=== PATIENT | female | born 1970 | race Caucasian/White ===

== ENCOUNTER → 2018-06-15 12:51 | Outpatient (CLI) | payer MEDICAID, SELFPAY ==
--- NOTE | 2018-06-15 13:01 | RAD_ITS ---
STUDY: X-RAY - LUMBAR SPINE REASON FOR EXAM: Female, 48 years old. Low back pain TECHNIQUE: 3 view(s) of the lumbar spine were obtained. COMPARISON: None FINDINGS: Normal lumbar lordosis. There is no substantial scoliosis. There is a normal alignment of the vertebrae. Normal vertebral bodies and endplates. Normal disc space heights. The soft tissue structures are unremarkable. RAD/Lumbar Spine 2 or 3 Views IMPRESSION: Normal x-ray examination of the lumbar spine. Electronically Signed: Bolivar Garcia MD at 13:35 EDT , Service support ,
--- NOTE | 2018-06-15 13:01 | RAD_ITS ---
STUDY: X-RAY - CERVICAL SPINE REASON FOR EXAM: Female, 48 years old. Chronic pain TECHNIQUE: 3 view(s) of the cervical spine were obtained. COMPARISON: None FINDINGS: Normal anterior atlantoaxial articulation. Normal odontoid process. There is anatomic alignment of the C-spine from C1 to C4. There is 2 to 3 mm of posterior subluxation of C5 on C4. C5-T1 align anatomically. The subluxation is likely chronic as there is no soft tissue swelling or other evidence of acute injury. There is straightening of the normal cervical lordosis. Normal vertebral bodies and endplates. Mild disc space narrowing. The soft tissue structures are unremarkable. RAD/Cerv Spine 2 or 3 Views IMPRESSION: Mild degenerative changes with a likely chronic subluxation at C4-5, no demonstrated fracture or suspicious osseous lesion Electronically Signed: Bolivar Garcia MD at 13:34 EDT , Service support ,
--- NOTE | 2018-06-15 13:01 | RAD_ITS ---
STUDY: X-RAY - THORACIC SPINE REASON FOR EXAM: Female, 48 years old. Mid back pain TECHNIQUE: 2 view(s) of the thoracic spine were obtained. COMPARISON: None. FINDINGS: Normal kyphosis of the thoracic spine. There is no substantial scoliosis. Normal thoracic vertebrae and endplates. Mild disc space narrowing. The soft tissue structures are unremarkable. RAD/Thoracic Spine 2 Views IMPRESSION: Mild degenerative changes, no demonstrated fracture or suspicious osseous lesion Electronically Signed: Bolivar Garcia MD at 13:35 EDT , Service support ,
== END ==
PROVIDERS: Family Provider Internal Medicine; PCP Internal Medicine; Visit Provider Nurse Practitioner Family
DX: M50.30 Other cervical disc degeneration, unspecified cervical region (principal); M54.9 Dorsalgia, unspecified; G89.29 Other chronic pain
CPT/HCPCS: 72040; 72070; 72100

== ENCOUNTER → 2018-07-12 16:03 | Outpatient (CLI) | payer MEDICAID, SELFPAY | PROVIDERS: Family Provider Internal Medicine; PCP Internal Medicine; Visit Provider Nurse Practitioner Family | DX: M54.12 Radiculopathy, cervical region (principal); M54.2 Cervicalgia; S13.150A Subluxation of C4/C5 cervical vertebrae, initial encounter | CPT/HCPCS: 72141 ==

== ENCOUNTER → 2018-07-13 09:24 | Outpatient (CLI) | payer MEDICAID, SELFPAY ==
[2018-07-13 09:52] LABS: Absolute Lymphocyte Count 3.48 X10^3/ul (0.83-4.51); Absolute Neutrophil Count 5.9 X10^3/uL (2.0-7.7); Basophil# 0.03 X10^3/uL; Basophil% 0.3 % (0-1); Eosinophil# 0.13 X10^3/uL; Eosinophils% 1.3 % (0-5); Hematocrit 42.3 % (37-47); Hemoglobin 14.2 g/dl (12.0-15.0); Lymphocyte # 3.48 X10^3/ul (4.0); Lymphocyte % 33.9 % (19-41); Mean Corp Hgb Conc 33.6 g/gl (32-36); Mean Corpuscular Hgb 30.6 pg (27.0-32.0); Mean Corpuscular Volume 91.2 fL (81-99); Mean Platelet Vol. 9.6 fl (6.2-12.0); Monocyte# 0.73 X10^3/uL; Monocyte% 7.1 % (0-10); Neutrophil # 5.85 X10^3/uL (2.7-7.7); Platelet Count 316 K/mm3 (150-450); RBC Distribution Width CV 13.4 % (11.6-14.6); RBC Distribution Width SD 44.8 fl (35.1-43.9); Red Blood Count 4.64 M/mm3 (4.2-5.4); White Blood Count 10.3 K/mm3 (4.4-11.0)
[2018-07-13 09:54] LABS: POSITIVE COUNT NO; POSITIVE DIFFERENTIAL NO; POSITIVE MORPHOLOGY NO
[2018-07-13 10:24] LABS: AST(SGOT) 11 U/L (15-37); Alanine Aminotransfer ALT/SGPT 24 U/L (13-56); Albumin, Serum 3.7 g/dL (3.2-5.0); Alkaline Phosphatase 70 U/L (45-117); Anion Gap 5 (5-15); BUN 19 mg/dL (7-18); BUN/Creat Ratio 24.7 RATIO (10-20); Calcium,Total 8.7 mg/dL (8.5-10.1); Chloride 103 mmol/L (98-107); Cholesterol 177 mg/dL (200); Creatinine, Serum 0.77 mg/dL (0.55-1.02); EST Glomerular Filtration Rate 85 mL/min (>60); Est Glom Filt Rate - Afr Amer 103 mL/min (>60); Globulin 3.7 g/dL (2.2-4.2); Glucose 90 mg/dL (74-106); High Density Lipoprotein 78 mg/dL; Potassium 3.6 mmol/L (3.5-5.1); Protein, Total 7.4 g/dL (6.4-8.2); Sodium Level 140 mmol/L (136-145); Thyroid Stim Hormone (TSH) 1.07 uIU/mL (0.358-3.74); Triglycerides 88 mg/dL; Very Low Density Lipoprotein 18 mg/dL (5-40)
== END ==
PROVIDERS: Family Provider Internal Medicine; PCP Internal Medicine; Visit Provider Internal Medicine
DX: Z00.00 Encounter for general adult medical examination without abnormal findings (principal); K21.9 Gastro-esophageal reflux disease without esophagitis; F32.9 Major depressive disorder, single episode, unspecified
CPT/HCPCS: 36415; 80053; 80061; 84443; 85025; 88175; 97113; G0145

== ENCOUNTER → 2018-07-13 18:13 | Outpatient (CLI) | payer MEDICAID, SELFPAY ==
[2018-07-20 11:09] LABS: HPV APTIMA, High Risk Negative (Negative)
== END ==
PROVIDERS: Family Provider Internal Medicine; PCP Internal Medicine; Visit Provider Nurse Practitioner Women's Health
DX: Z12.4 Encounter for screening for malignant neoplasm of cervix (principal)
CPT/HCPCS: 88175; G0145

== ENCOUNTER → 2018-07-14 13:26 | Outpatient (CLI) | payer MEDICAID, SELFPAY | PROVIDERS: Family Provider Internal Medicine; PCP Internal Medicine; Visit Provider Surgery | DX: K41.90 Unilateral femoral hernia, without obstruction or gangrene, not specified as recurrent (principal) | CPT/HCPCS: 74177; Q9967 ==

== ENCOUNTER 2018-07-18 13:00 | Outpatient (RCR) | payer MEDICAID, SELFPAY ==
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
--- NOTE | 2018-07-18 13:39 | HP.PTDCSUM ---
HP - PT D/C Summary It has been my pleasure to treat JESSICA MCKINNEY under orders from Henrry Gaytan NP-C, for the diagnosis of CHRONIC BACK PAIN,DEGENERATIVE DISC DISEASE for a total of 7 visit(s). Discharge Date: 07/18/18 Please see the following information for a summary of their discharge status. - Subjective Subjective: Patient reports constant pain every day. Symptoms affect ADLS' and housework tasks - Pain Bilateral Back Pain Intensity (Out of 10): 7 Bilateral Neck Pain Intensity (Out of 10): 7 - Overall Improvement % Improvement: 40 - Objective Objective/Function: POSTURE: mild foward posture. GAIT: normal harjit. AROM CERVICAL: min loss,extension mod loss,lateral flexion/rotation mod-pain,left min loss. AROM LUMBAR: min loss flexion/exrension. MMT: 4-/5 quads/hams /hip, ankle 4/5. BUE: 4/5,shoulder 4-5/ - Goals Goal 1:: Independant with Aquatic PT Goal Progress: Progressing Goal 2:: Independant with posture for ADL'S Goal Progress: Progressing Goal 3:: Patient decrease pain cervical and radicular symotoms and lumbar region to improve function with ADL'S Goal Progress: Progressing Goal 4:: Patient to improve cervical and lumbar ROM for function of recovery. Goal Progress: Progressing Goal 5:: Patient increase strength BUE/LE by 1/2 grade to improve function. Goal Progress: Progressing Goal 6:: Patient be able to perform ADL'S and housework tasks with min limiations Goal Progress: Progressing - Plan Plan: D/C RTD - D/C Information Discharge Comments: RTD If there are questions or concerns regarding this patient's physical therapy, please feel free to call me at [phone]. Thank you for the referral of this patient. Sincerely, Mansoor Lambert, PT,
== END 2018-07-18 19:00 | disposition home or self-care (01) ==
LOC: PT 13:00
PROVIDERS: Family Provider Internal Medicine; PCP Internal Medicine; Visit Provider Nurse Practitioner Family
DX: M50.30 Other cervical disc degeneration, unspecified cervical region (principal); M54.9 Dorsalgia, unspecified; G89.29 Other chronic pain
CPT/HCPCS: 97113; 97162; 97530

== ENCOUNTER → 2018-07-20 10:55 | Outpatient (CLI) | payer MEDICAID, SELFPAY | PROVIDERS: Family Provider Internal Medicine; PCP Internal Medicine; Visit Provider Surgery | DX: R22.1 Localized swelling, mass and lump, neck (principal) | CPT/HCPCS: 76536 ==

== ENCOUNTER → 2018-08-10 10:00 | Outpatient (CLI) | payer MEDICAID, SELFPAY ==
--- NOTE | 2018-08-10 10:00 | LES_PTH ---
PATIENT: JESSICA MCKINNEY LOC: [facility] U#:[id number] AGE/SX: 55/F ROOM: RE08/10/[address]: Dr. Rian Zuluaga MD : 1970 BED: DIS: SPEC #: [id number] RECD: 08/10/18 12:08 STATUS: SANTHOSH [place] #: [id number] ROGERS: 08/10/18 10:[address]: Rian Zuluaga DEPT: SURGICAL PATHOLOGY RECD BY: Jennifer Trejo ENTERED: 08/10/18 15:03 SP TYPE: Lesion OTHR DR: Dr. Ginger Tripp MD Tissues: Skin of neck, NOS Procedures: Surgery Specimen Level III HEADER OPERATION: Excision of left posterior neck subcutaneous lesion PRE-OP DIAGNOSIS: Lesion of subcutaneous tissue TISSUE SUBMITTED: Left posterior neck subcutaneous lesion MICROSCOPIC DIAGNOSIS Left posterior neck subcutaneous lesion, excision: Fragments of mature adipose tissue consistent with lipoma. SJ:mitchel 08/11/18 MICROSCOPIC DESCRIPTION Slides are reviewed. GROSS DESCRIPTION Received in fixative is one container labeled with the patient's name and designated left posterior neck. The specimen consists of multiple irregular fragments of yellow adipose tissue that in aggregate measure 2 x 2 x 0.7 cm. Sections of the largest piece reveal yellow adipose cut surfaces without area of hemorrhage, necrosis and cystic degeneration. The entire specimen is submitted in one cassette. / ALY:mitchel 08/10/18 TC:1 CPT: 55175
== END ==
PROVIDERS: Family Provider Internal Medicine; PCP Internal Medicine; Visit Provider Surgery
DX: L98.9 Disorder of the skin and subcutaneous tissue, unspecified (principal)
CPT/HCPCS: 88304; 88305

== ENCOUNTER 2018-08-17 19:31 | Emergency (ER) | payer MEDICAID, SELFPAY ==
[2018-08-17 19:32] VITALS: BP 154/84; PULSE 69; RESP 18; TEMP 37; O2SAT 97; BMI 31.9
--- NOTE | 2018-08-17 20:43 | ED.DCSUM_ITS ---
- ER Visit Summary Date of Service: 08/17/18 Chief Complaint: Vomiting History of Present Illness: The patient is a 48 F who presents for vomiting since yesterday. Patient had a colonoscopy yesterday, and when she woke up from the anesthesia she began vomiting. She vomited 3 times prior to discharge from the procedure. She has been vomiting ever since. She has not even been able to tolerate water. She has nausea just preceding her vomiting. She has had no diarrhea. Decreased urine output. No fever, chest pain or shortness of breath. No abdominal pain. One polyp was resected. History of GERD, peptic ulcer disease, hernia. Physical Examination: Vital signs: afebrile, hemodynamically stable, no hypoxia on room air General: well nourished, well developed, in no distress Skin: warm, dry, no rash, no pallor HEENT: normocephalic and atraumatic; PERRL, EOMI, moist mucous membranes Cardiovascular: regular rate and rhythm without murmurs, no peripheral edema, 2+ pulses all distal extremities Respiratory: No increased work of breathing, lungs are clear to auscultation b ilaterally, no rales, rhonchi or wheezing Abdominal: Abdomen is soft, nontender with normoactive bowel sounds, no guarding or rebound, no masses MSK: Moves all extremities, no deformities, normal strength Neuro: Awake and alert, oriented ?4. No facial droop, sensation and motor function intact and symmetric Test Results: Abnormal Lab Results 08/17/18 08/17/18 08/17/18 20:45 20:45 20:45 WBC 15.6 H RBC 4.40 Hgb 13.2 Hct 39.7 MCV 90.2 MCH 30.0 MCHC 33.2 RDW 14.8 H RDW Differential 48.1 H Plt Count 276 MPV 9.6 Immature Gran % (Auto) 0.100 Neut % (Auto) 86.9 H Lymph % (Auto) 11.0 L Carver % (Auto) 1.9 Eos % (Auto) 0.0 Baso % (Auto) 0.1 Absolute Neuts (auto) 13.6 H Absolute Lymphs (auto) 1.72 Total Counted Not Reportable Sodium 138 Potassium 2.8 L Chloride 99 Carbon Dioxide 30.0 Anion Gap 9 BUN 14 Creatinine 0.75 Estim Creat Clear Calc 81.65 Est GFR (MDRD) Af Amer 105 Est GFR (MDRD) Non-Af 87 BUN/Creatinine Ratio 18.6 Glucose 129 H Calcium 9.1 Magnesium 2.1 Total Bilirubin 0.50 AST 13 L ALT 26 Alkaline Phosphatase 67 Total Protein 7.3 Albumin 3.7 Globulin 3.6 Albumin/Globulin Ratio 1.0 Lipase 188 Medications Given Discontinued Medications Sodium Chloride () 1,000 mls @ 1,000 mls/hr IV .Q1H ONE Stop: 08/17/18 21:37 Last Admin: 08/17/18 20:59 Dose: 1,000 mls/hr Potassium Chloride (Kcl 10meq/100ml) 10 meq in 100 mls @ 100 mls/hr IV BOLUS Q1H EREN Stop: 08/17/18 23:29 Last Admin: 08/17/18 22:44 Dose: 100 mls/hr Admin: 08/17/18 21:42 Dose: 100 mls/hr Morphine Sulfate () 4 mg IV X1 ONE Stop: 08/17/18 20:39 Last Admin: 08/17/18 21:00 Dose: 4 mg Ondansetron HCl (Zofran) 4 mg IV X1 ONE Stop: 08/17/18 20:39 Last Admin: 08/17/18 20:59 Dose: 4 mg Emergency Department Course and Treatment: Patient was given IV fluids and Zofran for symptomatic relief. Given the recent bowel prep and colonoscopy, now with vomiting for a couple days, labs were performed to look for electrolyte derangements. Patient had no hepatic derangements. Lipase normal. She was hypokalemic at 2.9. Patient had a leukocytosis which is likely secondary to the marginalization from the vomiting. She had no signs of infection. Patient was given IV potassium in addition to her IV fluids. After fluids and repletion of potassium, patient failed felt much better and had no nausea. No further episodes of vomiting. She tolerated a p.o. challenge. She was discharged home in improved condition with a prescription for Zofran and 1 week of potassium supplements. Treatment Plan: [] Disposition: [] Impression: Vomiting, hypokalemia This note was generated with [employer] dictation software. It may contain incorrect words, spelling, and punctuation that were not noted in review of the chart prior to signing ED Disposition - Plan for ED Patient: Disposition: Home or Assisted Living Chief Complaint: Nausea/Vomiting Instructions: ED Potassium Deficiency, ED Nausea Vomiting Prescriptions: Ondansetron [Zofran Odt] 4 mg PO Q8H PRN PRN #10 tab PRN Reason: Nausea Potassium Chloride [K-Dur] 20 meq PO BID #14 tab Referrals: Ginger Tripp MD [Primary Care Provider] - 3-5 Days if not improving Additional Instructions: Your potassium was low today. Take the potassium supplement as prescribed for 1 week. Use Zofran as needed for nausea. Drink Gatorade or Powerade until you are able to tolerate solid foods again. If you have any worsening of your condition or any new concerning symptoms, please return immediately to the emergency department for another evaluation.
[2018-08-17 20:53] LABS: Absolute Lymphocyte Count 1.72 X10^3/ul (0.83-4.51); Absolute Neutrophil Count 13.6 X10^3/uL (2.0-7.7); Basophil# 0.01 X10^3/uL; Basophil% 0.1 % (0-1); Hematocrit 39.7 % (37-47); Hemoglobin 13.2 g/dl (12.0-15.0); Lymphocyte # 1.72 X10^3/ul (4.0); Mean Corp Hgb Conc 33.2 g/gl (32-36); Mean Corpuscular Volume 90.2 fL (81-99); Mean Platelet Vol. 9.6 fl (6.2-12.0); Monocyte# 0.29 X10^3/uL; Monocyte% 1.9 % (0-10); Neutrophil # 13.57 X10^3/uL (2.7-7.7); Neutrophil % 86.9 % (47-70); Platelet Count 276 K/mm3 (150-450); RBC Distribution Width CV 14.8 % (11.6-14.6); RBC Distribution Width SD 48.1 fl (35.1-43.9); White Blood Count 15.6 K/mm3 (4.4-11.0)
[2018-08-17 20:59] LABS: POSITIVE COUNT NO; POSITIVE DIFFERENTIAL NO; POSITIVE MORPHOLOGY NO
[2018-08-17] MEDS: 0.9% Normal Saline 1,000 ML 1000 ML IV (20:59)
[2018-08-17] MEDS: Ondansetron 4 MG/2 ML Vial IV (20:59)
[2018-08-17] MEDS: Morphine 4 MG/ML Syringe IV (21:00)
[2018-08-17 21:12] LABS: AST(SGOT) 13 U/L (15-37); Alanine Aminotransfer ALT/SGPT 26 U/L (13-56); Albumin, Serum 3.7 g/dL (3.2-5.0); Alkaline Phosphatase 67 U/L (45-117); Anion Gap 9 (5-15); BUN 14 mg/dL (7-18); BUN/Creat Ratio 18.6 RATIO (10-20); Calcium,Total 9.1 mg/dL (8.5-10.1); Chloride 99 mmol/L (98-107); Creatinine, Serum 0.75 mg/dL (0.55-1.02); EST Glomerular Filtration Rate 87 mL/min (>60); Est Glom Filt Rate - Afr Amer 105 mL/min (>60); Estimated Creatinine Clearance 81.65 ml/min; Globulin 3.6 g/dL (2.2-4.2); Glucose 129 mg/dL (74-106); Lipase 188 U/L (73-393); Potassium 2.8 mmol/L (3.5-5.1); Protein, Total 7.3 g/dL (6.4-8.2); Sodium Level 138 mmol/L (136-145)
[2018-08-17 21:56] LABS: Magnesium 2.1 mg/dL (1.6-2.6)
[2018-08-17 23:24] VITALS: RESP 16
--- NOTE | 2018-08-17 23:43 | ED.DEP ---
ED Disposition - Plan for ED Patient: Disposition: Home or Assisted Living Chief Complaint: Nausea/Vomiting Instructions: ED Nausea Vomiting, ED Potassium Deficiency Prescriptions: Ondansetron [Zofran Odt] 4 mg PO Q8H PRN PRN #10 tab PRN Reason: Nausea Potassium Chloride [K-Dur] 20 meq PO BID #14 tab Referrals: Ginger Tripp MD [Primary Care Provider] - 3-5 Days if not improving Additional Instructions: Your potassium was low today. Take the potassium supplement as prescribed for 1 week. Use Zofran as needed for nausea. Drink Gatorade or Powerade until you are able to tolerate solid foods again. If you have any worsening of your condition or any new concerning symptoms, please return immediately to the emergency department for another evaluation.
[2018-08-17 23:54] VITALS: BP 165/90; PULSE 75; RESP 18; O2SAT 100
== END 2018-08-17 23:55 | disposition home or self-care (01) ==
PROVIDERS: Emergency Provider Emergency Medicine; Family Provider Internal Medicine; PCP Internal Medicine
DX: R11.10 Vomiting, unspecified (principal); E87.6 Hypokalemia; K21.9 Gastro-esophageal reflux disease without esophagitis; Z87.11 Personal history of peptic ulcer disease
CPT/HCPCS: 80053; 83690; 83735; 85025; 96361; 96365; 96366; 96375; 99284; J7030; A4216; J2405

== ENCOUNTER → 2018-08-22 12:01 | Outpatient (CLI) | payer MEDICAID, SELFPAY ==
--- NOTE | 2018-08-22 12:02 | BI_ITS ---
MAMMOGRAPHY - BILATERAL SCREENING REASON FOR EXAM: Female, 48 years old. Routine annual screening examination. PERTINENT HISTORY: Aunt with breast cancer. TECHNIQUE: Digital bilateral breast alexis (3D mammographic acquisition) in the CC and MLO projections. 2-D mediolateral oblique (MLO) and craniocaudad (CC) views of both breasts were obtained. CAD: Full Field Digital Mammography with Computer Added Detection was performed. COMPARISON: No comparison mammograms available at this time. If any prior films become available, an addendum to this report can be generated. FINDINGS: Breast Composition: The breasts are heterogeneously dense, which may obscure small masses. There are no dominant masses or suspicious calcifications. No other significant abnormalities are identified. BI/SCREENING MAMM (CAD), BILAT IMPRESSION: Negative screening mammogram. Yearly followup mammogram recommended. (A) ASSESSMENT CATEGORY: BIRADS Category 1: Negative. A letter regarding these results will be sent to the patient by the facility within 30 days. Approximately 10% of breast cancers are not detected by mammography. A normal mammogram should not delay biopsy of a clinically suspicious abnormality. [id number] Electronically Signed: Fabrice Solis MD at 9:48 EDT Tel [phone], Service support ,
== END ==
PROVIDERS: Family Provider Internal Medicine; PCP Internal Medicine; Visit Provider Nurse Practitioner Women's Health
DX: Z12.31 Encounter for screening mammogram for malignant neoplasm of breast (principal)
CPT/HCPCS: 77063; 77067

== ENCOUNTER 2018-09-30 18:45 | Emergency (ER) | payer MEDICAID, SELFPAY ==
[2018-09-30 18:45] VITALS: BP 161/101; PULSE 65; RESP 18; TEMP 36.2; O2SAT 99; BMI 32.8
--- NOTE | 2018-09-30 19:55 | EKG12_ITS ---
Test Reason : NAUSEA/VOMIT Blood Pressure : / mmHG Vent. Rate : 060 BPM Atrial Rate : 060 BPM P-R Int : 148 ms QRS Dur : 086 ms QT Int : 506 ms P-R-T Axes : 032 020 018 degrees QTc Int : 506 ms Sinus rhythm with marked sinus arrhythmia Prolonged QT Abnormal ECG Confirmed by CAROLE XIE, STEVEN ([id number]), fashion editor HOLLY SULLIVAN ([id number]) on 10/04/2018 3:48:47 PM Referred By: DR BAEZ Confirmed By:STEVEN LAM MD
--- NOTE | 2018-09-30 19:56 | CT_ITS ---
STUDY: CT ABDOMEN WITH CONTRAST REASON FOR EXAM: Female, 48 years old. Nausea vomiting diarrhea. Elevated white count. RADIATION DOSAGE (If Supplied By Facility): CTDIvol = ( 16.96 ) mGy, DLP = ( 1258.67 ) mGycm TECHNIQUE: Transaxial images were obtained post I.V. administration of 100 ml of Isovue 300 contrast, and with oral contrast. Sagittal and coronal images were reconstructed. Individualized dose optimization techniques were used for this CT. COMPARISON: 07/14/2018. FINDINGS: The visualized lung bases are unremarkable. The visualized portions of the heart are within normal limits. There is a small hiatal hernia. Normal liver. Normal gallbladder and extrahepatic biliary system. Normal spleen. Normal pancreas. The kidneys are normal. No stones or hydronephrosis. Normal right adrenal gland. There is a 1.3 cm left adrenal nodule with CT density of 65-70 Hounsfield units. This is nonspecific. There is no change in size compared to the prior study. The aorta is normal in caliber. There is no bowel obstruction. The colon is not distended. However, there is mild wall thickening of the colon from the cecum to the sigmoid colon, suspicious with infectious or inflammatory colitis. The appendix is normal. Mild diverticulosis is noted, with no evidence of acute diverticulitis. The bladder is unremarkable. Uterus and adnexa are unremarkable. Normal abdominal wall. Normal osseous structures. CT/Abdomen/Pelvis WITH Contrast IMPRESSION: 1. Findings are suspicious for extensive infectious or inflammatory colitis, including Crohn's disease or C. difficile. 2. Stable left adrenal nodule. 3. Small hiatal hernia. Electronically Signed: Karyna Garcia MD at 22:56 EST Tel , Service support ,
[2018-09-30 20:12] LABS: Absolute Lymphocyte Count 1.05 X10^3/ul (0.83-4.51); Absolute Neutrophil Count 14.2 X10^3/uL (2.0-7.7); Basophil# 0.01 X10^3/uL; Basophil% 0.1 % (0-1); Hematocrit 42.2 % (37-47); Hemoglobin 13.9 g/dl (12.0-15.0); Lymphocyte # 1.05 X10^3/ul (4.0); Lymphocyte % 6.7 % (19-41); Mean Corp Hgb Conc 32.9 g/gl (32-36); Mean Corpuscular Hgb 30.1 pg (27.0-32.0); Mean Corpuscular Volume 91.3 fL (81-99); Mean Platelet Vol. 9.8 fl (6.2-12.0); Monocyte# 0.47 X10^3/uL; Neutrophil # 14.16 X10^3/uL (2.7-7.7); Neutrophil % 89.9 % (47-70); Platelet Count 352 K/mm3 (150-450); RBC Distribution Width CV 13.8 % (11.6-14.6); RBC Distribution Width SD 45.6 fl (35.1-43.9); Red Blood Count 4.62 M/mm3 (4.2-5.4); White Blood Count 15.7 K/mm3 (4.4-11.0)
[2018-09-30] MEDS: Morphine 4 MG/ML Syringe IV (20:12)
[2018-09-30] MEDS: Ondansetron 4 MG/2 ML Vial IV (20:12)
[2018-09-30] MEDS: 0.9% Normal Saline 1,000 ML 1000 ML IV (20:12)
[2018-09-30 20:15] LABS: POSITIVE COUNT NO; POSITIVE DIFFERENTIAL NO; POSITIVE MORPHOLOGY NO
--- NOTE | 2018-09-30 20:15 | RAD_ITS ---
STUDY: X-RAY CHEST REASON FOR EXAM: Female, 48 years old. SOB, nausea vomiting. TECHNIQUE: Portable chest. COMPARISON: None. FINDINGS: The lungs are clear and expanded. There is no demonstrated pleural abnormality. Normal size heart. Normal mediastinum and enio. Normal visualized pulmonary arteries. Normal visualized aortic arch and descending thoracic aorta. Normal visualized thoracic spine. Normal visualized ribs, clavicles, and shoulders. There is no demonstrated abnormality of the visualized soft tissue structures of the upper abdomen. RAD/Chest 1 View (Portable) IMPRESSION: Normal x-ray examination of the chest. Electronically Signed: Karyna Garcia MD at 20:36 EST Tel , Service support ,
--- NOTE | 2018-09-30 20:19 | ED.DCSUM_ITS ---
- ER Visit Summary Date of Service: 09/30/18 Chief Complaint: Vomiting History of Present Illness: The patient is a 48 F presenting with vomiting. She states it started today. She has had several episodes of vomiting. She denies diarrhea or constipation. Denies blood in her emesis. Denies sick contacts. Denies possible bad food exposure. She has mild diffuse abdominal cramping. Denies fever. Denies other complaints. Physical Examination: Vitals are stable. Patient is afebrile. Alert no acute distress. HEENT exam is unremarkable. Neck is supple. Lungs are clear and equal bilaterally. Heart is regular rate and rhythm. Abdomen is soft epigastric and right lower quadrant tenderness with no rebound or guarding Extremities are unremarkable. Skin is warm and dry. No focal neurologic deficit. Remainder of exam is unremarkable. Emergency Department Course and Treatment: She is given IV fluids, morphine, Zofran. EKG is sinus arrhythmia rate of 60. CBC showed white count of 15.7. Chemistries show potassium 3.2, glucose 181. She was given potassium oral replacement. Lipase is normal. Urinalysis shows ketones. Troponin is negative. Chest x-ray shows no acute process. CT abdomen pelvis shows findings are suspicious for extensive infectious or inflammatory colitis, including Crohn's disease or C. difficile. Stable left adrenal nodule. Small hiatal hernia. She has no diarrhea. Patient states she had a colonoscopy performed at [facility] 3 weeks ago. At that time she was diagnosed with colitis. She was not started on any medications. She was referred to [facility] for a defecogram. She states she missed this appointment. She is now feeling improved, her vomiting has resolved. She is able to tolerate p.o. She will follow-up with her GI physician. She is advised to return to ED for any worseni ng complaints. Disposition: Discharge home Impression: Colitis, vomiting This note was generated with [employer] dictation software. It may contain incorrect words, spelling, and punctuation that were not noted in review of the chart prior to signing ED Disposition - Plan for ED Patient: Chief Complaint: Nausea/Vomiting/Diarrhea Instructions: ED Diet Vomiting Diarrhea Prescriptions: proMETHazine tablet [Phenergan] 25 mg PO Q6H PRN PRN #10 tablet PRN Reason: Nausea Referrals: Ginger Tripp MD [Primary Care Provider] -
[2018-09-30 20:34] LABS: ALB/GLOB Ratio 0.9 RATIO (0.9-2.4); AST(SGOT) 17 U/L (15-37); Alanine Aminotransfer ALT/SGPT 32 U/L (13-56); Albumin, Serum 3.9 g/dL (3.2-5.0); Alkaline Phosphatase 87 U/L (45-117); Anion Gap 13 (5-15); BUN 16 mg/dL (7-18); BUN/Creat Ratio 21.1 RATIO (10-20); Calcium,Total 9.3 mg/dL (8.5-10.1); Chloride 106 mmol/L (98-107); Creatinine, Serum 0.76 mg/dL (0.55-1.02); EST Glomerular Filtration Rate 86 mL/min (>60); Est Glom Filt Rate - Afr Amer 104 mL/min (>60); Estimated Creatinine Clearance 80.57 ml/min; Globulin 4.2 g/dL (2.2-4.2); Glucose 181 mg/dL (74-106); Lipase 53 U/L (73-393); Potassium 3.2 mmol/L (3.5-5.1); Protein, Total 8.1 g/dL (6.4-8.2); Sodium Level 140 mmol/L (136-145)
[2018-09-30 21:01] LABS: Mucous, Urine 0 SEEN /hpf (<or=2+); Red Blood Cells-Urine 0 SEEN /hpf (0-5)
[2018-09-30 21:03] LABS: Glucose, Dipstick 250 mg/dl (Normal); Leukocyte Esterase-Dipstick Negative /ul (Negative); Nitrite-Dipstick Negative (Negative); Occult Blood-Urine 10 /ul (Negative); Protein-Dipstick Negative (Negative); Specific Gravity, Urine 1.015 (1.002-1.030); Urine Bilirubin Dipstick Negative (Negative); Urine Urobilinogen Normal (Normal)
[2018-09-30] MEDS: proMETHazine 25 MG/ML Syringe 6.25 MG IV (21:13)
[2018-09-30 21:14] LABS: Color, Urine Yellow (Yellow); Urine Clarity Clear (Clear)
[2018-09-30 21:15] LABS: Ketone-Dipstick 150 mg/dl (Negative)
[2018-09-30 21:20] VITALS: BP 171/67; PULSE 60; RESP 16; O2SAT 96
[2018-09-30 21:20] LABS: Squamous Epithelial Cells - UA 0-5 SEEN /hpf (5-10)
[2018-09-30 21:21] LABS: Bacteria RARE /hpf (None Seen)
[2018-09-30 21:23] LABS: White Blood Cells 0-5 SEEN /hpf (0-5)
[2018-10-01 00:10] VITALS: BP 185/107; PULSE 70; RESP 16; O2SAT 100
--- NOTE | 2018-10-01 00:26 | ED.DEP ---
ED Disposition - Plan for ED Patient: Chief Complaint: Nausea/Vomiting/Diarrhea Instructions: ED Diet Vomiting Diarrhea Prescriptions: proMETHazine tablet [Phenergan] 25 mg PO Q6H PRN PRN #10 tablet PRN Reason: Nausea Referrals: Ginger Tripp MD [Primary Care Provider] -
[2018-10-01] MEDS: proMETHazine 25 MG/ML Syringe 6.25 MG IV (00:36)
[2018-10-01 00:38] VITALS: BP 169/90; PULSE 66; RESP 15; O2SAT 98
== END 2018-10-01 00:55 | disposition home or self-care (01) ==
PROVIDERS: Emergency Provider Emergency Medicine; Family Provider Internal Medicine; PCP Internal Medicine
DX: K52.9 Noninfective gastroenteritis and colitis, unspecified (principal); R11.2 Nausea with vomiting, unspecified; K44.9 Diaphragmatic hernia without obstruction or gangrene; I10 Essential (primary) hypertension; K21.9 Gastro-esophageal reflux disease without esophagitis; F32.9 Major depressive disorder, single episode, unspecified; Z72.0 Tobacco use
CPT/HCPCS: 71045; 74177; 80053; 81001; 83690; 84484; 85025; 93005; 96361; 96374; 96375; 96376; 99285; J7030; Q9967; A4216; J2405

== ENCOUNTER → 2018-11-10 09:15 | Outpatient (CLI) | payer MEDICAID, SELFPAY ==
[2018-11-03 14:29] VITALS: BMI 32.9
--- NOTE | 2018-11-10 10:51 | EKG12_ITS ---
Test Reason : ROUTINE Blood Pressure : / mmHG Vent. Rate : 081 BPM Atrial Rate : 081 BPM P-R Int : 152 ms QRS Dur : 078 ms QT Int : 388 ms P-R-T Axes : 040 027 048 degrees QTc Int : 450 ms Normal sinus rhythm with sinus arrhythmia Normal ECG Confirmed by CAROLE XIE, STEVEN ([id number]), telegraph editor HOLLY SULLIVAN ([id number]) on 11/11/2018 1:16:16 PM Referred By: Ginger Tripp Confirmed By:STEVEN LAM MD
[2018-11-10 12:09] LABS: BUN 13 mg/dL (7-18); Creatinine, Serum 0.78 mg/dL (0.55-1.02); Glucose 106 mg/dL (74-106)
[2018-11-10 12:10] LABS: Anion Gap 7 (5-15); BUN/Creat Ratio 16.6 RATIO (10-20); Calcium,Total 9.2 mg/dL (8.5-10.1); Chloride 103 mmol/L (98-107); EST Glomerular Filtration Rate 83 mL/min (>60); Est Glom Filt Rate - Afr Amer 100 mL/min (>60); Magnesium 2.2 mg/dL (1.6-2.6); Potassium 3.8 mmol/L (3.5-5.1); Sodium Level 140 mmol/L (136-145)
== END ==
PROVIDERS: Family Provider Internal Medicine; PCP Internal Medicine; Referring Provider Internal Medicine; Visit Provider Internal Medicine
DX: I49.8 Other specified cardiac arrhythmias (principal); E87.6 Hypokalemia
CPT/HCPCS: 36415; 80048; 83735; 93005

== ENCOUNTER 2018-12-02 21:17 | Emergency (ER) | payer MEDICAID, SELFPAY ==
[2018-11-03 14:29] VITALS: BMI 32.9
[2018-12-02 21:18] VITALS: BP 144/104; PULSE 85; RESP 15; TEMP 36.4; BMI 34.0
--- NOTE | 2018-12-02 21:45 | ED.DCSUM_ITS ---
- ER Visit Summary Date of Service: 12/02/18 Chief Complaint: I am so sick History of Present Illness: The patient is a 48 F who states that she is very sick. Her symptoms only started this morning. She has multiple complaints including low back pain, urinary frequency, nausea and vomiting. She states that she has frequency of urine but only urinates a small amount each time. She has a history of pyelonephritis. She also has a history of hypokalemia. She denies dysuria. No fevers. She has vomited multiple times at home. Physical Examination: Vital signs reviewed. HEENT exam unremarkable. Heart is regular rate and rhythm without murmurs. Lungs are clear to auscultation. Abdomen is soft with suprapubic tenderness to palpation. No guarding or rebound tenderness. She has right lumbar paraspinal tenderness to palpation. Extremities reveal no edema. Skin exam normal. Neurologic exam normal. Test Results: White blood cell count 19.6, potassium 3.1. Urinalysis reveals trace leukocytes and 0-5 white blood cells Emergency Department Course and Treatment: Patient was given normal saline, Zofran and Toradol. She feels better after this. I will replace her potassium orally. I will put her on a couple of days of Keflex due to her symptoms. Her white blood cell count is chronically high so this is not concerning to me. I do not feel she requires any imaging at this time. Treatment Plan: [] Disposition: Discharge Impression: UTI, hypokalemia This note was generated with [employer] dictation software. It may contain incorrect words, spelling, and punctuation that were not noted in review of the chart prior to signing ED Disposition - Plan for ED Patient: Chief Complaint: General Illness Referrals: Ginger Tripp MD [Primary Care Provider] -
[2018-12-02] MEDS: Ondansetron 4 MG/2 ML Vial IV (21:55)
[2018-12-02] MEDS: 0.9% Normal Saline 1,000 ML 999 ML IV (21:55)
[2018-12-02 22:02] LABS: Bacteria 0 SEEN /hpf (None Seen); Mucous, Urine 0 SEEN /hpf (<or=2+)
[2018-12-02] MEDS: Ketorolac 30 MG/ML Syringe IV (22:03)
[2018-12-02 22:09] LABS: Absolute Neutrophil Count 18.1 X10^3/uL (2.0-7.7); Basophil# 0.01 X10^3/uL; Basophil% 0.1 % (0-1); Hematocrit 42.8 % (37-47); Hemoglobin 14.3 g/dl (12.0-15.0); Lymphocyte % 4.6 % (19-41); Mean Corp Hgb Conc 33.4 g/gl (32-36); Mean Corpuscular Hgb 29.7 pg (27.0-32.0); Mean Corpuscular Volume 88.8 fL (81-99); Monocyte# 0.49 X10^3/uL; Monocyte% 2.5 % (0-10); Neutrophil # 18.13 X10^3/uL (2.7-7.7); Neutrophil % 92.4 % (47-70); Platelet Count 331 K/mm3 (150-450); RBC Distribution Width CV 14.1 % (11.6-14.6); RBC Distribution Width SD 45.8 fl (35.1-43.9); Red Blood Count 4.82 M/mm3 (4.2-5.4); White Blood Count 19.6 K/mm3 (4.4-11.0)
[2018-12-02 22:11] LABS: Color, Urine Yellow (Yellow); Glucose, Dipstick 100 mg/dl (Normal); Leukocyte Esterase-Dipstick 25 /ul (Negative); Nitrite-Dipstick Negative (Negative); Occult Blood-Urine 25 /ul (Negative); Protein-Dipstick 30 mg/dl (Negative); Urine Bilirubin Dipstick Negative (Negative); Urine Clarity Clear (Clear); Urine Urobilinogen Normal (Normal)
[2018-12-02 22:12] LABS: POSITIVE COUNT NO; POSITIVE DIFFERENTIAL NO; POSITIVE MORPHOLOGY NO
[2018-12-02 22:12] LABS: Ketone-Dipstick 150 mg/dl (Negative)
[2018-12-02 22:16] LABS: Red Blood Cells-Urine 0-5 SEEN /hpf (0-5); Squamous Epithelial Cells - UA 5-10 SEEN /hpf (5-10); White Blood Cells 0-5 SEEN /hpf (0-5)
[2018-12-02 23:06] LABS: Anion Gap 12 (5-15); BUN 13 mg/dL (7-18); BUN/Creat Ratio 18.8 RATIO (10-20); Calcium,Total 8.4 mg/dL (8.5-10.1); Chloride 109 mmol/L (98-107); Creatinine, Serum 0.69 mg/dL (0.55-1.02); EST Glomerular Filtration Rate 96 mL/min (>60); Est Glom Filt Rate - Afr Amer 116 mL/min (>60); Estimated Creatinine Clearance 85.17 ml/min; Glucose 162 mg/dL (74-106); Potassium 3.1 mmol/L (3.5-5.1); Sodium Level 141 mmol/L (136-145)
--- NOTE | 2018-12-02 23:10 | ED.DEP ---
ED Disposition - Plan for ED Patient: Disposition: Home or Assisted Living Chief Complaint: General Illness Instructions: ED UTI Cystitis Female Prescriptions: Ondansetron [Zofran Odt] 4 mg PO Q8H PRN PRN #10 tab PRN Reason: Nausea Cephalexin [Keflex] 500 mg PO Q12 #10 cap Naproxen [Naprosyn] 500 mg PO BID PRN #20 tab Referrals: Ginger Tripp MD [Primary Care Provider] -
[2018-12-02] MEDS: Cephalexin 250 MG Capsule 500 MG PO (23:18)
[2018-12-02 23:22] VITALS: BP 149/87; PULSE 73; RESP 18; O2SAT 100
== END 2018-12-02 23:23 | disposition home or self-care (01) ==
PROVIDERS: Emergency Provider Emergency Medicine; Family Provider Internal Medicine; PCP Internal Medicine
DX: N39.0 Urinary tract infection, site not specified (principal); E87.6 Hypokalemia; I10 Essential (primary) hypertension; K21.9 Gastro-esophageal reflux disease without esophagitis; Z72.0 Tobacco use
CPT/HCPCS: 36415; 80048; 81001; 85025; 96361; 96374; 96375; 99285; J7030; A4216; J2405

== ENCOUNTER 2018-12-11 12:39 | Emergency (ER) | payer MEDICAID, SELFPAY ==
[2018-12-11 12:40] VITALS: BP 121/85; PULSE 112; RESP 14; TEMP 36.6; O2SAT 99; BMI 33.5
--- NOTE | 2018-12-11 13:10 | CT_ITS ---
STUDY: CT ABDOMEN AND PELVIS WITHOUT CONTRAST REASON FOR EXAM: Female, 48 years old. Feels like a foreign body in the back of her throat, vomiting, recent flu RADIATION DOSAGE (If Supplied By Facility): CTDIvol = ( 22.15 ) mGy, DLP = ( 1822.38 ) mGycm TECHNIQUE: Transaxial images were obtained from the dome of the diaphragm to the symphysis pubis without oral contrast, and without intravenous contrast. Sagittal and coronal images were reconstructed. Individualized dose optimization techniques were used for this CT. COMPARISON: 09/30/2018 FINDINGS: The visualized lung bases are unremarkable. The visualized portions of the heart are within normal limits. Normal liver. Normal gallbladder and extrahepatic biliary system. Normal spleen. Normal pancreas. 1.3 cm low to intermediate density nodule of the left adrenal gland is stable. Normal right kidney. Normal left kidney. There is a small hiatal hernia. Normal small intestine. Fat density wall thickening of the right and transverse colon similar since the prior study without pericolonic acute inflammation. Stable appearance since the prior study. The appendix is visualized and appears normal. There is diffuse atherosclerotic calcification of the abdominal aorta, without a demonstrated aneurysm. Normal inferior vena cava. Normal retroperitoneum. Normal urinary bladder. There is a small umbilical hernia containing fat. Normal osseous structures. CT/Abdomen/Pelvis without Cont IMPRESSION: 1. No bowel obstruction or inflammatory process. 2. Fat density wall thickening of the right and transverse colon may represent sequela of inflammatory bowel disease, steroid use, obesity. Stable appearance. 3. Small hiatal hernia. 4. 1.3 cm left adrenal gland nodule is stable, likely representing lipid poor adenoma. Electronically Signed: Jamil March MD at 14:45 EST , Service support ,
--- NOTE | 2018-12-11 13:10 | CT_ITS ---
STUDY: CT CHEST WITHOUT CONTRAST REASON FOR EXAM: Female, 48 years old. Foreign body sensation in the back of her throat, vomiting, recent flu RADIATION DOSAGE (If Supplied By Facility): CTDIvol = ( 22.15 ) mGy, DLP = ( 1822.38 ) mGycm TECHNIQUE: Transaxial imaging was performed without the administration of intravenous contrast material. Multiplanar coronal and sagittal images were reformatted. Individualized dose optimization techniques were used for this CT. COMPARISON: None. FINDINGS: The lungs are normal. There is no demonstrated pleural abnormality. Normal heart and pericardium. Normal mediastinum. Normal hilar regions. Normal unenhanced pulmonary arteries. Normal aorta arch and descending thoracic aorta. Multilevel spondylosis throughout the thoracic spine. Upper abdomen described on abdomen/pelvis CT, performed concurrently. CT/Chest without Contrast IMPRESSION: Normal unenhanced CT Chest examination. Electronically Signed: Jamil March MD at 14:42 EST , Service support ,
[2018-12-11] MEDS: Mag Hydrox/Al Hydrox/Simeth 30 ML UDC PO (13:31)
[2018-12-11] MEDS: 0.9% Normal Saline 1,000 ML 1000 ML IV (13:31)
[2018-12-11 13:33] VITALS: BP 141/93; PULSE 95; RESP 20; O2SAT 96
[2018-12-11 13:42] LABS: Absolute Lymphocyte Count 1.98 X10^3/ul (0.83-4.51); Absolute Neutrophil Count 3.6 X10^3/uL (2.0-7.7); Basophil# 0.04 X10^3/uL; Basophil% 0.7 % (0-1); Eosinophil# 0.11 X10^3/uL; Eosinophils% 1.8 % (0-5); Hemoglobin 13.8 g/dl (12.0-15.0); Lymphocyte # 1.98 X10^3/ul (4.0); Lymphocyte % 32.5 % (19-41); Mean Corp Hgb Conc 32.9 g/gl (32-36); Mean Corpuscular Hgb 29.1 pg (27.0-32.0); Mean Corpuscular Volume 88.4 fL (81-99); Mean Platelet Vol. 9.4 fl (6.2-12.0); Monocyte# 0.35 X10^3/uL; Monocyte% 5.7 % (0-10); Platelet Count 330 K/mm3 (150-450); RBC Distribution Width CV 13.5 % (11.6-14.6); RBC Distribution Width SD 43.2 fl (35.1-43.9); Red Blood Count 4.75 M/mm3 (4.2-5.4); White Blood Count 6.1 K/mm3 (4.4-11.0)
[2018-12-11 13:44] LABS: POSITIVE COUNT NO; POSITIVE DIFFERENTIAL NO; POSITIVE MORPHOLOGY NO
[2018-12-11 13:58] LABS: ALB/GLOB Ratio 0.9 RATIO (0.9-2.4); AST(SGOT) 19 U/L (15-37); Alanine Aminotransfer ALT/SGPT 31 U/L (13-56); Albumin, Serum 3.3 g/dL (3.2-5.0); Alkaline Phosphatase 74 U/L (45-117); Anion Gap 10 (5-15); BUN 11 mg/dL (7-18); BUN/Creat Ratio 16.4 RATIO (10-20); Calcium,Total 8.7 mg/dL (8.5-10.1); Chloride 105 mmol/L (98-107); Creatinine, Serum 0.67 mg/dL (0.55-1.02); EST Glomerular Filtration Rate 99 mL/min (>60); Est Glom Filt Rate - Afr Amer 120 mL/min (>60); Estimated Creatinine Clearance 87.71 ml/min; Globulin 3.5 g/dL (2.2-4.2); Glucose 111 mg/dL (74-106); Lipase 82 U/L (73-393); Potassium 3.4 mmol/L (3.5-5.1); Protein, Total 6.8 g/dL (6.4-8.2); Sodium Level 139 mmol/L (136-145)
[2018-12-11 14:46] VITALS: BP 142/91; PULSE 76; RESP 16; O2SAT 93
--- NOTE | 2018-12-11 15:02 | ED.VISSUMM ---
- ER Visit Summary Date of Service: 12/11/18 Chief Complaint: Concern for foreign body History of Present Illness: The patient is a 48 F presenting for evaluation due to concern for foreign body. Patient reports that about 10 days ago she had a sudden onset of nausea and vomiting and she was seen in the emergency department for this, had a workup, it was shown that she was hypokalemic and she was discharged with a potential UTI. Patient states that since then she has had nothing to eat. She reports that anytime she drinks any liquids she has immediate feeling of severe burning in her epigastrium and chest that radiates all the way through to her back. Patient states that this is been associated with decreased stool production. She denies any presence of fevers. Patient does state that she had an episode of palpitations today which was associated with not taking her blood pressure medications. She denies any dark tarry stools or hematochezia. Patient does endorse that she has a history of a hiatal hernia as well as peptic ulcer disease. Physical Examination: Vital signs within normal limits. Obese female no acute distress. Head normocephalic. No conjunctival pallor or scleral icterus. Moist mucous membranes, no JVD. Heart regular rate and rhythm no murmurs normal S1 and S2, no evidence of rubs. Lungs sounds clear to auscultation bilaterally, no evidence of subcutaneous emphysema of the chest. Abdomen was soft nondistended normal bowel sounds no masses and tender in the epigastrium. Extremities were nontender nonedematous skin was normal color no rash patient was alert and oriented. Test Results: CBC, CMP, lipase remarkable only for mild hypokalemia 3.4. CT imaging of the chest and abdomen shows hiatal hernia but no evidence of mediastinitis, perforation, obstruction of the bowel, or any other acute process. Emergency Department Course and Treatment: Patient presented secondary to severe chest burning with radiation to the back in the setting of forceful vomiting. There was at least some concern for the possibility of mediastinitis versus other pathology, so imaging and lab work were obtained. Patient was given a GI cocktail. Workup was found to be negative. Presentation likely consistent with severe symptoms of peptic ulcer disease versus gastritis. Patient will be discharged with a course of omeprazole and Carafate. Disposition: Discharge Impression: 1. Peptic ulcer disease This note was generated with [employer] software. It may contain incorrect words, spelling, and punctuation that were not noted in review of the chart prior to signing ED Disposition - Plan for ED Patient: Disposition: Home or Assisted Living Chief Complaint: Foreign Body Diagnosis: PUD (peptic ulcer disease) Instructions: ED PUD Prescriptions: Omeprazole 40 mg PO DAILY #30 capsule. Sucralfate [Carafate] 1 gm PO 4X/DAY #120 tab Referrals: Ginger Tripp MD [Primary Care Provider] - 5-7 Days
--- OUTSIDE RECORDS SUMMARY | 2019-02-13 11:24 | XMS RPT_ITS ---
:1970 Author Organization OHIP Support Name Relationship Address Phone LAURA ABBASI Unavailable [address] + [place] [id number] FAYE, BORIS Unavailable [address] + [address] [place] [address] UE Unavailable Unavailable Unavailable FAYE, ORVAN Unavailable [address] + [place] [address] FAYE, BORIS Unavailable [address] + [address] [place] [address] UE Unavailable Unavailable Unavailable FAYE, ORVAN Unavailable [address] + [place] [facility] [place] [address] FAYE, BORIS Unavailable [address] + [address] [place] [address] UE Unavailable Unavailable Unavailable FAYE, ORVAN Unavailable [address] + [place] [facility] [place] [address] FAYE, BORIS Unavailable [address] + [address] [place] [address] UE Unavailable Unavailable Unavailable FAYE, ORVAN Unavailable [address] + [place] [address] FAYE, BORIS Unavailable [address] + [address] [place] [address] UE Unavailable Unavailable Unavailable FAYE, ORVAN Unavailable [address] + [place] [facility] [place] [address] FAYE, BORIS Unavailable [address] + [address] [place] [address] UE Unavailable Unavailable Unavailable FAYE, ORVAN Unavailable [address] + [place] [address] FAYE, BORIS Unavailable [address] + [address] [place] [address] UE Unavailable Unavailable Unavailable FAYE, ORVAN Unavailable [address] + [facility] [place] [address] FAYE, BORIS Unavailable [address] + [place] [address] UE Unavailable Unavailable Unavailable FAYE, ORVAN Unavailable [address] + [facility] [place] [address] FAYE, BORIS Unavailable [address] + [place] [address] UE Unavailable Unavailable Unavailable FAYE, ORVAN Unavailable [address] + [facility] [place] [address] FAYE, BORIS Unavailable [address] + [place] [address] UE Unavailable Unavailable Unavailable FAYE, ORVAN Unavailable [address] + [facility] [place] [address] FAYE, BORIS Unavailable [address] + [place] [address] UE Unavailable Unavailable Unavailable FAYE, ORVAN Unavailable [address] + [facility] [place] [address] FAYE, BORIS Unavailable [address] + [place] [address] UE Unavailable Unavailable Unavailable FAYE, ORVAN Unavailable [address] + [facility] [place] [address] FAYE, BORIS Unavailable [address] + [place] [address] UE Unavailable Unavailable Unavailable FAYE, ORVAN Unavailable [address] + [place] [address] FAYE, BORIS Unavailable [address] + [place] [address] UE Unavailable Unavailable Unavailable FAYE, ORVAN Unavailable [address] + [facility] [place] [address] FAYE, BORIS Unavailable [address] + [place] [address] UE Unavailable Unavailable Unavailable FAYE, ORVAN Unavailable [address] + [place] [address] FAYE, BORIS Unavailable [address] + [place] [address] UE Unavailable Unavailable Unavailable FAYE, ORVAN Unavailable [address] + [place] [address] FAYE, BORIS Unavailable [address] + [place] [address] UE Unavailable Unavailable Unavailable FAYE, ORVAN Unavailable [address] + [facility] [place] [address] FAYE, BORIS Unavailable [address] + [place] [address] UE Unavailable Unavailable Unavailable FAYE, ORVAN Unavailable [address] + [facility] [place] [address] FAYE, BORIS Unavailable [address] + [place] [address] UE Unavailable Unavailable Unavailable FAYE, ORVAN Unavailable [address] + [facility] [place] [place] [address] FAYE, BORIS Unavailable [address] + [place] [address] UE Unavailable Unavailable Unavailable FAYE, ORVAN Unavailable [address] + [facility] [place] [place] [address] FAYE, BORIS Unavailable [address] + [place] [address] UE Unavailable Unavailable Unavailable FAYE, ORVAN Unavailable [address] + [place] [address] FAYE, BORIS Unavailable [address] + [place] [address] UE Unavailable Unavailable Unavailable FAYE, ORVAN Unavailable [address] + [place] [address] FAYE, BORIS Unavailable [address] + [place] [address] UE Unavailable Unavailable Unavailable FAYE, ORVAN Unavailable [address] + [place] [address] FAYE, BORIS Unavailable [address] + [place] [address] UE Unavailable Unavailable Unavailable FAYE, ORVAN Unavailable [address] + [place] [address] UE Unavailable Unavailable Unavailable FAYE, ORVAN Unavailable [address] + [place] [address] FAYE, BORIS Unavailable [address] + [place] [address] UE Unavailable Unavailable Unavailable FAYE, ORVAN Unavailable [address] + [place] [address] FAYE, BORIS Unavailable [address] + [place] [address] UE Unavailable Unavailable Unavailable FAYE, ORVAN Unavailable [address] + [place] [address] UE Unavailable Unavailable Unavailable Care Team Providers Name Role Phone Oleghe, Efewongbe Attending Unavailable Oleghe, Efewongbe Referring Unavailable Oleghe, Efewongbe Attending Unavailable Oleghe, Efewongbe Referring Unavailable Oleghe, Efewongbe Primary Care Unavailable Matt Rivas Attending Unavailable Oleghe, Efewongbe Referring Unavailable Oleghe, Efewongbe Primary Care Unavailable Oleghe, Efewongbe Consulting Unavailable Matt Rivas Attending Unavailable Oleghe, Efewongbe Referring Unavailable Oleghe, Efewongbe Primary Care Unavailable Dionicio Gilbert Attending Unavailable Oleghe, Efewongbe Primary Care Unavailable Nelson Grijalva Attending Unavailable Henrry Gaytan BLOCK BOLTER MULE OPERATOR-C Attending Unavailable Brown, Nathaniel Referring Unavailable Rian Hernandez Attending Unavailable Ricardo, Nathaniel Referring Unavailable Henrry Gaytan BLOCK BOLTER MULE OPERATOR-C Attending Unavailable Henrry Gaytan BLOCK BOLTER MULE OPERATOR-C Referring Unavailable Oleghe, Efewongbe Primary Care Unavailable Henrry Gaytan BLOCK BOLTER MULE OPERATOR-C Attending Unavailable Henrry Gaytan BLOCK BOLTER MULE OPERATOR-C Referring Unavailable Oleghe, Efewongbe Primary Care Unavailable Henrry Gaytan BLOCK BOLTER MULE OPERATOR-C Attending Unavailable Henrry Gaytan BLOCK BOLTER MULE OPERATOR-C Referring Unavailable Oleghe, Efewongbe Primary Care Unavailable Calabrclara, Rian Attending Unavailable Henrry GaytanC Referring Unavailable Oleghe, Efewongbe Primary Care Unavailable Oleghe, Efewongbe Attending Unavailable Nathaniel Silva Referring Unavailable Oleghe, Efewongbe Primary Care Unavailable Oleghe, Efewongbe Attending Unavailable Oleghe, Efewongbe Primary Care Unavailable Leti Tompkins Attending Unavailable Oleghe, Efewongbe Referring Unavailable Oleghe, Efewongbe Primary Care Unavailable Rian Hernandez Attending Unavailable Rian Hernandez Referring Unavailable Oleghe, Efewongbe Primary Care Unavailable Leti Tompkins Attending Unavailable Oleghe, Efewongbe Primary Care Unavailable Rian Hernandez Attending Unavailable Oleghe, Efewongbe Referring Unavailable Oleghe, Efewongbe Primary Care Unavailable Rian Hernandez Attending Unavailable Rian Hernandez Referring Unavailable Oleghe, Efewongbe Primary Care Unavailable Oleghe, Efewongbe Attending Unavailable Oleghe, Efewongbe Referring Unavailable Oleghe, Efewongbe Primary Care Unavailable Rian Hernandez Attending Unavailable Oleghe, Efewongbe Referring Unavailable Oleghe, Efewongbe Primary Care Unavailable Rian Hernandez Attending Unavailable Rian Hernandez Referring Unavailable Oleghe, Efewongbe Primary Care Unavailable Oleghe, Efewongbe Primary Care Unavailable Jesusita Keene Attending Unavailable Ileana Franks PA-C Attending Unavailable Oleghe, Efewongbe Referring Unavailable Leti Tompkins Attending Unavailable Oleghe, Efewongbe Primary Care Unavailable Alis Yancey Attending Unavailable Oleghe, Efewongbe Referring Unavailable Oleghe, Efewongbe Attending Unavailable Oleghe, Efewongbe Referring Unavailable Oleghe, Efewongbe Primary Care Unavailable Samira Baez Attending Unavailable ALDEN CARMONA Attending Unavailable RIAN HERNANDEZ Referring Unavailable BRANDSTRACHAELR ALDEN Admitting Unavailable ALDEN CARMONA Attending Unavailable ALDEN CARMONA Attending Unavailable Jeannie HERNANDEZ Referring Unavailable IMCA Primary Care Unavailable KRISTINE ALDEN Admitting Unavailable ALDEN CARMONA Attending Unavailable IMCA Primary Care Unavailable BRANDSTETTER, ALDEN Admitting Unavailable ALDEN CARMONA Attending Unavailable IMCA Primary Care Unavailable PROBLEMS PROBLEMS DATE TYPE CONDITION / CODE ATTENDING STATUS SOURCE 11/11/2018 Unknown E87.6 - Hypokalemia Evelyn, Matt Active [facility] / E87.6(ICD-10) [facility] Rep[facility] 11/11/2018 Unknown I10 - Essential Evelyn, Matt Active [facility] (primary) Community hypertension / Hospital I10(ICD-10) Repository 11/30/2018 Unknown I49.8 - Other Evelyn, Matt Active [facility] specified cardiac Community arrhythmias / Hospital I49.8(ICD-10) Repository 08/04/2018 Admitting Unknown / KRISTINE Active [facility] diagnosis UNK(Unknown) [facility] Repository 08/10/2018 Unknown L98.9 - Disorder of Cal[place]ta, Active [facility] the skin and [facility] subcutaneous tissue, Hospital unspecified / Repository L98.9(ICD-10) 07/28/2018 Active Noninfective GLENNASTVENUS, Active [facility] gastroenteritis and [facility] Other colitis, unspecified [place] / K52.9(ICD-10) Repository 07/28/2018 Active Constipation, BRANDSTETTER, Active [facility] unspecified / [facility] Other K59.00(ICD-10) [place] Repository 07/19/2018 Unknown M50.30 - Other Gaytan Henrry Active [facility] cervical disc BLOCK BOLTER MULE OPERATOR-C [facility] degeneration, Hospital unspecified cervical Repository region / M50.30(ICD-10) 07/18/2018 Unknown R22.1 - Localized [place], Active [facility] swelling, mass and [facility] lump, neck / Hospital R22.1(ICD-10) Repository 07/14/2018 Unknown Z12.4 - Encounter Turner, Active [facility] for screening for Leti [facility] malignant neoplasm Hospital of cervix / Repository Z12.4(ICD-10) 07/07/2018 Unknown M54.9 - Dorsalgia, Oleghe, Active [facility] unspecified / [facility] M54.9(ICD-10) Hospital Repository 07/07/2018 Unknown G89.29 - Other Oleghe, Active [facility] chronic pain / [facility] Community G89.29(ICD-10) Hospital Repository 07/07/2018 Unknown K21.9 - Oleghe, Active [facility] Gastro-esophageal [facility] reflux disease Hospital without esophagitis Repository / K21.9(ICD-10) 07/07/2018 Unknown Z00.00 - Encounter Oleghe, Active [facility] for general adult [facility] medical examination Hospital without abnormal Repository findings / Z00.00(ICD-10) 07/07/2018 Unknown F32.9 - Major Oleghe, Active [facility] depressive disorder, [facility] single episode, Hospital unspecified / Repository F32.9(ICD-10) 06/22/2018 Unknown K41.90 - Unilateral [place], Active [facility] femoral hernia, [facility] without obstruction Hospital or gangrene, not Repository specified as recurrent / K41.90(ICD-10) 06/15/2018 Unknown R10.2 - Pelvic and Henrry Gaytan Active [facility] perineal pain / BLOCK BOLTER MULE OPERATOR-C Community R10.2(ICD-10) Hospital Repository 06/15/2018 Unknown K59.00 - Gaytan, Henrry Active [facility] Constipation, BLOCK BOLTER MULE OPERATOR-C Community unspecified / Hospital K59.00(ICD-10) Repository PROCEDURES PROCEDURES No Procedure Records FoundRESULTS RESULTS EMERGENCY DEPARTMENT Observed: 12/11/2018 Status: F Source: [facility] SUMMARY 4:[address] [facility] REPOSITORY [facility] Medical Records Department [address] [place] [address] Emergency Department Summary 12/11/18 1502 MR#: [id number] Acct: [id number] Name: JESSICA ABBASI Rep #: [id number] : 1970 48 From: Nelson Grijalva MD PCP: Ginger Tripp MD Status: DEP ER - ER Visit Summary Date of Service: 12/11/18 Chief Complaint: Concern for foreign body History of Present Illness: The patient is a 48 F presenting for evaluation due to concern for foreign body. Patient reports that about 10 days ago she had a sudden onset of nausea and vomiting and she was seen in the emergency department for this, had a workup, it was shown that she was hypokalemic and she was discharged with a potential UTI. Patient states that since then she has had nothing to eat. She reports that anytime she drinks any liquids she has immediate feeling of severe burning in her epigastrium and chest that radiates all the way through to her back. Patient states that this is been associated with decreased stool production. She denies any presence of fevers. Patient does state that she had an episode of palpitations today which was associated with not taking her blood pressure medications. She denies any dark tarry stools or hematochezia. Patient does endorse that she has a history of a hiatal hernia as well as peptic ulcer disease. Physical Examination: Vital signs within normal limits. Obese female no acute distress. Head normocephalic. No conjunctival pallor or scleral icterus. Moist mucous membranes, no JVD. Heart regular rate and rhythm no murmurs normal S1 and S2, no evidence of rubs. Lungs sounds clear to auscultation bilaterally, no evidence of subcutaneous emphysema of the chest. Abdomen was soft nondistended normal bowel sounds no masses and tender in the epigastrium. Extremities were nontender nonedematous skin was normal color no rash patient was alert and oriented. Test Results: CBC, CMP, lipase remarkable only for mild hypokalemia 3.4. CT imaging of the chest and abdomen shows hiatal hernia but no evidence of mediastinitis, perforation, obstruction of the bowel, or any other acute process. Emergency Department Course and Treatment: Patient presented secondary to severe chest burning with radiation to the back in the setting of forceful vomiting. There was at least some concern for the possibility of mediastinitis versus other pathology, so imaging and lab work were obtained. Patient was given a GI cocktail. Workup was found to be negative. Presentation likely consistent with severe symptoms of peptic ulcer disease versus gastritis. Patient will be discharged with a course of omeprazole and Carafate. Disposition: Discharge Impression: 1. Peptic ulcer disease This note was generated with [employer] dictation software. It may contain incorrect words, spelling, and punctuation that were not noted in review of the chart prior to signing ED Disposition - Plan for ED Patient: Disposition: Home or Assisted Living Chief Complaint: Foreign Body Diagnosis: PUD (peptic ulcer disease) Instructions: ED PUD Prescriptions: Omeprazole 40 mg PO DAILY #30 capsule. Sucralfate [Carafate] 1 gm PO 4X/DAY #120 tab Referrals: Ginger Tripp MD [Primary Care Provider] - 5-7 Days What to do if you have Problems For any increased pain, shortness of breath, bleeding, nausea or vomiting, chest pain, or any unexpected problems, contact your Primary Care Provider. Call [facility] ([phone]) or report to the closest Emergency Room. Call 911 if necessary. 12/11/18 0906 <Electronically signed by Nelson Grijalva MD> Date Nelson Grijalva MD Cosigner Signature (If Indicated): Date CC: Ginger Tripp MD CBC W/DIFF, AUTOMATED Collected: 12/11/2018 Status: F Source: [place] 1:[address] [facility] REPOSITORY TYPE CODE TESTS RESULT OUT OF RANGE REFERENCE UNITS LAB L100.1000 4.4-11.0 K/mm3 Normal WBC 6.1 LAB L100.1200 4.2-5.4 M/mm3 Normal RBC 4.75 LAB L100.1300 12.0-15.0 g/dl Normal HGB 13.8 LAB L100.1400 37-47 % Normal HCT 42.0 LAB L100.1500 81-99 fL Normal MCV 88.4 LAB L100.1600 27.0-32.0 pg Normal MCH 29.1 LAB L100.1700 32-36 g/gl Normal MCHC 32.9 LAB L100.1810 11.6-14.6 % Normal RDW CV 13.5 LAB L100.1820 35.1-43.9 fl Normal RDW SD 43.2 LAB L100.1900 150-450 K/mm3 Normal PLT 330 LAB L100.2000 6.2-12.0 fl Normal MPV 9.4 LAB L100.2100 47-70 % Normal NEUT% 59.0 LAB L100.2200 19-41 % Normal LY% 32.5 LAB L100.2300 0-10 % Normal MONO% 5.7 LAB L100.2400 0-5 % Normal EO% 1.8 LAB L100.2500 0-1 % Normal BASO% 0.7 LAB L100.2550 0.0-0.9 % Normal IM GRAN % 0.300 Result Comment: IG% - Immature Granulocytes (promyelocytes, myelocytes and metamyelocytes) > 1% indicates that a LEFT SHIFT is Present. LAB L100.2620 2.0-7.7 X10 3/uL Normal Absolute Neut 3.6 LAB L100.2720 0.83-4.51 X10 3/ul Normal Absolute Lymph 1.98 Performed By: #### L100.0100 #### [facility] [address] [place], [address] COMPREHENSIVE METABOLIC Collected: 12/11/2018 Status: F Source: [facility] 1:[address] [facility] REPOSITORY TYPE CODE TESTS RESULT OUT OF RANGE REFERENCE UNITS LAB L501.0100 74-106 mg/dL High GLU 111 Result Comment: Fasting Glucose result from 100 to 125 mg/dL suggests IMPAIRED HOMEOSTASIS per A.D.A. criteria. Please note revised GLUCOSE reference range effective 2017. LAB L501.1000 7-18 mg/dL Normal BUN 11 LAB L501.1100 0.55-1.02 mg/dL Normal CREAT,SERUM 0.67 Result Comment: The validity of the calculated GFR AND GFRAA in patients over 70 years has not been determined. Clinical correlation is essential. LAB L501.1110 >60 mL/min Normal EST GFR 99 Result Comment: Non- GFR Calc LAB L501.1115 >60 mL/min Normal EST GFR - AA 120 Result Comment: GFR Calc LAB L501.1255 ml/min Normal Estimated CRCL 87.71 LAB L501.1300 10-20 RATIO Normal BUN/CRE 16.4 LAB L501.1500 6.4-8. g/dL Normal 2 T PROT 6.8 LAB L501.1800 3.2-5. g/dL Normal 0 ALB 3.3 LAB L501.1950 2.2-4. g/dL Normal 2 GLOB 3.5 LAB L501.2000 0.9-2. RATIO Normal 4 A/G 0.9 LAB L501.2200 8.5-10 mg/dL Normal .1 CA 8.7 LAB L501.4100 15-37 U/L Normal AST 19 LAB L501.4305 45-117 U/L Normal ALK P 74 LAB L501.4405 13-56 U/L Normal ALT 31 LAB L501.4600 0.20-1 mg/dL Normal .00 T BILI 0.30 LAB L501.5300 136-14 mmol/L Normal 5 NA 139 LAB L501.5600 3.5-5. mmol/L Low 1 K 3.4 LAB L501.5900 98-107 mmol/L Normal CL 105 LAB L501.6100 21.0-3 mmol/L Normal 2.0 CO2 24.0 LAB L501.6200 5-15 Normal GAP 10 Performed By: #### L500.4050, L501.2450 #### [facility] [address] [place], [address] LIPASE Collected: 12/11/2018 Status: F Source: [place] 1:[address] [facility] REPOSITORY TYPE CODE TESTS RESULT OUT OF RANGE REFERENCE UNITS LAB L501.2450 73-393 U/L Normal LIPASE 82 Performed By: #### L500.4050, L501.2450 #### [facility] [address] [place], [address] CHEST WITHOUT Observed: 12/11/2018 Status: F Source: [place] CONTRAST 1:[address] [facility] REPOSITORY [facility] Imaging Services [address] [place] [address] Chest without Contrast MR#: [id number] Acct: [id number] Name: JESSICA ABBASI Rep #: [id number] : 1970 F 48 From: Jamil March MD PCP: Ginger Tripp MD Status: REG ER Study: Chest without Contrast Date of Exam: 12/11/18 Exam# [id number] Ordering Dr: Nelson Grijalva MD STUDY: CT CHEST WITHOUT CONTRAST REASON FOR EXAM: Female, 48 years old. Foreign body sensation in the back of her throat, vomiting, recent flu RADIATION DOSAGE (If Supplied By Facility): CTDIvol = ( 22.15 ) mGy, DLP = ( 1822.38 ) mGycm TECHNIQUE: Transaxial imaging was performed without the administration of intravenous contrast material. Multiplanar coronal and sagittal images were reformatted. Individualized dose optimization techniques were used for this CT. COMPARISON: None. FINDINGS: The lungs are normal. There is no demonstrated pleural abnormality. Normal heart and pericardium. Normal mediastinum. Normal hilar regions. Normal unenhanced pulmonary arteries. Normal aorta arch and descending thoracic aorta. Multilevel spondylosis throughout the thoracic spine. Upper abdomen described on abdomen/pelvis CT, performed concurrently. CT/Chest without Contrast IMPRESSION: Normal unenhanced CT Chest examination. Electronically Signed: Jamil March MD at 14:42 EST , Service support , CC: Ginger Tripp MD; Nelson Grijalva Regulatory Submissions Specialist: Signed ABDOMEN/PELVIS WITHOUT Observed: 12/11/2018 Status: F Source: [facility] CONT 1:[address] [facility] REPOSITORY [facility] Imaging Services [address] [place] [address] Abdomen/Pelvis without Cont MR#: [id number] Acct: [id number] Name: JESSICA ABBASI Rep #: [id number] : 1970 F 48 From: Jamil March MD PCP: Ginger Tripp MD Status: REG ER Study: Abdomen/Pelvis without Cont Date of Exam: 12/11/18 Exam# [id number] Ordering Dr: Nelson Grijalva MD STUDY: CT ABDOMEN AND PELVIS WITHOUT CONTRAST REASON FOR EXAM: Female, 48 years old. Feels like a foreign body in the back of her throat, vomiting, recent flu RADIATION DOSAGE (If Supplied By Facility): CTDIvol = ( 22.15 ) mGy, DLP = ( 1822.38 ) mGycm TECHNIQUE: Transaxial images were obtained from the dome of the diaphragm to the symphysis pubis without oral contrast, and without intravenous contrast. Sagittal and coronal images were reconstructed. Individualized dose optimization techniques were used for this CT. COMPARISON: 09/30/2018 FINDINGS: The visualized lung bases are unremarkable. The visualized portions of the heart are within normal limits. Normal liver. Normal gallbladder and extrahepatic biliary system. Normal spleen. Normal pancreas. 1.3 cm low to intermediate density nodule of the left adrenal gland is stable. Normal right kidney. Normal left kidney. There is a small hiatal hernia. Normal small intestine. Fat density wall thickening of the right and transverse colon similar since the prior study without pericolonic acute inflammation. Stable appearance since the prior study. The appendix is visualized and appears normal. There is diffuse atherosclerotic calcification of the abdominal aorta, without a demonstrated aneurysm. Normal inferior vena cava. Normal retroperitoneum. Normal urinary bladder. There is a small umbilical hernia containing fat. Normal osseous structures. CT/Abdomen/Pelvis without Cont IMPRESSION: 1. No bowel obstruction or inflammatory process. 2. Fat density wall thickening of the right and transverse colon may represent sequela of inflammatory bowel disease, steroid use, obesity. Stable appearance. 3. Small hiatal hernia. 4. 1.3 cm left adrenal gland nodule is stable, likely representing lipid poor adenoma. Electronically Signed: Jamil March MD at 14:45 EST , Service support , CC: Ginger Tripp MD; Nelson Grijalva Regulatory Submissions Specialist: Signed DISCHARGE INSTRUCTION Observed: 12/02/2018 Status: F Source: [place] 11:[address] [facility] REPOSITORY [facility] Medical Records Department [address] [place] [address] Discharge Instruction 12/02/18 2310 MR#: [id number] Acct: [id number] Name: JESSICA ABBASI Rep #: [id number] : 1970 48 From: Dionicio Gilbert MD PCP: Ginger Tripp MD Status: REG ER ED Disposition - Plan for ED Patient: Disposition: Home or Assisted Living Chief Complaint: General Illness Instructions: ED UTI Cystitis Female Prescriptions: Ondansetron [Zofran Odt] 4 mg PO Q8H PRN PRN #10 tab PRN Reason: Nausea Cephalexin [Keflex] 500 mg PO Q12 #10 cap Naproxen [Naprosyn] 500 mg PO BID PRN #20 tab Referrals: Ginger Tripp MD [Primary Care Provider] - What to do if you have Problems For any increased pain, shortness of breath, bleeding, nausea or vomiting, chest pain, or any unexpected problems, contact your Primary Care Provider. Call [facility] ([phone]) or report to the closest Emergency Room. Call 911 if necessary. 12/02/18 2311 <Electronically signed by Dionicio Gilbert MD> Date Dionicio Gilbert MD Cosigner Signature (If Indicated): Date CC: Ginger Tripp MD EMERGENCY DEPARTMENT Observed: 12/02/2018 Status: F Source: [place] SUMMARY 11:[address] [facility] REPOSITORY [facility] Medical Records Department [address] [place] [address] Emergency Department Summary 12/02/18 2144 MR#: [id number] Acct: [id number] Name: JESSICA ABBASI Rep #: [id number] : 1970 48 From: Dionicio Gilbert MD PCP: Ginger Tripp MD Status: REG ER - ER Visit Summary Date of Service: 12/02/18 Chief Complaint: I am so sick History of Present Illness: The patient is a 48 F who states that she is very sick. Her symptoms only started this morning. She has multiple complaints including low back pain, urinary frequency, nausea and vomiting. She states that she has frequency of urine but only urinates a small amount each time. She has a history of pyelonephritis. She also has a history of hypokalemia. She denies dysuria. No fevers. She has vomited multiple times at home. Physical Examination: Vital signs reviewed. HEENT exam unremarkable. Heart is regular rate and rhythm without murmurs. Lungs are clear to auscultation. Abdomen is soft with suprapubic tenderness to palpation. No guarding or rebound tenderness. She has right lumbar paraspinal tenderness to palpation. Extremities reveal no edema. Skin exam normal. Neurologic exam normal. Test Results: White blood cell count 19.6, potassium 3.1. Urinalysis reveals trace leukocytes and 0-5 white blood cells Emergency Department Course and Treatment: Patient was given normal saline, Zofran and Toradol. She feels better after this. I will replace her potassium orally. I will put her on a couple of days of Keflex due to her symptoms. Her white blood cell count is chronically high so this is not concerning to me. I do not feel she requires any imaging at this time. Treatment Plan: [] Disposition: Discharge Impression: UTI, hypokalemia This note was generated with Nexidia dictation software. It may contain incorrect words, spelling, and punctuation that were not noted in review of the chart prior to signing ED Disposition - Plan for ED Patient: Chief Complaint: General Illness Referrals: Ginger Tripp MD [Primary Care Provider] - What to do if you have Problems For any increased pain, shortness of breath, bleeding, nausea or vomiting, chest pain, or any unexpected problems, contact your Primary Care Provider. Call [facility] ([phone]) or report to the closest Emergency Room. Call 911 if necessary. 12/02/18 2810 <Electronically signed by Dionicio Gilbert MD> Date Dionicio Gilbert MD Cosigner Signature (If Indicated): Date CC: Ginger Tripp MD BASIC METABOLIC Collected: 12/02/2018 Status: F Source: SUSSY PROFILE (BMP) 10:[address] [facility] REPOSITORY Order Comment: REDRAW. PREVIOUS SPECIMEN REJECTED DUE TO HEMOLYSIS. 12/02/18 2230 Alina Wade. TYPE CODE TESTS RESULT OUT OF RANGE REFERENCE UNITS LAB L501.0100 74-106 mg/dL High GLU 162 Result Comment: Fasting Glucose result greater than or equal to 126 mg/dL suggests DIABETES MELLITUS per A.D.A. criteria. Please note revised GLUCOSE reference range effective 2017. LAB L501.1000 7-18 mg/dL Normal BUN 13 LAB L501.1100 0.55-1.02 mg/dL Normal CREAT,SERUM 0.69 Result Comment: The validity of the calculated GFR AND GFRAA in patients over 70 years has not been determined. Clinical correlation is essential. LAB L501.1110 >60 mL/min Normal EST GFR 96 Result Comment: Non- GFR Calc LAB L501.1115 >60 mL/min Normal EST GFR - AA 116 Result Comment: GFR Calc LAB L501.1255 ml/min Normal Estimated CRCL 85.17 LAB L501.1300 10-20 RATIO Normal BUN/CRE 18.8 LAB L501.2200 8.5-10 mg/dL Low .1 CA 8.4 LAB L501.5300 136-14 mmol/L Normal 5 NA 141 LAB L501.5600 3.5-5. mmol/L Low 1 K 3.1 LAB L501.5900 98-107 mmol/L High CL 109 LAB L501.6100 21.0-3 mmol/L Low 2.0 CO2 20.0 LAB L501.6200 5-15 Normal GAP 12 Performed By: #### L500.2500 #### [facility] [address] [place], [address] URINALYSIS, COMPLETE Collected: 12/02/2018 Status: F Source: SUSSY 9:[address] [facility] REPOSITORY Order Comment: Order Date: 12/02/18 How was Urine Obtained? CLEAN CATCH TYPE CODE TESTS RESULT OUT OF RANGE REFERENCE UNITS LAB L400.3000 Yellow COLOR Normal Yellow LAB L400.3050 Clear Normal CLARITY Clear LAB L400.3200 Normal mg/dl High GLUCOSE, UR 100 LAB L400.3300 Negative mg/dL Normal BILIRUBIN URINE Negative LAB L400.3400 Negative mg/dl High KETONE UR 150 Result Comment: CRITICAL VALUE *H CRITICAL VALUE VERIFIED. CALLED TO FOREIGN 12/02/18 3619 Alinavicki Wade. RESULTS READ BACK BY SAME . LAB L400.3465 1.002-1.030 Normal SP.GR. DIPSTX 1.020 LAB L400.3550 5.0 - 8.0 pH Normal UR 6.0 LAB L400.3600 Negative mg/dl High 30 PROT DIPSTX LAB L400.3700 Normal mg/dl Normal UROBILI Normal LAB L400.3750 Negative Normal NITRITE UR Negative LAB L400.3780 Negative /ul High 25 OCCULT BLOOD-UR LAB L400.3800 Negative /ul High 25 LEUK ESTERASE LAB L400.4050 0-5 /hpf Normal WBC 0-5 SEEN LAB L400.4100 0-5 /hpf Normal RBC-UA 0-5 SEEN LAB L400.4150 5-10 /hpf Normal SQUAM EPI 5-10 SEEN LAB L400.4300 None Seen /hpf 0 Normal BACTERIA SEEN LAB L400.4350 <or=2+ /hpf 0 Normal MUCUS, URINE SEEN Performed By: #### L400.0001 #### [facility] [address] [place], [address] CBC W/DIFF, AUTOMATED Collected: 12/02/2018 Status: F Source: LESLIE 9:[address] [facility] REPOSITORY TYPE CODE TESTS RESULT OUT OF RANGE REFERENCE UNITS LAB L100.1000 4.4-11.0 K/mm3 High WBC 19.6 LAB L100.1200 4.2-5.4 M/mm3 Normal RBC 4.82 LAB L100.1300 12.0-15.0 g/dl Normal HGB 14.3 LAB L100.1400 37-47 % Normal HCT 42.8 LAB L100.1500 81-99 fL Normal MCV 88.8 LAB L100.1600 27.0-32.0 pg Normal MCH 29.7 LAB L100.1700 32-36 g/gl Normal MCHC 33.4 LAB L100.1810 11.6-14.6 % Normal RDW CV 14.1 LAB L100.1820 35.1-43.9 fl High RDW SD 45.8 LAB L100.1900 150-450 K/mm3 Normal PLT 331 LAB L100.2000 6.2-12.0 fl Normal MPV 10.0 LAB L100.2100 47-70 % High NEUT% 92.4 LAB L100.2200 19-41 % Low LY% 4.6 LAB L100.2300 0-10 % Normal MONO% 2.5 LAB L100.2400 0-5 % Normal EO% 0.0 LAB L100.2500 0-1 % Normal BASO% 0.1 LAB L100.2550 0.0-0.9 % Normal IM GRAN % 0.400 Result Comment: IG% - Immature Granulocytes (promyelocytes, myelocytes and metamyelocytes) > 1% indicates that a LEFT SHIFT is Present. LAB L100.2620 2.0-7.7 X10 3/uL High Absolute Neut 18.1 LAB L100.2720 0.83-4.51 X10 3/ul Normal Absolute Lymph 0.90 Performed By: #### L100.0100 #### [facility] [address] [place], [address] 12 LEAD ELECTROCARDIOGRAM Observed: 11/11/2018 Status: F Source: LESLIE 1:[address] [facility] REPOSITORY [facility] Cardiovascular Services [address] [place] [address] 12 Lead EKG 11/10/18 1100 MR#: [id number] Acct: [id number] Name: JESSICA ABBASI Rep #: [id number] : 1970 48 From: Matt Rivas MD Attending Dr: Ginger Tripp MD Status: REG CLI Ordering Dr: Ginger Tripp MD Date: 11/10/18 Location: LAB Sex: F C Admitted: Test Reason : ROUTINE Blood Pressure : / mmHG Vent. Rate : 081 BPM Atrial Rate : 081 BPM P-R Int : 152 ms QRS Dur : 078 ms QT Int : 388 ms P-R-T Axes : 040 027 048 degrees QTc Int : 450 ms Normal sinus rhythm with sinus arrhythmia Normal ECG Confirmed by MATT RIVAS MD ([id number]), deputy editor in chief HOLLY SULLIVAN ([id number]) on 11/11/2018 1:16:16 PM Referred By: Ginger Tripp Confirmed By:MATT RIVAS MD 11/11/18 1316 Date Matt Rivas MD CC: Ginger Tripp MD Signed BASIC METABOLIC Collected: 11/10/2018 Status: F Source: LESLIE PROFILE (BMP) 11:[address] [facility] REPOSITORY TYPE CODE TESTS RESULT OUT OF RANGE REFERENCE UNITS LAB L501.0100 74-106 mg/dL Normal GLU 106 Result Comment: Fasting Glucose result from 100 to 125 mg/dL suggests IMPAIRED HOMEOSTASIS per A.D.A. criteria. Please note revised GLUCOSE reference range effective 2017. LAB L501.1000 7-18 mg/dL Normal BUN 13 LAB L501.1100 0.55-1.02 mg/dL Normal CREAT,SERUM 0.78 Result Comment: The validity of the calculated GFR AND GFRAA in patients over 70 years has not been determined. Clinical correlation is essential. LAB L501.1110 >60 mL/min Normal EST GFR 83 Result Comment: Non- GFR Calc LAB L501.1115 >60 mL/min Normal EST GFR - AA 100 Result Comment: GFR Calc LAB L501.1300 10-20 RATIO Normal BUN/CRE 16.6 LAB L501.2200 8.5-10.1 mg/dL CA Normal 9.2 LAB L501.5300 136-145 mmol/L NA Normal 140 LAB L501.5600 3.5-5.1 mmol/L K Normal 3.8 LAB L501.5900 98-107 mmol/L CL Normal 103 LAB L501.6100 21.0-32.0 mmol/L Normal CO2 30.0 LAB L501.6200 5-15 Normal GAP 7 Performed By: #### L500.2500, L501.5200 #### [facility] [address] [place], [address] MAGNESIUM Collected: 11/10/2018 Status: F Source: SUSSY 11:[address] [facility] REPOSITORY TYPE CODE TESTS RESULT OUT OF RANGE REFERENCE UNITS LAB L501.5200 1.6-2.6 mg/dL Normal MG 2.2 Performed By: #### L500.2500, L501.5200 #### [place] [facility] [address] [place], [address] INTERNAL MEDICINE Observed: 11/08/2018 Status: F Source: SUSSY OFFICE VISIT 8:[address] [facility] REPOSITORY [facility] [address] [place] [address] [place] [address] OFFICE VISIT Date of Service: 11/03/18 MR#: [id number] Acct: [id number] Name: JESSICA ABBASI Rep #: [id number] : 1970 Provider: Ginger Tripp MD Age/Sex: 48/F Location: [facility] Status: Signed Intake Vital Signs11/03/18 Height 5 ft 5 in Intake Visit Reasons: 1 mo fu Chief Complaint: f/u visit Is patient in pain?: No Allergies povidone-iodine [From Betadine] Allergy (Intermediate, Verified 09/30/18 18:45) Rash soap [From Betadine] Allergy (Intermediate, Verified 09/30/18 18:45) Rash acetaminophen [From Tylox] Adverse Reaction (Verified 09/30/18 18:45) Vomiting aspirin Adverse Reaction (Verified 09/30/18 18:45) Vomiting oxycodone [From Tylox] Adverse Reaction (Verified 09/30/18 18:45) Vomiting tb test Adverse Reaction (Intermediate, Uncoded 09/30/18 18:45) Rash Medications ranitidine 150 mg tablet 150 mg PO BID tab 06/15/18 [History Confirmed 09/30/18] duloxetine 30 mg capsule,delayed release 30 mg PO BID #90 cap 07/07/18 [Rx Confirmed 11/03/18] Potassium Chloride [K-Dur] 20 meq PO BID #14 tab 08/17/18 [Rx Confirmed 09/30/18] amlodipine 5 mg tablet 5 mg PO DAILY #30 tab 09/29/18 [Rx Confirmed 11/03/18] gabapentin 100 mg capsule 100 mg PO QHS #30 cap 10/18/18 [Rx Confirmed 11/03/18] meloxicam 7.5 mg tablet 7.5 mg PO DAILY 11/03/18 [History Confirmed 11/03/18] vitamin B complex tablet 1 tab PO DAILY 11/03/18 [History Confirmed 11/03/18] Is last menstrual period known: Yes Post menopausal: No PFSH Medical History IBS (irritable bowel syndrome) (Chronic) Spinal stenosis (Chronic) history bladder mesh (Chronic) DJD (degenerative joint disease) (Chronic) Pyelonephritis (Chronic) Hiatal hernia (Chronic) PUD (peptic ulcer disease) (Chronic) GERD (gastroesophageal reflux disease) (Chronic) Asthma (Chronic) Arthritis (Chronic) Surgical History History of arthroplasty of right ankle (Acute) History of orthopedic surgery (Acute) Family History Grandmother Benign breast lumps Mother Benign breast lumps Diabetes Heart disease CVA (cerebral vascular accident) Father Asthma Aunt Ovarian cancer Social History Smoking Status: Light Smoker (<10/day) how long ago did patient quit smokin alcohol intake: current alcohol intake frequency: holidays/special occasions only substance use type: marijuana what type of physical activity do you participate in: none additional social history: Orvan Diagnosed with cancer summer 2017 HPI HPI Chief Complaint: f/u visit Details: JESSICA ABBASI, is a 48yo F who presents to the office today for follow-up. She was recently started on amlodipine due to elevated blood pressure. Blood pressure during his visit is better controlled. She reports compliance with her medications and denies any concerns with this. She was in the emergency room recently due to vomiting and was noted to be in mild hypokalemia. Also during that visit, she was noted to be in sinus arrhythmia with prolonged QT. Denies any known history of heart disease however reports a positive family history of heart disease. ROS Const Constitutional: No body ache, chills, headache(s), weakness or fever(s) Eyes Eyes: No blurry vision, change in vision, eye pain or discharge ENT ENT: No headache(s), abnormal hearing, ear pain, ear pressure, tinnitus, dizziness/vertigo or balance problems Resp Respiratory: No cough, shortness of breath or wheezing Cardio Cardiology: No chest pain at rest, shortness of breath, dyspnea on exertion or palpitations Gastro GI: No abdominal pain or bloating Musc Musculoskeletal: No muscle weakness Neuro Neurology: No headache(s), weakness or abnormal hearing Aller/Imm Allergy/Immunologic: No wheezing Exam Const General: cooperative, no acute distress Orientation: alert, awake, oriented x3 HENMT Head: atraumatic, normocephalic Ears: hearing grossly normal bilaterally Resp Effort AND Inspection: normal respiratory effort, able to speak in complete sentences Auscultation: Bilateral: Clear to Auscultation Cardio Rate: regular rate Rhythm: regular rhythm Heart Sounds: S1 normal, S2 normal Musc Musculoskeletal: No muscle weakness Neuro General: alert, awake, oriented x3, moves all extremities, CN's II-XI intact bilaterally Extrem General: no clubbing, cyanosis or edema Psych Appearance: grossly normal Mental Status: mental status grossly normal Mood: congruent mood Affect: normal affect Assessment AND Plan 1. Hypertension I10 Plan Better controlled. Currently on 5 mg of amlodipine, will continue. Continue lifestyle and dietary modifications. Continue blood pressure log. 2. Sinus arrhythmia I49.8 Plan Noted during her last ER visit. At that time, she was also noted to have mild hypokalemia. No personal history of heart disease however reports a history of heart disease in her mother. Repeat EKG ordered. Follow-up with results. Orders Orders: 3. Chronic back pain M54.9; G89.29 Plan Improved. Currently following up with pain management and injections are said to be helping a lot. Does not have to take Tylenol or ibuprofen. Continue follow-up with pain management. 4. Hypokalemia E87.6 Plan Most recent episode due to vomiting. However at baseline patient is borderline normal. BMP and magnesium ordered. If potassium still low or borderline low, will consider switching antihypertensives to or adding spironolactone. This note was generated with Nexidia dictation software. It may contain incorrect words, spelling, and punctuation that were not noted in checking the note before signing. Orders Orders: Coding Level of Care Code Off vis,est,level 4 Diagnoses Hypertension I10 Sinus arrhythmia I49.8 Chronic back pain M54.9; G89.29 Hypokalemia E87.6 11/08/18 0841 <Electronically signed by Ginger Tripp MD> Date [facility] Signature: Date (if applicable) CC: 12 LEAD ELECTROCARDIOGRAM Observed: 10/04/2018 Status: F Source: SUSSY 3:[address] [facility] REPOSITORY [facility] Cardiovascular Services [address] [place] [address] 12 Lead EKG 09/30/182006 MR#: [id number] Acct: [id number] Name: JESSICA ABBASI Rep #: [id number] : 1970 48 From: Matt Rivas MD Attending Dr: Status: DEP ER Ordering Dr: Samira Baez MD Date: 09/30/18 Location: ED Sex: F C Admitted: Test Reason : NAUSEA/VOMIT Blood Pressure : / mmHG Vent. Rate : 060 BPM Atrial Rate : 060 BPM P-R Int : 148 ms QRS Dur : 086 ms QT Int : 506 ms P-R-T Axes : 032 020 018 degrees QTc Int : 506 ms Sinus rhythm with marked sinus arrhythmia Prolonged QT Abnormal ECG Confirmed by MATT RIVAS MD ([id number]), deputy editor in chief HOLLY SULLIVAN ([id number]) on 10/04/2018 3:48:47 PM Referred By: DR BAEZ Confirmed By:MATT RIVAS MD 10/04/18 1548 Date Matt Rivas MD CC: Samira Baez MD; Ginger Tripp MD Signed INTERNAL MEDICINE Observed: 10/03/2018 Status: F Source: SUSSY OFFICE VISIT 4:[address] [facility] REPOSITORY [facility] [address] [place] [address] [place] [address] OFFICE VISIT Date of Service: 09/29/18 MR#: [id number] Acct: [id number] Name: JESSICA ABBASI Rep #: [id number] : 1970 Provider: Ginger Tripp MD Age/Sex: 48/F Location: [facility] Status: Signed Intake Vital Signs09/29/18 Height 5 ft 5 in 09/29/18 Weight: 199 lb 09/29/18 Body Mass Index (BMI) 33.1 09/29/18 Blood Pressure 160/92 H Intake Visit Reasons: f/u from tests Chief Complaint: FU - Pain Mgmnt Is patient in pain?: No Allergies povidone-iodine [From Betadine] Allergy (Intermediate, Verified 09/29/18 13:38) Rash soap [From Betadine] Allergy (Intermediate, Verified 09/29/18 13:38) Rash acetaminophen [From Tylox] Adverse Reaction (Verified 09/29/18 13:38) Vomiting aspirin Adverse Reaction (Verified 09/29/18 13:38) Vomiting oxycodone [From Tylox] Adverse Reaction (Verified 09/29/18 13:38) Vomiting tb test Adverse Reaction (Intermediate, Uncoded 09/29/18 13:38) Rash Medications ranitidine 150 mg tablet 150 mg PO BID tab 06/15/18 [History Confirmed 09/29/18] duloxetine 30 mg capsule,delayed release 30 mg PO BID #90 cap 07/07/18 [Rx Confirmed 09/29/18] naproxen sodium 220 mg capsule 220 mg PO BID 07/07/18 [History Confirmed 09/29/18] gabapentin 100 mg capsule 100 mg PO QHS #30 cap 08/10/18 [Rx Confirmed 09/29/18] Ondansetron [Zofran Odt] 4 mg PO Q8H PRN PRN #10 tab 08/17/18 [Rx Confirmed 09/29/18] Potassium Chloride [K-Dur] 20 meq PO BID #14 tab 08/17/18 [Rx Confirmed 09/29/18] amlodipine 5 mg tablet 5 mg PO DAILY #30 tab 09/29/18 [Rx Confirmed 09/29/18] PFSH Medical History IBS (irritable bowel syndrome) (Chronic) Spinal stenosis (Chronic) history bladder mesh (Chronic) DJD (degenerative joint disease) (Chronic) Pyelonephritis (Chronic) Hiatal hernia (Chronic) PUD (peptic ulcer disease) (Chronic) GERD (gastroesophageal reflux disease) (Chronic) Asthma (Chronic) Arthritis (Chronic) Surgical History History of arthroplasty of right ankle (Acute) History of orthopedic surgery (Acute) Family History Grandmother Benign breast lumps Mother Benign breast lumps Diabetes Heart disease CVA (cerebral vascular accident) Father Asthma Aunt Ovarian cancer Social History Smoking Status: Light Smoker (<10/day) how long ago did patient quit smokin alcohol intake: current alcohol intake frequency: holidays/special occasions only substance use type: marijuana what type of physical activity do you participate in: none additional social history: Orvan Diagnosed with cancer summer 2017 HPI HPI Chief Complaint: FU - Pain Mgmnt Details: JESSICA ABBASI, is a 48yo F who presents to the office today for follow-up. During her last visit, she was referred to pain management due to chronic neck pain. She has since followed up and has had to injections to her cervical area with improvement in her pain. She states that her pain is now down to 3 from a 9 previously. She denies numbness or tingling. She however is still taking 400 mg of ibuprofen 2 times daily and Tylenol twice daily. Blood pressure is noted to be elevated at this time. Initial blood pressure reading of 160/92 and repeat done manually still elevated at 158/90. Review of her chart also shows persistently elevated blood pressure. She admits to elevated blood pressure at other office visits. She denies any prior/known history of hypertension. Positive family history of hypertension in her mother. ROS Const Constitutional: No chills, fatigue, fever(s), frequent falls, malaise, weakness, sleep problems or change in appetite Eyes Eyes: No blurry vision, change in vision, double vision, discharge or visual disturbances ENT ENT: No abnormal hearing, ear pain, ear pressure, tinnitus or dizziness/vertigo Resp Respiratory: No cough, shortness of breath or wheezing Cardio Cardiology: No chest pain at rest, chest pain with exertion, shortness of breath, dyspnea on exertion, generalized swelling, irregular heart rhythm, lightheadedness, orthopnea, fast heart rate or palpitations Gastro GI: No abdominal pain, change in bowel habits, constipation, diarrhea, nausea/dyspepsia or vomiting Genitourinary-Female: No difficulty urinating, burning urination, painful urination, urinary incontinence, urinary frequency, urinary urgency, urinary hesitancy, urinary retention, Frequent nighttime urination/ nocturia, sexual problems, genital lesions, abnormal vaginal bleeding, pelvic pain, vaginal dryness, vaginal odor or Vaginal Itching Musc Musculoskeletal: No joint pain, back pain, joint swelling, limited range of motion, numbness, tingling or muscle weakness Skin Skin: No change in skin color, itching, rash or wounds Breast Breast: No breast lump or breast pain Neuro Neurology: No frequent falls, weakness, abnormal hearing, numbness, tingling, unsteady gait/balance, dizziness, loss of vision, memory loss or visual disturbances Psych Psychiatric: No memory loss, No anxiety, No change in appetite, No depression, No Thoughts of harming yourself/Others Endo Endocrine: No fatigue, heat intolerance, increased thirst/drinking, increased hunger or increased urination Aller/Imm Allergy/Immunologic: No wheezing, itchy eyes or seasonal allergy symptoms Rahat/Lymp Hematologic/Lymphatic: No easy bleeding, easy bruising or enlarged lymph nodes Exam Const General: cooperative, no acute distress Orientation: alert, awake, oriented x3 [facility] Head: atraumatic, normocephalic Ears: hearing grossly normal bilaterally Resp Effort AND Inspection: normal respiratory effort, able to speak in complete sentences Auscultation: Bilateral: Clear to Auscultation Cardio Rate: regular rate Rhythm: regular rhythm Heart Sounds: S1 normal, S2 normal Musc Musculoskeletal: No muscle weakness Neuro General: alert, awake, oriented x3, moves all extremities, CN's II-XI intact bilaterally Extrem General: no clubbing, cyanosis or edema Psych Appearance: grossly normal Mental Status: mental status grossly normal Mood: congruent mood Affect: normal affect Assessment AND Plan 1. Chronic back pain M54.9; G89.29 Plan Currently following up with pain management. Pain is improved after injections. No numbness or tingling. Currently on Tylenol and ibuprofen. I have asked that she cut down on ibuprofen also G to her elevated blood pressure. Continue follow-up with pain management. 2. Hypertension I10 Plan Persistently rising. NSAIDs management as above. Will start on amlodipine 5 mg daily. Lifestyle and dietary modifications discussed. Follow-up in 1 month. Orders Orders: 3. Depression with anxiety F41.8 Plan Stable. Doing well on Cymbalta. Continue current management. This note was generated with Nexidia dictation software. It may contain incorrect words, spelling, and punctuation that were not noted in checking the note before signing. Plan Detail Other Orders Orders: Other Medications New: Coding Level of Care Code Off vis,est,level 4 Diagnoses Chronic back pain M54.9; G89.29 Hypertension I10 Depression with anxiety F41.8 10/03/18 1628 <Electronically signed by Ginger Tripp MD> Date Ginger Tripp MD Cosigner Signature: Date (if applicable) CC: EMERGENCY DEPARTMENT Observed: 10/01/2018 Status: F Source: LESLIE SUMMARY 12:[address] [facility] REPOSITORY [facility] Medical Records Department [address] [place] [address] Emergency Department Summary 09/30/182016 MR#: [id number] Acct: [id number] Name: JESSICA ABBASI Rep #: [id number] : 1970 48 From: Samira Baez MD PCP: Ginger Tripp MD Status: REG ER - ER Visit Summary Date of Service: 09/30/18 Chief Complaint: Vomiting History of Present Illness: The patient is a 48 F presenting with vomiting. She states it started today. She has had several episodes of vomiting. She denies diarrhea or constipation. Denies blood in her emesis. Denies sick contacts. Denies possible bad food exposure. She has mild diffuse abdominal cramping. Denies fever. Denies other complaints. Physical Examination: Vitals are stable. Patient is afebrile. Alert no acute distress. HEENT exam is unremarkable. Neck is supple. Lungs are clear and equal bilaterally. Heart is regular rate and rhythm. Abdomen is soft epigastric and right lower quadrant tenderness with no rebound or guarding Extremities are unremarkable. Skin is warm and dry. No focal neurologic deficit. Remainder of exam is unremarkable. Emergency Department Course and Treatment: She is given IV fluids, morphine, Zofran. EKG is sinus arrhythmia rate of 60. CBC showed white count of 15.7. Chemistries show potassium 3.2, glucose 181. She was given potassium oral replacement. Lipase is normal. Urinalysis shows ketones. Troponin is negative. Chest x-ray shows no acute process. CT abdomen pelvis shows findings are suspicious for extensive infectious or inflammatory colitis, including Crohn's disease or C. difficile. Stable left adrenal nodule. Small hiatal hernia. She has no diarrhea. Patient states she had a colonoscopy performed at [facility] 3 weeks ago. At that time she was diagnosed with colitis. She was not started on any medications. She was referred to [facility] for a defecogram. She states she missed this appointment. She is now feeling improved, her vomiting has resolved. She is able to tolerate p.o. She will follow-up with her GI physician. She is advised to return to ED for any worsening complaints. Disposition: Discharge home Impression: Colitis, vomiting This note was generated with [employer] dictation software. It may contain incorrect words, spelling, and punctuation that were not noted in review of the chart prior to signing ED Disposition - Plan for ED Patient: Chief Complaint: Nausea/Vomiting/Diarrhea Instructions: ED Diet Vomiting Diarrhea Prescriptions: proMETHazine tablet [Phenergan] 25 mg PO Q6H PRN PRN #10 tablet PRN Reason: Nausea Referrals: Ginger Tripp MD [Primary Care Provider] - What to do if you have Problems For any increased pain, shortness of breath, bleeding, nausea or vomiting, chest pain, or any unexpected problems, contact your Primary Care Provider. Call [facility] ([phone]) or report to the closest Emergency Room. Call 911 if necessary. 10/01/18 0041 <Electronically signed by Samira Baez MD> Date Samira Baez MD Cosigner Signature (If Indicated): Date CC: Ginger Tripp MD DISCHARGE INSTRUCTION Observed: 10/01/2018 Status: F Source: [place] 12:[address] [facility] REPOSITORY [facility] Medical Records Department [address] [place] [address] Discharge Instruction 10/01/1825 MR#: [id number] Acct: [id number] Name: JESSICA ABBASI Rep #: [id number] : 1970 48 From: Samira Baez MD PCP: Ginger Tripp MD Status: REG ER ED Disposition - Plan for ED Patient: Chief Complaint: Nausea/Vomiting/Diarrhea Instructions: ED Diet Vomiting Diarrhea Prescriptions: proMETHazine tablet [Phenergan] 25 mg PO Q6H PRN PRN #10 tablet PRN Reason: Nausea Referrals: Ginger Tripp MD [Primary Care Provider] - What to do if you have Problems For any increased pain, shortness of breath, bleeding, nausea or vomiting, chest pain, or any unexpected problems, contact your Primary Care Provider. Call [facility] ([phone]) or report to the closest Emergency Room. Call 911 if necessary. 10/01/18 0027 <Electronically signed by Samira Baez MD> Date Samira Baez MD Cosigner Signature (If Indicated): Date CC: Ginger Tripp MD URINALYSIS, COMPLETE Collected: 09/30/2018 Status: F Source: [place] 8:[address] [facility] REPOSITORY Order Comment: How was Urine Obtained? SOLAR SALES REPRESENTATIVE TO SPECIFY TYPE CODE TESTS RESULT OUT OF RANGE REFERENCE UNITS LAB L400.3000 Yellow COLOR Normal Yellow LAB L400.3050 Clear Normal CLARITY Clear LAB L400.3200 Normal mg/dl High GLUCOSE, UR 250 LAB L400.3300 Negative mg/dL Normal BILIRUBIN URINE Negative LAB L400.3400 Negative mg/dl High KETONE UR 150 Result Comment: CRITICAL VALUE *H CRITICAL VALUE VERIFIED. CALLED TO CHANCE FERNÁNDEZ IN ED 09/30/182113 Nelida Barahona. RESULTS READ BACK BY SAME . LAB L400.3465 1.002-1.030 Normal SP.GR. DIPSTX 1.015 LAB L400.3550 5.0 - 8.0 pH Normal UR 9.0 LAB L400.3600 Negative mg/dl Normal PROT DIPSTX Negative LAB L400.3700 Normal mg/dl Normal UROBILI Normal LAB L400.3750 Negative Normal NITRITE UR Negative LAB L400.3780 Negative /ul High 10 OCCULT BLOOD-UR LAB L400.3800 Negative /ul Normal LEUK ESTERASE Negative LAB L400.4050 0-5 /hpf Normal WBC 0-5 SEEN LAB L400.4100 0-5 /hpf 0 Normal RBC-UA SEEN LAB L400.4150 5-10 /hpf Normal SQUAM EPI 0-5 SEEN LAB L400.4300 None Seen /hpf Normal BACTERIA RARE LAB L400.4350 <or=2+ /hpf 0 Normal MUCUS, URINE SEEN Performed By: #### L400.0001 #### [facility] [address] [place], [place], [address] CHEST 1 VIEW Observed: 09/30/2018 Status: F Source: [place] (PORTABLE) 7:[address] [facility] REPOSITORY [facility] Imaging Services [address] [place] [address] Chest 1 View (Portable) MR#: [id number] Acct: [id number] Name: JESSICA ABBASI Rep #: [id number] : 1970 F 48 From: Karyna Garcia MD PCP: Ginger Tripp MD Status: REG ER Study: Chest 1 View (Portable) Date of Exam: 09/30/18 Exam# [id number] Ordering Dr: Samira Baez MD STUDY: X-RAY CHEST REASON FOR EXAM: Female, 48 years old. SOB, nausea vomiting. TECHNIQUE: Portable chest. COMPARISON: None. FINDINGS: The lungs are clear and expanded. There is no demonstrated pleural abnormality. Normal size heart. Normal mediastinum and enio. Normal visualized pulmonary arteries. Normal visualized aortic arch and descending thoracic aorta. Normal visualized thoracic spine. Normal visualized ribs, clavicles, and shoulders. There is no demonstrated abnormality of the visualized soft tissue structures of the upper abdomen. RAD/Chest 1 View (Portable) IMPRESSION: Normal x-ray examination of the chest. Electronically Signed: Karyna Garcia MD at 20:36 EST Tel , Service support , CC: Samira Baez MD; Ginger Tripp MD Regulatory Submissions Specialist: Signed ABDOMEN/PELVIS WITH Observed: 09/30/2018 Status: F Source: [place] CONTRAST 7:[address] [facility] REPOSITORY [facility] Imaging Services [address] [place] [address] Abdomen/Pelvis WITH Contrast MR#: [id number] Acct: [id number] Name: JESSICA ABBASI Rep #: [id number] : 1970 F 48 From: Karyna Garcia MD PCP: Ginger Tripp MD Status: REG ER Study: Abdomen/Pelvis WITH Contrast Date of Exam: 09/30/18 Exam# [id number] Ordering Dr: Samira Baez MD STUDY: CT ABDOMEN WITH CONTRAST REASON FOR EXAM: Female, 48 years old. Nausea vomiting diarrhea. Elevated white count. RADIATION DOSAGE (If Supplied By Facility): CTDIvol = ( 16.96 ) mGy, DLP = ( 1258.67 ) mGycm TECHNIQUE: Transaxial images were obtained post I.V. administration of 100 ml of Isovue 300 contrast, and with oral contrast. Sagittal and coronal images were reconstructed. Individualized dose optimization techniques were used for this CT. COMPARISON: 07/14/2018. FINDINGS: The visualized lung bases are unremarkable. The visualized portions of the heart are within normal limits. There is a small hiatal hernia. Normal liver. Normal gallbladder and extrahepatic biliary system. Normal spleen. Normal pancreas. The kidneys are normal. No stones or hydronephrosis. Normal right adrenal gland. There is a 1.3 cm left adrenal nodule with CT density of 65-70 Hounsfield units. This is nonspecific. There is no change in size compared to the prior study. The aorta is normal in caliber. There is no bowel obstruction. The colon is not distended. However, there is mild wall thickening of the colon from the cecum to the sigmoid colon, suspicious with infectious or inflammatory colitis. The appendix is normal. Mild diverticulosis is noted, with no evidence of acute diverticulitis. The bladder is unremarkable. Uterus and adnexa are unremarkable. Normal abdominal wall. Normal osseous structures. CT/Abdomen/Pelvis WITH Contrast IMPRESSION: 1. Findings are suspicious for extensive infectious or inflammatory colitis, including Crohn's disease or C. difficile. 2. Stable left adrenal nodule. 3. Small hiatal hernia. Electronically Signed: Karyna Garcia MD at 22:56 EST Tel , Service support , CC: Samira Baez MD; Ginger Tripp MD Regulatory Submissions Specialist: Signed CBC W/DIFF, AUTOMATED Collected: 09/30/2018 Status: F Source: [place] 7:[address] [facility] REPOSITORY TYPE CODE TESTS RESULT OUT OF RANGE REFERENCE UNITS LAB L100.1000 4.4-11.0 K/mm3 High WBC 15.7 LAB L100.1200 4.2-5.4 M/mm3 Normal RBC 4.62 LAB L100.1300 12.0-15.0 g/dl Normal HGB 13.9 LAB L100.1400 37-47 % Normal HCT 42.2 LAB L100.1500 81-99 fL Normal MCV 91.3 LAB L100.1600 27.0-32.0 pg Normal MCH 30.1 LAB L100.1700 32-36 g/gl Normal MCHC 32.9 LAB L100.1810 11.6-14.6 % Normal RDW CV 13.8 LAB L100.1820 35.1-43.9 fl High RDW SD 45.6 LAB L100.1900 150-450 K/mm3 Normal PLT 352 LAB L100.2000 6.2-12.0 fl Normal MPV 9.8 LAB L100.2100 47-70 % High NEUT% 89.9 LAB L100.2200 19-41 % Low LY% 6.7 LAB L100.2300 0-10 % Normal MONO% 3.0 LAB L100.2400 0-5 % Normal EO% 0.0 LAB L100.2500 0-1 % Normal BASO% 0.1 LAB L100.2550 0.0-0.9 % Normal IM GRAN % 0.300 Result Comment: IG% - Immature Granulocytes (promyelocytes, myelocytes and metamyelocytes) > 1% indicates that a LEFT SHIFT is Present. LAB L100.2620 2.0-7.7 X10 3/uL High Absolute Neut 14.2 LAB L100.2720 0.83-4.51 X10 3/ul Normal Absolute Lymph 1.05 Performed By: #### L100.0100 #### [facility] [address] [place], [place], [address] COMPREHENSIVE METABOLIC Collected: 09/30/2018 Status: F Source: [facility] 7:[address] [facility] REPOSITORY TYPE CODE TESTS RESULT OUT OF RANGE REFERENCE UNITS LAB L501.0100 74-106 mg/dL High GLU 181 Result Comment: Fasting Glucose result greater than or equal to 126 mg/dL suggests DIABETES MELLITUS per A.D.A. criteria. Please note revised GLUCOSE reference range effective 2017. LAB L501.1000 7-18 mg/dL Normal BUN 16 LAB L501.1100 0.55-1.02 mg/dL Normal CREAT,SERUM 0.76 Result Comment: The validity of the calculated GFR AND GFRAA in patients over 70 years has not been determined. Clinical correlation is essential. LAB L501.1110 >60 mL/min Normal EST GFR 86 Result Comment: Non- GFR Calc LAB L501.1115 >60 mL/min Normal EST GFR - AA 104 Result Comment: GFR Calc LAB L501.1255 ml/min Normal Estimated CRCL 80.57 LAB L501.1300 10-20 RATIO High BUN/CRE 21.1 LAB L501.1500 6.4-8. g/dL Normal 2 T PROT 8.1 LAB L501.1800 3.2-5. g/dL Normal 0 ALB 3.9 LAB L501.1950 2.2-4. g/dL Normal 2 GLOB 4.2 LAB L501.2000 0.9-2. RATIO Normal 4 A/G 0.9 LAB L501.2200 8.5-10 mg/dL Normal .1 CA 9.3 LAB L501.4100 15-37 U/L Normal AST 17 LAB L501.4305 45-117 U/L Normal ALK P 87 LAB L501.4405 13-56 U/L Normal ALT 32 LAB L501.4600 0.20-1 mg/dL Normal .00 T BILI 0.40 LAB L501.5300 136-14 mmol/L Normal 5 NA 140 LAB L501.5600 3.5-5. mmol/L Low 1 K 3.2 LAB L501.5900 98-107 mmol/L Normal CL 106 LAB L501.6100 21.0-3 mmol/L Normal 2.0 CO2 21.0 LAB L501.6200 5-15 Normal GAP 13 Performed By: #### L500.4050, L501.2450, L501.4010 #### [facility] [address] [place], [address] LIPASE Collected: 09/30/2018 Status: F Source: [place] 7:[address] [facility] REPOSITORY TYPE CODE TESTS RESULT OUT OF REFERENCE UNITS RANGE LAB L501.2450 73-393 U/L Low LIPASE 53 Performed By: #### L500.4050, L501.2450, L501.4010 #### [facility] [address] [place], [address] TROPONIN-I Collected: 09/30/2018 Status: F Source: [place] 7:[address] [facility] REPOSITORY TYPE CODE TESTS RESULT OUT OF RANGE REFERENCE UNITS LAB L501.4010 <0.045 ng/mL Normal < 0.015 TROPONIN-I Result Comment: TROPONIN-I EXPECTED VALUES <0.045 Negative 0.045 - 0.590 Consistent with Cardiac Damage > OR = 0.600 Critical Value Not every elevated troponin is indicative of VT. These values should be used with clinical judgement in examining the patient's clinical picture for diagnosis. To establish a diagnosis of VT versus myocardial injury, there must be a demonstrated rise and/or fall in the troponin values, in addition to ischemic symptoms, EKG changes, new regional wall motion abnormality, and/or angiographical evidence. PLEASE NOTE: REFERENCE RANGES EDITED 18 Performed By: #### L500.4050, L501.2450, L501.4010 #### [facility] [address] [place], [address] CNPN Observed: 08/23/2018 Status: COMPLETED Source: [facility] 12:00 AM [facility] REPOSITORY Telephone ([id number]) JESSICA ABBASI ([id number]) 1970 F Date Time Provider Department 08/23/18 ALDEN CARMONA During your visit today, we recorded the following information about you: Charlesoc (Airport Representative) Cervantes 08/23/2018 4:27 PM Signed ----- Message from Alden Carmona sent at 08/19/2018 3:09 PM EDT ----- Ms Abbasi should not need her next colonoscopy for 10 years. She had a single polyp but this came back as hyperplastic. Alden Carmona 3:09 PM 08/19/18 Hangoc (Airport Representative) Cervantes 08/23/2018 4:28 PM Signed LVM for pt to return call. Juan Ramon (Stormy) Heavenly Lee 08/24/2018 3:32 PM Signed Patient notified. Recall letter for 10 colonoscopy will be placed. Please enter defecography order so [facility] can schedule. Roma (Stormy) Jesus Carmona MD 08/25/2018 2:01 PM Signed Addended by: ALDEN CARMONA MD on: 08/25/2018 02:01 PM Modules accepted: Orders, SmartSet Allergies As of Date: 08/23/2018 Noted Allergy Reaction ASPIRIN 07/28/2018 11 - Vomiting BETADINE (POVIDONE-IODINE) 07/28/2018 2 - Rash TYLOX (OXYCODONE-ACETAMINOPHEN) 07/28/2018 11 - Vomiting Date Reviewed: 08/16/2018 Reviewed by: Blossom (Yaw) YAW Caceres - Fully Assessed Reason for Visit: Results [95] Primary Visit Diagnosis:Constipation by outlet dysfunction [K59.02] Order(s):XR DEFECOGRAPHY [2992867] Order #: [id number] FUTURE Prescriptions as of 08/23/2018 Sig: IBUPROFEN 200 MG TABLET Take 400 mg by mouth every 6 * DULOXETINE 30 MG CAPSULE,KVNG* Take 1 capsule by mouth twice* GABAPENTIN 100 MG CAPSULE Take 1 capsule by mouth daily* METHYLPREDNISOLONE 4 MG TABLE* Take 1 tablet by mouth as dir* ZANTAC 150 EFFERDOSE ORAL Take 1 tablet by mouth twice * Problem List As Of Date 08/23/2018 Noted Resolved Colitis [K52.9] INVALID FOR* More... Constipation [K59.00] INVALID FOR* More... Obesity, Class I, BMI 30-34.9 [E66.9] INVALID FOR* Encounter Status:Closed by JUAN RAMON CERVANTES CMA on 08/25/18 SCREENING MAMM (CAD), Observed: 08/22/2018 Status: F Source: [place] 12:[address] [facility] REPOSITORY [facility] Imaging Services [address] [place] [address] SCREENING MAMM (CAD), BILAT MR#: [id number] Acct: [id number] Name: JESSICA ABBASI Rep #: [id number] : 1970 F 48 From: Fabrice Solis MD PCP: Ginger Tripp MD Status: REG CLI Study: SCREENING MAMM (CAD), BILAT Date of Exam: 08/22/18 Exam# [id number] Ordering Dr: Leti Tompkins BLOCK BOLTER MULE OPERATOR-C MAMMOGRAPHY - BILATERAL SCREENING REASON FOR EXAM: Female, 48 years old. Routine annual screening examination. PERTINENT HISTORY: Aunt with breast cancer. TECHNIQUE: Digital bilateral breast alexis (3D mammographic acquisition) in the CC and MLO projections. 2-D mediolateral oblique (MLO) and craniocaudad (CC) views of both breasts were obtained. CAD: Full Field Digital Mammography with Computer Added Detection was performed. COMPARISON: No comparison mammograms available at this time. If any prior films become available, an addendum to this report can be generated. FINDINGS: Breast Composition: The breasts are heterogeneously dense, which may obscure small masses. There are no dominant masses or suspicious calcifications. No other significant abnormalities are identified. BI/SCREENING MAMM (CAD), BILAT IMPRESSION: Negative screening mammogram. Yearly followup mammogram recommended. (A) ASSESSMENT CATEGORY: BIRADS Category 1: Negative. A letter regarding these results will be sent to the patient by the facility within 30 days. Approximately 10% of breast cancers are not detected by mammography. A normal mammogram should not delay biopsy of a clinically suspicious abnormality. [id number] Electronically Signed: Fabrice Solis MD at 9:48 EDT Tel [phone], Service support , CC: BALDEMAR Tompkins; Ginger Tripp MD Regulatory Submissions Specialist: Signed MANAGER EDUCATION OFFICE VISIT Observed: 08/20/2018 Status: F Source: [place] REPORT 12:[address] [facility] REPOSITORY [facility] 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: No Is patient in pain?: Yes Allergies povidone-iodine [From Betadine] Allergy (Intermediate, Verified 08/18/18 10:37) Rash soap [From Betadine] Allergy (Intermediate, Verified 08/18/18 10:37) Rash acetaminophen [From Tylox] Adverse Reaction (Verified 08/18/18 10:37) Vomiting aspirin Adverse Reaction (Verified 08/18/18 10:37) Vomiting oxycodone [From Tylox] Adverse Reaction (Verified 08/18/18 10:37) Vomiting tb test Adverse Reaction (Intermediate, Uncoded 08/18/18 10:37) Rash Medications ranitidine 150 mg tablet 150 mg PO BID tab 06/15/18 [History Confirmed 08/18/18] duloxetine 30 mg capsule,delayed release 30 mg PO BID #90 cap 07/07/18 [Rx Confirmed 08/18/18] naproxen sodium 220 mg capsule 220 mg PO BID 07/07/18 [History Confirmed 08/18/18] gabapentin 100 mg capsule 100 mg PO QHS #30 cap 08/10/18 [Rx Confirmed 08/18/18] Ondansetron [Zofran Odt] 4 mg PO Q8H PRN PRN #10 tab 08/17/18 [Rx Confirmed 08/18/18] Potassium Chloride [K-Dur] 20 meq PO BID #14 tab 08/17/18 [Rx Confirmed 08/18/18] Is last menstrual period known: No Post menopausal: No Patient : No : No PFSH PFSH Medical History IBS (irritable bowel syndrome) (Chronic) Spinal stenosis (Chronic) history bladder mesh (Chronic) DJD (degenerative joint disease) (Chronic) Pyelonephritis (Chronic) Hiatal hernia (Chronic) PUD (peptic ulcer disease) (Chronic) GERD (gastroesophageal reflux disease) (Chronic) Asthma (Chronic) Arthritis (Chronic) Surgical History History of arthroplasty of right ankle (Acute) History of orthopedic surgery (Acute) Family History Grandmother Benign breast lumps Mother Benign breast lumps Diabetes Heart disease CVA (cerebral vascular accident) Father Asthma Aunt Ovarian cancer Social History Smoking Status: Light Smoker (<10/day) how long ago did patient quit smokin alcohol intake: current alcohol intake frequency: holidays/special occasions only substance use type: marijuana what type of physical activity do you participate in: none additional social history: Orvan Diagnosed with cancer summer 2017 Pregancy History 1 Elective abortions Hx Para 1 Spontaneous abortions Past Pregnancies Del. DatName GA/WeeksOutcome Route [facility] tn Unknown Boris 1985 HPI I AND D: Details: JESSICA ABBASI is a 48 year old who presents for i and d of a vulvar lesion. it has been chronic but just now increased in size and starting to cause pain. she denies any fever with it. ROS Const Constitutional: Reports system reviewed and no additional complaints, except as docu : Reports as per HPI Exam Const General: cooperative, healthy appearing, comfortable External Female Exam: externally tender, external lesions (right 2x3 cm firm nodular area to right of clitoris) Office Procedures Incision and Drainage Provider Documentation Provider Documentation: right labia prepped with betadine and after injection with lidocaine 1% 1cc, incision made with scalpel, expressed hard sebaceous material. no induration or infection seen. silver nitrate used to cauterize and cyst large enough to not be able to remove in office, left open for healing by secondary intention. no complications Alert Tube Maker Alert Billing: Yes Incision and Drainage 67467 Abscess Simp/Single Subungual Hematoma Subungual Hematoma: No Assessment AND Plan Problems 1. 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 fu PRN or for annuals Orders Orders: Coding Level of Care Code Off vis,est,level 2 Diagnoses Inclusion cyst of vulva N90.7 Additional Codes Incision and Drainage - I AND D: 90867 Abscess Simp/Single (37481) Subungual Hematoma (91391) 08/20/18 1207 <Electronically signed by Alis Yancey MD> Date Alis Yancey MD Cosigner Signature: Date (if applicable) CC: SURGERY VISIT REPORT Observed: 08/18/2018 Status: F Source: [place] 4:[address] [facility] REPOSITORY [facility] [address] [place] [address]. 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 Is patient in pain?: No Allergies povidone-iodine [From Betadine] Allergy (Intermediate, Verified 08/18/18 10:37) Rash soap [From Betadine] Allergy (Intermediate, Verified 08/18/18 10:37) Rash acetaminophen [From Tylox] Adverse Reaction (Verified 08/18/18 10:37) Vomiting aspirin Adverse Reaction (Verified 08/18/18 10:37) Vomiting oxycodone [From Tylox] Adverse Reaction (Verified 08/18/18 10:37) Vomiting tb test Adverse Reaction (Intermediate, Uncoded 08/18/18 10:37) Rash Medications ranitidine 150 mg tablet 150 mg PO BID tab 06/15/18 [History Confirmed 08/18/18] duloxetine 30 mg capsule,delayed release 30 mg PO BID #90 cap 07/07/18 [Rx Confirmed 08/18/18] naproxen sodium 220 mg capsule 220 mg PO BID 07/07/18 [History Confirmed 08/18/18] gabapentin 100 mg capsule 100 mg PO QHS #30 cap 08/10/18 [Rx Confirmed 08/18/18] Ondansetron [Zofran Odt] 4 mg PO Q8H PRN PRN #10 tab 08/17/18 [Rx Confirmed 08/18/18] Potassium Chloride [K-Dur] 20 meq PO BID #14 tab 08/17/18 [Rx Confirmed 08/18/18] Subjective Details: Patient is a 48 y/o female I am following for subcutaneous mass of the posterior neck. Dr. Hernandez performed an excision of the posterior neck lipoma on 08/10/18. Patient tolerated the procedure well. Pathology returned as a lipoma. Patient denies pain/discomfort, drainage. Objective Details: Posterior neck- incision c/d/i. No erythema or infection noted. Assessment AND Plan Problems 1. Lipoma D17.9 Plan - Follow-up as needed Coding Level of Care Code Global Post Op Diagnoses Lipoma D17.9 08/18/18 1629 <Electronically signed by Ileana Franks PA-C> Date Ileana Franks PA-C Cosigner Signature: Date (if applicable) CC: EMERGENCY DEPARTMENT Observed: 08/18/2018 Status: F Source: [place] SUMMARY 1:[address] [facility] REPOSITORY [facility] Medical Records Department [address] [place] [address] Emergency Department Summary 08/17/182040 MR#: [id number] Acct: [id number] Name: JESSICA ABBASI Rep #: [id number] : 1970 48 From: Jesusita Keene MD PCP: Ginger Tripp MD Status: DEP ER - ER Visit Summary Date of Service: 08/17/18 Chief Complaint: Vomiting History of Present Illness: The patient is a 48 F who presents for vomiting since yesterday. Patient had a colonoscopy yesterday, and when she woke up from the anesthesia she began vomiting. She vomited 3 times prior to discharge from the procedure. She has been vomiting ever since. She has not even been able to tolerate water. She has nausea just preceding her vomiting. She has had no diarrhea. Decreased urine output. No fever, chest pain or shortness of breath. No abdominal pain. One polyp was resected. History of GERD, peptic ulcer disease, hernia. Physical Examination: Vital signs: afebrile, hemodynamically stable, no hypoxia on room air General: well nourished, well developed, in no distress Skin: warm, dry, no rash, no pallor HEENT: normocephalic and atraumatic; PERRL, EOMI, moist mucous membranes Cardiovascular: regular rate and rhythm without murmurs, no peripheral edema, 2+ pulses all distal extremities Respiratory: No increased work of breathing, lungs are clear to auscultation bilaterally, no rales, rhonchi or wheezing Abdominal: Abdomen is soft, nontender with normoactive bowel sounds, no guarding or rebound, no masses MSK: Moves all extremities, no deformities, normal strength Neuro: Awake and alert, oriented 4. No facial droop, sensation and motor function intact and symmetric Test Results: Abnormal Lab Results WBC 15.6 H RBC 4.40 Hgb 13.2 Hct 39.7 MCV 90.2 MCH 30.0 MCHC 33.2 RDW 14.8 H RDW Differential 48.1 H Medications Given Discontinued Medications Sodium Chloride () 1,000 mls @ 1,000 mls/hr IV .Q1H ONE Stop: 08/17/18 21:37 Last Admin: 08/17/18 20:59 Dose: 1,000 mls/hr Potassium Chloride (Kcl 10meq/100ml) 10 meq in 100 mls @ 100 mls/hr IV BOLUS Q1H EREN Stop: 08/17/18 23:29 Last Admin: 08/17/18 22:44 Dose: 100 mls/hr Admin: 08/17/18 21:42 Dose: 100 mls/hr Morphine Sulfate () 4 mg IV X1 ONE Stop: 08/17/18 20:39 Last Admin: 08/17/18 21:00 Dose: 4 mg Ondansetron HCl (Zofran) 4 mg IV X1 ONE Stop: 08/17/18 20:39 Last Admin: 08/17/18 20:59 Dose: 4 mg Emergency Department Course and Treatment: Patient was given IV fluids and Zofran for symptomatic relief. Given the recent bowel prep and colonoscopy, now with vomiting for a couple days, labs were performed to look for electrolyte derangements. Patient had no hepatic derangements. Lipase normal. She was hypokalemic at 2.9. Patient had a leukocytosis which is likely secondary to the marginalization from the vomiting. She had no signs of infection. Patient was given IV potassium in addition to her IV fluids. After fluids and repletion of potassium, patient failed felt much better and had no nausea. No further episodes of vomiting. She tolerated a p.o. challenge. She was discharged home in improved condition with a prescription for Zofran and 1 week of potassium supplements. Treatment Plan: [] Disposition: [] Impression: Vomiting, hypokalemia This note was generated with [employer] dictation software. It may contain incorrect words, spelling, and punctuation that were not noted in review of the chart prior to signing ED Disposition - Plan for ED Patient: Disposition: Home or Assisted Living Chief Complaint: Nausea/Vomiting Instructions: ED Potassium Deficiency, ED Nausea Vomiting Prescriptions: Ondansetron [Zofran Odt] 4 mg PO Q8H PRN PRN #10 tab PRN Reason: Nausea Potassium Chloride [K-Dur] 20 meq PO BID #14 tab Referrals: Ginger Tripp MD [Primary Care Provider] - 3-5 Days if not improving Additional Instructions: Your potassium was low today. Take the potassium supplement as prescribed for 1 week. Use Zofran as needed for nausea. Drink Gatorade or Powerade until you are able to tolerate solid foods again. If you have any worsening of your condition or any new concerning symptoms, please return immediately to the emergency department for another evaluation. What to do if you have Problems For any increased pain, shortness of breath, bleeding, nausea or vomiting, chest pain, or any unexpected problems, contact your Primary Care Provider. Call [facility] ([phone]) or report to the closest Emergency Room. Call 911 if necessary. 08/18/18 0123 <Electronically signed by Jesusita Keene MD> Date Jesusita Keene MD Cosigner Signature (If Indicated): Date CC: Ginger Tripp MD DISCHARGE INSTRUCTION Observed: 08/18/2018 Status: F Source: [facility] 12:24 AM [facility] Medical Records Department [address] [place] [id number] Discharge Instruction 08/17/18 2343 MR#: [id number] Acct: [id number] Name: JESSICA ABBASI Rep #: [id number] : 1970 48 From: Jesusita Keeen MD PCP: Ginger Tripp MD Status: [facility] ED Disposition - Plan for ED Patient: Disposition: Home or Assisted Living Chief Complaint: Nausea/Vomiting Instructions: ED Nausea Vomiting, ED Potassium Deficiency Prescriptions: Ondansetron [Zofran Odt] 4 mg PO Q8H PRN PRN #10 tab PRN Reason: Nausea Potassium Chloride [K-Dur] 20 meq PO BID #14 tab Referrals: Ginger Tripp MD [Primary Care Provider] - 3-5 Days if not improving Additional Instructions: Your potassium was low today. Take the potassium supplement as prescribed for 1 week. Use Zofran as needed for nausea. Drink Gatorade or Powerade until you are able to tolerate solid foods again. If you have any worsening of your condition or any new concerning symptoms, please return immediately to the emergency department for another evaluation. What to do if you have Problems For any increased pain, shortness of breath, bleeding, nausea or vomiting, chest pain, or any unexpected problems, contact your Primary Care Provider. Call [facility] ([phone]) or report to the closest Emergency Room. Call 911 if necessary. 08/18/18 0024 <Electronically signed by Jesusita Keene MD> Date Jesusita Keene MD Cosigner Signature (If Indicated): Date CC: Ginger Tripp MD CBC W/DIFF, AUTOMATED Collected: 08/17/2018 Status: F Source: [place] 8:[address] [facility] REPOSITORY TYPE CODE TESTS RESULT OUT OF RANGE REFERENCE UNITS LAB L100.1000 4.4-11.0 K/mm3 High WBC 15.6 LAB L100.1200 4.2-5.4 M/mm3 Normal RBC 4.40 LAB L100.1300 12.0-15.0 g/dl Normal HGB 13.2 LAB L100.1400 37-47 % Normal HCT 39.7 LAB L100.1500 81-99 fL Normal MCV 90.2 LAB L100.1600 27.0-32.0 pg Normal MCH 30.0 LAB L100.1700 32-36 g/gl Normal MCHC 33.2 LAB L100.1810 11.6-14.6 % High RDW CV 14.8 LAB L100.1820 35.1-43.9 fl High RDW SD 48.1 LAB L100.1900 150-450 K/mm3 Normal PLT 276 LAB L100.2000 6.2-12.0 fl Normal MPV 9.6 LAB L100.2100 47-70 % High NEUT% 86.9 LAB L100.2200 19-41 % Low LY% 11.0 LAB L100.2300 0-10 % Normal MONO% 1.9 LAB L100.2400 0-5 % Normal EO% 0.0 LAB L100.2500 0-1 % Normal BASO% 0.1 LAB L100.2550 0.0-0.9 % Normal IM GRAN % 0.100 Result Comment: IG% - Immature Granulocytes (promyelocytes, myelocytes and metamyelocytes) > 1% indicates that a LEFT SHIFT is Present. LAB L100.2620 2.0-7.7 X10 3/uL High Absolute Neut 13.6 LAB L100.2720 0.83-4.51 X10 3/ul Normal Absolute Lymph 1.72 Performed By: #### L100.0100 #### [facility] [address] [place], [address] COMPREHENSIVE METABOLIC Collected: 08/17/2018 Status: F Source: [facility] 8:[address] [facility] REPOSITORY TYPE CODE TESTS RESULT OUT OF RANGE REFERENCE UNITS LAB L501.0100 74-106 mg/dL High GLU 129 Result Comment: Fasting Glucose result greater than or equal to 126 mg/dL suggests DIABETES MELLITUS per A.D.A. criteria. Please note revised GLUCOSE reference range effective 2017. LAB L501.1000 7-18 mg/dL Normal BUN 14 LAB L501.1100 0.55-1.02 mg/dL Normal CREAT,SERUM 0.75 Result Comment: The validity of the calculated GFR AND GFRAA in patients over 70 years has not been determined. Clinical correlation is essential. LAB L501.1110 >60 mL/min Normal EST GFR 87 Result Comment: Non- GFR Calc LAB L501.1115 >60 mL/min Normal EST GFR - AA 105 Result Comment: GFR Calc LAB L501.1255 ml/min Normal Estimated CRCL 81.65 LAB L501.1300 10-20 RATIO Normal BUN/CRE 18.6 LAB L501.1500 6.4-8. g/dL Normal 2 T PROT 7.3 LAB L501.1800 3.2-5. g/dL Normal 0 ALB 3.7 LAB L501.1950 2.2-4. g/dL Normal 2 GLOB 3.6 LAB L501.2000 0.9-2. RATIO Normal 4 A/G 1.0 LAB L501.2200 8.5-10 mg/dL Normal .1 CA 9.1 LAB L501.4100 15-37 U/L Low AST 13 LAB L501.4305 45-117 U/L Normal ALK P 67 LAB L501.4405 13-56 U/L Normal ALT 26 LAB L501.4600 0.20-1 mg/dL Normal .00 T BILI 0.50 LAB L501.5300 136-14 mmol/L Normal 5 NA 138 LAB L501.5600 3.5-5. mmol/L Low 1 K 2.8 LAB L501.5900 98-107 mmol/L Normal CL 99 LAB L501.6100 21.0-3 mmol/L Normal 2.0 CO2 30.0 LAB L501.6200 5-15 Normal GAP 9 Performed By: #### L500.4050, L501.2450 #### [facility] [address] [place], [address] LIPASE Collected: 08/17/2018 Status: F Source: [place] 8:[address] [facility] REPOSITORY TYPE CODE TESTS RESULT OUT OF RANGE REFERENCE UNITS LAB L501.2450 73-393 U/L Normal LIPASE 188 Performed By: #### L500.4050, L501.2450 #### [facility] [address] [place], [address] MAGNESIUM Collected: 08/17/2018 Status: F Source: [place] 8:[address] [facility] REPOSITORY TYPE CODE TESTS RESULT OUT OF RANGE REFERENCE UNITS LAB L501.5200 1.6-2.6 mg/dL Normal MG 2.1 Performed By: #### L501.5200 #### [facility] [address] [place], [address] ANES POST Observed: 08/16/2018 Status: COMPLETED Source: [facility] 3:43 PM [facility] REPOSITORY HNO ID: [id number] Author: Oliver Burkett Service: Anesthesiology Author Type: Physician Type: Anesthesia PostOp Filed: 08/16/2018 3:45 PM Note Text: POST ANESTHESIA EVALUATION NOTE SERVICE DATE: 08/16/2018 SERVICE TIME: 3:44 PM : 1970 Vitals: 08/16/18 1209 Temp: 36.8 ?C (98.2 ?F) 08/16/18 1209 08/16/18 1219 08/16/18 1424 08/16/18 1500 BP: 147/75 135/83 133/86 161/86 08/16/18 1209 08/16/18 1219 08/16/18 1424 08/16/18 1500 Pulse: 79 74 72 74 08/16/18 1209 08/16/18 1219 08/16/18 1424 08/16/18 1500 Resp: 18 18 16 20 08/16/18 1209 08/16/18 1219 08/16/18 1424 08/16/18 1500 SpO2: 97% 99% 100% 100% Validated Vital Signs: Yes POST ANES STATUS: No apparent anesthetic complications. The patient is appropriately hydrated with stable respiratory and cardiovascular status. Patient has safe and adequate airway control. The patient has appropriate pain relief and no significant post operative nausea or vomiting. The patient has achieved baseline mental status. Intra-Operative Events: No Significant Anesthesia Events Further assessment by Anesthesia Service: None Other Remarks: pt was nauseated when she woke up, only got diprivan, zofran 4 mg, eval by surgeon, better, ok to discharge SIGNATURE: Oliver Burkett MD PATIENT NAME: Jessica Abbasi DATE: August 16, 2018 TIME: 3:44 PM PAGER/CONTACT #: [phone] PROGRESS Observed: 08/16/2018 Status: COMPLETED Source: [facility] 3:43 PM [facility] REPOSITORY HNO ID: [id number] Author: Alden Carmona Service: General Surgery Author Type: Physician Type: Progress Notes Filed: 08/19/2018 3:09 PM Note Text: Ms Abbasi should not need her next colonoscopy for 10 years. She had a single polyp but this came back as hyperplastic. 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 Roma Lee NURSING PROG Observed: 08/16/2018 Status: COMPLETED Source: [facility] 3:35 PM [facility] REPOSITORY HNO ID: [id number] Author: Lizzy ElizondoRn) YAW Maldonado Service: Nursing Author Type: Registered Nurse Type: Nursing Progress Note Filed: 08/16/2018 3:36 PM Note Text: Dr. Franco by to see patient and informed that patient feels better and is ready for discharge. Instructions given to patient NURSING PROG Observed: 08/16/2018 Status: COMPLETED Source: [facility] 3:22 PM [facility] REPOSITORY HNO ID: [id number] Author: Lizzy ElizondoRn) YAW Maldonado Service: Nursing Author Type: Registered Nurse Type: Nursing Progress Note Filed: 08/16/2018 3:23 PM Note Text: Dr. Carmona by to see patient and family. Patient states she is feeling better and is up to the bathroom to void NURSING PROG Observed: 08/16/2018 Status: COMPLETED Source: [facility] 2:28 PM [facility] REPOSITORY HNO ID: [id number] Author: Blossom Caceres RN Service: Nursing Author Type: Registered Nurse Type: Nursing Progress Note Filed: 08/16/2018 2:29 PM Note Text: Pt received 4mg zofran for her nausea, small amount of flatus. PT ED Observed: 08/16/2018 Status: COMPLETED Source: [facility] 2:27 PM [facility] REPOSITORY HNO ID: [id number] Author: Blossom Caceres RN Service: Nursing Author Type: Registered Nurse Type: Patient Education Filed: 08/16/2018 2:28 PM Note Text: POST OP LEARNING RESPONSE INSTRUCTION PROVIDED TO: Patient and Family member METHOD OF INSTRUCTION: Individual instruction PATIENT / FAMILY RESPONSE: Verbalizes understanding of: POST-PROCEDURE INSTRUCTIONS-Correct actions to take to reduce post procedure complications FOLLOW-UP PLAN: Patient instructed to call with any further issues SUPPLEMENTAL MATERIAL: None REFERRAL (RECOMMENDATION): None Electronically Signed By: Blossom Caceres RN In Department: [facility]IVE NO Observed: 08/16/2018 Status: COMPLETED Source: [facility] 1:21 PM [facility] REPOSITORY HNO ID: [id number] Author: Alden Carmona Service: General Surgery Author Type: Physician Type: Operative Report Filed: 08/16/2018 2:23 PM Note Text: OPERATIVE/PROCEDURE REPORT LOG ID: [id number] Surgery/Procedure Date: 08/16/2018 Incision/Procedure Start Time: 1:24 PM Incision Close/Procedure End Time: 2:10 PM Surgeon(s)/Proceduralist(s) and Emergency Medical Technician/Driver(s): Surgeon(s) and Role: * Alden Carmona - Primary No Additional Staff Procedure(s): Colonoscopy with sigmoid polypectomy Anesthesia: Monitored Anesthesia Care Brief History: 48 yo female who presents after a CT A/P showed right colon wall thickening and she was referred to colonoscopy to evaluate this finding. She had a small mucoid and slightly bloody bowel movement several weeks ago. Last colonoscopy was 12 years ago Procedure Details: The patient was placed in the left lateral decubitus position. A digital rectal exam was performed and this was normal. The Olympus colonoscope was introduced into the rectum and advanced to the cecum. The procedure was moderately technically difficult. The cecum was identified by the appendiceal orifice and the ileocecal valve. The bowel preparation was fair and the total withdrawal time was over 6 minutes minutes. The scope was then slowly withdrawn and the mucosal folds examined in detail. There were no abnormalities in the cecum, ascending colon, transverse colon, descending colon, or rectum. A distal sigmoid polyp which was 5 mm was removed with cold forceps Retroflexion was performed and this showed no acute pathology. The scope was then withdrawn and the patient tolerated the procedure well. Pre-Op/Pre-Procedure Diagnosis: Hematochezia and right colon wall thickening on CT A/P Post-Op/Post-Procedure Diagnosis: Sigmoid polyps, otherwise normal colonoscopy Specimens: See above EBL: None Complications: None Recommendations:Plan follow up colonoscopy for 5 years, f/u pathology, follow up in my clinic for constipation eval in 2 weeks I performed the entire procedure. Alden Carmona MD SIGNATURE: Alden Carmona MD PATIENT NAME: Jessica Abbasi DATE: August 16, 2018 TIME: 2:18 PM PAGER/CONTACT #: [phone] ANES PREOP Observed: 08/16/2018 Status: COMPLETED Source: [facility] 12:52 PM [facility] REPOSITORY HNO ID: [id number] Author: Frandy Disla Service: Anesthesiology Author Type: Physician Type: Anesthesia PreOp Filed: 08/16/2018 1:00 PM Note Text: ANESTHESIOLOGY DAY OF SURGERY NOTE SERVICE DATE: 08/16/2018 SERVICE TIME: 12:52 PM : 1970 Procedure(s) (LRB): COLONOSCOPY (N/A) Surgeon(s): Alden Carmona Estimated body mass index is 31.95 kg/m? as calculated from the following: Height as of 07/28/18: 165.1 cm (5' 5). Weight as of 07/28/18: 87.1 kg (192 lb). Most recent hematocrit and potassium results: No results found for this basename: HCT,HEMATOCRIT,K,POTASSIUM ANES DOS/PREOP NOTE: Vitals: 08/16/18 1209 08/16/18 1219 BP: 147/75 135/83 Pulse: 79 74 Resp: 18 18 Temp: 36.8 ?C (98.2 ?F) SpO2: 97% 99% ACTIVE PROBLEM LIST Colitis Constipation PAST MEDICAL HISTORY Diagnosis Date - Arthritis - Colitis - DJD (degenerative joint disease) - GERD (gastroesophageal reflux disease) - Irritable bowel syndrome (IBS) PAST SURGICAL HISTORY Procedure Laterality Date - ARTHROPLASTY ANKLE JOINT Right acute - ORTHOPEDIC SURGERY HX acute - PAST SURGICAL HISTORY OF treatment of femoral fracture - TUBAL LIGATION HX - VAGINAL SURGERY HX vaginal sling 2007 FAMILY HISTORY Problem Relation Age of Onset - Diabetes Mother - Heart Attack Mother 3x - Stroke Mother 2x - Asthma Father - Diabetes Sister - Asthma Sister - Diabetes Maternal Grandfather Social History: Social History Substance Use Topics - Smoking status: Current Some Day Smoker - Smokeless tobacco: Never Used - Alcohol use No Comment: rare occ. No current facility-administered medications on file prior to encounter. Current Outpatient Prescriptions on File Prior to Encounter: DULoxetine (CYMBALTA) 30 mg capsule Take 1 capsule by mouth twice daily. gabapentin (NEURONTIN) 100 mg capsule Take 1 capsule by mouth daily at bedtime. ranitidine HCl (ZANTAC 150 EFFERDOSE ORAL) Take 1 tablet by mouth twice daily. methylPREDNISolone (MEDROL DOSE-PACK) 4 mg Dose-Pack Take 1 tablet by mouth as directed. No current facility-administered medications for this encounter. Allergies: ALLERGIES Allergen Reactions - Aspirin Vomiting - Betadine [Povidone-* Rash - Tylox [Oxycodone-Ac* Vomiting DOS EXAM: Adequate NPO status: Yes Anesthetic risks, benefits, alternatives, personnel and consent discussed: Yes Patient agrees to proceed: Yes Previous Anesthesia: No history of adverse event. Airway Assessment: MP 3; Neck ROM: Limited Flexion and Extension; Airway Evaluation: Short Neck and Thick neck Symptoms of Sleep Apnea: None Dentition: Poor dentition Multiple missing teeth Chipped, loose and/or missing Additional Physical Exam: Lungs: Patient health status unchanged since recent history and physical. See history and physical for exam findings. Cardiac: Patient health status unchanged since recent history and physical. See history and physical for exam findings. Additional Pertinent Findings: N/A Blood Products: Not anticipated for this procedure. Anesthetic Plan: MAC with Sedation Pain Management Plan: Parenteral or Oral ASA Class: 2 Other Medical Problems: None. S/p TL. Chronic Beta Fide medication administered within 24 hours: N/A I have interviewed and examined the patient. I have reviewed the medical record and/or the pre-anesthesia evaluation, pertinent labs, and test results. Significant changes in the patient's condition since the History and Physical, not otherwise documented in primary service progress notes: No This contains updated information obtained within 48 hours of Surgery/Procedure. SIGNATURE: Frandy Disla MD PATIENT NAME: Jessica Abbasi DATE: August 16, 2018 TIME: 12:52 PM CSN: [id number] SURGICAL TISSUE EXAM Observed: 08/16/2018 Status: F Source: [facility] 12:00 AM [facility] REPOSITORY Test performed at [place] [address] NAME: JESSICA ABBASI REQUESTING: ALDEN CARMONA M.D. FINAL DIAGNOSIS: DISTAL SIGMOID COLON BIOPSY - HYPERPLASTIC POLYP. OPERATIVE PROCEDURE: Colonoscopy with polypectomy CLINICAL INFORMATION: Colitis, constipation; mild diverticulitis, colon polyp GROSS DESCRIPTION: A) Distal sigmoid polyp bx Received in formalin labeled distal sigmoid polyp are two irregular-shaped segments of estrella soft tissue aggregating to 0.7 x 0.2 x 0.1 cm. The specimen is totally submitted in formalin in one cassette. Levels x 3. ARH:mina ROYAL M.D. (Electronic signature on file) Signed out: 08/18/2018 15:41 PRINTED: 08/18/2018 Page 1 of 1 Performed By: #### SURG #### [place] [address] SURGERY VISIT REPORT Observed: 08/10/2018 Status: F Source: [facility] 10:[address] [facility] REPOSITORY [facility] 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 Is patient in pain?: No Allergies povidone-iodine [From Betadine] Allergy (Intermediate, Verified 08/10/18 09:58) Rash soap [From Betadine] Allergy (Intermediate, Verified 08/10/18 09:58) Rash acetaminophen [From Tylox] Adverse Reaction (Verified 08/10/18 09:58) Vomiting aspirin Adverse Reaction (Verified 08/10/18 09:58) Vomiting oxycodone [From Tylox] Adverse Reaction (Verified 08/10/18 09:58) Vomiting tb test Adverse Reaction (Intermediate, Uncoded 08/04/18 13:22) Rash Medications gabapentin 100 mg capsule 100 mg PO QHS #30 cap 06/15/18 [Rx Confirmed 08/04/18] ranitidine 150 mg tablet 150 mg PO BID tab 06/15/18 [History Confirmed 08/04/18] duloxetine 30 mg capsule,delayed release 30 mg PO BID #90 cap 07/07/18 [Rx Confirmed 08/04/18] naproxen sodium 220 mg capsule 220 mg PO BID 07/07/18 [History Confirmed 08/04/18] Is last menstrual period known: No Post menopausal: Yes Patient : No PFSH Medical History IBS (irritable bowel syndrome) (Chronic) Spinal stenosis (Chronic) history bladder mesh (Chronic) DJD (degenerative joint disease) (Chronic) Pyelonephritis (Chronic) Hiatal hernia (Chronic) PUD (peptic ulcer disease) (Chronic) GERD (gastroesophageal reflux disease) (Chronic) Asthma (Chronic) Arthritis (Chronic) Surgical History History of arthroplasty of right ankle (Acute) History of orthopedic surgery (Acute) Family History Grandmother Benign breast lumps Mother Benign breast lumps Diabetes Heart disease CVA (cerebral vascular accident) Father Asthma Aunt Ovarian cancer Social History Smoking Status: Current every day smoker how long ago did patient quit smokin alcohol intake: current alcohol intake frequency: holidays/special occasions only substance use type: marijuana what type of physical activity do you participate in: none additional social history: Orvan Diagnosed with cancer summer 2017 HPI HPI HPI: JESSICA ABBASI, is a 48 F who presents to the office today for excision of left neck lipoma. This is been bothering her and growing and causing pain for years. Ultrasound and MRI confirmed that she does have a lipoma in the left posterior neck Office Procedures Excision of Skin Provider Documentation Provider Documentation: The patient's left posterior neck was prepped and draped in usual sterile fashion. The lipoma was palpated and an incision site was marked. The incision site was injected with local anesthetic and an incision was made with a scalpel. This was deepened to the subcutaneous fat and it was dissected free sharply. The cavity was irrigated and hemostasis was good. The skin was closed with interrupted 4-0 Vicryl sutures and Steri-Strips and a bandage. The patient tolerated the procedure well. The lipoma appeared to be about 3 cm x 2 cm x 2 cm. There was sent for pathology. It was superficial in the subcutaneous tissue. H/F/N/S/G 70886 2.1-3.0cm Procedure Time Out Time Out Informed consent given: Yes Consent signed: Yes Time out checklist: patient, procedure, site marked/identified, positioning of patient, supplies available, allergies confirmed, team agrees on procedure Time out staff in room: Yes Time out verified: Yes Time out date: 08/10/18 Time out time: 10:00 Assessment AND Plan Problems 1. Lipoma of skin and subcutaneous tissue of neck D17.0 Plan 1. The patient presented for excision of the posterior neck lipoma previously seen on ultrasound and MRI. 2. The patient had excision of the mass with no complication. There was sent for pathology and she will follow-up in 1 week. 3. The patient has seen Dr. Carmona at [facility] for her defecation issues and colitis. She is in the middle of workup for that. Rian Hernandez MD Pager: [facility] [address] [place] [address], [address] [place] [address] Office: Orders Orders: Coding Level of Care Code No Charge Diagnoses Lipoma of skin and subcutaneous tissue of neck D17.0 Additional Codes H/F/N/S/G - Benign H/F/N/S/ 2.1-3.0cm (75891) Comment procedure 08/10/18 1052 <Electronically signed by Rian Hernandez MD> Date Rian Hernandez MD Cosigner Signature: Date (if applicable) CC: Ginger Tripp MD [facility] (CHOOSE SITE) Observed: 08/10/2018 Status: F Source: [facility] 10:[address] [facility] REPOSITORY Patient: JESSICA ABBASI : 1970 (48/F) Acct Num: [id number] Phys: Zan XIE,Rian Unit Num: [id number] Loc: LABSPEC Specimen: [id number] Received: 08/10/18 - 1208 Spec Type: Lesion TISSUES TISSUES: Skin of neck, NOS GROSS DESCRIPTION Received in fixative is one container labeled with the patient's name and designated left posterior neck. The specimen consists of multiple irregular fragments of yellow adipose tissue that in aggregate measure 2 x 2 x 0.7 cm. Sections of the largest piece reveal yellow adipose cut surfaces without area of hemorrhage, necrosis and cystic degeneration. The entire specimen is submitted in one cassette. / SJ:mitchel 08/10/18 TC:1 CPT: 61796 HEADER OPERATION: Excision of left posterior neck subcutaneous lesion PRE-OP DIAGNOSIS: Lesion of subcutaneous tissue TISSUE SUBMITTED: Left posterior neck subcutaneous lesion MICROSCOPIC DESCRIPTION Slides are reviewed. MICROSCOPIC DIAGNOSIS Left posterior neck subcutaneous lesion, excision: Fragments of mature adipose tissue consistent with lipoma. SJ:mitchel 08/11/18 Signed Asher Ortiz 08/11/18 <signature on file> Performed By: #### PLES #### [facility] [address] [place], [address] INTERNAL MEDICINE Observed: 08/05/2018 Status: F Source: [facility] OFFICE VISIT 4:[address] [facility] REPOSITORY [facility] [address] [place] [address] [place] [address] OFFICE VISIT Date of Service: 08/04/18 MR#: [id number] Acct: [id number] Name: JESSICA ABBASI Rep #: [id number] : 1970 Provider: Ginger Tripp MD Age/Sex: 48/F Location: [facility] Status: Signed Intake Vital Signs08/04/18 Height 5 ft 3 in 08/04/18 Weight: 193 lb 08/04/18 Body Mass Index (BMI) 34.2 08/04/18 Blood Pressure 134/95 Intake Visit Reasons: 1 MO FU Chief Complaint: 1 MO FU - Pain AND meds. Is patient in pain?: Yes (Back) Pain scale (1-10): 7 Allergies povidone-iodine [From Betadine] Allergy (Intermediate, Verified 08/04/18 13:22) Rash soap [From Betadine] Allergy (Intermediate, Verified 08/04/18 13:22) Rash acetaminophen [From Tylox] Adverse Reaction (Verified 08/04/18 13:22) Vomiting aspirin Adverse Reaction (Verified 08/04/18 13:22) Vomiting oxycodone [From Tylox] Adverse Reaction (Verified 08/04/18 13:22) Vomiting tb test Adverse Reaction (Intermediate, Uncoded 08/04/18 13:22) Rash Medications gabapentin 100 mg capsule 100 mg PO QHS #30 cap 06/15/18 [Rx Confirmed 08/04/18] ranitidine 150 mg tablet 150 mg PO BID tab 06/15/18 [History Confirmed 08/04/18] duloxetine 30 mg capsule,delayed release 30 mg PO BID #90 cap 07/07/18 [Rx Confirmed 08/04/18] naproxen sodium 220 mg capsule 220 mg PO BID 07/07/18 [History Confirmed 08/04/18] PFSH Medical History IBS (irritable bowel syndrome) (Chronic) Spinal stenosis (Chronic) history bladder mesh (Chronic) DJD (degenerative joint disease) (Chronic) Pyelonephritis (Chronic) Hiatal hernia (Chronic) PUD (peptic ulcer disease) (Chronic) GERD (gastroesophageal reflux disease) (Chronic) Asthma (Chronic) Arthritis (Chronic) Surgical History History of arthroplasty of right ankle (Acute) History of orthopedic surgery (Acute) Family History Grandmother Benign breast lumps Mother Benign breast lumps Diabetes Heart disease CVA (cerebral vascular accident) Father Asthma Aunt Ovarian cancer Social History Smoking Status: Current every day smoker how long ago did patient quit smokin alcohol intake: current alcohol intake frequency: holidays/special occasions only substance use type: marijuana what type of physical activity do you participate in: none additional social history: Orvan Diagnosed with cancer summer 2017 HPI HPI Chief Complaint: 1 MO FU - Pain AND meds. Details: JESSICA ABBASI, is a 48yo F who presents to the office today for follow-up. She was seen about a month ago and was given a course of Medrol Dosepak due to history of chronic back pain. Also referred to pain management. She is scheduled to see in 1 day. She was also started on Cymbalta for management of worsening depression/anxiety and also possibly help with her neuropathic symptoms. She reports improvement in his symptoms at this time. ROS Const Constitutional: No chills, fatigue, fever(s), frequent falls, malaise, weakness, sleep problems or change in appetite Eyes Eyes: No blurry vision, change in vision, double vision, discharge or visual disturbances ENT ENT: Positive for neck pain; no abnormal hearing, ear pain, ear pressure, tinnitus or dizziness/vertigo Resp Respiratory: No cough, shortness of breath or wheezing Cardio Cardiology: No chest pain at rest, chest pain with exertion, shortness of breath, dyspnea on exertion, generalized swelling, irregular heart rhythm, lightheadedness, orthopnea, fast heart rate or palpitations Gastro GI: No abdominal pain, change in bowel habits, constipation, diarrhea, nausea/dyspepsia or vomiting Genitourinary-Female: No difficulty urinating, burning urination, painful urination, urinary incontinence, urinary frequency, urinary urgency, urinary hesitancy, urinary retention, Frequent nighttime urination/ nocturia, sexual problems, genital lesions, abnormal vaginal bleeding, pelvic pain, vaginal dryness, vaginal odor or Vaginal Itching Musc Musculoskeletal: Positive for joint pain (Neck), back pain and neck pain; no joint swelling, limited range of motion, numbness, tingling or muscle weakness Skin Skin: No change in skin color, itching, rash or wounds Breast Breast: No breast lump or breast pain Neuro Neurology: No frequent falls, weakness, abnormal hearing, numbness, tingling, unsteady gait/balance, dizziness, loss of vision, memory loss or visual disturbances Psych Psychiatric: No memory loss, No anxiety, No change in appetite, No depression, No Thoughts of harming yourself/Others Endo Endocrine: No fatigue, heat intolerance, increased thirst/drinking, increased hunger or increased urination Aller/Imm Allergy/Immunologic: No wheezing, itchy eyes or seasonal allergy symptoms Rahat/Lymp Hematologic/Lymphatic: No easy bleeding, easy bruising or enlarged lymph nodes Exam Const General: cooperative, no acute distress Orientation: alert, awake, oriented x3 HENMT Head: atraumatic, normocephalic Ears: hearing grossly normal bilaterally Resp Effort AND Inspection: normal respiratory effort, able to speak in complete sentences Auscultation: Bilateral: Clear to Auscultation Cardio Rate: regular rate Rhythm: regular rhythm Heart Sounds: S1 normal, S2 normal Musc Musculoskeletal: No muscle weakness Neuro General: alert, awake, oriented x3, moves all extremities, CN's II-XI intact bilaterally Extrem General: no clubbing, cyanosis or edema Psych Appearance: grossly normal Mental Status: mental status grossly normal Mood: congruent mood Affect: normal affect Assessment AND Plan 1. Chronic back pain M54.9; G89.29 Plan Improved on Medrol Dosepak. Scheduled to follow-up with pain management on Wednesday. MRI suggestive of chronic subluxation and spinal stenosis. Physical therapy done recently not very helpful. Referred to chiropractor for chronic subluxation. Pain management as above. If no significant improvement will refer to surgery 2. Depression with anxiety F41.8 Plan Better controlled on Cymbalta. However has noted more fatigue. Still able to carry out her daily activities. Continue current management. Follow-up in 3 months. 3. Health care maintenance Z00.00 Plan Following up with her car dumper and mammogram. Scheduled to have a colonoscopy soon. Lifestyle and dietary modifications also recommended. This note was generated with [employer] software. It may contain incorrect words, spelling, and punctuation that were not noted in checking the note before signing. Plan Detail Follow Up 3 Months Coding Level of Care Code Off vis,est,level 3 Diagnoses Chronic back pain M54.9; G89.29 Depression with anxiety F41.8 Health care maintenance Z00.00 08/05/18 1654 <Electronically signed by Ginger Tripp MD> Date Ginger Tripp MD Cosigner Signature: Date (if applicable) CC: HOSP Observed: 08/04/2018 Status: COMPLETED Source: [facility] 12:00 AM CLINIC OTHER CAMPUS REPOSITORY Patient:Jessica Abbasi MRN: <[id number]> Height:5' 5(1.651 m) Weight:192 lb (87.091 kg) Outpatient Medications as of 08/16/18: ibuprofen (MOTRIN) 200 mg tablet DULoxetine (CYMBALTA) 30 mg capsule gabapentin (NEURONTIN) 100 mg capsule methylPREDNISolone (MEDROL DOSE-PACK) 4 mg Dose-Pack ranitidine HCl (ZANTAC 150 EFFERDOSE ORAL) Admission/Clinic Administered Medications as of 08/16/18: lidocaine 10 mg/mL (1 %) 1-2 mg injection (XYLOCAINE) lactated ringers infusion Problem List: Colitis [K52.9] Constipation [K59.00] Allergies: Aspirin Betadine [Povidone-Iodine] Tylox [Oxycodone-Acetaminophen] Date Verified: 08/16/18 Lab Values No results within the last 30 days for the following basenames: K,HCT Progress Notes (GENS AG ACC 372): Alden Carmona MD 07/28/2018 8:57 PM Addendum Alden Carmona M.D. Colon AND Rectal Surgery [address] [facility], [address] [place] [address] KARIN Abbasi is a 48 year old White female who presents with difficulty deficating HPI She has had many years (since her 32 year old son was born at least if not more) years of constipation. When she has BMs they are small and soft, and some days she will have no bowel movements but others she will have up to 2-3 small ones. She never feels empty. She has to position herself very specifically on the toilet and feels a lump in her right groin which she has to push, and she also has to push on her right perineum to produce a bowel movement. She tried fiber cookies which led to her having too much bulk and diarrhea intermittently, so she has stopped using this. She denies blood in her stool except for once 3 days ago when she had a very small mucoid blood stained smear on the toilet paper. She had a colonoscopy last in which did not show any findings but showed one benign polyp. 07/14/2018 CT abdomen and pelvis showed a small low attenuation left adrenal mass consistent with an adenoma, small hiatal hernia, and thickening of the ascending and transverse colon, as well as multiple colonic diverticula Review of Systems Constitutional: Negative for chills, fever and weight loss. HENT: Negative for congestion, hearing loss (variably feels that her hearing is decreased and amplified, but this is intermittentt) and sore throat. Eyes: Negative for blurred vision. Respiratory: Negative for cough, shortness of breath and wheezing (occasional). Cardiovascular: Negative for chest pain, palpitations and leg swelling. Gastrointestinal: Positive for blood in stool, constipation (one mucous BM), heartburn (has small hiatal hernia), nausea (with bowel movements while straining) and vomiting (sometimes when nausea is bad). Negative for abdominal pain, diarrhea and melena. Genitourinary: Negative for dysuria, frequency and urgency. Musculoskeletal: Positive for back pain, joint pain and neck pain. Skin: Negative for itching and rash. Neurological: Positive for dizziness (during straining for BMs) and headaches. Negative for tingling. Endo/Heme/Allergies: Negative for environmental allergies and polydipsia. Does not bruise/bleed easily. Psychiatric/Behavioral: Positive for depression (on celebrex). Negative for memory loss. The patient is not nervous/anxious. PAST MEDICAL HISTORY Diagnosis Date - Arthritis - Colitis - DJD (degenerative joint disease) - GERD (gastroesophageal reflux disease) - Irritable bowel syndrome (IBS) PAST SURGICAL HISTORY Procedure Laterality Date - ARTHROPLASTY ANKLE JOINT Right acute - ORTHOPEDIC SURGERY HX acute - PAST SURGICAL HISTORY OF treatment of femoral fracture - TUBAL LIGATION HX Social History Marital status: Spouse name: Years of education: Number of children: Social History Main Topics Smoking status: Current Some Day Smoker Packs/day: 0.00 Years: 0.00 Smokeless tobacco: Never Used Alcohol use: No Comment: rare occ. Drug use: No Other Topics Concern Caffeine Concern Yes Special Diet No Exercise No FAMILY HISTORY Problem Relation Age of Onset - Diabetes Mother - Heart Attack Mother 3x - Stroke Mother 2x - Asthma Father - Diabetes Sister - Asthma Sister - Diabetes Maternal Grandfather ALLERGIES Allergen Reactions - Aspirin Vomiting - Betadine [Povidone-* Rash - Tylox [Oxycodone-Ac* Vomiting Current Outpatient Prescriptions: DULoxetine (CYMBALTA) 30 mg capsule Take 1 capsule by mouth twice daily. gabapentin (NEURONTIN) 100 mg capsule Take 1 capsule by mouth daily at bedtime. methylPREDNISolone (MEDROL DOSE-PACK) 4 mg Dose-Pack Take 1 tablet by mouth as directed. ranitidine HCl (ZANTAC 150 EFFERDOSE ORAL) Take 1 tablet by mouth twice daily. No current facility-administered medications for this visit. OBJECTIVE BP 114/76 Pulse 79 Resp 16 Ht 165.1 cm (5' 5) Wt 87.1 kg (192 lb) SpO2 97% BMI 31.95 kg/m? BMI 31.95 kg/(m2) Physical Exam Constitutional: She is oriented to person, place, and time and well-developed, well-nourished, and in no distress. Neck: Normal range of motion. Neck supple. Cardiovascular: Normal rate, regular rhythm and normal heart sounds. Exam reveals no gallop and no friction rub. No murmur heard. Pulmonary/Chest: Effort normal and breath sounds normal. No respiratory distress. She has no wheezes. She has no rales. Abdominal: Soft. She exhibits no distension and no mass. There is no tenderness. There is no rebound and no guarding. Genitourinary: Rectal exam shows no external hemorrhoid, no internal hemorrhoid, no fissure, no mass and no tenderness. Genitourinary Comments: Normal tone, normal squeeze, no blood in rectum Musculoskeletal: Normal range of motion. She exhibits no edema. Lymphadenopathy: She has no cervical adenopathy. Neurological: She is alert and oriented to person, place, and time. Skin: Skin is warm and dry. No rash noted. Plan ASSESSMENT/PLAN: 1. Colitis - ICD9: 558.9, ICD10: K52.9 (primary diagnosis) Will schedule for diagnostic colonoscopy to assess right sided and transverse colon thickening seen on CT scan. Risks, alternatives and benefits of the planned procedure were fully discussed with the patient. Risks include but are not limited to perforation, bleeding potentially requiring transfusion with inherent risks, enteric leak, and . Also discussed cardiovascular risks and pulmonary risks. The patient seems to understand and agrees to proceed. All questions answered. Informed consent obtained. 2. Constipation, unspecified constipation type - ICD9: 564.00, ICD10: K59.00 Her constipation clinically seems to be of an outlet dysfunction etiology, and would be best assessed by defecography. We will try to obtain defecography at [facility] but she may have to go to [facility]. Will consider pelvic biofeedback pending results of defecography Follow up: Return for for colonoscopy. Alden Carmona M.D. Previous Version Alden Carmona MD 07/28/2018 4:32 PM Signed What is a colonoscopy? A colonoscopy is an outpatient procedure in which the inside of the large intestine (colon and rectum) is examined. A colonoscopy is commonly used to evaluate gastrointestinal symptoms, such as rectal and intestinal bleeding, abdominal pain, or changes in bowel habits. Colonoscopies are also performed in individuals without symptoms to check for colorectal polyps or cancer. A screening colonoscopy is recommended for anyone 50 years of age and older, and for anyone with parents, siblings, or children with a history of colorectal cancer or polyps. What happens before a colonoscopy? To have a successful colonoscopy, your bowel must be empty so that your doctor can clearly view the colon. To do this, it is very important to read and follow all of the instructions given to you at least 2 weeks BEFORE your exam. If your bowel is not empty, your colonoscopy will not be successful and may have to be repeated. If you feel nauseated or vomit while taking the bowel preparation, wait 30 minutes before drinking more fluid and start with small sips of solution. Some activity (such as walking) or a few soda crackers may help decrease the nausea you are feeling. If the nausea persists, call your doctor. You may experience skin irritation around the anus due to the passage of liquid stools. To prevent and treat skin irritation, you should: ? Apply vaseline or Desitin? ointment to the skin around the anus before drinking the bowel preparation medications. These products can be purchased at any drug store. ? Wipe the skin after each bowel movement with disposable wet wipes instead of toilet paper. These are found in the toilet paper area of the store. ? Sit in a bathtub filled with warm water for 10 to 15 minutes after you finish passing a stool. After soaking, blot the skin dry with a soft cloth. Then apply vaseline or Desitin? ointment to the anal area, and place a cotton ball just outside your anus to absorb leaking fluid. What happens during a colonoscopy During a colonoscopy, an experienced doctor uses a colonoscope (a long, flexible instrument about 1/2 inch in diameter) to view the lining of the colon. The colonoscope is inserted into the rectum and advanced through the large intestine. If necessary during a colonoscopy, small amounts of tissue can be removed for analysis (a biopsy) and polyps can be identified and entirely removed. In many cases, a colonoscopy allows accurate diagnosis and treatment of colorectal problems without the need for a major operation. ? You are asked to wear a hospital gown and an IV will be started. ? You are given a pain reliever and a sedative intravenously (in your vein). You will feel relaxed and somewhat drowsy. ? You will lie on your left side, with your knees drawn up towards your chest. ? A small amount of air is used to expand the colon so the physician can see the colon betancourt. ? You may feel mild cramping during the procedure. Cramping can be reduced by taking slow, deep breaths. ? The colonoscope is slowly withdrawn while the lining of your bowel is carefully examined. ? The procedure lasts from 30 minutes to 1 hour. What happens after a colonoscopy? ? You will stay in a recovery room for observation until you are ready for discharge. ? You may feel some cramping or a sensation of having gas, but this quickly passes. ? If sedation has been given, a responsible family member or friend must drive you home. ? The procedure typically lasts from 30 minutes to 1 hour. ? Avoid alcohol, driving, and operating machinery for 24 hours following the procedure. ? Unless otherwise instructed, you may immediately return to your normal diet. We recommend you wait until the day after your procedure to resume normal activities. ? If polyps were removed or a biopsy was taken, the doctor performing your colonoscopy will tell you when it is safe to resume taking your blood thinners. ? If a biopsy was taken or a polyp was removed, you may notice light rectal bleeding for one to two days after the procedure. If you have a large amount of rectal bleeding, high or persistent fevers, or severe abdominal pain within the next 2 weeks, go to your local emergency room and call the physician who performed your exam. References ? [employer]. Colonoscopy Accessed 12/11/2014. ? The National [place] [employer]. Colonoscopy Accessed 12/11/2014. ? Copyright 7284-6588 The [facility]. All rights reserved PROGRESS Observed: 07/28/2018 Status: COMPLETED Source: [facility] 4:07 PM CLINIC OTHER CAMPUS REPOSITORY O ID: [id number] Author: Alden Carmona Service: (none) Author Type: Physician Type: Progress Notes Filed: 07/28/2018 8:57 PM Note Text: Alden Carmona M.D. Colon AND Rectal Surgery [address] [facility], [address] [place] [id number] KARIN Abbasi is a 48 year old White female who presents with difficulty deficating HPI She has had many years (since her 32 year old son was born at least if not more) years of constipation. When she has BMs they are small and soft, and some days she will have no bowel movements but others she will have up to 2-3 small ones. She never feels empty. She has to position herself very specifically on the toilet and feels a lump in her right groin which she has to push, and she also has to push on her right perineum to produce a bowel movement. She tried fiber cookies which led to her having too much bulk and diarrhea intermittently, so she has stopped using this. She denies blood in her stool except for once 3 days ago when she had a very small mucoid blood stained smear on the toilet paper. She had a colonoscopy last in which did not show any findings but showed one benign polyp. 07/14/2018 CT abdomen and pelvis showed a small low attenuation left adrenal mass consistent with an adenoma, small hiatal hernia, and thickening of the ascending and transverse colon, as well as multiple colonic diverticula Review of Systems Constitutional: Negative for chills, fever and weight loss. HENT: Negative for congestion, hearing loss (variably feels that her hearing is decreased and amplified, but this is intermittentt) and sore throat. Eyes: Negative for blurred vision. Respiratory: Negative for cough, shortness of breath and wheezing (occasional). Cardiovascular: Negative for chest pain, palpitations and leg swelling. Gastrointestinal: Positive for blood in stool, constipation (one mucous BM), heartburn (has small hiatal hernia), nausea (with bowel movements while straining) and vomiting (sometimes when nausea is bad). Negative for abdominal pain, diarrhea and melena. Genitourinary: Negative for dysuria, frequency and urgency. Musculoskeletal: Positive for back pain, joint pain and neck pain. Skin: Negative for itching and rash. Neurological: Positive for dizziness (during straining for BMs) and headaches. Negative for tingling. Endo/Heme/Allergies: Negative for environmental allergies and polydipsia. Does not bruise/bleed easily. Psychiatric/Behavioral: Positive for depression (on celebrex). Negative for memory loss. The patient is not nervous/anxious. PAST MEDICAL HISTORY Diagnosis Date - Arthritis - Colitis - DJD (degenerative joint disease) - GERD (gastroesophageal reflux disease) - Irritable bowel syndrome (IBS) PAST SURGICAL HISTORY Procedure Laterality Date - ARTHROPLASTY ANKLE JOINT Right acute - ORTHOPEDIC SURGERY HX acute - PAST SURGICAL HISTORY OF treatment of femoral fracture - TUBAL LIGATION HX Social History Marital status: Spouse name: Years of education: Number of children: Social History Main Topics Smoking status: Current Some Day Smoker Packs/day: 0.00 Years: 0.00 Smokeless tobacco: Never Used Alcohol use: No Comment: rare occ. Drug use: No Other Topics Concern Caffeine Concern Yes Special Diet No Exercise No FAMILY HISTORY Problem Relation Age of Onset - Diabetes Mother - Heart Attack Mother 3x - Stroke Mother 2x - Asthma Father - Diabetes Sister - Asthma Sister - Diabetes Maternal Grandfather ALLERGIES Allergen Reactions - Aspirin Vomiting - Betadine [Povidone-* Rash - Tylox [Oxycodone-Ac* Vomiting Current Outpatient Prescriptions: DULoxetine (CYMBALTA) 30 mg capsule Take 1 capsule by mouth twice daily. gabapentin (NEURONTIN) 100 mg capsule Take 1 capsule by mouth daily at bedtime. methylPREDNISolone (MEDROL DOSE-PACK) 4 mg Dose-Pack Take 1 tablet by mouth as directed. ranitidine HCl (ZANTAC 150 EFFERDOSE ORAL) Take 1 tablet by mouth twice daily. No current facility-administered medications for this visit. OBJECTIVE BP 114/76 Pulse 79 Resp 16 Ht 165.1 cm (5' 5) Wt 87.1 kg (192 lb) SpO2 97% BMI 31.95 kg/m? BMI 31.95 kg/(m2) Physical Exam Constitutional: She is oriented to person, place, and time and well-developed, well-nourished, and in no distress. Neck: Normal range of motion. Neck supple. Cardiovascular: Normal rate, regular rhythm and normal heart sounds. Exam reveals no gallop and no friction rub. No murmur heard. Pulmonary/Chest: Effort normal and breath sounds normal. No respiratory distress. She has no wheezes. She has no rales. Abdominal: Soft. She exhibits no distension and no mass. There is no tenderness. There is no rebound and no guarding. Genitourinary: Rectal exam shows no external hemorrhoid, no internal hemorrhoid, no fissure, no mass and no tenderness. Genitourinary Comments: Normal tone, normal squeeze, no blood in rectum Musculoskeletal: Normal range of motion. She exhibits no edema. Lymphadenopathy: She has no cervical adenopathy. Neurological: She is alert and oriented to person, place, and time. Skin: Skin is warm and dry. No rash noted. Plan ASSESSMENT/PLAN: 1. Colitis - ICD9: 558.9, ICD10: K52.9 (primary diagnosis) Will schedule for diagnostic colonoscopy to assess right sided and transverse colon thickening seen on CT scan. Risks, alternatives and benefits of the planned procedure were fully discussed with the patient. Risks include but are not limited to perforation, bleeding potentially requiring transfusion with inherent risks, enteric leak, and . Also discussed cardiovascular risks and pulmonary risks. The patient seems to understand and agrees to proceed. All questions answered. Informed consent obtained. 2. Constipation, unspecified constipation type - ICD9: 564.00, ICD10: K59.00 Her constipation clinically seems to be of an outlet dysfunction etiology, and would be best assessed by defecography. We will try to obtain defecography at [facility] but she may have to go to [facility]. Will consider pelvic biofeedback pending results of defecography Follow up: Return for for colonoscopy. Alden Carmona M.D. CNOV Observed: 07/28/2018 Status: COMPLETED Source: [facility] 3:00 PM CLINIC OTHER CAMPUS REPOSITORY Office Visit (AGGENS7) JESSICA ABBASI ([id number]) 1970 F Date Time Provider Department 07/28/18 3:00 PM ALDEN CARMONA [facility]7 During your visit today, we recorded the following information about you: Pulse Respiration Blood pressure Weight 79/minute 16/minute 114/76 87.1 kg Height 1.651 m Alden Carmona MD 07/28/2018 8:57 PM Addendum Alden Carmona M.D. Colon AND Rectal Surgery [address] [facility], [address] [place] [id number] KARIN Abbasi is a 48 year old White female who presents with difficulty deficating HPI She has had many years (since her 32 year old son was born at least if not more) years of constipation. When she has BMs they are small and soft, and some days she will have no bowel movements but others she will have up to 2-3 small ones. She never feels empty. She has to position herself very specifically on the toilet and feels a lump in her right groin which she has to push, and she also has to push on her right perineum to produce a bowel movement. She tried fiber cookies which led to her having too much bulk and diarrhea intermittently, so she has stopped using this. She denies blood in her stool except for once 3 days ago when she had a very small mucoid blood stained smear on the toilet paper. She had a colonoscopy last in which did not show any findings but showed one benign polyp. 07/14/2018 CT abdomen and pelvis showed a small low attenuation left adrenal mass consistent with an adenoma, small hiatal hernia, and thickening of the ascending and transverse colon, as well as multiple colonic diverticula Review of Systems Constitutional: Negative for chills, fever and weight loss. HENT: Negative for congestion, hearing loss (variably feels that her hearing is decreased and amplified, but this is intermittentt) and sore throat. Eyes: Negative for blurred vision. Respiratory: Negative for cough, shortness of breath and wheezing (occasional). Cardiovascular: Negative for chest pain, palpitations and leg swelling. Gastrointestinal: Positive for blood in stool, constipation (one mucous BM), heartburn (has small hiatal hernia), nausea (with bowel movements while straining) and vomiting (sometimes when nausea is bad). Negative for abdominal pain, diarrhea and melena. Genitourinary: Negative for dysuria, frequency and urgency. Musculoskeletal: Positive for back pain, joint pain and neck pain. Skin: Negative for itching and rash. Neurological: Positive for dizziness (during straining for BMs) and headaches. Negative for tingling. Endo/Heme/Allergies: Negative for environmental allergies and polydipsia. Does not bruise/bleed easily. Psychiatric/Behavioral: Positive for depression (on celebrex). Negative for memory loss. The patient is not nervous/anxious. PAST MEDICAL HISTORY Diagnosis Date - Arthritis - Colitis - DJD (degenerative joint disease) - GERD (gastroesophageal reflux disease) - Irritable bowel syndrome (IBS) PAST SURGICAL HISTORY Procedure Laterality Date - ARTHROPLASTY ANKLE JOINT Right acute - ORTHOPEDIC SURGERY HX acute - PAST SURGICAL HISTORY OF treatment of femoral fracture - TUBAL LIGATION HX Social History Marital status: Spouse name: Years of education: Number of children: Social History Main Topics Smoking status: Current Some Day Smoker Packs/day: 0.00 Years: 0.00 Smokeless tobacco: Never Used Alcohol use: No Comment: rare occ. Drug use: No Other Topics Concern Caffeine Concern Yes Special Diet No Exercise No FAMILY HISTORY Problem Relation Age of Onset - Diabetes Mother - Heart Attack Mother 3x - Stroke Mother 2x - Asthma Father - Diabetes Sister - Asthma Sister - Diabetes Maternal Grandfather ALLERGIES Allergen Reactions - Aspirin Vomiting - Betadine [Povidone-* Rash - Tylox [Oxycodone-Ac* Vomiting Current Outpatient Prescriptions: DULoxetine (CYMBALTA) 30 mg capsule Take 1 capsule by mouth twice daily. gabapentin (NEURONTIN) 100 mg capsule Take 1 capsule by mouth daily at bedtime. methylPREDNISolone (MEDROL DOSE-PACK) 4 mg Dose-Pack Take 1 tablet by mouth as directed. ranitidine HCl (ZANTAC 150 EFFERDOSE ORAL) Take 1 tablet by mouth twice daily. No current facility-administered medications for this visit. OBJECTIVE BP 114/76 Pulse 79 Resp 16 Ht 165.1 cm (5' 5) Wt 87.1 kg (192 lb) SpO2 97% BMI 31.95 kg/m? BMI 31.95 kg/(m2) Physical Exam Constitutional: She is oriented to person, place, and time and well-developed, well-nourished, and in no distress. Neck: Normal range of motion. Neck supple. Cardiovascular: Normal rate, regular rhythm and normal heart sounds. Exam reveals no gallop and no friction rub. No murmur heard. Pulmonary/Chest: Effort normal and breath sounds normal. No respiratory distress. She has no wheezes. She has no rales. Abdominal: Soft. She exhibits no distension and no mass. There is no tenderness. There is no rebound and no guarding. Genitourinary: Rectal exam shows no external hemorrhoid, no internal hemorrhoid, no fissure, no mass and no tenderness. Genitourinary Comments: Normal tone, normal squeeze, no blood in rectum Musculoskeletal: Normal range of motion. She exhibits no edema. Lymphadenopathy: She has no cervical adenopathy. Neurological: She is alert and oriented to person, place, and time. Skin: Skin is warm and dry. No rash noted. Plan ASSESSMENT/PLAN: 1. Colitis - ICD9: 558.9, ICD10: K52.9 (primary diagnosis) Will schedule for diagnostic colonoscopy to assess right sided and transverse colon thickening seen on CT scan. Risks, alternatives and benefits of the planned procedure were fully discussed with the patient. Risks include but are not limited to perforation, bleeding potentially requiring transfusion with inherent risks, enteric leak, and . Also discussed cardiovascular risks and pulmonary risks. The patient seems to understand and agrees to proceed. All questions answered. Informed consent obtained. 2. Constipation, unspecified constipation type - ICD9: 564.00, ICD10: K59.00 Her constipation clinically seems to be of an outlet dysfunction etiology, and would be best assessed by defecography. We will try to obtain defecography at [facility] but she may have to go to [facility]. Will consider pelvic biofeedback pending results of defecography Follow up: Return for for colonoscopy. Alden Carmona M.D. Alden Carmona MD 07/28/2018 4:32 PM Signed What is a colonoscopy? A colonoscopy is an outpatient procedure in which the inside of the large intestine (colon and rectum) is examined. A colonoscopy is commonly used to evaluate gastrointestinal symptoms, such as rectal and intestinal bleeding, abdominal pain, or changes in bowel habits. Colonoscopies are also performed in individuals without symptoms to check for colorectal polyps or cancer. A screening colonoscopy is recommended for anyone 50 years of age and older, and for anyone with parents, siblings, or children with a history of colorectal cancer or polyps. What happens before a colonoscopy? To have a successful colonoscopy, your bowel must be empty so that your doctor can clearly view the colon. To do this, it is very important to read and follow all of the instructions given to you at least 2 weeks BEFORE your exam. If your bowel is not empty, your colonoscopy will not be successful and may have to be repeated. If you feel nauseated or vomit while taking the bowel preparation, wait 30 minutes before drinking more fluid and start with small sips of solution. Some activity (such as walking) or a few soda crackers may help decrease the nausea you are feeling. If the nausea persists, call your doctor. You may experience skin irritation around the anus due to the passage of liquid stools. To prevent and treat skin irritation, you should: ? Apply vaseline or Desitin? ointment to the skin around the anus before drinking the bowel preparation medications. These products can be purchased at any drug store. ? Wipe the skin after each bowel movement with disposable wet wipes instead of toilet paper. These are found in the toilet paper area of the store. ? Sit in a bathtub filled with warm water for 10 to 15 minutes after you finish passing a stool. After soaking, blot the skin dry with a soft cloth. Then apply vaseline or Desitin? ointment to the anal area, and place a cotton ball just outside your anus to absorb leaking fluid. What happens during a colonoscopy During a colonoscopy, an experienced doctor uses a colonoscope (a long, flexible instrument about 1/2 inch in diameter) to view the lining of the colon. The colonoscope is inserted into the rectum and advanced through the large intestine. If necessary during a colonoscopy, small amounts of tissue can be removed for analysis (a biopsy) and polyps can be identified and entirely removed. In many cases, a colonoscopy allows accurate diagnosis and treatment of colorectal problems without the need for a major operation. ? You are asked to wear a hospital gown and an IV will be started. ? You are given a pain reliever and a sedative intravenously (in your vein). You will feel relaxed and somewhat drowsy. ? You will lie on your left side, with your knees drawn up towards your chest. ? A small amount of air is used to expand the colon so the physician can see the colon betancourt. ? You may feel mild cramping during the procedure. Cramping can be reduced by taking slow, deep breaths. ? The colonoscope is slowly withdrawn while the lining of your bowel is carefully examined. ? The procedure lasts from 30 minutes to 1 hour. What happens after a colonoscopy? ? You will stay in a recovery room for observation until you are ready for discharge. ? You may feel some cramping or a sensation of having gas, but this quickly passes. ? If sedation has been given, a responsible family member or friend must drive you home. ? The procedure typically lasts from 30 minutes to 1 hour. ? Avoid alcohol, driving, and operating machinery for 24 hours following the procedure. ? Unless otherwise instructed, you may immediately return to your normal diet. We recommend you wait until the day after your procedure to resume normal activities. ? If polyps were removed or a biopsy was taken, the doctor performing your colonoscopy will tell you when it is safe to resume taking your blood thinners. ? If a biopsy was taken or a polyp was removed, you may notice light rectal bleeding for one to two days after the procedure. If you have a large amount of rectal bleeding, high or persistent fevers, or severe abdominal pain within the next 2 weeks, go to your local emergency room and call the physician who performed your exam. References ? [employer]. Colonoscopy Accessed 12/11/2014. ? The National [place] [employer]estive [employer] Kidney [employer]. Colonoscopy Accessed 12/11/2014. ? Copyright 6656-7262 The [facility]. All rights reserved Referring Provider: RIAN HERNANDEZ [[id number]] Allergies As of Date: 07/28/2018 Noted Allergy Reaction ASPIRIN 07/28/2018 11 - Vomiting BETADINE (POVIDONE-IODINE) 07/28/2018 2 - Rash TYLOX (OXYCODONE-ACETAMINOPHEN) 07/28/2018 11 - Vomiting Date Reviewed: 07/28/2018 Reviewed by: Alden Carmona - Fully Assessed Reason for Visit: New Patient [172] Cmt: Mrs. Abbasi is here today for colitis, possible prolapse and groin bulge. Primary Visit Diagnosis:Colitis [K52.9] Other Visit Diagnosis:Constipation, unspecified constipation type [K59.00] Prescriptions as of 07/28/2018 Sig: DULOXETINE 30 MG CAPSULE,KVNG* Take 1 capsule by mouth twice* GABAPENTIN 100 MG CAPSULE Take 1 capsule by mouth daily* METHYLPREDNISOLONE 4 MG TABLE* Take 1 tablet by mouth as dir* ZANTAC 150 EFFERDOSE ORAL Take 1 tablet by mouth twice * Problem List As Of Date: 07/28/2018 (None) Other instructions from your clinician: What is a colonoscopy? A colonoscopy is an outpatient procedure in which the inside of the large intestine (colon and rectum) is examined. A colonoscopy is commonly used to evaluate gastrointestinal symptoms, such as rectal and intestinal bleeding, abdominal pain, or changes in bowel habits. Colonoscopies are also performed in individuals without symptoms to check for colorectal polyps or cancer. A screening colonoscopy is recommended for anyone 50 years of age and older, and for anyone with parents, siblings, or children with a history of colorectal cancer or polyps. What happens before a colonoscopy? To have a successful colonoscopy, your bowel must be empty so that your doctor can clearly view the colon. To do this, it is very important to read and follow all of the instructions given to you at least 2 weeks BEFORE your exam. If your bowel is not empty, your colonoscopy will not be successful and may have to be repeated. If you feel nauseated or vomit while taking the bowel preparation, wait 30 minutes before drinking more fluid and start with small sips of solution. Some activity (such as walking) or a few soda crackers may help decrease the nausea you are feeling. If the nausea persists, call your doctor. You may experience skin irritation around the anus due to the passage of liquid stools. To prevent and treat skin irritation, you should: ? Apply vaseline or Desitin? ointment to the skin around the anus before drinking the bowel preparation medications. These products can be purchased at any drug store. ? Wipe the skin after each bowel movement with disposable wet wipes instead of toilet paper. These are found in the toilet paper area of the store. ? Sit in a bathtub filled with warm water for 10 to 15 minutes after you finish passing a stool. After soaking, blot the skin dry with a soft cloth. Then apply vaseline or Desitin? ointment to the anal area, and place a cotton ball just outside your anus to absorb leaking fluid. What happens during a colonoscopy During a colonoscopy, an experienced doctor uses a colonoscope (a long, flexible instrument about 1/2 inch in diameter) to view the lining of the colon. The colonoscope is inserted into the rectum and advanced through the large intestine. If necessary during a colonoscopy, small amounts of tissue can be removed for analysis (a biopsy) and polyps can be identified and entirely removed. In many cases, a colonoscopy allows accurate diagnosis and treatment of colorectal problems without the need for a major operation. ? You are asked to wear a hospital gown and an IV will be started. ? You are given a pain reliever and a sedative intravenously (in your vein). You will feel relaxed and somewhat drowsy. ? You will lie on your left side, with your knees drawn up towards your chest. ? A small amount of air is used to expand the colon so the physician can see the colon betancourt. ? You may feel mild cramping during the procedure. Cramping can be reduced by taking slow, deep breaths. ? The colonoscope is slowly withdrawn while the lining of your bowel is carefully examined. ? The procedure lasts from 30 minutes to 1 hour. What happens after a colonoscopy? ? You will stay in a recovery room for observation until you are ready for discharge. ? You may feel some cramping or a sensation of having gas, but this quickly passes. ? If sedation has been given, a responsible family member or friend must drive you home. ? The procedure typically lasts from 30 minutes to 1 hour. ? Avoid alcohol, driving, and operating machinery for 24 hours following the procedure. ? Unless otherwise instructed, you may immediately return to your normal diet. We recommend you wait until the day after your procedure to resume normal activities. ? If polyps were removed or a biopsy was taken, the doctor performing your colonoscopy will tell you when it is safe to resume taking your blood thinners. ? If a biopsy was taken or a polyp was removed, you may notice light rectal bleeding for one to two days after the procedure. If you have a large amount of rectal bleeding, high or persistent fevers, or severe abdominal pain within the next 2 weeks, go to your local emergency room and call the physician who performed your exam. References ? [employer]. Colonoscopy Accessed 12/11/2014. ? The [employer] [place] [employer] and Digestive and Kidney Diseases. Colonoscopy Accessed 12/11/2014. ? Copyright 5904-8003 The [facility]. All rights reserved Disposition: Return for for colonoscopy. Follow-up and Disposition History Recorded Letter Text Encounter Status:Closed by ALDEN CARMONA MD on 07/28/18 HEAD/NECK SOFT TISSUE Observed: 07/20/2018 Status: F Source: [facility] 10:[address] [facility] REPOSITORY [facility] Imaging Services [address] [place] [id number] Head/Neck Soft Tissue MR#: [id number] Acct: [id number] Name: JESSICA ABBASI Rep #: [id number] : 1970 F 48 From: [place] MD PCP: Ginger Tripp MD Status: REG CLI Study: Head/Neck Soft Tissue Date of Exam: 07/20/18 Exam# [id number] Ordering Dr: Rian Hernandez MD STUDY: THYROID ULTRASOUND REASON FOR EXAM: Female, 48 years old. Posterior palpable neck lump noticed 7 years ago, growing. TECHNIQUE: Ultrasound evaluation of the posterior neck soft tissues was performed with real-time and static hernandez-scale imaging. COMPARISON: MRI cervical spine 07/12/2018.. FINDINGS: Left posterior neck 3.0 x 2.5 x 0.7 cm oval circumscribed heterogeneous hypoechoic region. This conforms to a circumscribed lipoma that can be visualized on the MRI cervical spine of 07/12/2018. US/Head/Neck Soft Tissue IMPRESSION: Lipoma. Electronically Signed: [place], at 17:24 EDT Tel , Service support , CC: Rian Hernandez MD; Ginger Tripp MD Regulatory Submissions Specialist: Signed PT D/C SUMMARY (1) Observed: 07/19/2018 Status: F Source: [facility] 8:[address] [facility] REPOSITORY [facility] Physical [facility] [address] [place] [address]. [address] [place] [address] Fax REHABILITATION SERVICES DISCHARGE SUMMARY MR#: [id number] Acct: [id number] Name: JESSICA ABBASI Rep #: [id number] : 1970 48 From: Mansoor Lambert PT, Cert. 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 Discharge Date: 07/18/18 Please see the following information for a summary of their discharge status. - Subjective Subjective: Patient reports constant pain every day. Symptoms affect ADLS' and housework tasks - Pain Bilateral Back Pain Intensity (Out of 10): 7 Bilateral Neck Pain Intensity (Out of 10): 7 - Overall Improvement % Improvement: 40 - Objective Objective/Function: POSTURE: mild foward posture. GAIT: normal harjit. AROM CERVICAL: min loss,extension mod loss,lateral flexion/rotation mod-pain,left min loss. AROM LUMBAR: min loss flexion/exrension. MMT: 4-/5 quads/hams /hip, ankle 4/5. BUE: 4/5,shoulder 4-5/ - Goals Goal 1:: Independant with Aquatic PT Goal Progress: Progressing Goal 2:: Independant with posture for ADL'S Goal Progress: Progressing Goal 3:: Patient decrease pain cervical and radicular symotoms and lumbar region to improve function with ADL'S Goal Progress: Progressing Goal 4:: Patient to improve cervical and lumbar ROM for function of recovery. Goal Progress: Progressing Goal 5:: Patient increase strength BUE/LE by 1/2 grade to improve function. Goal Progress: Progressing Goal 6:: Patient be able to perform ADL'S and housework tasks with min limiations Goal Progress: Progressing - Plan Plan: D/C RTD - D/C Information Discharge Comments: RTD If there are questions or concerns regarding this patient's physical therapy, please feel free to call me at [phone]. Thank you for the referral of this patient. Sincerely, Mansoor Lambert PT, <Electronically signed by Mansoor Lambert PT, Cert. T, OCS> 07/19/18 0859 CC: Ginger Tripp MD; Henrry Gaytan NP JLA Signed SURGERY VISIT REPORT Observed: 07/18/2018 Status: F Source: [facility] 10:40 AM [facility] [address] [place] [address]. 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: No Is patient in pain?: No Allergies povidone-iodine [From Betadine] Allergy (Intermediate, Verified 07/18/18 09:06) Rash soap [From Betadine] Allergy (Intermediate, Verified 07/18/18 09:06) Rash acetaminophen [From Tylox] Adverse Reaction (Verified 07/18/18 09:06) Vomiting aspirin Adverse Reaction (Verified 07/18/18 09:06) Vomiting oxycodone [From Tylox] Adverse Reaction (Verified 07/18/18 09:06) Vomiting tb test Adverse Reaction (Intermediate, Uncoded 07/13/18 10:07) Rash Medications gabapentin 100 mg capsule 100 mg PO QHS #30 cap 06/15/18 [Rx Confirmed 07/18/18] ranitidine 150 mg tablet 150 mg PO BID tab 06/15/18 [History Confirmed 07/18/18] duloxetine 30 mg capsule,delayed release 30 mg PO BID #90 cap 07/07/18 [Rx Confirmed 07/18/18] methylprednisolone 4 mg tablets in a dose pack See Label Instructions PO PER PKG DIR #21 tab 07/07/18 [Rx Confirmed 07/18/18] naproxen sodium 220 mg capsule 220 mg PO BID 07/07/18 [History Confirmed 07/18/18] Is last menstrual period known: No Post menopausal: Yes Patient : No PFSH Medical History history bladder mesh (Chronic) DJD (degenerative joint disease) (Chronic) Pyelonephritis (Chronic) Hiatal hernia (Chronic) PUD (peptic ulcer disease) (Chronic) GERD (gastroesophageal reflux disease) (Chronic) Asthma (Chronic) Arthritis (Chronic) Surgical History History of arthroplasty of right ankle (Acute) History of orthopedic surgery (Acute) Family History Grandmother Benign breast lumps Mother Benign breast lumps Diabetes Heart disease CVA (cerebral vascular accident) Father Asthma Aunt Ovarian cancer Social History Smoking Status: Current every day smoker how long ago did patient quit smokin alcohol intake: current alcohol intake frequency: holidays/special occasions only substance use type: marijuana what type of physical activity do you participate in: none additional social history: Orvan Diagnosed with cancer summer 2017 HPI HPI HPI: JESSICA ABBASI, is a 48 F who presents to the office today for follow-up. The patient is still having bulging in her right groin and she reports having a difficult time defecating. She says she has to push the groin mass in in order to have a bowel movement. She also still has a lump on her left posterior neck. She has no abdominal pain at this time. PAUL DOMINGUEZ Additional Details: Left posterior neck mass Cardio Cardiovascular: No murmur, pacemaker or heart disease Resp Respiratory: No shortness of breath, No sleep apnea Gastro Gastrointestinal: No abdominal pain, No nausea or vomiting, Yes constipation, No blood in stool Exam Const General: cooperative Orientation: alert, oriented x3 HENMT Other: Left posterior neck mass which is soft and mobile. Resp Effort AND Inspection: normal respiratory effort Auscultation: clear to auscultation bilaterally Cardio Rate: regular rate Rhythm: regular rhythm Heart Sounds: no murmurs GI Inspection: non-distended Palpation: soft, nontender Assessment AND Plan 1. Right groin pain R10.31 Plan 1. The patient has right groin bulging but a CT scan of the abdomen and pelvis did not reveal any herniation. I am referring her to a colorectal surgeon to see if she is having prolapsing or some sort of problem with her rectum. CT scan of the abdomen and pelvis did reveal possible colitis of the ascending and transverse colon but she is having no abdominal pain or diarrhea at this time. The patient will likely need a colonoscopy but I will defer to the colorectal surgeon. 2. Neck mass R22.1 Plan 1. The patient still has a posterior left neck mass. I will order an ultrasound to better characterize it as I was not able to see it on the MRI. If she would like excision we can proceed. Rian Hernandez MD Pager: [facility] [address] [place] [address], [address] [place] [address] Office: Orders Orders: Coding Level of Care Code Off vis,est,level 3 Diagnoses Right groin pain R10.31 Neck mass R22.1 07/18/18 1040 <Electronically signed by Rian Hernandez MD> Date Rian Hernandez MD Cosigner Signature: Date (if applicable) CC: Ginger Tripp MD ABDOMEN/PELVIS WITH Observed: 07/14/2018 Status: F Source: SUSSY CONTRAST 1:[address] [facility] REPOSITORY [facility] Imaging Services [address] [place] [address] Abdomen/Pelvis WITH Contrast MR#: [id number] Acct: [id number] Name: JESSICA ABBASI Rep #: [id number] : 1970 F 48 From: Fabrice Solis MD PCP: Ginger Tripp MD Status: REG CLI Study: Abdomen/Pelvis WITH Contrast Date of Exam: 07/14/18 Exam# [id number] Ordering Dr: Rian Hernandez MD STUDY: CT ABDOMEN AND PELVIS WITH CONTRAST REASON FOR EXAM: Female, 48 years old. Pelvic pressure and constipation. RADIATION DOSAGE (If Supplied By Facility): CTDIvol = ( 19.72 ) mGy, DLP = ( 1562.96 ) mGycm TECHNIQUE: Transaxial images were obtained from the dome of the diaphragm to the symphysis pubis with oral contrast. 100CC ml of Isovue 300 contrast was administered. Sagittal and coronal images were reconstructed. Individualized dose optimization techniques were used for this CT. COMPARISON: None. FINDINGS: The visualized lung bases are unremarkable. The visualized portions of the heart are within normal limits. Normal liver. Normal gallbladder and extrahepatic biliary system. Normal spleen. Normal pancreas. There is a small, circumscribed, smooth, low attenuation left adrenal mass, consistent with an adrenal adenoma. This measures 1.3 cm. Normal right adrenal gland. Normal right kidney. Normal left kidney. There is a small hiatal hernia. Normal small intestine. The colon is not adequately distended with oral contrast. Findings suggestive of thickening of the ascending colon and transverse colon clinical correlation is recommended. There are multiple colonic diverticula consistent with diverticulosis. The appendix is visualized and appears normal. There is scattered atherosclerotic calcification of the abdominal aorta, without a demonstrated aneurysm. Normal inferior vena cava. Normal retroperitoneum. Normal urinary bladder. A 1.9 cm follicle is seen in the left ovary. There is a small umbilical hernia containing fat. Normal osseous structures. CT/Abdomen/Pelvis WITH Contrast IMPRESSION: 1.3 cm low density lesion in the left adrenal gland suggestive of a small adenoma. Possible colitis of the right hemicolon. Clinical correlation is recommended. Electronically Signed: Fabrice Solis MD at 14:27 EDT Tel [phone], Service support , CC: Rian Hernandez MD; Ginger Tripp MD Regulatory Submissions Specialist: Signed MANAGER EDUCATION OFFICE VISIT Observed: 07/13/2018 Status: F Source: LESLIE REPORT 11:01 AM [facility] 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 Is patient in pain?: No Allergies povidone-iodine [From Betadine] Allergy (Intermediate, Verified 07/13/18 10:07) Rash soap [From Betadine] Allergy (Intermediate, Verified 07/13/18 10:07) Rash acetaminophen [From Tylox] Adverse Reaction (Verified 07/07/18 14:34) Vomiting aspirin Adverse Reaction (Verified 07/13/18 10:07) Vomiting oxycodone [From Tylox] Adverse Reaction (Verified 07/13/18 10:07) Vomiting tb test Adverse Reaction (Intermediate, Uncoded 07/13/18 10:07) Rash Medications gabapentin 100 mg capsule 100 mg PO QHS #30 cap 06/15/18 [Rx Confirmed 07/13/18] ranitidine 150 mg tablet 150 mg PO BID tab 06/15/18 [History Confirmed 07/13/18] duloxetine 30 mg capsule,delayed release 30 mg PO BID #90 cap 07/07/18 [Rx Confirmed 07/13/18] methylprednisolone 4 mg tablets in a dose pack See Label Instructions PO PER PKG DIR #21 tab 07/07/18 [Rx Confirmed 07/13/18] naproxen sodium 220 mg capsule 220 mg PO BID 07/07/18 [History Confirmed 07/13/18] Is last menstrual period known: Yes Last Menstral Period: 07/04/18 Post menopausal: No Patient : No : [facility] History history bladder mesh (Chronic) DJD (degenerative joint disease) (Chronic) Pyelonephritis (Chronic) Hiatal hernia (Chronic) PUD (peptic ulcer disease) (Chronic) GERD (gastroesophageal reflux disease) (Chronic) Asthma (Chronic) Arthritis (Chronic) Surgical History History of arthroplasty of right ankle (Acute) History of orthopedic surgery (Acute) Family History Grandmother Benign breast lumps Mother Benign breast lumps Diabetes Heart disease CVA (cerebral vascular accident) Father Asthma Aunt Ovarian cancer Social History Smoking Status: Current every day smoker how long ago did patient quit smokin alcohol intake: current alcohol intake frequency: holidays/special occasions only substance use type: marijuana what type of physical activity do you participate in: none additional social history: Orvan Diagnosed with cancer summer 2017 HPI vaginal pain: Details: JESSICA ABBASI is a 48 year old who presents for new patient with vaginal lump X several years. Does get irritated with intercourse. 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 States about 20 years ago had I AND D of area of concern and has continued to have lump in that area. and denies STD concerns Denies history of STDs or abnormal paps. Menses regular every 21 days, last 3-4 days Female Reproductive History Last Menstral Period: 07/04/18 Questions: Metorrhagia: No, Sexually active: Yes, Dyspareunia: No, PCB: No Pregancy History 1 Elective abortions Hx Para 1 Spontaneous abortions Past Pregnancies Del. DatName GA/WeeksOutcome Route [facility] LocaProviderFOB e ht en tn Unknown Boris 1985 ROS Const Constitutional: Reports system reviewed and no additional complaints, except as docu GI GI: Denies abdominal pain or change in bowel habits Exam Const General: cooperative, no acute distress Nutritional Appearance: average body habitus Orientation: oriented x3 External Female Exam: normal appearance of the urethra, other (2cm disk shaped firm mass noted within right labia minora-area of concern) Urethra: normal appearance of the urethra Speculum Exam - Vagina: normal appearance of the vagina, normal vaginal discharge Speculum Exam - Cervix: normal appearance of the cervix (pap collected) Bimanual Exam- Vagina AND Uterus: normal bimanual exam, uterine mobility normal, uterus non-tender, uterine size normal Bimanual Exam- Adnexa, other: normal adnexae, no adnexal masses, pelvic support normal Pelvic Support: normal Assessment AND Plan Problems 1. Inclusion cyst of vulva N90.7 2. Pap smear for cervical cancer screening Z12. 3. Encounter for screening mammogram for malignant neoplasm of breast Z. Plan Inclusion cyst can be removed and will schedule with Dr. Yancey. Thin prep pap with HPV Mammogram ordered Orders Orders: Coding Level of Care Code Off vis,new,level 3 Diagnoses Inclusion cyst of vulva N90.7 Pap smear for cervical cancer screening Z12.4 Encounter for screening mammogram for malignant neoplasm of breast Z12.31 07/13/18 1101 <Electronically signed by Leti VALDEZ> Date Leti QUINONEZC Cosigner Signature: Date (if applicable) CC: PAP IG HPV APTIMA Collected: 07/13/2018 Status: F Source: SUSSY 1618,45 11:[address] [facility] REPOSITORY Order Comment: CYTOLOGY INFORMATION: - CLINICAL INFORMATION: ANNUAL - DATE LMP/MENOPAUSE: LMP NOT GIVEN - COLLECTION VIAL: Thin Prep Vial - HEEL BUILDER MACHINE SOURCE: CERVICAL - COLLECTION TECHNIQUE: BRUSH/SPATULA Specimen Comment: [id number] Specimen Comment: No. of containers..01 ThinPrep Vial TYPE CODE TESTS RESULT OUT OF RANGE REFERENCE UNITS LAB L7400.0800 . Normal DIAGN Comment Result Comment: NEGATIVE FOR INTRAEPITHELIAL LESION AND MALIGNANCY. THIS SPECIMEN WAS RESCREENED PART OF OUR HEALTH AND WELLNESS COORDINATOR PROGRAM. LAB L7400.0900 . Normal ADEQ Comment Result Comment: Satisfactory for evaluation. Endocervical and/or squamous metaplastic cells (endocervical component) are present. LAB L7400.1400 . Normal PERFORM Comment Result Comment: Cyndee Bates, Director [employer] (ASCP) LAB L7400.1500 . Normal QC Comment REV Result Comment: Lexie Delarosa, Director [employer] ([employer]) LAB L7400.2575 . Normal TEST METHOD Comment Result Comment: This liquid based ThinPrep(R) pap test was screened with the use of an image guided system. LAB L7400.2600 . Normal . COMM LAB L7400.2700 . Normal PAPSMR Comment Result Comment: The Pap smear is a screening test designed to aid in the detection of premalignant and malignant conditions of the uterine cervix. It is not a diagnostic procedure and should not be used as the sole means of detecting cervical cancer. Both false-positive and false-negative reports do occur. LAB L7400.2760 Negative Normal HPV APTIMA, Negative HR Result Comment: This test detects fourteen high-risk HPV types (16/18/31/33/35/39/45/ 51/52/56/58/59/66/68) without differentiation. Performed at: [facility] - [facility] [address] [id number] Customer Resolution Specialist: Ginger Rachel MD, Phone: [phone] Performed at: =G - [facility] [address] [id number] Customer Resolution Specialist: Ginger Rachel MD, Phone: [phone] Performed By: #### L7400.0280 #### [facility] (refer to report for specific site) refer to report for address and phone number CBC W/DIFF, AUTOMATED Collected: 07/13/2018 Status: F Source: SUSSY 9:[address] [facility] REPOSITORY TYPE CODE TESTS RESULT OUT OF RANGE REFERENCE UNITS LAB L100.1000 4.4-11.0 K/mm3 Normal WBC 10.3 LAB L100.1200 4.2-5.4 M/mm3 Normal RBC 4.64 LAB L100.1300 12.0-15.0 g/dl Normal HGB 14.2 LAB L100.1400 37-47 % Normal HCT 42.3 LAB L100.1500 81-99 fL Normal MCV 91.2 LAB L100.1600 27.0-32.0 pg Normal MCH 30.6 LAB L100.1700 32-36 g/gl Normal MCHC 33.6 LAB L100.1810 11.6-14.6 % Normal RDW CV 13.4 LAB L100.1820 35.1-43.9 fl High RDW SD 44.8 LAB L100.1900 150-450 K/mm3 Normal PLT 316 LAB L100.2000 6.2-12.0 fl Normal MPV 9.6 LAB L100.2100 47-70 % Normal NEUT% 57.0 LAB L100.2200 19-41 % Normal LY% 33.9 LAB L100.2300 0-10 % Normal MONO% 7.1 LAB L100.2400 0-5 % Normal EO% 1.3 LAB L100.2500 0-1 % Normal BASO% 0.3 LAB L100.2550 0.0-0.9 % Normal IM GRAN % 0.400 Result Comment: IG% - Immature Granulocytes (promyelocytes, myelocytes and metamyelocytes) > 1% indicates that a LEFT SHIFT is Present. LAB L100.2620 2.0-7.7 X10 3/uL Normal Absolute Neut 5.9 LAB L100.2720 0.83-4.51 X10 3/ul Normal Absolute Lymph 3.48 Performed By: #### L100.0100, L500.4050, L500.4100, L501.9520 #### [facility] [address] [place], [address] COMPREHENSIVE METABOLIC Collected: 07/13/2018 Status: F Source: [facility] 9:[address] [facility] REPOSITORY Order Comment: Comments: Fasting Comments: Fasting TYPE CODE TESTS RESULT OUT OF RANGE REFERENCE UNITS LAB L501.0100 74-106 mg/dL Normal GLU 90 Result Comment: Please note revised GLUCOSE reference range effective 2017. LAB L501.1000 7-18 mg/dL High BUN 19 LAB L501.1100 0.55-1.02 mg/dL Normal CREAT,SERUM 0.77 Result Comment: The validity of the calculated GFR AND GFRAA in patients over 70 years has not been determined. Clinical correlation is essential. LAB L501.1110 >60 mL/min Normal EST GFR 85 Result Comment: Non- GFR Calc LAB L501.1115 >60 mL/min Normal EST GFR - AA 103 Result Comment: GFR Calc LAB L501.1300 10-20 RATIO High BUN/CRE 24.7 LAB L501.1500 6.4-8.2 g/dL T Normal PROT 7.4 LAB L501.1800 3.2-5.0 g/dL Normal ALB 3.7 LAB L501.1950 2.2-4.2 g/dL Normal GLOB 3.7 LAB L501.2000 0.9-2.4 RATIO Normal A/G 1.0 LAB L501.2200 8.5-10.1 mg/dL CA Normal 8.7 LAB L501.4100 15-37 U/L Low AST 11 LAB L501.4305 45-117 U/L Normal ALK P 70 LAB L501.4405 13-56 U/L Normal ALT 24 LAB L501.4600 0.20-1.00 mg/dL T Normal BILI 0.50 LAB L501.5300 136-145 mmol/L NA Normal 140 LAB L501.5600 3.5-5.1 mmol/L K Normal 3.6 LAB L501.5900 98-107 mmol/L CL Normal 103 LAB L501.6100 21.0-32.0 mmol/L Normal CO2 32.0 LAB L501.6200 5-15 Normal GAP 5 Performed By: #### L100.0100, L500.4050, L500.4100, L501.9520 #### [facility] [address] [place], [place], [id number] LIPID PROFILE Collected: 07/13/2018 Status: F Source: SUSSY 9:[address] [facility] REPOSITORY Order Comment: Comments: Fasting Comments: Fasting TYPE CODE TESTS RESULT OUT OF RANGE REFERENCE UNITS LAB L501.4900 200 mg/dL Normal CHOL 177 Result Comment: <200 mg/dL Desirable 200-240 mg/dL Borderline >240 mg/dL High Risk LAB L501.5000 mg/dL Normal TRIG 88 Result Comment: The drugs N-Acetylcysteine and Metamizole may falsely depress this assay. Serum Triglycerides Reference Interval Normal <150 mg/dL Borderline high 150 - 199 mg/dL High 200 - 499 mg/dL Very High > or = 500 mg/dL LAB L501.6400 mg/dL Normal HDL 78 Result Comment: The drugs N-Acetylcysteine and Metamizole may falsely depress this assay. Reference Range HDL <40 mg/dL Low HDL Cholesterol HDL >or= 60 mg/dL High HDL Cholesterol LAB L501.6500 0-130 mg/dL Normal LDL 81 LAB L501.6600 5-40 mg/dL Normal VLDL 18 Performed By: #### L100.0100, L500.4050, L500.4100, L501.9520 #### [facility] [address] [place], [place], [id number] THYROID STIM HORMONE Collected: 07/13/2018 Status: F Source: SUSSY (TSH) 9:[address] [facility] REPOSITORY Order Comment: Comments: Fasting Comments: Fasting TYPE CODE TESTS RESULT OUT OF RANGE REFERENCE UNITS LAB L501.9520 0.358-3.74 uIU/mL Normal TSH 1.07 Performed By: #### L100.0100, L500.4050, L500.4100, L501.9520 #### [facility] [address] [place], [address] SPINE CERVICAL Observed: 07/12/2018 Status: F Source: LESLIE (ROUTINE) 4:[address] 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 Chronic neck pain. DJD. TECHNIQUE: Standardized fat and water weighted pulse sequences were obtained in the sagittal and axial planes. COMPARISON: Cervical spine radiographs 06/15/2018. FINDINGS: Normal foramen magnum and brainstem-cervical cord junction. Normal craniovertebral junction. Normal predental space. Normal lateral atlantoaxial articulations. Normal odontoid process. Mild straightening of the C-spine curve. Normal vertebral bodies and posterior osseous elements. C2-3: Normal endplates. Normal disc height, signal and morphology. Normal central canal and intervertebral neural foramina. C3-4: Normal endplates. Normal disc height, signal and morphology. Normal central canal and intervertebral neural foramina. C4-5: Normal endplates. Minimal disc space height narrowing with mild degenerative anterolisthesis of C4 on C5. Normal central canal and left intervertebral neural foramen. Mild stenosis of the right intervertebral neural foramen. Moderate right degenerative facet arthropathy. Normal left facet joint. C5-6: Anterior marginal spurs. Normal endplates. Moderate disc space height narrowing. Normal central canal. Moderate stenosis of the bilateral intervertebral neural foramina secondary to osteophytes arising from the uncovertebral joints. No significant facet arthropathy. C6-7: Normal endplates. Minimal disc space height narrowing. Normal central canal and bilateral intervertebral neural foramina. C7-T1: Normal endplates. Normal disc height, signal and morphology. Normal central canal and intervertebral neural foramina. T1-T2, T2-T3 and T3-T4: (Sagittal only). Normal endplates. Normal disc height and morphology. Normal central canal and bilateral intervertebral neural foramina. Normal cervical cord. Normal visualized soft tissue structures. MRI/Spine Cervical (Routine) IMPRESSION: 1. No MRI evidence of cervical extruded disc fragment or nerve root displacement. 2. Minimal C4-C5 disc space height narrowing with mild asymmetric degenerative anterolisthesis of C4 on C5, mild stenosis of the right intervertebral neural foramen and moderate right degenerative facet arthropathy. 3. Moderate C5-C6 disc space height narrowing with moderate stenosis of the bilateral intervertebral neural foramina due to osteophytes arising from the uncovertebral joints. 4. Minimal C6-C7 disc space height narrowing. Electronically Signed: Stevie Mnior MD at 10:26 EDT , Service support , CC: Ginger Tripp MD; Henrry Gaytan NP Regulatory Submissions Specialist: Signed INTERNAL MEDICINE Observed: 07/07/2018 Status: F Source: SUSSY OFFICE VISIT 3:52 PM [facility] [address] [place] [address] [place] [address] OFFICE VISIT Date of Service: 07/07/18 MR#: [id number] Acct: [id number] Name: JESSICA ABBASI Rep #: [id number] : 1970 Provider: Ginger Tripp MD Age/Sex: 48/F Location: [facility] Status: Signed Intake Vital Signs07/07/18 Height 5 ft 5 in 07/07/18 Weight: 193 lb 07/07/18 Body Mass Index (BMI) 32.1 07/07/18 Blood Pressure 128/88 Intake Visit Reasons: 3 WK FU Chief Complaint: 3 WK FU Is patient in pain?: Yes (Back) Pain scale (1-10): 10 Allergies povidone-iodine [From Betadine] Allergy (Intermediate, Verified 07/07/18 14:34) Rash soap [From Betadine] Allergy (Intermediate, Verified 07/07/18 14:34) Rash acetaminophen [From Tylox] Adverse Reaction (Verified 07/07/18 14:34) Vomiting aspirin Adverse Reaction (Verified 07/07/18 14:34) Vomiting oxycodone [From Tylox] Adverse Reaction (Verified 07/07/18 14:34) Vomiting tb test Adverse Reaction (Intermediate, Uncoded 07/07/18 14:34) Rash Medications gabapentin 100 mg capsule 100 mg PO QHS #30 cap 06/15/18 [Rx Confirmed 07/07/18] meloxicam 7.5 mg tablet 7.5 mg PO QDAY #30 tab 06/15/18 [Rx Confirmed 07/07/18] ranitidine 150 mg tablet 150 mg PO BID tab 06/15/18 [History Confirmed 07/07/18] duloxetine 30 mg capsule,delayed release 30 mg PO BID #90 cap 07/07/18 [Rx Confirmed 07/07/18] methylprednisolone 4 mg tablets in a dose pack See Label Instructions PO PER PKG DIR #21 tab 07/07/18 [Rx Confirmed 07/07/18] naproxen sodium 220 mg capsule 220 mg PO BID 07/07/18 [History Confirmed 07/07/18] PFSH Medical History history bladder mesh (Chronic) DJD (degenerative joint disease) (Chronic) Pyelonephritis (Chronic) Hiatal hernia (Chronic) PUD (peptic ulcer disease) (Chronic) GERD (gastroesophageal reflux disease) (Chronic) Asthma (Chronic) Arthritis (Chronic) Surgical History History of arthroplasty of right ankle (Acute) History of orthopedic surgery (Acute) Family History Grandmother Benign breast lumps Mother Benign breast lumps Diabetes Heart disease CVA (cerebral vascular accident) Father Asthma Aunt Ovarian cancer Social History Smoking Status: Current every day smoker how long ago did patient quit smokin alcohol intake: current alcohol intake frequency: holidays/special occasions only substance use type: marijuana what type of physical activity do you participate in: none HPI HPI Chief Complaint: 3 WK FU Details: JESSICA ABBASI, is a 48yo F who presents to the office today for follow-up. Still reports significant low back pain despite physical therapy. Actually reports worsening pain after physical therapy. Imaging done so far without any significant abnormality. Cervical subluxation noted on cervical x-ray and plan is for an MRI. She however also now reports increased anxiety and depression due to worsening life stresses. 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 ROS Const Constitutional: No chills, fatigue, fever(s), frequent falls, malaise, weakness, sleep problems or change in appetite Eyes Eyes: No blurry vision, change in vision, double vision, discharge or visual disturbances ENT ENT: No abnormal hearing, ear pain, ear pressure, tinnitus or dizziness/vertigo Resp Respiratory: No cough, shortness of breath or wheezing Cardio Cardiology: No chest pain at rest, chest pain with exertion, shortness of breath, dyspnea on exertion, generalized swelling, irregular heart rhythm, lightheadedness, orthopnea, fast heart rate or palpitations Gastro GI: No abdominal pain, change in bowel habits, constipation, diarrhea, nausea/dyspepsia or vomiting Genitourinary-Female: No difficulty urinating, burning urination, painful urination, urinary incontinence, urinary frequency, urinary urgency, urinary hesitancy, urinary retention, Frequent nighttime urination/ nocturia, sexual problems, genital lesions, abnormal vaginal bleeding, pelvic pain, vaginal dryness, vaginal odor or Vaginal Itching Musc Musculoskeletal: Positive for back pain and abnormal walking; no joint pain, joint swelling, limited range of motion, muscle weakness, numbness or tingling Skin Skin: No change in skin color, itching, rash or wounds Breast Breast: No breast lump or breast pain Neuro Neurology: Positive for abnormal walking; no frequent falls, weakness, abnormal hearing, numbness, tingling, unsteady gait/balance, dizziness, loss of vision, memory loss or visual disturbances Psych Psychiatric: No memory loss, No anxiety, No change in appetite, Positive for depression, No Thoughts of harming yourself/Others Endo Endocrine: No fatigue, heat intolerance, increased thirst/drinking, increased hunger or increased urination Aller/Imm Allergy/Immunologic: No wheezing, itchy eyes or seasonal allergy symptoms Rahat/Lymp Hematologic/Lymphatic: No easy bleeding, easy bruising or enlarged lymph nodes Exam Const General: cooperative, no acute distress Orientation: alert, awake, oriented x3 HENMT Head: atraumatic, normocephalic Ears: hearing grossly normal bilaterally Resp Effort AND Inspection: normal respiratory effort, able to speak in complete sentences Auscultation: Bilateral: Clear to Auscultation Cardio Rate: regular rate Rhythm: regular rhythm Heart Sounds: S1 normal, S2 normal Musc Musculoskeletal: No muscle weakness Neuro General: alert, awake, oriented x3, moves all extremities, CN's II-XI intact bilaterally Extrem General: no clubbing, cyanosis or edema Psych Appearance: grossly normal Mental Status: mental status grossly normal Mood: anxious mood Assessment AND Plan 1. Chronic back pain M54.9; G89.29 Plan Ongoing for several years however now said to be worsening. Physical therapy has not helped so far. X-ray done suggestive DDD. Refer to pain management. Orders Referrals: 2. Depression with anxiety F41.8 Plan Worsening due to life stressors. Will start on Cymbalta. Follow-up in 1 month. 3. Hypokalemia E87.6 Plan Prior history of. No repeat labs done. CMP ordered. Other labs also ordered. Follow-up with results. 4. Tobacco abuse Z72.0 Plan Smokes about 3 sticks a months now. Smoking cessation encouraged. Follow-up at next visit. Plan Detail Other Orders Orders: Other Medications New: Follow Up 1 Month Coding Level of Care Code Off vis,est,level 4 Diagnoses Chronic back pain M54.9; G89.29 Depression with anxiety F41.8 Hypokalemia E87.6 Tobacco abuse Z72.0 07/07/18 1552 <Electronically signed by Ginger Tripp MD> Date Ginger Tripp MD Cosigner Signature: Date (if applicable) CC: SURGERY VISIT REPORT Observed: 06/30/2018 Status: F Source: [place] 1:[address] 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 Is patient in pain?: No Allergies povidone-iodine [From Betadine] Allergy (Intermediate, Verified 06/22/18 09:24) Rash soap [From Betadine] Allergy (Intermediate, Verified 06/22/18 09:24) Rash acetaminophen [From Tylox] Adverse Reaction (Verified 06/22/18 09:24) Vomiting aspirin Adverse Reaction (Verified 06/22/18 09:24) Vomiting oxycodone [From Tylox] Adverse Reaction (Verified 06/22/18 09:24) Vomiting tb test Adverse Reaction (Intermediate, Uncoded 06/15/18 10:08) Rash Medications Potassium Chloride [K-Dur] 20 meq PO BID #14 tab 10/29/17 [Rx Confirmed 06/22/18] gabapentin 100 mg capsule 100 mg PO QHS #30 cap 06/15/18 [Rx Confirmed 06/22/18] meloxicam 7.5 mg tablet 7.5 mg PO QDAY #30 tab 06/15/18 [Rx Confirmed 06/22/18] ranitidine 150 mg tablet 150 mg PO BID tab 06/15/18 [History Confirmed 06/22/18] PFSH Medical History history bladder mesh (Chronic) DJD (degenerative joint disease) (Chronic) Pyelonephritis (Chronic) Hiatal hernia (Chronic) PUD (peptic ulcer disease) (Chronic) GERD (gastroesophageal reflux disease) (Chronic) Asthma (Chronic) Arthritis (Chronic) Surgical History History of arthroplasty of right ankle (Acute) History of orthopedic surgery (Acute) Family History Grandmother Benign breast lumps Mother Benign breast lumps Diabetes Heart disease CVA (cerebral vascular accident) Father Asthma Aunt Ovarian cancer Social History Smoking Status: Current every day smoker how long ago did patient quit smokin alcohol intake: current alcohol intake frequency: holidays/special occasions only substance use type: marijuana what type of physical activity do you participate in: none HPI HPI HPI: JESSICA ABBASI, is a 48 F who presents to the office today for several issues. The patient has a left neck mass which is been there for 8 years and is slowly growing and pushing on it causes headaches. The patient has right groin bulging which is been happening for 3-4 weeks. She says it bulges when she is going to the bathroom. The patient is also complaining of feeling like her insides are coming out when she is defecating. She says she recently went to her OB and was noted to have prolapsing in the vagina. The patient has a history of vaginal sling being placed. ROS General General: Yes fatigue HEENT HEENT: Yes difficulty swallowing and swollen glands Endo Endocrine: No thyroid disease or diabetes mellitus Skin Skin: No rash Musc Musculoskeletal: Yes back problems and arthritis Cardio Cardiovascular: No murmur, pacemaker, heart disease, atrial fibrillation, high blood pressure, heart attack, heart stent, palpitations, shortness of breat with exertion or chest pain Psych Psychiatric: No depression or anxiety Resp Respiratory: No shortness of breath, No sleep apnea, No cough, No COPD, Yes asthma, No emphysema, No wheezing Gastro Gastrointestinal: Yes abdominal pain, Yes nausea or vomiting, No diarrhea, Yes constipation, No blood in stool, Yes acid reflux, No hemorrhoids, Yes ulcers, No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 [place] Repository PAYERS PAYERS ENCOUNTER GUARANTOR PAYER SUBSCRIBER SOURCE 12/11/2018 JESSICA L Primary JESSICA L [place] [id number] TR Insurance[facility] precious BRUNO Number: [id number] Corners Regional [facility] [id number]: [id number] Repository Date:2018-12-11 O (XE) [address]ATTN: [place] [address]EN: 12/11/2018 Secondary NOT GIVENUNK [place] Insurance:SELF PAY [facility] Number: Effective Repository Date:2018-12-11 12/02/2018 JESSICA L Primary JESSICA L [place] [id number] TR Insurance:[facility]ITALOB: [address]STACI [facility] CEDARprecious MARTINES Number: [id number] Corners Regional Health Center [address]Rfp: [id number] Repository Date:2018-12-02P O (HP) [address]ATTN: [place] [address]UN: 12/02/2018 Secondary NOT GIVENUNK [place] Insurance:SELF PAY [facility] Number: Effective Repository Date:2018-12-02 11/10/2018 JESSICA L Primary JESSICA L [place] [id number] TR Insurance:CARESOURCEP BEACHYDOB: Community precious BRUNO Number: [id number] Corners Regional Health Center [address]Cei: [id number] Repository Date:2018-11-10P O (HP) [address]ATTN: [place] [address]YN: 11/10/2018 Secondary NOT GIVENUNK [place] Insurance:SELF PAY [facility] Number: Effective Repository Date:2018-11-10 11/10/2018 JESSICA L Primary JESSICA L [place] [id number] TR Insurance:CARESOURCEP BEACHYDOB: [facility] precious BRUNO Number: [id number] Corners Regional Health Center [address]Pne: [id number] Repository Date:2018-11-10P O (HP) [address]ATTN: [place] [address]IC: 11/10/2018 Secondary NOT GIVENUNK [place] Insurance:SELF PAY [facility] Number: Effective Repository Date:2018-11-10 11/10/2018 JESSICA L Primary JESSICA L [place] [id number] TR Insurance:CARESOURCEP BEACHYDOB: [facility] precious BRUNO Number: [id number] Corners Regional Health Center [address]Rlu: [id number] Repository Date:2018-11-10P O (HP) [address]ATTN: [place] [address]WS: 11/10/2018 Secondary NOT GIVENUNK [place] Insurance:SELF PAY [facility]: Effective Repository Date:2018-11-10 11/03/2018 JESSICA L Primary JESSICA L [place] [id number] TR Insurance:CARESOURCEP BEACHYDOB: [facility] precious BRUNO Number: [id number] Corners Regional Health Center [address]Ilc: [id number] Repository Date:2018-09-29P O () [address]ATTN: [place] [address]YZ: 11/03/2018 Secondary NOT GIVENUNK [place] Insurance:SELF PAY [facility] Number: Effective Repository Date:2018-11-03 09/30/2018 JESSICA L Primary JESSICA L [place] [id number] TR Insurance:CARESOURCEP BEACHYDOB: [facility] precious BRUNO Number: [id number] Corners Regional Health Center [address]Yyz: [id number] Repository Date:2018-09-30P O () [address]ATTN: [place] [address]QO: 09/30/2018 Secondary NOT GIVENUNK [place] Insurance:SELF PAY [facility] Number: Effective Repository Date:2018-09-30 09/29/2018 JESSICA L Primary JESSICA L [place] [id number] TR Insurance:CARESOURCEP BEACHYDOB: [facility] precious BRUNO Number: [id number] Corners Regional Health Center [address]Baq: [id number] Repository Date:2018-08-04P O () [address]ATTN: [place] [address]DH: 09/29/2018 Secondary NOT GIVENUNK [place] Insurance:SELF PAY [facility] Number: Effective Repository Date:2018-09-15 09/21/2018 JESSICA Primary JESSICA [facility] Insurance:CARESOURCE [facility] [id number] MEDICAIDPolicy [id number] [place] [address]STACI Number: DARRYL HOGAN [id number]: 330) Date: [phone] (HP) 08/22/2018 [facility] Primary JESSICA L [place] Jr.[id number] TR Insurance:CARESOURCEP BEACHYDOB: Community precious SIMMONS Number: [id number] Corners Regional Health Center [address]Lxf: [id number] Repository Date:2018-07-14P O () [address]ATTN: [place] [address]OU: 08/22/2018 Secondary NOT GIVENUNK [place] Insurance:SELF PAY [facility] Number: Effective Repository Date:2018-07-14 08/18/2018 [facility] Primary JESSICA [place] [id number] TR Insurance:CARESOURCEP BEACHYDOB: Community precious SIMMONS Number: [id number] Corners Regional Health Center [address]Uhw: [id number] Repository Date:2018-07-13P O () [address]ATTN: [place] [address]DT: 08/18/2018 Secondary NOT GIVENUNK [place] Insurance:SELF PAY [facility] Number: Effective Repository Date:2018-08-18 08/18/2018 [facility] Primary JESSICA L [place] Jr.[id number] TR Insurance:CARESOURCEP BEACHYDOB: [facility] precious SIMMONS Number: [id number] Corners Regional Health Center [address]Jsn: [id number] Repository Date:2018-08-10P O () [address]ATTN: [place] [address]RN: 08/18/2018 Secondary NOT GIVENUNK [place] Insurance:SELF PAY [facility] Number: Effective Repository Date:2018-08-18 08/17/2018 [facility] Primary JESSICA L [place] [id number] TR Insurance:CARESOURCEP BEACHYDOB: [facility] precious SIMMONS Number: [id number] Corners Regional Health Center [address]Lgl: [id number] Repository Date:2018-08-17P O (HP) [address]ATTN: [place] [address]GU: 08/17/2018 Secondary NOT GIVENUNK [place] Insurance:SELF PAY [facility] Number: Effective Repository Date:2018-08-17 08/16/2018 [facility] SERVICESOB: [facility] [id number] MEDICAIDPolicy [id number] [place] [address] Number: [place] [id number]: (107) Date: [phone] () 08/10/2018 [facility] Primary JESSICA L [place] Jr.[id number] TR Insurance:CARESOURC BEACHYDOB: [facility] precious SIMMONS Number: [id number] Corners Regional Health Center [address]Bqg: [id number] Repository Date:2018-08-10P O () [address]ATTN: [place] [address]ZE: 08/10/2018 Secondary NOT GIVENUNK [place] Insurance:SELF PAY [facility] Number: Effective Repository Date:2018-08-10 08/10/2018 [facility] Primary JESSICA L [place] Jr.[id number] TR Insurance:CARESOURCST. LOUIS BEHAVIORAL MEDICINE INSTITUTEYDOB: [facility] precious SIMMONS Number: [id number] Corners Regional Health Center [address]Dgg: [id number] Repository Date:2018-08-04P O () [address]ATTN: [place] [address]AK: 08/10/2018 Secondary NOT GIVENUNK [place] Insurance:SELF PAY [facility] Number: Effective Repository Date:2018-08-04 08/04/2018 [facility] Primary JESSICA L [place] Jr.[id number] TR Insurance:CARESOURCEP BEACHYDOB: [facility] precious SIMMONS Number: [id number] Corners Regional Health Center [address]Usy: [id number] Repository Date:2018-07-07P O () [address]ATTN: [place] [address]AC: 08/04/2018 Secondary NOT GIVENUNK [place] Insurance:SELF PAY [facility] Number: Effective Repository Date:2018-08-04 07/28/2018 JESSICAWright-Patterson Medical CenterYDOB: Insurance:CAREMERCYONE CLINTON MEDICAL CENTEROB: [facility] [id number] MEDICAIDPolicy [id number] [place]ository [place] [facility] Number: [place] [id number]: ([phone]) Date: [phone] () 07/20/2018 [facility] Nikki [facility] Primary JESSICA L [place] [id number] TR Insurance:CARESOURCEP BEACHYDOB: [facility] precious SIMMONS Number: [id number] Corners Regional Health Center [address]Cfw: [id number] Repository Date:2018-07-18P O () [address]ATTN: [place] [address]SI: 07/20/2018 Secondary NOT GIVENUNK [place] Insurance:SELF PAY [facility] Number: Effective Repository Date:2018-07-18 07/18/2018 [facility] Nikki [facility] Primary JESSICA L [place] [id number] TR Insurance:CARESOURCEP BEACHYDOB: [facility] precious SIMMONS Number: [id number] Corners Regional [facility] Center [address]Hdl: [id number] Repository Date:2018-04-22P O () [address]ATTN: [place] [address]TI: 07/18/2018 Secondary NOT GIVENUNK [place] Insurance:SELF PAY [facility] Number: Effective Repository Date:2018-06-16 07/18/2018 LAURA ABBASI Primary JESSICA L [place] Jr.[id number] TR Insurance:CARESOURCEP [place]YDOB: Community precious [place]MONS Number: [id number] Corners Regional Health Center [address]Zsg: [id number] Repository Date:2018-06-22P O (HP) [address]ATTN: [place] [address]TH: 07/18/2018 Secondary NOT GIVENUNK [place] Insurance:SELF PAY [facility] Number: Effective Repository Date:2018-06-22 07/14/2018 [facility] Nikki CLAYTONY Primary JESSICA [place] Jr.8911 TR Insurance:CARESOURCEP [place]YDOB: Community precious SIMMONS Number: [id number] Corners Regional Health Center [address]Hmv: [id number] Repository Date:2018-06-22P O (HP) [address]ATTN: [place] [address]YT: 07/14/2018 Secondary NOT GIVENUNK [place] Insurance:SELF PAY [facility] Number: Effective Repository Date:2018-06-22 07/13/2018 [facility] Nikki CLAYTONY Primary JESSICA L [place] Jr.[id number] TR Insurance:CARESOURCEP BE[place]YDOB: Community precious [place]MONS Number: [id number] Corners Regional Health Center [address]Abz: [id number] Repository Date:2018-07-13P O (HP) [address]ATTN: [place] [address]SO: 07/13/2018 Secondary NOT GIVENUNK [place] Insurance:SELF PAY [facility] Number: Effective Repository Date:2018-07-13 07/13/2018 [facility] Primary JESSICA L [place] Jr.[id number] TR Insurance:CARESOURCEP BEACHYDOB: [facility] precious SIMMONS Number: [id number] Corners Regional Health Center [address]Web: [id number] Repository Date:2018-07-11P O (HP) [address]ATTN: [place] [address]QR: 07/13/2018 Secondary NOT GIVENUNK [place] Insurance:SELF PAY [facility] Number: Effective Repository Date:2018-07-13 07/13/2018 ORRUSSELLVIL[place] D FAYE Primary JESSICA L [place] Jr.[id number] TR Insurance:CARESOURCEP BEACHYDOB: [facility] precious SIMMONS Number: [id number] Corners Regional Health Center [address]Jfm: [id number] Repository Date:2018-07-13P O () [address]ATTN: [place] [address]EL: 07/13/2018 Secondary NOT GIVENUNK [place] Insurance:SELF PAY [facility] Number: Effective Repository Date:2018-07-13 07/12/2018 [facility] Nikki FAYE Primary JESSICA L [place] Jr.[id number] TR Insurance:CARESOURCEP BEACHYDOB: [facility] precious SIMMONS Number: [id number] Corners Regional Health Center [address]Fhp: [id number] Repository Date:2018-06-17P O () [address]ATTN: [place] [address]WE: 07/12/2018 Secondary NOT GIVENUNK [place] Insurance:SELF PAY [facility] Number: Effective Repository Date:2018-06-17 07/07/2018 [place]RUS[place]LL[place] D FAYE Primary JESSICA L [place] Jr.8911 TR Insurance:CARESOURCEP BEACHYDOB: [facility] precious SIMMONS Number: [id number] Corners Regional Health Center [id number]: [id number] Repository Date:2018-06-15P O (HP) [address]ATTN: [place] [address]MY: 07/07/2018 Secondary NOT GIVENUNK [place] Insurance:SELF PAY [facility] Number: Effective Repository Date:2018-07-07 06/22/2018 [facility] Primary JESSICA [place] Jr.8911 TR Insurance:CARESOURCEP [place]YDOB: Community precious SIMMONS Number: [id number] Corners Regional Health Center [address]Dqt: [id number] Repository Date:2018-06-15P O (HP) [address]ATTN: [place] [address]OI: 06/22/2018 Secondary NOT GIVENUNK [place] Insurance:SELF PAY [facility] Number: Effective Repository Date:2018-06-15 06/22/2018 [facility] Primary JESSICA L [place] Jr.8911 TR Insurance:CARESOURCEP BEACHYDOB: [facility] precious SIMMONS Number: [id number] Corners Regional Health Center [address]Drg: [id number] Repository Date:2018-06-15P O (HP) [address]ATTN: [place] [address]OJ: 06/22/2018 Secondary NOT GIVENUNK [place] Insurance:SELF PAY [facility] Number: Effective Repository Date:2018-06-15 06/15/2018 [facility] Primary JESSICA L [place] Jr.8911 TR Insurance:CARESOURCEP BE[place]YDOB: [facility] precious SIMMONS Number: [id number] Corners Regional Health Center [address]Nrq: [id number] Repository Date:2018-06-15P O (HP) [address]ATTN: [place] [address]BJ: 06/15/2018 Secondary NOT GIVENUNK [place] Insurance:SELF PAY [facility] Number: Effective Repository Date:2018-06-15 06/15/2018 LAURA Jordan F[facility]E [facility] HospitalFELICITAS Hi Jr.8911 TR Insurance:KHUSHBUSOTOSHIA GARCIAOB: Community precious SIMMONS Number: [id number] Corners Regional Health Center [id number]: [id number] Repository Date:2018-06-09P O () [address]ATTN: [place] [address]XI: 06/15/2018 Secondary NOT GIVENUNK [place] Insurance:SELF PAY [facility] Number: Effective Repository Date:2018-06-09
== END 2018-12-11 15:14 | disposition home or self-care (01) ==
PROVIDERS: Emergency Provider Emergency Medicine; Family Provider Internal Medicine; PCP Internal Medicine
DX: K27.9 Peptic ulcer, site unspecified, unspecified as acute or chronic, without hemorrhage or perforation (principal); K44.9 Diaphragmatic hernia without obstruction or gangrene; E66.9 Obesity, unspecified; K59.00 Constipation, unspecified
CPT/HCPCS: 71250; 74176; 80053; 83690; 85025; 96360; 99283; J7030; Q9967

== ENCOUNTER 2018-12-22 11:53 | Day surgery (SDC) | payer MEDICAID, SELFPAY ==
[2018-11-03 14:29] VITALS: BMI 32.9
[2018-12-22 12:29] VITALS: PULSE 100; RESP 18; TEMP 36.8; O2SAT 100
--- NOTE | 2018-12-22 12:55 | RAD_ITS ---
STUDY: X-RAY - CERVICAL SPINE REASON FOR EXAM: Female, 48 years old. Cervical epidural block at C6-C7. TECHNIQUE: 2 view(s) of the cervical spine were obtained. COMPARISON: Comparison is made with prior study dated June 15, 2018. FINDINGS: Intraoperative imaging provided for C6-C7 epidural block. RAD/Spine 1 View Any Level IMPRESSION: Intraoperative imaging provided for C6-C7 epidural block. Electronically Signed: Fabrice Solis MD at 15:19 EST , Service support ,
[2018-12-22] MEDS: Triamcinolone Acetonide 40 MG/ML Vial (13:10)
[2018-12-22 13:20] VITALS: BP 108/69; BP 132/79; PULSE 80; RESP 16; TEMP 36.4; O2SAT 99
[2018-12-22 13:25] VITALS: BP 121/83; BP 132/79; PULSE 79; RESP 16; O2SAT 100
[2018-12-22 13:30] VITALS: BP 132/79; BP 134/83; PULSE 82; RESP 16; O2SAT 100
[2018-12-22 13:35] VITALS: BP 132/79; BP 141/90; PULSE 90; RESP 16; TEMP 36.7; O2SAT 100
[2018-12-22 14:11] VITALS: BP 132/79
== END 2018-12-22 14:12 | disposition home or self-care (01) ==
LOC: SDC 11:54 → AC 11:54
PROVIDERS: Family Provider Internal Medicine; PCP Internal Medicine; Referring Provider Anesthesiology Pain Medicine; Visit Provider Anesthesiology Pain Medicine
PROC: 3E0S3BZ Introduction of Anesthetic Agent into Epidural Space, Percutaneous Approach (ICD-10-PCS; CPT 62320; principal; 2018-12-22 12:40)
DX: M54.12 Radiculopathy, cervical region (principal); M54.13 Radiculopathy, cervicothoracic region; M54.2 Cervicalgia; J45.909 Unspecified asthma, uncomplicated; G43.909 Migraine, unspecified, not intractable, without status migrainosus; K58.9 Irritable bowel syndrome, unspecified; K21.9 Gastro-esophageal reflux disease without esophagitis; F32.9 Major depressive disorder, single episode, unspecified; I10 Essential (primary) hypertension; F17.210 Nicotine dependence, cigarettes, uncomplicated
CPT/HCPCS: 62321; 64490; 72020; J7120; J3490

== ENCOUNTER 2019-02-14 11:21 | Emergency (ER) | payer MEDICAID, SELFPAY ==
[2019-02-09 14:24] VITALS: BMI 35.2
[2019-02-14 11:23] VITALS: BP 147/81; PULSE 83; RESP 20; TEMP 36.6; O2SAT 99; BMI 32.5
--- NOTE | 2019-02-14 11:45 | ED.DCSUM_ITS ---
- ER Visit Summary Date of Service: 02/14/19 Chief Complaint: Nausea, vomiting, back pain, and shortness of breath History of Present Illness: The patient is a 49 F who presents with nausea, vomiting, back pain, and shortness of breath that has been getting worse over the past 3 days. Patient admits to subjective chills. Patient denies any fevers. Patient describes her pain as aching. Patient states pain is in her mid low back and in her groin. She admits to some constipation. Patient denies any chest pain. Patient denies any palpitations. Patient states this feels similar to prior episodes where she has had hypokalemia. Patient states that she tried to take oral potassium at home prior to arrival but vomited that back up. Physical Examination: Vital signs are stable. Patient is afebrile. Patient is in no acute distress. Oral mucosa is pink and moist. Neck is supple. Trachea is midline. There is no JVD noted. Heart was regular rate and rhythm. Lungs are clear and equal bilateral. Abdomen is soft. Bowel sounds are normal. There is mild right lower quadrant tenderness. There is no rebound or guarding noted. Skin is warm dry. Cranial nerves II through XII are intact. There are no focal motor or sensory deficits noted. The remaining physical exam is within normal limits. Test Results: CBC shows a leukocytosis of 18.1. Sodium was slightly low at 134 and chloride was slightly low at 94. Potassium was normal at 4.0. As of the leukocytosis, CT scan of the abdomen and pelvis was obtained. The appendix was visualized and is normal. There is no acute intra-abdominal process noted. Emergency Department Course and Treatment: Patient was given IV fluids, morphine, and Zofran here. Patient felt better on reevaluation. Patient was given a prescription for Zofran. Patient was instructed to follow-up with her primary care physician in 5-7 days. Patient understood and was agreeable with the plan. All questions were answered. Disposition: Discharge home Impression: 1. Nausea and vomiting 2. Abdominal pain This note was generated with [employer]UREation software. It may contain incorrect words, spelling, and punctuation that were not noted in review of the chart prior to signing ED Disposition - Plan for ED Patient: Disposition: Home or Assisted Living Diagnosis: Nausea and vomiting, Abdominal pain Prescriptions: Ondansetron [Zofran Odt] 4 mg PO Q8H PRN PRN #10 tablet PRN Reason: Nausea Referrals: Ginger Tripp MD [Primary Care Provider] - Additional Instructions: Prescription was electronically transmitted to your pharmacy.
[2019-02-14 11:52] VITALS: PULSE 69; RESP 13; O2SAT 96
[2019-02-14] MEDS: 0.9% Normal Saline 1,000 ML 1000 ML IV (11:52)
[2019-02-14 12:00] LABS: Bacteria 0 SEEN /hpf (None Seen); Mucous, Urine 0 SEEN /hpf (<or=2+); Red Blood Cells-Urine 0 SEEN /hpf (0-5)
[2019-02-14] MEDS: Morphine 2 MG/ML Syringe IV (12:02)
[2019-02-14] MEDS: Ondansetron 4 MG/2 ML Vial IV (12:02)
[2019-02-14 12:08] LABS: Absolute Lymphocyte Count 1.66 X10^3/ul (0.83-4.51); Absolute Neutrophil Count 15.4 X10^3/uL (2.0-7.7); Basophil# 0.01 X10^3/uL; Basophil% 0.1 % (0-1); Hematocrit 43.3 % (37-47); Hemoglobin 14.4 g/dl (12.0-15.0); Lymphocyte # 1.66 X10^3/ul (4.0); Lymphocyte % 9.2 % (19-41); Mean Corp Hgb Conc 33.3 g/gl (32-36); Mean Corpuscular Hgb 28.8 pg (27.0-32.0); Mean Corpuscular Volume 86.6 fL (81-99); Mean Platelet Vol. 10.2 fl (6.2-12.0); Monocyte# 1.01 X10^3/uL; Monocyte% 5.6 % (0-10); Neutrophil # 15.36 X10^3/uL (2.7-7.7); Neutrophil % 84.8 % (47-70); Platelet Count 352 K/mm3 (150-450); RBC Distribution Width CV 15.7 % (11.6-14.6); RBC Distribution Width SD 49.5 fl (35.1-43.9); White Blood Count 18.1 K/mm3 (4.4-11.0)
[2019-02-14 12:11] LABS: POSITIVE COUNT NO; POSITIVE DIFFERENTIAL NO; POSITIVE MORPHOLOGY NO
[2019-02-14 12:23] LABS: Anion Gap 12 (5-15); BUN 16 mg/dL (7-18); BUN/Creat Ratio 15.5 RATIO (10-20); Calcium,Total 9.3 mg/dL (8.5-10.1); Chloride 94 mmol/L (98-107); Creatinine, Serum 1.03 mg/dL (0.55-1.02); EST Glomerular Filtration Rate 60 mL/min (>60); Est Glom Filt Rate - Afr Amer 73 mL/min (>60); Estimated Creatinine Clearance 56.43 ml/min; Glucose 148 mg/dL (74-106); Sodium Level 134 mmol/L (136-145)
[2019-02-14 12:25] LABS: Color, Urine Yellow (Yellow); Glucose, Dipstick Normal (Normal); Leukocyte Esterase-Dipstick 500 /ul (Negative); Nitrite-Dipstick Negative (Negative); Occult Blood-Urine Negative /ul (Negative); Protein-Dipstick 30 mg/dl (Negative); Specific Gravity, Urine 1.015 (1.002-1.030); Urine Bilirubin Dipstick Negative (Negative); Urine Clarity Sl. Cloudy (Clear); Urine Urobilinogen 1 mg/dl (Normal)
[2019-02-14 12:29] LABS: Ketone-Dipstick 150 mg/dl (Negative)
[2019-02-14 12:36] LABS: Squamous Epithelial Cells - UA 25-50 SEEN /hpf (5-10)
[2019-02-14 12:37] LABS: White Blood Cells 0-5 SEEN /hpf (0-5)
--- NOTE | 2019-02-14 12:53 | CT_ITS ---
STUDY: CT ABDOMEN AND PELVIS WITHOUT CONTRAST REASON FOR EXAM: Female, 49 years old. Nausea and vomiting. Back pain. RADIATION DOSAGE (If Supplied By Facility): CTDIvol = ( 14.8 ) mGy, DLP = ( 696.44 ) mGycm TECHNIQUE: Transaxial images were obtained from the dome of the diaphragm to the symphysis pubis without oral contrast, and without intravenous contrast. Sagittal and coronal images were reconstructed. Individualized dose optimization techniques were used for this CT. COMPARISON: December 11, 2018. FINDINGS: The visualized lung bases are unremarkable. The visualized portions of the heart are within normal limits. Normal liver. Normal gallbladder and extrahepatic biliary system. Normal spleen. Normal pancreas. There is a small, circumscribed, smooth, low attenuation left adrenal mass, consistent with an adrenal adenoma. Normal right adrenal gland. There is mild bilateral hydronephrosis. No stones are seen.. There is a small hiatal hernia. Normal small intestine. There are a few diverticula of the colon. The appendix is visualized and appears normal. There is diffuse atherosclerotic calcification of the abdominal aorta, without a demonstrated aneurysm. Normal inferior vena cava. Normal retroperitoneum. Normal urinary bladder. Normal visualized uterus. There are adnexal follicles. There is no free fluid in the abdomen or pelvis. There is a small umbilical hernia containing fat. Normal osseous structures. CT/Abdomen/Pelvis without Cont IMPRESSION: Mild hydronephrosis. No stones are seen. No dilated loops of bowel. Electronically Signed: Sal Duenas MD at 13:52 EDT , Service support ,
[2019-02-14 13:36] VITALS: PULSE 67; RESP 14; O2SAT 97
[2019-02-14 15:07] VITALS: BP 139/81; PULSE 79; RESP 16; O2SAT 96
== END 2019-02-14 15:08 | disposition home or self-care (01) ==
PROVIDERS: Emergency Provider Emergency Medicine; Family Provider Internal Medicine; PCP Internal Medicine
DX: R11.2 Nausea with vomiting, unspecified (principal); R10.9 Unspecified abdominal pain; R20.2 Paresthesia of skin; K59.00 Constipation, unspecified; R05 Cough; R06.00 Dyspnea, unspecified; R53.1 Weakness; I10 Essential (primary) hypertension; J45.909 Unspecified asthma, uncomplicated; K21.9 Gastro-esophageal reflux disease without esophagitis; F17.210 Nicotine dependence, cigarettes, uncomplicated
CPT/HCPCS: 74176; 80048; 81001; 85025; 96361; 96374; 96375; 99283; J7030; J2405

== ENCOUNTER → 2019-02-23 07:36 | Outpatient (CLI) | payer MEDICAID, SELFPAY ==
[2019-02-14 11:23] VITALS: BMI 32.5
[2019-02-23 08:34] LABS: Anion Gap 8 (5-15); BUN 15 mg/dL (7-18); BUN/Creat Ratio 20.9 RATIO (10-20); Calcium,Total 8.8 mg/dL (8.5-10.1); Chloride 102 mmol/L (98-107); Creatinine, Serum 0.72 mg/dL (0.55-1.02); EST Glomerular Filtration Rate 91 mL/min (>60); Est Glom Filt Rate - Afr Amer 111 mL/min (>60); Glucose 93 mg/dL (74-106); Potassium 3.9 mmol/L (3.5-5.1); Sodium Level 139 mmol/L (136-145)
== END ==
PROVIDERS: Family Provider Internal Medicine; PCP Internal Medicine; Referring Provider Internal Medicine; Visit Provider Internal Medicine
DX: I10 Essential (primary) hypertension (principal)
CPT/HCPCS: 36415; 80048

== ENCOUNTER → 2021-05-21 10:51 | Outpatient (CLI) | payer SELFPAY ==
[2021-05-21 10:15] VITALS: BMI 32.5
[2021-05-21 12:24] LABS: Absolute Lymphocyte Count 0.78 X10^3/uL (0.83-4.51); Absolute Neutrophil Count 4.1 X10^3/uL (2.0-7.7); Basophil# 0.03 X10^3/uL; Basophil% 0.5 % (0-1); Eosinophil# 0.11 X10^3/uL; Hematocrit 42.8 % (37-47); Hemoglobin 13.8 g/dL (12.0-15.0); Lymphocyte # 0.78 X10^3/ul (0.83-4.51); Lymphocyte % 14.3 % (19-41); Mean Corp Hgb Conc 32.2 g/dL (32-36); Mean Corpuscular Hgb 29.4 pg (27.0-32.0); Mean Corpuscular Volume 91.1 fL (81-99); Mean Platelet Vol. 10.2 fl (6.2-12.0); Monocyte# 0.43 X10^3/uL; Monocyte% 7.9 % (0-10); NRBC Flagged by Analyzer 0 % (0-5); Neutrophil # 4.09 X10^3/uL (2.7-7.7); Neutrophil % 74.8 % (47-70); Platelet Count 267 K/mm3 (150-450); RBC Distribution Width CV 14.1 % (11.6-14.6); RBC Distribution Width SD 47.5 fl (35.1-43.9); White Blood Count 5.5 K/mm3 (4.4-11.0)
[2021-05-21 12:54] LABS: ALB/GLOB Ratio 0.9 RATIO (0.9-2.4); AST(SGOT) 13 U/L (15-37); Alanine Aminotransfer ALT/SGPT 24 U/L (13-56); Albumin, Serum 3.5 g/dL (3.2-5.0); Alkaline Phosphatase 94 U/L (45-117); Anion Gap 6 (5-15); BUN 14 mg/dL (7-18); BUN/Creat Ratio 17.9 RATIO (10-20); Calcium,Total 8.5 mg/dL (8.5-10.1); Chloride 107 mmol/L (98-107); Cholesterol 184 mg/dL (200); Creatinine, Serum 0.78 mg/dL (0.55-1.02); EST Glomerular Filtration Rate 82 mL/min (>60); Est Glom Filt Rate - Afr Amer 100 mL/min (>60); Globulin 3.7 g/dL (2.2-4.2); Glucose 99 mg/dL (74-106); High Density Lipoprotein 45 mg/dL; Potassium 3.5 mmol/L (3.5-5.1); Protein, Total 7.2 g/dL (6.4-8.2); Sodium Level 140 mmol/L (136-145); Thyroid Stim Hormone (TSH) 0.72 uIU/mL (0.358-3.74); Triglycerides 116 mg/dL; Very Low Density Lipoprotein 23 mg/dL (5-40)
== END ==
PROVIDERS: PCP Internal Medicine; Referring Provider Nurse Practitioner Family; Visit Provider Nurse Practitioner Family
DX: I10 Essential (primary) hypertension (principal); K21.9 Gastro-esophageal reflux disease without esophagitis; L73.2 Hidradenitis suppurativa
CPT/HCPCS: 36415; 80053; 80061; 84443; 85025

== ENCOUNTER → 2022-09-04 | Outpatient (CLI) | payer MEDICAID, SELFPAY ==
[2022-09-04 12:03] LABS: Mucous, Urine 0 SEEN /hpf (<or=2+); Red Blood Cells-Urine 0 SEEN /hpf (0-5); Squamous Epithelial Cells - UA 0 SEEN /hpf (5-10); White Blood Cells 0 SEEN /hpf (0-5)
[2022-09-04 12:40] LABS: Absolute Lymphocyte Count 1.88 X10^3/uL (0.83-4.51); Absolute Neutrophil Count 5.1 X10^3/uL (2.0-7.7); Basophil# 0.06 X10^3/uL; Basophil% 0.8 % (0-1); Eosinophil# 0.22 X10^3/uL; Eosinophils% 2.8 % (0-5); Hematocrit 42.9 % (37-47); Hemoglobin 13.8 g/dL (12.0-15.0); Lymphocyte # 1.88 X10^3/ul (0.83-4.51); Lymphocyte % 24.1 % (19-41); Mean Corp Hgb Conc 32.2 g/dL (32-36); Mean Corpuscular Hgb 29.9 pg (27.0-32.0); Mean Corpuscular Volume 93.1 fL (81-99); Mean Platelet Vol. 10.7 fl (6.2-12.0); Monocyte% 6.4 % (0-10); NRBC Flagged by Analyzer 0 % (0-5); Neutrophil % 65.5 % (47-70); Platelet Count 332 K/mm3 (150-450); RBC Distribution Width CV 14.7 % (11.6-14.6); RBC Distribution Width SD 50.4 fl (35.1-43.9); Red Blood Count 4.61 M/mm3 (4.2-5.4); White Blood Count 7.8 K/mm3 (4.4-11.0)
[2022-09-04 13:12] LABS: ALB/GLOB Ratio 0.8 RATIO (0.9-2.4); AST(SGOT) 21 U/L (15-37); Alanine Aminotransfer ALT/SGPT 37 U/L (13-56); Albumin, Serum 3.2 g/dL (3.2-5.0); Alkaline Phosphatase 90 U/L (45-117); Anion Gap 6 (5-15); BUN 10 mg/dL (7-18); BUN/Creat Ratio 14.8 RATIO (10-20); Calcium,Total 8.7 mg/dL (8.5-10.1); Chloride 109 mmol/L (98-107); Cholesterol 175 mg/dL (200); Creatinine, Serum 0.68 mg/dL (0.55-1.02); EST Glomerular Filtration Rate 97 mL/min (>60); Est Glom Filt Rate - Afr Amer 117 mL/min (>60); Globulin 3.9 g/dL (2.2-4.2); Glucose 121 mg/dL (74-106); High Density Lipoprotein 67 mg/dL; Protein, Total 7.1 g/dL (6.4-8.2); Sodium Level 142 mmol/L (136-145); Thyroid Stim Hormone (TSH) 1.01 uIU/mL (0.358-3.74); Triglycerides 76 mg/dL; Very Low Density Lipoprotein 15 mg/dL (5-40); Vitamin B12 1040 pg/mL (211-911); Vitamin D,25 Hydroxy 17.4 ng/mL
[2022-09-04 14:41] LABS: Hemoglobin A1c 5.9 % (3.8-5.6)
[2022-09-04 15:41] LABS: Color, Urine Yellow (Yellow); Glucose, Dipstick Normal (Normal); Ketone-Dipstick Negative (Negative); Leukocyte Esterase-Dipstick Negative /ul (Negative); Nitrite-Dipstick Negative (Negative); Occult Blood-Urine Negative /ul (Negative); Protein-Dipstick Negative (Negative); Specific Gravity, Urine 1.015 (1.002-1.030); Urine Bilirubin Dipstick Negative (Negative); Urine Clarity Clear (Clear); Urine Urobilinogen Normal (Normal)
[2022-09-04 16:20] LABS: Bacteria RARE /hpf (None Seen); Transitional Epithelial - Ur 0-5 SEEN /hpf (0-5)
== END | disposition home or self-care (01) ==
LOC: BIMLAB 10:24
PROVIDERS: PCP Internal Medicine; Referring Provider Nurse Practitioner Family; Visit Provider Nurse Practitioner Family
DX: R30.0 Dysuria (principal); E56.9 Vitamin deficiency, unspecified; I10 Essential (primary) hypertension; R73.09 Other abnormal glucose
CPT/HCPCS: 36415; 80053; 80061; 81001; 82306; 82607; 83036; 84443; 85025; 87086; 87088

== ENCOUNTER 2022-09-08 16:33 | Emergency (ER) | payer MEDICAID, SELFPAY ==
[2022-09-08 16:34] VITALS: BP 169/103; PULSE 93; RESP 16; TEMP 36.6; O2SAT 98; BMI 34.8
--- NOTE | 2022-09-08 16:55 | ED.VIS.BACK ---
HPI History of Present Illness Chief Complaint: Back Informant: patient Onset/Context/Timing Onset: Days (5) Context: Gradual Onset Timing: Continuous Quality: Sharp Location: Lumbar (Lower lumbar) and - (Right cervical paraspinal) Worsened by: improves with - (Certain positions) Relieved by: Nothing Associated Symptoms Associated Symptoms: Tingling and Radiation to Right Leg; Negative for Radiation to Left Leg, Fever, Abdominal Pain, Dysuria, Unable to Ambulate, Unable to Transfer, Urinary Retention, Urinary Incontinence, Constipation or Fecal Incontinence Narrative Narrative: Patient presents with neck and back pain that has been getting progressively worse over the past 5 days. Patient states she has chronic pain in her neck from degenerative disc disease and spondylolisthesis. Patient denies any new trauma or injury. Patient describes her pain as sharp. Patient states it is worse with certain positions. Patient states nothing has been helping with the pain. Patient states she saw her primary care physician 4 days ago who started her on Mobic for the pain. Patient admits to some nausea and upset stomach. Patient admits to some radiation of the pain down her right arm and down her right leg. Patient admits to some tingling in her right hand. Patient denies any bowel or bladder changes. Patient denies any saddle anesthesia. [facility] Medical History Arthritis Asthma DJD (degenerative joint disease) Dysuria Elevated glucose GERD (gastroesophageal reflux disease) Hiatal hernia Hidradenitis suppurativa history bladder mesh IBS (irritable bowel syndrome) PUD (peptic ulcer disease) Pyelonephritis Spinal stenosis Subluxation complex (vertebral) of cervical region Vitamin deficiency Home Medications vitamin B complex (B Complex-Vitamin B12 tablet) 1 tab PO DAILY 11/03/18 [History Last Taken 12/22/18 05:00] potassium 99 mg tablet 99 mg PO DAILY 02/14/19 [History Last Taken Unknown] lisinopril 10 mg tablet 10 mg PO QDAY #90 tabs 09/04/22 [Rx Last Taken Unknown] omeprazole 20 mg capsule,delayed release 20 mg PO DAILY #90 caps 09/04/22 [Rx Last Taken Unknown] hydrocodone-acetaminophen 5-325mg 5mg-325mg 1 tab PO Q6H PRN PRN Pain 3 days #10 TABLETS 09/08/22 [Rx Last Taken Unknown] orphenadrine citrate 100 mg tablet,extended release 100 mg PO QHS PRN PRN pain #10 tabs 09/08/22 [Rx Last Taken Unknown] venlafaxine 37.5 mg capsule,extended release 24 hr 37.5 mg PO DAILY 09/08/22 [History Last Taken Unknown] Allergy/AdvReac Type Severity Reaction Status Date / Time povidone-iodine Allergy Intermediate Rash Verified 09/08/22 16:36 [From Betadine] aspirin AdvReac Vomiting Verified 09/08/22 16:36 tb test AdvReac Intermediate Rash Uncoded 09/08/22 16:36 Family History Grandmother Benign breast lumps Mother Benign breast lumps Diabetes Heart disease CVA (cerebral vascular accident) Father Asthma Aunt Ovarian cancer Surgical History History of arthroplasty of right ankle History of orthopedic surgery Social History Smoking Status: Current every day smoker tobacco type: cigarettes how long ago did patient quit smokin alcohol intake: current alcohol intake frequency: holidays/special occasions only substance use type: marijuana what type of physical activity do you participate in: none additional social history: Or[place] Diagnosed with cancer summer 2017 ROS ROS ED Constitutional Constitutional ED: Denies chills or fever(s) Eyes Eyes: Denies blurry vision or change in vision ENT ENT ED: Denies rhinorrhea or sore throat Cardiovascular Cardiovascular: Denies chest pain or palpitations Respiratory/Chest Respiratory/Chest: Denies cough or dyspnea Gastrointestinal Gastrointestinal: Reports nausea; Denies vomiting Genitourinary Genitourinary ED: Denies dysuria or hematuria Musculoskeletal Musculoskeletal: Reports back pain and neck pain Integumentary Denies abscess or rash Neurologic Neurologic: Reports headache(s); Denies weakness Allergic/Immunologic Allergic/Immunologic ED: Denies mouth swelling or urticaria EXAM Physical Exam Const Vital Signs: 09/08/22 16:34 Temperature 97.8 F Temperature Source Temporal Pulse Rate 93 Respiratory Rate 16 Blood Pressure 169/103 H Blood Pressure Mean 125 Pulse Ox 98 Oxygen Delivery Method Room Air Positive well nourished, well developed and obese General Appearance ED: well developed and NAD Nutritional Appearance: obese HEENT Reports moist mucous membranes Neck Neck Narrative: There is tenderness over the right cervical paraspinal muscles and into the right trapezius muscle. There is no midline tenderness. There is no bony crepitance or step-off. There is no deformity. Range of motion was limited in all motions of the cervical spine secondary to pain. Resp normal respiratory effort and clear to auscultation bilaterally Cardio regular rate and regular rhythm GI soft to palpation and non-tender Back/Spine Back/Spine Narrative: There is also tenderness over the lower lumbar paraspinal muscles. There is no bony crepitance or step-off. Range of motion was limited in all motions of the lumbar spine secondary to pain. Extremity normal to inspection General Extremety ED: Negative for tenderness Neuro oriented x3 and no sensory deficits noted Sensorium / Orientation: alert Motor Exam: strength 5/5 throughout Psych mental status grossly normal MDM MDM MDM Narrative Medical decision making narrative: Patient was given an injection of morphine and Norflex here. X-rays of the lumbar spine were obtained. There are 3 views. On my interpretation, there are some degenerative changes. There is no acute fracture or spondylolisthesis. Radiologist also interpreted the x-rays and agrees. X-rays of the cervical spine were obtained. There are 3 views. On my interpretation, there are degenerative changes noted. There is no acute fracture or spondylolisthesis. Radiologist also interpreted the x-rays and agrees. Patient was given prescription for a short course of [place] and Norflex. Patient was instructed to use ice to the area. Patient was instructed to follow-up with her primary care physician in 3 to 5 days. Patient understood and was agreeable with the plan. All questions were answered. Radiography X-Ray: LS SPine, Read by ED Physician, Read by Radiologist, Normal, No Fracture and DJD (Mild) Diagnostic Testing: Clinical Impression(s) from Imaging Studies Lumbar Spine X-Ray 09/08/22 17:11 IMPRESSION: Normal x-ray examination of the lumbar spine. Electronically Signed: Karyna Garcia MD at 18:03 EDT Reading Location ID and State: [id number] / Tel , Service support , Cervical Spine X-Ray 09/08/22 17:24 IMPRESSION: Mild C5-6 anterolisthesis. No demonstrated fracture. However, if there is a history of trauma, consider CT of the cervical spine for further evaluation. Electronically Signed: Karyna Garcia MD at 18:02 EDT , Discharge Plan Triage Chief Complaint: Back ED Provider: Dilip Abdi Dx/Rx/DC Orders Clinical Impression: Acute cervical myofascial strain, Chronic back pain Instructions: ED Neck Sprain or Strain Prescriptions: New hydrocodone-acetaminophen [hydrocodone-acetaminophen] 5-325 mg tablet 1 tab PO Q6H PRN PRN (Reason: Pain) 3 Days Qty: 10 0RF orphenadrine citrate 100 mg tablet extended release 100 mg PO QHS PRN PRN (Reason: pain) Qty: 10 0RF No Action vitamin B complex tablet tablet 1 tab PO DAILY lisinopril 10 mg tablet 10 mg PO QDAY Qty: 90 1RF omeprazole 20 mg capsule,delayed release(DR/EC) 20 mg PO DAILY Qty: 90 1RF potassium 99 MG tablet 99 mg PO DAILY venlafaxine 37.5 mg capsule,extended release 24hr 37.5 mg PO DAILY Primary Care Provider: Ginger Tripp Referrals: Ginger Tripp MD [Primary Care Provider] - 3-5 Days Disposition Disposition: Home, Self Care
--- NOTE | 2022-09-08 17:11 | RAD_ITS ---
STUDY: X-RAY - LUMBAR SPINE REASON FOR EXAM: Female, 52 years old. Injury/Pain TECHNIQUE: 3 view(s) of the lumbar spine were obtained. COMPARISON: None FINDINGS: Normal lumbar lordosis. There is no substantial scoliosis. There is a normal alignment of the vertebrae. Normal vertebral bodies and endplates. Normal disc space heights. The soft tissue structures are unremarkable. RAD/Lumbar Spine 2 or 3 Views IMPRESSION: Normal x-ray examination of the lumbar spine. Electronically Signed: Karyna Garcia MD at 18:03 EDT Reading Location ID and State: [id number] / Tel , Service support ,
[2022-09-08] MEDS: Orphenadrine 60 MG/2 ML Ampul IM (17:15)
[2022-09-08] MEDS: Morphine 4 MG/ML Syringe IM (17:15)
[2022-09-08] MEDS: Ondansetron ODT 4 MG Tablet PO (17:21)
--- NOTE | 2022-09-08 17:24 | RAD_ITS ---
STUDY: X-RAY - CERVICAL SPINE REASON FOR EXAM: Female, 52 years old. Injury/Pain TECHNIQUE: 3 view(s) of the cervical spine were obtained. COMPARISON: MRI 07/12/2018. FINDINGS: Normal anterior atlantoaxial articulation. Normal odontoid process. Normal cervical lordosis. No demonstrated fracture. 2 mm anterolisthesis at C5-6. This is new compared to 2018. Disc spaces are otherwise well-maintained. The soft tissue structures are unremarkable. RAD/Cerv Spine 2 or 3 Views IMPRESSION: Mild C5-6 anterolisthesis. No demonstrated fracture. However, if there is a history of trauma, consider CT of the cervical spine for further evaluation. Electronically Signed: Karyna Garcia MD at 18:02 EDT Reading Location ID and State: [id number] / Tel , Service support ,
[2022-09-08 18:43] VITALS: BP 158/80; PULSE 82; RESP 18; O2SAT 99
== END 2022-09-08 18:44 | disposition home or self-care (01) ==
PROVIDERS: Emergency Provider Emergency Medicine; PCP Internal Medicine; Visit Provider Emergency Medicine
DX: S16.1XXA Strain of muscle, fascia and tendon at neck level, initial encounter (principal); M54.9 Dorsalgia, unspecified; M43.12 Spondylolisthesis, cervical region; F12.90 Cannabis use, unspecified, uncomplicated; R11.0 Nausea; F17.200 Nicotine dependence, unspecified, uncomplicated; Z82.5 Family history of asthma and other chronic lower respiratory diseases; G89.29 Other chronic pain
CPT/HCPCS: 72040; 72100; 96372; 99283

== ENCOUNTER → 2023-02-23 | Outpatient (CLI) | payer MEDICAID, SELFPAY ==
--- NOTE | 2023-02-23 10:46 | RAD_ITS ---
EXAM: XR CERVICAL SPINE, 4 OR 5 VIEWS CLINICAL INDICATION: Other spondylosis, cervical region TECHNIQUE: Frontal, lateral and bilateral oblique views of the cervical spine. This report was created using [employer] [place] report [employer] technology. COMPARISON: None. FINDINGS: VERTEBRAE: 2.5 mm degenerative anterolisthesis of C4 relative to C5. Preserved vertebral body height. No acute fracture. No spondylolisthesis. Preservation of the normal cervical lordosis. No significant facet arthropathy. No unusual lytic or sclerotic lesions of bone. DISC SPACES: Multilevel nyxn-im-fkogcmav degenerative changes of the cervical spine. SOFT TISSUES: Soft tissues are normal. No prevertebral soft tissue widening. LUNG APICES: Clear. RAD/Cerv Spine 4 or 5 Views IMPRESSION: 1. 2.5 mm degenerative anterolisthesis of C4 relative to C5. 2. Multilevel [id number] spondylotic changes. 3. No acute or healing fracture. Electronically Signed: Bry Patel MD at 4:38 EDT ,
== END | disposition home or self-care (01) ==
PROVIDERS: PCP Internal Medicine; Visit Provider Anesthesiology Pain Medicine
DX: M47.892 Other spondylosis, cervical region (principal)
CPT/HCPCS: 72050

== ENCOUNTER 2023-03-08 11:40 | Outpatient (CLI) | payer MEDICAID, SELFPAY ==
--- NOTE | 2023-03-08 11:45 | RAD_ITS ---
STUDY: X-RAY - RIGHT KNEE REASON FOR EXAM: Female, 53 years old. Right knee pain. TECHNIQUE: 3 view(s) of the knee. COMPARISON: None. FINDINGS: Lateral plate and screw fixation of the distal femur with 2 cancellus screws placed through the distal aspect of the lateral femoral condyle. Fracture of the distal cancellus screw. Minimal deformity of the distal femur with no complications. Mild tricompartmental arthrosis. Small joint effusion. RAD/Knee 3 Views IMPRESSION: ORIF of distal femur in anatomic alignment. Fracture of a distal cancellus screw. No complications otherwise identified. Electronically Signed: Domingo De Leon, at 13:00 EDT ,
== END 2023-03-08 23:59 | disposition home or self-care (01) ==
LOC: RAD 11:41
PROVIDERS: PCP Internal Medicine; Visit Provider Internal Medicine
DX: M25.561 Pain in right knee (principal); I10 Essential (primary) hypertension; R73.03 Prediabetes
CPT/HCPCS: 36415; 73562; 80053; 83036; 85025

== ENCOUNTER → 2023-03-08 | Outpatient (CLI) | payer MEDICAID, SELFPAY ==
[2023-03-08 12:17] LABS: Absolute Lymphocyte Count 1.83 X10^3/uL (0.83-4.51); Absolute Neutrophil Count 5.3 X10^3/uL (2.0-7.7); Basophil# 0.04 X10^3/uL; Basophil% 0.5 % (0-1); Eosinophil# 0.25 X10^3/uL; Eosinophils% 3.2 % (0-5); Hematocrit 41.5 % (37-47); Hemoglobin 13.1 g/dL (12.0-15.0); Lymphocyte # 1.83 X10^3/ul (0.83-4.51); Lymphocyte % 23.3 % (19-41); Mean Corp Hgb Conc 31.6 g/dL (32-36); Mean Corpuscular Hgb 28.7 pg (27.0-32.0); Mean Corpuscular Volume 90.8 fL (81-99); Mean Platelet Vol. 10.6 fl (6.2-12.0); Monocyte# 0.46 X10^3/uL; Monocyte% 5.8 % (0-10); NRBC Flagged by Analyzer 0 % (0-5); Neutrophil # 5.26 X10^3/uL (2.7-7.7); Neutrophil % 66.8 % (47-70); Platelet Count 303 K/mm3 (150-450); RBC Distribution Width CV 14.7 % (11.6-14.6); RBC Distribution Width SD 49.2 fl (35.1-43.9); Red Blood Count 4.57 M/mm3 (4.2-5.4); White Blood Count 7.9 K/mm3 (4.4-11.0)
[2023-03-08 12:27] LABS: ALB/GLOB Ratio 1.1 RATIO (0.9-2.4); AST(SGOT) 20 U/L (15-37); Alanine Aminotransfer ALT/SGPT 31 U/L (13-56); Albumin, Serum 3.2 g/dL (3.2-5.0); Alkaline Phosphatase 97 U/L (45-117); Anion Gap 5 (5-15); BUN 15 mg/dL (7-18); BUN/Creat Ratio 20.4 RATIO (10-20); Calcium,Total 9.1 mg/dL (8.5-10.1); Chloride 106 mmol/L (98-107); Creatinine, Serum 0.74 mg/dL (0.55-1.02); EST Glomerular Filtration Rate 88 mL/min (>60); Est Glom Filt Rate - Afr Amer 106 mL/min (>60); Globulin 2.9 g/dL (2.2-4.2); Glucose 153 mg/dL (74-106); Potassium 3.8 mmol/L (3.5-5.1); Protein, Total 6.1 g/dL (6.4-8.2); Sodium Level 140 mmol/L (136-145)
[2023-03-08 17:46] LABS: Hemoglobin A1c 6.3 % (3.8-5.6)
== END | disposition home or self-care (01) ==
LOC: BIMLAB 10:27
PROVIDERS: PCP Internal Medicine; Visit Provider Internal Medicine
DX: I10 Essential (primary) hypertension (principal); R73.03 Prediabetes
CPT/HCPCS: 80053; 85025; 83036; 36415

== ENCOUNTER 2023-03-29 11:52 | Day surgery (SDC) | payer MEDICAID, SELFPAY ==
[2023-03-29] VITALS (7 sets, daily range): BP systolic 112–130; BP diastolic 59–87; PULSE 64–85; RESP 16–18; TEMP 36.1–36.2; O2SAT 92–100; BMI 37.8
--- NOTE | 2023-03-29 | GASB_PTH ---
PATIENT: JESSICA MCKINNEY LOC: EN U#:[id number] AGE/SX: 53/F ROOM: RE03/29/[address]: Dr. Zaki Garza DO : 1970 BED: DIS: 03/29/2023 SPEC #: [id number] RECD: 03/29/23 14:16 STATUS: SANTHOSH REQ #: [id number] ROGERS: 03/29/23 00:[address]: Zaki Garza DEPT: SURGICAL PATHOLOGY RECD BY: Jacob Quintanilla ENTERED: 03/30/23 11:54 SP TYPE: Gastric Bx OTHR DR: Dr. Ginger Tripp MD Tissues: A - Gastric mucous membrane B - Esophageal mucous membrane Procedures: Special Stain Group II Surgery Specimen Level IV Alcian Blue/PAS (control) HEADER OPERATION: EGD ? PH probe (MAC), biopsy PRE-OP DIAGNOSIS: Hoarseness, chronic nausea, GERD TISSUE SUBMITTED: A ? Gastric ulcer biopsy, B ? Distal esophagus biopsy MICROSCOPIC DIAGNOSIS A. Gastric ulcer, biopsy: Fragments of gastric mucosa with focal ulceration, fibrinous exudation and acute and chronic inflammation. See comment. B. Distal esophagus, biopsy: A fragment of gastroesophageal mucosa with moderate chronic inflammation and mild acute inflammation. Intestinal metaplasia (goblet cell metaplasia) not identified. See comment. SJ:rg 03/31/2023 COMMENT A. The results of immunohistochemistry for Helicobacter pylori will be reported separately ([id number]). B. Alcian blue/PAS stain with matched control is used in the evaluation of the specimen. MICROSCOPIC DESCRIPTION Slides are reviewed. GROSS DESCRIPTION A - Received in fixative is one container labeled with the patient's name and designated gastric ulcer biopsy. The specimen consists of two irregular fragments of light estrella soft tissue that in aggregate measure 1.0 x 0.5 x 0.1 cm. The specimen is totally submitted in one cassette. B - Received in fixative is one container labeled with the patient's name and designated distal esophagus biopsy. The specimen consists of one irregular fragment of light estrella soft tissue that measures 0.5 x 0.5 x 0.1 cm. The specimen is totally submitted in one cassette. / AM:mitchel 03/30/2023 TC:2 CPT: 82817 x2, 16057
[2023-03-29] MEDS: Lactated Ringers 1,000 ML 15 ML IV (12:37)
--- NOTE | 2023-03-29 12:45 | IMM_PTH ---
PATIENT: JESSICA MCKINNEY LOC: EN U#:[id number] AGE/SX: 53/F ROOM: RE03/29/[address]: Dr. Zaki Garza DO : 1970 BED: DIS: 03/29/2023 SPEC #: [id number] RECD: 03/30/23 15:00 STATUS: SANTHOSH REQ #: [id number] ROGERS: 03/29/23 12:[address]: Zaki Garza DEPT: IMMUNOHISTOCHEMISTRY RECD BY: Jennifer Trejo ENTERED: 03/30/23 15:01 SP TYPE: IMMUNO OTHR DR: Dr. Ginger Tripp MD Tissues: A - Stomach, NOS Procedures: H Pylori (initial) PHYSICIAN & INSTITUTION [place] [id number] SPECIMEN INFORMATION: Tissue Source: A ? Gastric ulcer Clinical Info: Hoarseness, chronic nausea, GERD Specimen Number: [id number] CPT code: 56976 METHODOLOGY: Deparaffinized sections of prefer/formalin-fixed tissue or PAP/DQ stained slides are incubated with monoclonal/polyclonal antibodies/oligonucleotide probes. Localization is made via biotin free immunoperoxidase method. Appropriate controls are performed and reacted as expected. Results on target cell population are indicated in the following table: RESULTS: ANTIBODY / CLONE RESULT Block A H Pylori (polyclonal) negative These tests were developed and their performance characteristics determined by [facility]. They may not have been cleared or approved by the U.S. Food and Drug Administration. The FDA has determined that such clearance or approval is not necessary. The above immunohistochemical/dualISH markers are ordered and reviewed by the Pathologist. INTERPRETATION: A. Gastric ulcer, biopsy: Negative for Helicobacter pylori organisms. SJ:mitchel 03/31/2023
--- NOTE | 2023-03-29 12:47 | PCM.HP.BLA ---
History and Physical Date of Admission: 03/29/23 52 F who presents to the office today to establish with GI for chronic nausea. She states her main concern is hoarse voice, and that she wants to see ENT. In 09/2022 Dr Tripp increased her omeprazole from 20 to 40 mg daily, heartburn is controlled, no change in hoarse voice or nausea. Hoarse voice began in June right after her . Initially thought it was due to crying. Always feels like something is stuck in her throat. Food not sticking in esophagus. Chokes on post nasal drainage. Takes fluticasone nasal spray w/o relief. Takes zyrtec, only slight improvement of nasal congestion with zyrtec. Tried marielena without relief. Navage nasal irrigation doesn't work for her. No sore throat. Has intermittent episodes of nausea, can last 5 minutes, multiple times a day. Worse after taking meds. Started many years ago. Says she isn't worried about the nausea. No vomiting. Reports she has a hiatal hernia, hx of PUD. No c/o abdominal pains. Occas diarrhea or constipation, but not problematic for her. She sometimes has to press on perineum to get stool out of what sounds like a rectocele. No melena or hematochezia. Remote hx EGD. Had colonoscopy about 4 yrs ago at [facility], ?end 2018/early 2018. Anorectal manometry was recommended but she got sick from the prep so she cancelled the test. BP elevated, she didn't take her lisinopril today, thought she was having EGD today ROS Const Constitutional: No fatigue ENT ENT: Positive for difficulty swallowing Cardio Cardiology: Positive for leg pain with exertion Gastro GI: Positive for bloating, constipation, diarrhea, difficulty swallowing, excessive flatus, nausea/dyspepsia and vomiting; No abdominal pain, belching, change in bowel habits, change in stool character, coffee ground emesis, cramping, heartburn, feeling full early, incontinent of stools, Vomiting blood/hematemesis, Blood in stool, loose stools, Black,tarry stools, pain with swallowing or other Musc Musculoskeletal: Positive for joint pain, back pain, joint swelling, muscle cramps, muscle weakness, stiffness, Arthritis, leg pain at night and leg pain with exertion Skin Skin: No yellowing of the eye or itchy eyes Psych Psychiatric: Positive for anxiety and Positive for depression Endo Endocrine: No fatigue Aller/Imm Allergy/Immunologic: No itchy eyes Rahat/Lymp Hematologic/Lymphatic: No easy bleeding or easy bruising Exam Const General: no acute distress Nutritional Appearance: obese Orientation: alert, awake and oriented x3 HENMT Other: voice is hoarse Eyes Sclera: sclerae normal GI Inspection: obesity Palpation: soft, no hepatosplenomegaly, no masses and nontender Quality Reporting Tobacco Screening (CMS 138) Smoking Status: Current every day smoker Assessment and Plan Assessment and Plan (1) Hoarseness of voice: ?Status:?Chronic ?Plan: 52 yr old female with chronic hoarse voice, this is her primary concern. Continue omeprazole 40 mg QAM since this controls her heartburn. Will get EGD with [facility] pH, f/u in office 2 wks later to discuss results. Refer to ENT per pt request. We'll request records from her 2018 or 2019 colonoscopy at [facility]. Sounds like she has a rectocele that occas catches stool. (2) Chronic nausea: ?Status:?Chronic ?Plan: She states this isn't bothersome for her. We'll see if EGD sheds any light on this. (3) GERD (gastroesophageal reflux disease): ?Status:?Chronic ?Plan: as above ? ? ? Orders: Referrals Ears, Nose and Throat ? R49.0 - Dysphonia ? Medications: Discontinued levocetirizine (Xyzal) ?? Discontinued Reason:? Cost Prohibitive 5 mg? PO QPM PRN 90 tabs 3RF allergy symptoms ? ? I have examined the patient and the H&P has been reviewed. There are no clinical changes since date of exam.
--- NOTE | 2023-03-29 13:31 | OP.EGD_ITS ---
Patient Name: Socorro Abbasi Procedure Date: 03/29/2023 12:46 PM Date of : 1970 Age: 53 Procedure: Upper GI endoscopy Indications: Suspected non-erosive esophageal reflux Providers: Zaki Garza DO Referring MD: Ginger Tripp MD Medicines: Monitored Anesthesia Care Patient Profile: This is a 53 year old female. Refer to note in patient chart for documentation of history and physical. Patient has symptoms of chronic cough. Complications: No immediate complications. Procedure: Pre-Anesthesia Assessment: - Prior to the procedure, a History and Physical was performed, and patient medications and allergies were reviewed. The patient is competent. The risks and benefits of the procedure and the sedation options and risks were discussed with the patient. All questions were answered and informed consent was obtained. Patient identification and proposed procedure were verified by the physician in the pre-procedure area. Mental Status Examination: alert and oriented. Airway Examination: normal oropharyngeal airway and neck mobility. Respiratory Examination: clear to auscultation. CV Examination: normal. Prophylactic Antibiotics: The patient does not require prophylactic antibiotics. Prior Anticoagulants: The patient has taken no previous anticoagulant or antiplatelet agents. After reviewing the risks and benefits, the patient was deemed in satisfactory condition to undergo the procedure. The anesthesia plan was to use monitored anesthesia care (MAC). Immediately prior to administration of medications, the patient was re-assessed for adequacy to receive sedatives. The heart rate, respiratory rate, oxygen saturations, blood pressure, adequacy of pulmonary ventilation, and response to care were monitored throughout the procedure. The physical status of the patient was re-assessed after the procedure. After obtaining informed consent, the endoscope was passed under direct vision. Throughout the procedure, the patient's blood pressure, pulse, and oxygen saturations were monitored continuously. The gastroscope was introduced through the mouth, and advanced to the second part of duodenum. The upper GI endoscopy was accomplished without difficulty. The patient tolerated the procedure well. Scope In: 1:10:09 PM Scope Out: 1:17:55 PM Total Procedure Duration Time 0 hours 7 minutes 46 seconds Findings: The examined esophagus was normal. The Z-line was irregular and was found 37 cm from the incisors. Biopsies were taken with a cold forceps for histology. Verification of patient identification for the specimen was done. The [place] capsule with delivery system was introduced through the mouth and advanced into the esophagus, such that the [place] pH capsule was positioned 40 cm from the incisors, which was 6 cm proximal to the GE junction. Suction was applied to the well of the [place] pH capsule to suck in the adjacent mucosa of the esophagus using the external vacuum pump set at a minimum vacuum pressure of 550 mmHg for 30 seconds. The [place] pH capsule was then deployed by depressing the plunger on top of the handle to advance the locking pin into the mucosa, thereby attaching the capsule to the esophagus. The plunger was then rotated a quarter turn clockwise to release the capsule from the delivery system. The delivery system was then withdrawn. Endoscopy was utilized for probe placement and diagnostic evaluation. Three non-bleeding cratered gastric ulcers with no stigmata of bleeding were found in the gastric antrum. The largest lesion was 6 mm in largest dimension. Area was successfully injected with 5 mL of a 1:10,000 solution of epinephrine for drug delivery. Coagulation for hemostasis using heater probe was successful. Estimated blood loss was minimal. Biopsies were taken with a cold forceps for histology. Verification of patient identification for the specimen was done. Estimated blood loss was minimal. The first portion of the duodenum was normal. Impression: - Normal esophagus. - Z-line irregular, 37 cm from the incisors. Biopsied. - Non-bleeding gastric ulcers with no stigmata of bleeding. Injected. Treated with a heater probe. Biopsied. - Normal first portion of the duodenum. - The [place] pH capsule was positioned 40 cm from the incisors, which was 6 cm proximal to the GE junction. Recommendation: - Discharge patient to home. - Resume previous diet. - Continue present medications. - Await pathology results. - Repeat upper endoscopy to check healing. - Use sucralfate tablets 1 gram PO BID for 4 weeks. Procedure Code(s): --- Professional --- 42405, 59, Esophagogastroduodenoscopy, flexible, transoral; with control of bleeding, any method 33622, 59, Esophagogastroduodenoscopy, flexible, transoral; with directed submucosal injection(s), any substance 27087, 51, Esophagogastroduodenoscopy, flexible, transoral; with biopsy, single or multiple CPT copyright 2017 [employer]. All rights reserved. The codes documented in this report are preliminary and upon home supervisor review may be revised to meet current compliance requirements. Zaki Garza DO 03/29/2023 1:31:03 PM This report has been signed electronically. Number of Addenda: 0 Note Initiated On: 03/29/2023 12:46 PM
--- NOTE | 2023-03-29 13:32 | OP.CCLET_ITS ---
03/29/2023 Ginger Tripp MD [address] [place] [address] [place] [address] Re : Upper GI endoscopy procedure for Socorro Abbasi Dear Dr. Tripp This procedure was performed on Wednesday, March 29, 2023. My impressions and recommendations are as follows: Impressions : - Normal esophagus. - Z-line irregular, 37 cm from the incisors. Biopsied. - Non-bleeding gastric ulcers with no stigmata of bleeding. Injected. Treated with a heater probe. Biopsied. - Normal first portion of the duodenum. - The [place] pH capsule was positioned 40 cm from the incisors, which was 6 cm proximal to the GE junction. Recommendations : - Discharge patient to home. - Resume previous diet. - Continue present medications. - Await pathology results. - Repeat upper endoscopy to check healing. - Use sucralfate tablets 1 gram PO BID for 4 weeks. My findings are described in the full procedure note, which is enclosed. If I can be of further assistance, please feel free to contact me at . Sincerely, Zaki Garza, 03/29/2023 1:31:03 PM This report has been signed electronically.
== END 2023-03-29 14:15 | disposition home or self-care (01) ==
LOC: EN 11:52 → AC 11:54
PROVIDERS: PCP Internal Medicine; Referring Provider Internal Medicine; Visit Provider Internal Medicine Gastroenterology
PROC: (CPT 43239; principal; 2023-03-29 12:40)
DX: K25.9 Gastric ulcer, unspecified as acute or chronic, without hemorrhage or perforation (principal); R11.0 Nausea; F17.200 Nicotine dependence, unspecified, uncomplicated; R13.10 Dysphagia, unspecified; K21.9 Gastro-esophageal reflux disease without esophagitis; R49.0 Dysphonia
CPT/HCPCS: 43239; 43255; 43236; 88305; 88313; 88342; J7120; J2405

== ENCOUNTER → 2023-04-26 | Outpatient (CLI) | payer MEDICAID, SELFPAY ==
--- NOTE | 2023-04-26 16:00 | MRI_ITS ---
EXAM: MR CERVICAL SPINE WITHOUT INTRAVENOUS CONTRAST CLINICAL INDICATION: RADICULOPATHY, pain radiating bilaterally into arms, R and gt;L TECHNIQUE: Multiplanar and multisequence MR images of the cervical spine without intravenous contrast were performed. COMPARISON: No relevant prior studies available. FINDINGS: VERTEBRAE: Unremarkable. Normal vertebral bodies and posterior elements. Normal alignment. Normal craniocervical junction and cervicothoracic junction. No spondylolisthesis. There is preservation of the normal cervical lordosis. SPINAL CORD: Unremarkable in signal and morphology. SOFT TISSUES: Unremarkable. No prevertebral soft tissue swelling. LYMPH NODES: Unremarkable. There is no cervical adenopathy. DISCS/SPINAL CANAL/NEURAL FORAMINA: C2-C3: Unremarkable. Normal disc height and morphology. Normal spinal canal. Normal neuroforamina. C3-C4: Mild decreased T2 signal intensity. Normal disc height and morphology. Left posterior lateral bulging or protruding disc mildly narrows the proximal left neural foramen. C4-C5: Unremarkable. Normal disc height and morphology. Normal spinal canal. Normal neuroforamina. C5-C6: Moderate decreased disc height and moderate annular disc bulge with superimposed right posterior lateral mild protrusion. There is narrowing of the CSF filled ventral thecal sac and slight flattening of the ventral cord, the disc projects roughly 4 mm distal to the expected disc margin in the midline, mildly eccentric to the right. The AP diameter of the midline canal is 8 mm, mildly stenotic. There is moderate narrowing of the left neural foramen. C6-C7: Normal disc signal intensity or minimally decreased and mild decreased disc height annular disc bulge. Left greater than right proximal neural foraminal stenosis, moderate. Narrowing of the ventral thecal sac, the AP diameter of the canal is roughly 8 mm, mildly stenotic. C7-T1: Unremarkable. Normal disc height and morphology. Normal spinal canal. Normal neuroforamina. MRI/Spine Cervical (Routine) IMPRESSION: Degenerative changes with bulges and protrusions. Spinal stenosis at C5-6 and C6-7. Multilevel neural foraminal stenosis. Mild flattening of the ventral cord at C5-6. Electronically Signed: Jessy Montes MD at 8:17 EDT ,
== END | disposition home or self-care (01) ==
LOC: MRI 15:39
PROVIDERS: PCP Internal Medicine; Referring Provider Anesthesiology Pain Medicine; Visit Provider Anesthesiology Pain Medicine
DX: M54.12 Radiculopathy, cervical region (principal)
CPT/HCPCS: 72141

== ENCOUNTER 2023-04-27 13:00 | Outpatient (RCR) | payer MEDICAID, SELFPAY ==
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
--- NOTE | 2023-04-27 13:28 | HP.PTDCSUM_ITS ---
It has been my pleasure to treat JESSICA MCKINNEY referred by Dr. Ginger Tripp MD, with the diagnosis of PAIN IN RIGHT KNEE for a total of 10 visit(s). Discharge Date: 04/27/23 Please see the following information for a summary of their discharge status. Subjective: Doing okay ,willing to do exs at home Right Knee Pain Intensity (Out of 10): 6 Back Pain Intensity (Out of 10): 6 % Improvement: 25 Objective/Function: POSTURE: mild forward posture ,knee valgus ,patella [place]. GAIT: reciprocal pattern NEURO: denies paresthesia/tingling ,. PALAPTION: tender medial/lateral joint line. EDEMA: Absent . MMT: left ( peak force) quads 43.1,hamstrings 34.9 , hip flexion 31.7 ,hip abd 22.7. AROM: 0-110 degrees supine flexion. STAIRS: one step at time with rails Goal 1:: I with HEP for knee Goal Progress: Goal Met Goal 2:: Patient to normalize gait pattern Goal Progress: Goal Met Goal 3:: Patient to improve AROM knee flexion by 5-10 degrees to improve gait Goal Progress: Goal Met Goal 4:: Patient to demonstrate 40% improvement with increase function with less pain Goal Progress: Goal Met Goal 5:: Patient to improve peak force of quads/hamstrings/hip by 5 -10 to improve function/gait Goal Progress: Goal Met Goal 6:: Patient to improve LFES score by 5 points to improve QOL Plan: D/C Discharge Comments: YRN If there are questions or concerns regarding this patient's physical therapy, please feel free to call me at [phone]. Thank you for the referral of this patient. Sincerely, Mansoor Lambert, PT, Cert MDT, OCS Balance/Gait/Functional tests - Balance/Special Test Scores Lower Extremity Functional Score: 52
== END 2023-04-27 19:00 | disposition home or self-care (01) ==
LOC: PT 13:00
PROVIDERS: PCP Internal Medicine; Referring Provider Internal Medicine; Visit Provider Internal Medicine
DX: M25.651 Stiffness of right hip, not elsewhere classified (principal)
CPT/HCPCS: 97110; 97162; 97530

== ENCOUNTER 2023-06-05 23:35 | Emergency (ER) | payer MEDICAID, SELFPAY ==
[2023-06-05 23:36] VITALS: BP 183/103; PULSE 114; RESP 20; TEMP 36.3; O2SAT 99; BMI 39.3
--- NOTE | 2023-06-06 00:05 | EX.ED.GENINJ ---
HPI History of Present Illness Chief Complaint: Nausea/Vomiting [facility] Medical History Anxiety Arthritis Asthma Back pain Bladder disease Borderline type 2 diabetes mellitus Chronic nausea Depression Diabetes Difficulty chewing DJD (degenerative joint disease) Dysuria Easy bruising Elevated glucose Former smoker Furunculosis of axilla Gastric reflux GERD (gastroesophageal reflux disease) Heartburn Hiatal hernia Hidradenitis suppurativa history bladder mesh History of hiatal hernia History of IBS History of ulceration IBS (irritable bowel syndrome) Marijuana use MRSA infection PUD (peptic ulcer disease) Pyelonephritis Pyelonephritis Restless legs Right knee pain Sinusitis Spinal stenosis Subluxation complex (vertebral) of cervical region Upper respiratory infection Venous insufficiency of both lower extremities Vitamin deficiency Home Medications potassium 99 mg tablet 99 mg PO DAILY 02/14/19 [History Last Taken 03/27/23] vitamin B complex (B Complex-Vitamin B12 tablet) 1 tab PO .COMPLEX 09/10/22 [History Last Taken 03/27/23] cholecalciferol (vitamin D3) 1,250 mcg (50,000 unit) tablet 1,250 mcg PO QWEEK #14 tabs 10/02/22 [Rx Last Taken 03/27/23] lisinopril 10 mg tablet 10 mg PO QDAY #90 tabs 03/05/23 [Rx Last Taken 03/27/23] venlafaxine 37.5 mg capsule,extended release 24 hr 37.5 mg PO DAILY #90 caps 03/05/23 [Rx Last Taken 03/27/23] compr.stocking,knee,long,large #2 ea 03/08/23 [Rx Last Taken 03/27/23] fluticasone propionate 50 mcg/actuation nasal spray,suspension (Flonase Allergy Relief) 2 spray intranasal DAILY #16 grams 03/08/23 [Rx Last Taken 03/27/23] metoclopramide HCl 5 mg tablet (Reglan) 5 mg PO Q8H PRN PRN nausea and vomiting 7 days #20 tabs 06/06/23 [Rx Last Taken Unknown] omeprazole 40 mg capsule,delayed release 40 mg PO BID 06/06/23 [History Last Taken Unknown] Allergy/AdvReac Type Severity Reaction Status Date / Time povidone-iodine Allergy Intermediate Rash Verified 07/15/23 23:36 [From Betadine] Environmental Allergies: Allergy cough Verified 06/05/23 23:36 Uncoded tuberculin,PPD,multi-puncture AdvReac Intermediate Rash Verified 06/05/23 23:36 aspirin AdvReac Vomiting Verified 06/05/23 23:36 Family History Grandmother Benign breast lumps Mother Benign breast lumps Diabetes Heart disease CVA (cerebral vascular accident) Father Asthma Aunt Ovarian cancer Surgical History H/O bladder repair surgery History of arthroplasty of right ankle History of orthopedic surgery Tubal ligation status Social History adopted: No household members: family, children and other housing: house number of children: 1 current occupational status: unemployed pets and animals: No Smoking Status: Former smoker how long ago did patient quit smokin alcohol intake: current alcohol intake frequency: holidays/special occasions only substance use type: marijuana what type of physical activity do you participate in: none additional social history: [place] Diagnosed with cancer summer 2017 EXAM Physical Exam Const Vital Signs: 06/05/23 23:36 06/06/23 02:12 Temperature 97.3 F L 98.4 F Temperature Source Temporal Oral Pulse Rate 114 H 90 Respiratory Rate 20 H 16 Blood Pressure 183/103 H 149/89 H Blood Pressure Mean 129 109 Pulse Ox 99 96 Oxygen Delivery Method Room Air MDM MDM MDM Narrative Medical decision making narrative: HISTORY OF PRESENT ILLNESS: 53-year-old female here with nausea vomiting diarrhea. No she is abdominal pain from vomiting. She also notes urinary frequency and is concerned about kidney infection given her history of pyelonephritis. She also notes fevers and chills. She is concerned about hypokalemia. She further states her last bowel was prior to arrival with no melena medic easier. She denies hematemesis. Denies chest pain or shortness of breath. Denies abdominal pain at rest but notes abdominal pain and back pain with vomiting. REVIEW OF SYSTEMS: Pertinent positives: Abdominal pain, nausea vomiting diarrhea, fever chills Pertinent negatives: Syncope, chest pain, shortness of breath PHYSICAL EXAM: Nursing triage notes reviewed, Vital signs reviewed Constitutional: please see mdm HENT: MMM Eyes: Pupils equal round and reactive to light, Extraocular muscles intact Neck: No stridor, no JVD, full neck ROM Lungs: Clear to auscultation, No wheezing or rales. No increased work of breathing, no conversational dyspnea, no accessory muscle use, no nasal flaring. No respiratory distress noted Heart: Regular rate and rhythm, No murmurs, No rubs and No gallops, 2+ distal pulses (radial, femoral, posterior tibial) in all extremities Abdomen: Soft, there is no tenderness, rigidity, rebound or guarding, no obvious peritoneal signs, no palpable pulsatile abdominal masses, no auscultated abdominal bruit : No CVAT Extremities: No edema Neuro: No focal neurological deficits, cranial nerves II through XII intact, 5/5 strength in all extremities. Intact sensation to light touch in all extremities, 2+ reflexes bilateral patella tendons. Normal gait. No ataxia. Skin: No rash or lesions noted MEDICAL DECISION MAKING: Chief Complaint: Abdominal pain External records reviewed: CT scan of the abdomen pelvis from 2019 shows no evidence of small bowel obstruction Factors affecting care: History of IBS, depression, pyelonephritis, asthma Social determinants of health: Former smoker History obtained from others: Consults: none ALL IMAGES (IF OBTAINED) HAVE BEEN PERSONALLY REVIEWED AND INTERPRETED BY MYSELF. CBC with leukocytosis suggestive of systemic inflammation, no anemia, no thrombocytopenia BMP with hypokalemia suggestive of dehydration, no anion gap to suggest endorgan hypoperfusion, no acute kidney injury LFTs show no evidence of hepatobiliary pathology. Magnesium within normal limits Lipase is wnl indicating no pancreatic inflammation. MDM Narrative: Patient was initially hypertensive, tachycardic and tachypneic. Abdominal exam was benign not consistent with acute surgical process. I considered the following differential diagnosis: AAA, small bowel obstruction, abdominal perforation, appendicitis, pancreatitis, hepatobiliary pathology (acute cholecystitis), mesenteric ischemia, abnormalities such as ovarian pathology, PID. I considered obtaining a CT scan of the patient's abdomen or pelvis however thought her abdominal exam was benign she had no abdominal pain at the at rest. Low suspicion for acute surgical pathology such as obstruction or perforation at this time. I obtained a broad lab and imaging work-up to further elucidate etiology the patient's complaint. Labs were remarkable for leukocytosis suggestive of systemic formation likely reactive given nausea and vomiting. There is no signs of hepatobiliary pathology, significant electrolyte derangements, no evidence of pancreatitis, no anion gap to suggest endorgan hypoperfusion. Repeat abdominal exam remained benign. Patient initially cannot tolerate p.o. but after a dose of Reglan she is able to tolerate. Can mag replaced. Vital signs improved tachycardia resolved. Patient appropriate discharge home with Reglan and close PCP follow-up with strict return precautions. The patient and/or family, caregivers express understanding. The patient and/or family, caregivers agrees with the plan. Total critical care time today provided was at least 0 minutes. This excludes separately billable procedures. Critical care time (if documented) is secondary to the patient having high probability of clinically significant/life threatening deterioration in the patient's condition which required my urgent intervention. Shared decision making: I will have a discussion with the patient and or visitors regarding risk/benefits of further testing or admission. They will be made aware of of the risk/benefits inherent in this decision they will be given the opportunity to voice understanding. Lab Data Attestation: I reviewed the patient's lab results. Labs: Laboratory Results - last 24 hr 06/06/23 00:32 WBC 14.1 H RBC 4.52 Hgb 12.9 Hct 39.6 MCV 87.6 MCH 28.5 MCHC 32.6 RDW Std Deviation 45.0 H RDW Coeff of Sanjana 14.1 Plt Count 314 MPV 10.1 Immature Gran % (Auto) 0.600 Neut % (Auto) 88.2 H Lymph % (Auto) 8.1 L [place] % (Auto) 2.9 Eos % (Auto) 0.0 Baso % (Auto) 0.2 Absolute Neuts (auto) 12.4 H Absolute Lymphs (auto) 1.14 Nucleated RBC % 0 Sodium 138 Potassium 2.9 L Chloride 104 Carbon Dioxide 24.0 Anion Gap 10 BUN 16 Creatinine 0.94 Estim Creat Clear Calc 59.08 Est GFR (MDRD) Af Amer 79 Est GFR (MDRD) Non-Af 66 BUN/Creatinine Ratio 16.9 Glucose 200 H Calcium 9.6 Magnesium 1.7 Total Bilirubin 0.40 AST 23 ALT 40 Alkaline Phosphatase 111 Total Protein 7.9 Albumin 3.7 Globulin 4.2 Albumin/Globulin Ratio 0.9 Lipase 13 Discharge Plan Triage Chief Complaint: Nausea/Vomiting ED Provider: Vito Ortega Dx/Rx/DC Orders Clinical Impression: Nausea, vomiting, and diarrhea, Acute hypokalemia Instructions: ED Vomiting and Diarrhea ... Prescriptions: New metoclopramide HCl [Reglan] 5 mg tablet 5 mg PO Q8H PRN PRN (Reason: nausea and vomiting) 7 Days Qty: 20 0RF No Action cholecalciferol (vitamin D3) 1,250 mcg (50,000 unit) tablet 1,250 mcg PO QWEEK Qty: 14 2RF fluticasone propionate [Flonase Allergy Relief] 50 mcg/actuation spray,suspension 2 spray intranasal DAILY Qty: 16 3RF Rx Instructions: administer into each nostril (DME) compr.stocking,knee,long,large Misc See Rx Instructions .Route Qty: 2 2RF Rx Instructions: 20 - 30 mmHg potassium 99 MG tablet 99 mg PO DAILY omeprazole 40 mg capsule,delayed release(DR/EC) 40 mg PO BID vitamin B complex tablet tablet 1 tab PO .COMPLEX Rx Instructions: 1 TAB orally every other day; lisinopril 10 mg tablet 10 mg PO QDAY Qty: 90 1RF venlafaxine 37.5 mg capsule,extended release 24hr 37.5 mg PO DAILY Qty: 90 1RF Primary Care Provider: Ginger Tripp Referrals: Ginger Tripp MD [Primary Care Provider] - Activity Restrictions/Additional Instructions: Thank you for trusting us with your care today! Please take Tylenol (2 pills, 650 mg), ibuprofen (2 pills, 400 mg) every 6 hours as needed for pain and fever control. Please take Reglan as needed for nausea vomiting control Please return to the emergency department if your symptoms change or worsen. Please follow with your primary care physician for further outpatient evaluation and management. Disposition Disposition: Home, Self Care
[2023-06-06] MEDS: 0.9% Normal Saline 1,000 ML 1000 ML IV (00:33)
[2023-06-06] MEDS: Morphine 4 MG/ML Syringe IV (00:33)
[2023-06-06] MEDS: Ondansetron 4 MG/2 ML Vial IV (00:33)
[2023-06-06 00:40] LABS: Absolute Lymphocyte Count 1.14 X10^3/uL (0.83-4.51); Absolute Neutrophil Count 12.4 X10^3/uL (2.0-7.7); Basophil# 0.03 X10^3/uL; Basophil% 0.2 % (0-1); Hematocrit 39.6 % (37-47); Hemoglobin 12.9 g/dL (12.0-15.0); Lymphocyte # 1.14 X10^3/ul (0.83-4.51); Lymphocyte % 8.1 % (19-41); Mean Corp Hgb Conc 32.6 g/dL (32-36); Mean Corpuscular Hgb 28.5 pg (27.0-32.0); Mean Corpuscular Volume 87.6 fL (81-99); Mean Platelet Vol. 10.1 fl (6.2-12.0); Monocyte# 0.41 X10^3/uL; Monocyte% 2.9 % (0-10); NRBC Flagged by Analyzer 0 % (0-5); Neutrophil # 12.44 X10^3/uL (2.7-7.7); Neutrophil % 88.2 % (47-70); Platelet Count 314 K/mm3 (150-450); RBC Distribution Width CV 14.1 % (11.6-14.6); Red Blood Count 4.52 M/mm3 (4.2-5.4); White Blood Count 14.1 K/mm3 (4.4-11.0)
[2023-06-06 00:57] LABS: ALB/GLOB Ratio 0.9 RATIO (0.9-2.4); AST(SGOT) 23 U/L (15-37); Alanine Aminotransfer ALT/SGPT 40 U/L (13-56); Albumin, Serum 3.7 g/dL (3.2-5.0); Alkaline Phosphatase 111 U/L (45-117); Anion Gap 10 (5-15); BUN 16 mg/dL (7-18); BUN/Creat Ratio 16.9 RATIO (10-20); Calcium,Total 9.6 mg/dL (8.5-10.1); Chloride 104 mmol/L (98-107); Creatinine, Serum 0.94 mg/dL (0.55-1.02); EST Glomerular Filtration Rate 66 mL/min (>60); Est Glom Filt Rate - Afr Amer 79 mL/min (>60); Estimated Creatinine Clearance 59.08 ml/min; Globulin 4.2 g/dL (2.2-4.2); Glucose 200 mg/dL (74-106); Lipase 13 U/L (13-75); Potassium 2.9 mmol/L (3.5-5.1); Protein, Total 7.9 g/dL (6.4-8.2); Sodium Level 138 mmol/L (136-145)
[2023-06-06 02:12] VITALS: BP 149/89; PULSE 90; RESP 16; TEMP 36.9; O2SAT 96
[2023-06-06 02:18] LABS: Magnesium 1.7 mg/dL (1.6-2.6)
[2023-06-06] MEDS: Metoclopramide 10 MG/2 ML Vial 5 MG IV (02:31)
[2023-06-06] MEDS: Magnesium Chloride 64 MG Delay Rel.Tablet 128 MG PO (03:27)
[2023-06-06] MEDS: Potassium Chloride Oral Tablet 20 MEQ 60 MEQ PO (03:27)
[2023-06-06 04:34] VITALS: BP 140/87; PULSE 87; RESP 16; O2SAT 95
== END 2023-06-06 04:36 | disposition home or self-care (01) ==
PROVIDERS: Emergency Provider Emergency Medicine; PCP Internal Medicine; Visit Provider Emergency Medicine
DX: R11.2 Nausea with vomiting, unspecified (principal); E11.9 Type 2 diabetes mellitus without complications; R19.7 Diarrhea, unspecified; E87.6 Hypokalemia; Z87.891 Personal history of nicotine dependence; F41.9 Anxiety disorder, unspecified; F32.A Depression, unspecified; Z79.899 Other long term (current) drug therapy; K21.9 Gastro-esophageal reflux disease without esophagitis; J45.909 Unspecified asthma, uncomplicated; Z79.51 Long term (current) use of inhaled steroids
CPT/HCPCS: 80053; 83690; 83735; 85025; 96361; 96374; 96375; 99283; J7030; A4216; J2405

== ENCOUNTER 2023-06-28 05:30 | Inpatient (IN) | payer MEDICAID, SELFPAY ==
--- NOTE | 2023-06-15 11:19 | EKG12_ITS ---
Test Reason : PREOP Blood Pressure : / mmHG Vent. Rate : 072 BPM Atrial Rate : 072 BPM P-R Int : 148 ms QRS Dur : 078 ms QT Int : 402 ms P-R-T Axes : 050 028 057 degrees QTc Int : 440 ms Sinus rhythm with occasional Premature ventricular complexes Otherwise normal ECG Confirmed by CAROLE XIE, STEVEN ([id number]), web content editor FUAD GONZALEZ ([id number]) on 06/16/2023 9:05:19 AM Referred By: Cuauhtemoc Peng Confirmed By:STEVEN LAM MD
[2023-06-15 12:04] LABS: Absolute Lymphocyte Count 2.18 X10^3/uL (0.83-4.51); Absolute Neutrophil Count 4.3 X10^3/uL (2.0-7.7); Basophil# 0.05 X10^3/uL; Basophil% 0.7 % (0-1); Eosinophils% 2.7 % (0-5); Hematocrit 38.2 % (37-47); Hemoglobin 12.3 g/dL (12.0-15.0); Lymphocyte # 2.18 X10^3/ul (0.83-4.51); Lymphocyte % 29.9 % (19-41); Mean Corp Hgb Conc 32.2 g/dL (32-36); Mean Corpuscular Hgb 29.6 pg (27.0-32.0); Mean Corpuscular Volume 91.8 fL (81-99); Mean Platelet Vol. 9.9 fl (6.2-12.0); Monocyte# 0.51 X10^3/uL; NRBC Flagged by Analyzer 0 % (0-5); Neutrophil # 4.32 X10^3/uL (2.7-7.7); Neutrophil % 59.3 % (47-70); Platelet Count 263 K/mm3 (150-450); RBC Distribution Width CV 14.3 % (11.6-14.6); RBC Distribution Width SD 48.4 fl (35.1-43.9); Red Blood Count 4.16 M/mm3 (4.2-5.4); White Blood Count 7.3 K/mm3 (4.4-11.0)
[2023-06-15 12:49] LABS: Anion Gap 3 (5-15); BUN 14 mg/dL (7-18); BUN/Creat Ratio 20.2 RATIO (10-20); Calcium,Total 8.7 mg/dL (8.5-10.1); Chloride 108 mmol/L (98-107); Creatinine, Serum 0.69 mg/dL (0.55-1.02); EST Glomerular Filtration Rate 94 mL/min (>60); Est Glom Filt Rate - Afr Amer 113 mL/min (>60); Glucose 141 mg/dL (74-106); Sodium Level 140 mmol/L (136-145)
[2023-06-15 13:09] LABS: Magnesium 2.3 mg/dL (1.6-2.6)
[2023-06-15 13:33] LABS: HIV - WCH Non-Reactive (Nonreactive); Hepatitis B Surface Antibody Reactive; Hepatitis C Antibody Non-Reactive (Nonreactive)
[2023-06-16 05:12] LABS: Hepatitis A AB, Total Negative (Negative)
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
[2023-06-28] VITALS (13 sets, daily range): BP systolic 107–180; BP diastolic 60–106; PULSE 73–114; RESP 14–18; TEMP 36.1–36.7; O2SAT 93–100; BMI 40.7
[2023-06-28] MEDS: Acetaminophen 500 MG Tablet 1000 MG PO (06:12)
[2023-06-28] MEDS: Lactated Ringers 1,000 ML 15 ML IV ×2 (06:21→09:50)
--- NOTE | 2023-06-28 06:30 | RAD_ITS ---
STUDY: X-RAY - CERVICAL SPINE REASON FOR EXAM: Female, 53 years old. ANTERIOR FUSION, C5-6 AND C6-7 TECHNIQUE: Single lateral view(s) of the cervical spine were obtained. COMPARISON: 02/23/2023 FINDINGS: Single lateral intraoperative study performed. A marker is noted anterior to the inferior endplate of C5. Patient is intubated Normal anterior atlantoaxial articulation. Normal odontoid process. Normal cervical lordosis. Normal vertebral bodies and endplates. There is multi-level degenerative disc disease with multilevel disc space narrowing. Normal visualized intervertebral neuroforamina. RAD/Spine 1 View Any Level IMPRESSION: Single limited intraoperative lateral view of the C-spine shows a marker anterior to the inferior endplate of C5 Electronically Signed: Bolivar Garcia MD at 9:33 EDT ,
[2023-06-28] MEDS: dexAMETHasone 20 MG/5 ML Vial 8 MG IV (06:35)
[2023-06-28] MEDS: Magnesium 1 GM over 15 mins IV (06:39)
[2023-06-28 06:40] LABS: Bedside Glucose 113 mg/dL (74-106)
--- NOTE | 2023-06-28 07:30 | DISC_PTH ---
PATIENT: JESSICA MCKINNEY LOC: [facility] U#:[id number] AGE/SX: 53/F ROOM: IL316 RE06/28/[address]: Dr. Cuauhtemoc Peng DO : 1970 BED: 1 DIS: 06/29/2023 SPEC #: [id number] RECD: 06/28/23 12:26 STATUS: SANTHOSH IWONA #: [id number] ROGERS: 06/28/23 07:[address]: Cuauhtemoc Peng DEPT: SURGICAL PATHOLOGY RECD BY: Annalisa Hickman ENTERED: 06/28/23 13:33 SP TYPE: DISC OTHR DR: MD Dr. Ginger Lewis MD Tissues: A - Intervertebral disc, NOS B - Intervertebral disc, NOS Procedures: Surgery Specimen Level III HEADER OPERATION: ERAS, anterior cervical fusion C5-6 and C6-7 PRE-OP DIAGNOSIS: Herniated nucleus pulposus, cervical TISSUE SUBMITTED: A - C6-7 disc, B - C5-6 disc MICROSCOPIC DIAGNOSIS A. C6-7 disc: Fragments of fibrocartilaginous tissue with degenerative changes. B. C5-6 disc: Fragments of fibrocartilaginous tissue with reactive and degenerative changes and bone. ALY:mitchel 06/29/2023 MICROSCOPIC DESCRIPTION Slides are reviewed. GROSS DESCRIPTION A - Received in fixative is one container labeled with the patient's name and designated C6-7 disc. The specimen consists of multiple irregular fragments of estrella, indurated tissue that in aggregate measure 2.5 x 2.0 x 0.3 cm. The specimen is totally submitted in one cassette. B - Received in fixative is one container labeled with the patient's name and designated C5-6 disc. The specimen consists of multiple irregular fragments of estrella, indurated tissue that in aggregate measure 2.5 x 2.0 x 0.3 cm. Also present is one large piece of indurated tissue measuring 2.0 x 1.0 x 0.3 cm. This piece is bisected. The largest piece is serially sectioned. The specimen is totally submitted in one cassette. / ALY:mitchel 06/28/2023 TC:5 CPT: 25744 x2
[2023-06-28] MEDS: Cefazolin 2 GM in 0.9% Normal Saline 100 ML IV (08:00)
--- NOTE | 2023-06-28 08:21 | RAD_ITS ---
STUDY: X-RAY - CERVICAL SPINE REASON FOR EXAM: Female, 53 years old. FUSION C5-6 AND C6-7 TECHNIQUE: 1 view(s) of the cervical spine were obtained. COMPARISON: None FINDINGS: The localization instrument is seen along the anterior aspect of the C5-C6 disc space level. RAD/Spine 1 View Any Level IMPRESSION: The localization instrument is seen along the anterior aspect of the C5-C6 disc space level. Electronically Signed: Fabrice Solis MD at 12:59 EDT ,
[2023-06-28] MEDS: Heparin 10,000 UNITS/10 ML Vial 10000 UNITS (08:45)
[2023-06-28] MEDS: THROMBIN (RECOMBINANT) 20,000 UNIT VIAL 20000 UNIT TOPICAL (08:45)
--- NOTE | 2023-06-28 09:25 | RAD_ITS ---
STUDY: X-RAY - CERVICAL SPINE REASON FOR EXAM: Female, 53 years old. CERVICAL FUSION C6-7 TECHNIQUE: 1 view(s) of the cervical spine were obtained. COMPARISON: None FINDINGS: The patient is status post anterior fusion at the C5-C6 level with prosthetic disc. Anterior fusion at the C6-C7 level with prosthetic disc. RAD/Spine 1 View Any Level IMPRESSION: Anterior fusion at the C5-C6 and C6-C7 levels with prosthetic disc placement. Electronically Signed: Fabrice Solis MD at 14:28 EDT ,
--- NOTE | 2023-06-28 11:23 | PCM.OPRPT ---
Report of Operation Description of Surgical Findings:: Preop diagnosis: Disc protrusion C6-7 and foraminal stenosis C5-6 on the right Postop diagnosis: The same Procedures: #1 anterior cervical fusion C6-7 CPT code 83658 #2 anterior spine plate C5-C7 CPT code 24215/59 #3 anterior cervical fusion C5-6 CPT code 43960/51 #4 insertion of titanium cage C6-7 CPT code 61081 #5 insertion of titanium cage C5-6 CPT code 51462/51 #6 bone marrow aspirate left iliac crest CPT code 72478 #7 allograft bone, C6-7 and C5-6 CPT code 43237 Surgeon: Dr. Peng Highway Traffic Control Technician: Mirna BROWN Anesthesia: General endotracheal administered by [facility] EBL: Less than 20 cc Drains: 1/4 inch Darnell Complications: None Procedure: Patient was taken to the OR where she was placed in the supine position on the operating table. She was then placed under general endotracheal anesthesia. A Interiano catheter was inserted. Neuro monitoring placed her leads on the patient. A Kerlix was placed from 1 wrist to the other and around the feet for us to be able to pull her shoulders down because of her body habitus. A preoperative x-ray was taken with a needle marker in place to assure that I would make incision in the right place. This was marked with a very small laceration using the end of a needle. The neck and the left breast were then prepped and draped in standard fashion with chlorhexidine as she was allergic to iodine. The neck and the left crest were prepped and draped standard fashion. First we obtained 60 cc of bone marrow aspirate from the left iliac crest through a small puncture incision we entered with a Jamshidi needle tamped it into the crest and dion out the blood into to 30 cc syringes. This was handed off to the criminal records technician in the room the the stem cells from all the other cells and concentrated them 8-10 times. These were given back to us. Limited incision starting at the predetermined point. Subcutaneous tissues were incised length of skin incision. She had very thin almost nonexistent platysma so we simply cut through it. I then developed a plane between the sternocleidomastoid and the strap muscles by first exploiting the superficial cervical fascia followed by the opening of the pretracheal fascia in this fashion I was able to identify the carotid and protected and kept it on my side as I was working on the patient's right. I then retracted the midline structures that is the trachea and the esophagus to the left with my virtual assistant for advertisers holding it. We identified the disc base thought to probably be C5-6 after first longitudinally opening the anterior cervical fascia and periosteum we identified that space we had anterior spurs as expected and I marked it with a needle. [facility] 7 because of her body habitus it would be hard to pull her arms down an intraoperative x-ray was taken with anesthesia pushing the shoulders down and the traffic signal mechanic pulling on the 2 arms to hold him down while we took an x-ray. We were able to identify that it was indeed at C5-6 I simply moved down 1 level identified that the space and marked by cutting a hole in the center of the disc with cautery. The other needle was removed. I then cauterized the longus coli muscles on either side and we then put our self-retaining blacking machine operator retractors in place. We had 1 on each side with the teeth of the retractor under the coli and then with smooth blades we opened that up and down was found to be an excellent exposure we thoroughly irrigated with copious amounts of sterile saline I then remove the anterior annulus with a 15 blade. I removed more nucleus from the disc base with pituitary rongeurs. Then put an intervertebral body distractor first on 1 side given the a little more space and used curettes to remove the cartilage off both endplates this was done on both sides of course. I also used a diane bur to bur the uncinate process on each side to make room for a larger cage. I then used electrocautery to remove the anterior osteophytes and flatten them. Anesthesia pulling on the head I was able to do a trial with a 7 mm large cage. We chose the size the rib cage was then opened it was then filled with bone allograft. Bungee allograft. This was then soaked in the patient's own stem cells the cage on its screen machine operator was then tamped into place with anesthesia pulling on the head was countersunk 1 or 2 mm. We then moved up to C5-6. Again the longus coli muscles were cauterized on either side there were elevated off of the disc base. The self retaining retractor set was again put in at this level. Given us good exposure I remove the anterior annulus with 15 blade and again use a distractor first on the left side to distract the right side I removed cartilage off both endplates and the annulus all the way back to the uncinate process. Note that she had spurring pretty much all the way across the back of the space and the diane bur I was able to bur the uncinate process and lower lip of C5 on the right side this was done repeatedly using technique whereby we would bur with a diane bur followed by instillation of cold saline to prevent thermal injury to the nerve. I then used sharp for a small curettes to remove the remaining shell of bone off of the base of the nerve root this was then checked in the foramen was found to be totally open at this point I then also used the bur to bur the posterior bur that went all the way across the disc space. This was done very carefully carefully removed with sharp curettes afterwards to prevent any injury to the dura or underlying structures. Once this was done at treatment measurements for a graft we used another 7 mm graft I remain removed all the cartilage off the endplates I then used the broach to broach the space repeatedly and we had good bleeding and bone lysed we did the level below. Can we put the 7 mm cage on the screen machine operator filled it with spongy allograft bone soaked the allograft bone in the patient's own stem cells and tamped it into place and countersunk it a couple of millimeters. Then used a 42 mm plate centered first I used a pin on C6 to hold it in place followed by individual monitor holes within all followed by 14 mm self-tapping screws we put 2 into C5 2 into C6 and 2 in the C7. Note that I did slightly curve the plate a little more. This was then seen on a lateral x-ray was found to be in excellent position with good position of the screws the plate and the cages. Membrane was placed over the plate to prevent adhesions to the trachea or the esophagus. Then the course of the case we thoroughly irrigated with copious amounts of sterile saline quite frequently. We then put a 1/4 inch [place] drain in place and closure was begun we closed the fatty tissue in 2 layers a deep running layer because the patient had quite a bit of adipose anteriorly to the layer with 5-0 Vicryl. Explained the skin there was no need for skin clips or outside sutures. Pin was placed through the drain to prevent suction into the wound. Lessons were then applied. The patient was recovered in the OR she was moved to her hospital bed and taken to recovery in satisfactory condition. [facility] This is [facility]. Peng dictating.
[2023-06-28 12:01] LABS: Bedside Glucose 218 mg/dL (74-106)
[2023-06-28] MEDS: Lactated Ringers 1,000 ML 100 ML IV (14:08)
[2023-06-28] MEDS: 0.9% Saline Lock 10 ML Syringe IV ×6 (14:08→18:11)
[2023-06-28] MEDS: dexAMETHasone 4 MG/ML Vial IV ×2 (14:08→18:11)
[2023-06-28] MEDS: Morphine 4 MG/ML Syringe IV ×2 (14:21→16:48)
[2023-06-28] MEDS: Ondansetron 4 MG/2 ML Vial IV ×2 (14:31→21:35)
[2023-06-28] MEDS: Cefazolin 1 GM/50 ML BAG IV (15:36)
[2023-06-28] MEDS: metFORMIN (XR) 500 MG Tablet PO (15:36)
--- NOTE | 2023-06-28 15:49 | PCM.PN.HOSP ---
Reason for Visit Reason for Visit: Diagnoses Encounter for other preprocedural examination (06/28/23) Subjective Subjective Patient was seen and examined today at the request of spine surgery, patient underwent cervical fusion at C5-6 and C6-7 due to degenerative disc disease of the cervical spine. Chronic medical problems include essential hypertension and type 2 diabetes, patient was recently placed on metformin for her diabetes. At the time my examination, patient does not complain of any shortness of breath, chest discomfort, fever, or chills. She has been eating Jell-O and drinking liquids. Objective Data Objective Data Vital Signs: Vital Signs Temp Pulse Resp BP Pulse Ox O2 Del Method O2 Flow Rate 97.8 F 100 18 138/73 H 100 Nasal Cannula 4 06/28/23 13:42 06/28/23 13:42 06/28/23 13:42 06/28/23 13:42 06/28/23 13:42 06/28/23 13:51 06/28/23 13:51 Oxygen Flow Rate (L/min) 4 Oxygen Delivery Method Nasal Cannula Weight: 107.592 kg Body Mass Index (BMI) 40.7 Intake & Output: Intake and Output for Last 24 Hours 06/26/23 06/27/23 06/28/23 23:59 23:59 23:59 Intake Total 2296.25 / 2296.25 Output Total 485 / 485 Balance 1811.25 / 1811.25 Lab / Micro Data 06/15/23 11:31 06/15/23 11:31 Labs: Laboratory Results - last 24 hr 06/28/23 06:03: POC Glucose 113 H 06/28/23 11:42: POC Glucose 218 H Micro: Microbiology 06/15/23 11:31 Swab (Method) Nasal Screen MRSA/MSSA - Final Radiography Diagnostic Testing: Radiology Impression Spine X-Ray 06/28/23 06:30 IMPRESSION: Single limited intraoperative lateral view of the C-spine shows a marker anterior to the inferior endplate of C5 Electronically Signed: Bolivar Garcia MD at 9:33 EDT , Spine X-Ray 06/28/23 08:21 IMPRESSION: The localization instrument is seen along the anterior aspect of the C5-C6 disc space level. Electronically Signed: Fabrice Solis MD at 12:59 EDT , Spine X-Ray 06/28/23 09:25 IMPRESSION: Anterior fusion at the C5-C6 and C6-C7 levels with prosthetic disc placement. Electronically Signed: Fabrice Solis MD at 14:28 EDT , Physical Exam Const alert, oriented x3, no apparent distress and average body habitus Constitutional Narrative: Patient is morbidly obese General Appearance: cooperative, well kempt and well developed Orientation / Consciousness: awake, oriented to person, oriented to place and oriented to time HEENT normocephalic, head/scalp atraumatic and moist oral mucous membranes Eyes PERRL, EOMs intact bilaterally and conjunctivae normal Neck Neck Narrative: Patient has a surgical dressing over her neck area, patient's neck area was not examined at this time Resp normal respiratory effort, no retractions, no use of accessory muscles and clear to auscultation bilaterally Auscultation: Negative for rales, rhonchi or wheezes Cardio regular rate, regular rhythm, S1 normal heart sound, S2 normal heart sound, no murmurs, no rub and no gallops GI normal to inspection, nondistended, normoactive bowel sounds, soft to palpation, non-tender and non-distended GI Narrative: Patient is morbidly obese Extremity no clubbing, cyanosis or edema Skin no rashes or lesions noted General Skin Exam: no breakdown Neuro oriented x3, CN's II-XII intact bilaterally, moves all extremities, no focal motor deficits and no sensory deficits noted Sensorium / Orientation: awake, alert, oriented to person, oriented to place and oriented to time Speech: speech normal Psych affect normal Assessment & Plan Assessment/Plan (1) Type 2 diabetes mellitus: QUALIFIERS: Diabetes mellitus scrap breaker insulin use: without scrap breaker use Diabetes mellitus complication status: with other specified complication Qualified Code(s): E11.69 - Type 2 diabetes mellitus with other specified complication PLAN: Plan 1. Type 2 diabetes-patient is currently on metformin, I have elected to place her on sliding scale insulin with fingerstick blood sugars AC nightly, patient is receiving corticosteroids #2 essential hypertension-patient will remain on her home medication-lisinopril #3 morbid obesity-complicates care, medical course, recovery, and prognosis #4 degenerative disc disease of the cervical spine-patient will be seen by PT and OT #5 chronic depression-patient is on Effexor #6 GERD-patient uses a PPI, she will be on Protonix during her hospitalization Total clinical time spent by myself addressing the patient's medical issues, reviewing all of her data, and collaborating with patient's care team: 35 minutes Charges/Coding Visit Charges Inpatient E&M: 75449 Subs Hosp L2
[2023-06-28] MEDS: Insulin Lispro 100 UNIT/ML INSULN.PEN SC ×2 (15:57→22:21)
[2023-06-28] MEDS: Metoclopramide 5 MG TABLET PO (16:49)
[2023-06-28 19:25] LABS: Bedside Glucose 178 mg/dL (74-106)
[2023-06-28] MEDS: Pantoprazole Sodium 40 MG Tablet PO (22:21)
[2023-06-28] MEDS: oxyCODONE 5 MG Tablet PO (22:21)
[2023-06-29] MEDS: Cefazolin 1 GM/50 ML BAG IV (00:34)
[2023-06-29] MEDS: dexAMETHasone 4 MG/ML Vial 2 MG IV ×2 (00:35→05:53)
[2023-06-29] MEDS: Lactated Ringers 1,000 ML 15 ML IV (00:38)
[2023-06-29 02:59] LABS: Bedside Glucose 169 mg/dL (74-106)
[2023-06-29 03:13] VITALS: BP 143/81; PULSE 87; RESP 16; TEMP 36.6; O2SAT 94
[2023-06-29] MEDS: Insulin Lispro 100 UNIT/ML INSULN.PEN SC ×2 (05:53→11:42)
[2023-06-29] MEDS: oxyCODONE 5 MG Tablet PO (06:22)
[2023-06-29] MEDS: Ondansetron 4 MG/2 ML Vial IV (06:25)
[2023-06-29 06:58] LABS: Bedside Glucose 157 mg/dL (74-106)
[2023-06-29] MEDS: Venlafaxine XR 37.5 MG Capsule PO (08:36)
[2023-06-29] MEDS: Lisinopril 20 MG Tablet PO (08:36)
[2023-06-29] MEDS: Pantoprazole Sodium 40 MG Tablet PO (08:36)
[2023-06-29] MEDS: Ensure Surgery 237 ML LIQUID PO ×2 (08:36→11:51)
[2023-06-29] MEDS: Loratadine 10 MG Tablet PO (08:36)
[2023-06-29 09:30] VITALS: BP 157/66; PULSE 85; RESP 18; TEMP 36.6; O2SAT 95
--- NOTE | 2023-06-29 11:11 | PCM.PN.HOSP ---
Reason for Visit Reason for Visit: Cervical spine pain Subjective Subjective Patient states overall her pain seems to be well managed. No issues overnight. Thinks that she will likely be going home later today. Objective Data Objective Data Vital Signs: Vital Signs Temp Pulse Resp BP Pulse Ox O2 Del Method O2 Flow Rate 97.8 F 85 18 157/66 H 95 Room Air 2 06/29/23 09:30 06/29/23 09:30 06/29/23 09:30 06/29/23 09:30 06/29/23 09:30 06/29/23 09:30 06/28/23 18:01 Oxygen Flow Rate (L/min) 2 Oxygen Delivery Method Room Air Weight: 107.592 kg Body Mass Index (BMI) 40.7 Intake & Output: Intake and Output for Last 24 Hours 06/27/23 06/28/23 06/29/23 23:59 23:59 23:59 Intake Total 3360.50 / 3610.50 2066 / 2066 Output Total 1185 / 2035 1300 / 1300 Balance 2175.50 / 1575.50 766 / 766 Lab / Micro Data 06/15/23 11:31 06/15/23 11:31 Labs: Laboratory Results - last 24 hr 06/28/23 11:42: POC Glucose 218 H 06/28/23 15:31: POC Glucose 178 H 06/28/23 22:19: POC Glucose 169 H 06/29/23 05:51: POC Glucose 157 H Micro: Microbiology 06/15/23 11:31 Swab (Method) Nasal Screen MRSA/MSSA - Final Radiography Diagnostic Testing: Radiology Impression Spine X-Ray 06/28/23 08:21 IMPRESSION: The localization instrument is seen along the anterior aspect of the C5-C6 disc space level. Electronically Signed: Fabrice Solis MD at 12:59 EDT , Spine X-Ray 06/28/23 09:25 IMPRESSION: Anterior fusion at the C5-C6 and C6-C7 levels with prosthetic disc placement. Electronically Signed: Fabrice Solis MD at 14:28 EDT , Physical Exam Const alert, oriented x3, no apparent distress and well nourished Constitutional Narrative: Morbidly obese, white female, sitting up in a chair at the bedside eating breakfast and watching television, appears comfortable Neck Neck Narrative: Anterior dressing in place with no drainage and dressing is dry and intact Resp normal respiratory effort, no retractions, no use of accessory muscles and clear to auscultation bilaterally Cardio regular rate and regular rhythm GI normal to inspection, nondistended, normoactive bowel sounds and soft to palpation Neuro oriented x3 Psych affect normal Psych Narrative: Pleasant, interacts appropriately Assessment & Plan Assessment/Plan (1) HNP (herniated nucleus pulposus), cervical: PLAN: Plan HNP C5-C6/C6-C7 -Management per primary service -Pain seems to be well controlled -Patient is anticipating discharge later today DM-2 -Continue home medications -Blood sugars seem to be fairly well controlled Hypertension -Continue home lisinopril GERD -Continue home PPI Seasonal allergies -Continue home as needed Flonase as -Continue home cetirizine Depression -Continue home venlafaxine DVT prophylaxis -Per primary service Disposition: Okay from a medical standpoint for discharge Charges/Coding Visit Charges Inpatient E&M: 53993 Subs Hosp L1
--- NOTE | 2023-06-29 11:50 | CASEMGMT ---
RN?CM?WET CHEMISTRY ANALYST?CM?to room to meet with patient for initial transition planning/care coordination?assessment.?RN?CM?introduced self and role at [facility].? Pt voices understanding and consents to?assessment?at this time.? Pt resting in bed in no distress at this time.? Pt is A/O at this time and answers all questions appropriately.?? Care providers, pharmacy, and demographics verified/updated at this time. PCP: Dr Tripp Specialists: Dr Evans, Dr Bhardwaj Preferred Pharmacy: [facility] Retail Insurance:[employer] Prescription Benefit:?Yes Living Will/HPOA:?Pt does not currently have LW/HCPOA and interested in completing. LNOK: Son, Boris. WOODROW, Cadence. Living Arrangements: Lives w/son, WOODROW, and 5 grandchildren. FFSU w/one step to enter. Pt is indep w/ADL's and IADL's. Transportation:?Pt states drives self and states no transportation concerns at this time.? Cadence will take her home @ d/c DME: ? Denies using any DME and denies needs.? HHC/SNF: no hx of either. Has done OP therapy in the past. No needs identified. Pt wishes to return home and states has no concerns with going home at time of discharge.?CM?to follow for any discharge planning/needs.? Pt voices no concerns/needs at this time.? Advised pt to ask for?CM?if any questions/concerns/needs arise.? Voices understanding. PLAN:??Home. Taras DASILVAN?RN?CM
[2023-06-29 12:01] LABS: Bedside Glucose 236 mg/dL (74-106)
--- NOTE | 2023-06-29 13:01 | PCM.DC ---
Discharge Instructions Activity May shower in (days): 4 May resume sexual activity in: 4-6 weeks Dressing / Incision Remove Dressing in: 3 days Follow Up Care Test Results: Test results from this visit will be discussed in further detail at your follow-up appointment, if applicable. Discharge Plan Admission Admit Date/Time: 06/28/23 05:30 Primary Reason for Your Visit: cervical fusion Attending Provider: Cuauhtemoc Peng Primary Care Provider: Ginger Tripp Consulting Providers: Joseph Thomason; Janine Ag; Josué Lua; Aleida Nava; Aleida Dominguez; Maisha Luna; Lachelle Reis; Keanu Schuler; Blake Choi; Dilip Reno; Adina Tripp; Morgan Dias; Mansoor Gonsalez; Christopher Pardo; Henrry Case; Hilda Mooney; Roshan Wang; Greyson Lozoya; Wero Helms; Alexa Pozo; Marck Carr; Cyndee Ceballos SCHOOL TRAFFIC SUPERVISOR; Nehemias Brito; Angélica Rivers Discharge Orders/Prescriptions Prescriptions: No Action cholecalciferol (vitamin D3) 1,250 mcg (50,000 unit) tablet 1,250 mcg PO QWEEK Qty: 14 2RF lisinopril 20 mg tablet 20 mg PO QDAY Qty: 90 1RF metformin 500 mg tablet extended release 24 hr 500 mg PO QPM Qty: 60 3RF potassium 99 MG tablet 99 mg PO DAILY cetirizine [24Hour Allergy] 10 mg tablet 10 mg PO DAILY fluticasone propionate [Flonase Allergy Relief] 50 mcg/actuation spray,suspension 2 spray intranasal DAILY PRN (Reason: nasal congestion) Rx Instructions: administer into each nostril omeprazole 40 mg capsule,delayed release(DR/EC) 40 mg PO BID metoclopramide HCl [Reglan] 5 mg tablet 5 mg PO Q8H PRN PRN (Reason: nausea and vomiting) 7 Days Qty: 20 0RF vitamin B complex tablet tablet 1 tab PO .QOD Rx Instructions: 1 TAB orally every other day; venlafaxine 37.5 mg capsule,extended release 24hr 37.5 mg PO DAILY Qty: 90 1RF Referrals / Follow Up: Ginger Tripp MD [Primary Care Provider] - Disposition Disposition (needs filled in before D/C Order can be placed): Home, Self Care
--- NOTE | 2023-06-29 13:12 | PCM.DC.SUM ---
Providers Date of Admission: 06/28/23 Primary Care Physician: Dr. Ginger Tripp MD Attending Physician: This is discharge summary on patient Socorro Abbasi. This patient was admitted yesterday 28 June and underwent two-level anterior cervical fusion at C6-7 and C5-6. On rounds today she is doing quite well changed her dressing and removed her drain. Incision is dry and healing well. Her arm pain and numbness is mostly gone but there is a little residual left on the right side. Swallowing is not too bad right now she is already eating regular food. I gave her directions regarding her activities when she goes home. She knows when to take the bandage off and when to take shower. She already has an appointment to see me in the office. She knows how to get ahold of me in the event that she should need to. This is the end of discharge summary on [facility]. This is Dr. Peng dictating. Consultations 06/28/23 12:16 Consult: Hospitalist Routine Consulting Provider: [facility] Reason for Consult: med management EMERGENT Consult: No MD Notified: Yes Date Notified: 06/28/23 Time Notified: 14:26 Method of Notification: Text Reason For Visit: ANTERIOR CERVICAL FUSION Diagnosis Discharge Diagnosis (1) HNP (herniated nucleus pulposus), cervical: Status: Acute Code(s): M50.20 - Other cervical disc displacement, unspecified cervical region Medications at Discharge Home Medications potassium 99 mg tablet 99 mg PO DAILY SUPPLEMENT 02/14/19 vitamin B complex (B Complex-Vitamin B12 tablet) 1 tab PO .QOD SUPPLEMENT 09/10/22 cholecalciferol (vitamin D3) 1,250 mcg (50,000 unit) tablet 1,250 mcg PO QWEEK SUPPLEMENT #14 tabs 10/02/22 venlafaxine 37.5 mg capsule,extended release 24 hr 37.5 mg PO DAILY DEPRESSION #90 caps 03/05/23 metoclopramide HCl 5 mg tablet (Reglan) 5 mg PO Q8H PRN PRN nausea and vomiting 7 days #20 tabs 06/06/23 omeprazole 40 mg capsule,delayed release 40 mg PO BID GERD 06/06/23 cetirizine 10 mg tablet (24Hour Allergy) 10 mg PO DAILY ALLERGIES 06/14/23 fluticasone propionate 50 mcg/actuation nasal spray,suspension (Flonase Allergy Relief) 2 spray intranasal DAILY PRN nasal congestion 06/14/23 lisinopril 20 mg tablet 20 mg PO QDAY BP #90 tabs 06/18/23 metformin 500 mg tablet,extended release 24 hr 500 mg PO QPM blood glucose #60 tabs 06/18/23 oxycodone-acetaminophen 5 mg-325 mg tablet 1 tab PO Q6H PRN pain 10 days #40 tabs 06/29/23 Weight / BMI Weight Weight: 237 lb 3.2 oz Body Mass Index (BMI) 40.7 ABG / Lab / Microbiology Data 06/15/23 11:31 06/15/23 11:31 Laboratory: Laboratory Results - last 24 hr 06/28/23 15:31: POC Glucose 178 H 06/28/23 22:19: POC Glucose 169 H 06/29/23 05:51: POC Glucose 157 H 06/29/23 11:40: POC Glucose 236 H Microbiology: Microbiology 06/15/23 11:31 Swab (Method) Nasal Screen MRSA/MSSA - Final Radiography Diagnostic Testing: Radiology Impression Spine X-Ray 06/28/23 09:25 IMPRESSION: Anterior fusion at the C5-C6 and C6-C7 levels with prosthetic disc placement. Electronically Signed: Fabrice Solis MD at 14:28 EDT , D/C Instructions May shower in (days): 4 May resume sexual activity in: 4-6 weeks Meaningful Use Info Meaningful Use Diagnoses (Choose all that apply): None applicable Discharge Plan Admission Admit Date/Time: 06/28/23 05:30 Primary Reason for Your Visit: cervical fusion Attending Provider: Cuauhtemoc Peng Primary Care Provider: Ginger Tripp Consulting Providers: Joseph Thomason; Janine Ag; Josué Lua; Aleida Nava; Aleida Dominguez; Maisha Luna; Lachelle Reis; Keanu Schuler; Blake Choi; Dilip Reno; Adina Tripp; Morgan Dias; Mansoor Gonsalez; Christopher Pardo; Henrry Case; Hilda Mooney; Roshan Wang; Greyson Lozoya; Wero Helms; Alexa Pozo; Marck Carr; Cyndee Ceballos NP; Nehemias Brito PA; Angélica Rivers Discharge Orders/Prescriptions Prescriptions: No Action cholecalciferol (vitamin D3) 1,250 mcg (50,000 unit) tablet 1,250 mcg PO QWEEK Qty: 14 2RF lisinopril 20 mg tablet 20 mg PO QDAY Qty: 90 1RF metformin 500 mg tablet extended release 24 hr 500 mg PO QPM Qty: 60 3RF potassium 99 MG tablet 99 mg PO DAILY cetirizine [24Hour Allergy] 10 mg tablet 10 mg PO DAILY fluticasone propionate [Flonase Allergy Relief] 50 mcg/actuation spray,suspension 2 spray intranasal DAILY PRN (Reason: nasal congestion) Rx Instructions: administer into each nostril omeprazole 40 mg capsule,delayed release(DR/EC) 40 mg PO BID metoclopramide HCl [Reglan] 5 mg tablet 5 mg PO Q8H PRN PRN (Reason: nausea and vomiting) 7 Days Qty: 20 0RF vitamin B complex tablet tablet 1 tab PO .QOD Rx Instructions: 1 TAB orally every other day; venlafaxine 37.5 mg capsule,extended release 24hr 37.5 mg PO DAILY Qty: 90 1RF oxycodone-acetaminophen 5-325 mg tablet 1 tab PO Q6H PRN (Reason: pain) 10 Days Qty: 40 0RF Referrals / Follow Up: Ginger Tripp MD [Primary Care Provider] - Disposition Disposition (needs filled in before D/C Order can be placed): Home, Self Care
--- NOTE | 2023-06-29 13:48 | CASEMGMT ---
Social Work SW assisted pt in completing living will and health care POA naming her son Boris Abbasi. Original given to pt and copy placed on pt chart. JAMES Summers
[2023-06-29 13:56] VITALS: BP 149/73; PULSE 95; RESP 18; TEMP 36.9; O2SAT 97
== END 2023-06-29 16:00 | disposition home or self-care (01) | DRG 321 ==
LOC: ACINP 05:30 → MS3 08:38
PROVIDERS: Anesthesiology; Admitting Provider Orthopaedic Surgery; PCP Internal Medicine; Referring Provider Orthopaedic Surgery; Visit Provider Orthopaedic Surgery
PROC: 0RG10K0 Fusion of Cervical Vertebral Joint with Nonautologous Tissue Substitute, Anterior Approach, Anterior Column, Open Approach (ICD-10-PCS; CPT 22551; principal; 2023-06-28 07:00)
DX: M50.222 Other cervical disc displacement at C5-C6 level (principal); E11.9 Type 2 diabetes mellitus without complications; E66.01 Morbid (severe) obesity due to excess calories; Z68.41 Body mass index [BMI] 40.0-44.9, adult; M50.322 Other cervical disc degeneration at C5-C6 level; F12.90 Cannabis use, unspecified, uncomplicated; M48.00 Spinal stenosis, site unspecified; M19.90 Unspecified osteoarthritis, unspecified site; I10 Essential (primary) hypertension; F32.A Depression, unspecified; J30.2 Other seasonal allergic rhinitis; K21.9 Gastro-esophageal reflux disease without esophagitis; Z87.891 Personal history of nicotine dependence; Z98.1 Arthrodesis status
CPT/HCPCS: 36415; 72020; 80048; 82962; 83735; 85025; 86703; 86706; 86708; 86803; 87081; 88304; 93005; 94668; 97161; 99252; C1713; J7120; A4216; G0463; J2405; J3475

== ENCOUNTER → 2023-08-13 | Outpatient (CLI) | payer MEDICAID, SELFPAY ==
--- NOTE | 2023-08-13 06:36 | MRI_ITS ---
STUDY: MRI LEFT KNEE REASON FOR EXAM: Female, 53 years old. Left knee pain. TECHNIQUE: Standardized fat and water weighted pulse sequences were obtained in all 3 orthogonal planes. COMPARISON: Left knee x-rays dated March 15, 2023. FINDINGS: Normal medial meniscus. Mild extrusion of the body and anterior horn of the medial meniscus. Moderate thinning of the articular cartilage of the medial femorotibial compartment with subchondral cyst formation (coronal series 6 images 11 - 25). Normal medial collateral ligamentous complex (MCL). Normal distal semimembranosus, gracilis and semitendinosus tendons. Normal lateral meniscus. Mild thinning of the articular cartilage of the lateral femorotibial compartment with small subchondral cyst formation and subchondral bone marrow edema (coronal series 6 images 13-22). Normal proximal tibiofibular articulation. Normal lateral collateral (fibular) ligament. Normal popliteus tendon. Normal biceps femoris tendon. Normal anterior cruciate ligament (ACL). Normal posterior cruciate ligament (PCL). Normal congruent patellofemoral articulation. Mild thinning of the articular cartilage of the patellofemoral compartment (axial series 2 image 6-12). Normal medial and lateral patellar retinaculum. Normal quadriceps tendon. Normal patellar tendon. Normal Hoffa''s fat pad. Deep infrapatellar bursitis (sagittal series 3 image 13). Joint effusion with small septated dissecting popliteal cyst (axial series 2 images 4-19). Prepatellar subcutaneous soft tissue edema (sagittal series 3 images 8-15).. Normal other visualized osseous structures. MRI/Lower Ext Joint Only (Routine) IMPRESSION: Mild extrusion of the body and anterior horn of the medial meniscus without demonstrated meniscal tear. Moderate thinning of the articular cartilage of the medial femorotibial compartment. Mild thinning of the articular cartilage of the lateral femorotibial compartment. Mild thinning of the articular cartilage of the patellofemoral compartment. Deep infrapatellar bursitis. Prepatellar subcutaneous soft tissue edema. Joint effusion with small septated dissecting popliteal cyst. Electronically Signed: Domingo De Leon MD at 10:11 EDT ,
--- NOTE | 2023-08-13 06:36 | MRI_ITS ---
STUDY: MRI RIGHT KNEE REASON FOR EXAM: Female, 53 years old. Knee pain. TECHNIQUE: Standardized fat and water weighted pulse sequences were obtained in all 3 orthogonal planes. COMPARISON: Right knee x-rays showing extensive lateral plate and screw fixation of the distal femur which causes marked artifact in the MRI study, as outlined below. FINDINGS: There is marked artifact from the plate and screw fixation of the distal femur which obscures almost all of the internal anatomy of the right knee. The posterior horns of the medial and lateral menisci are normal without any evidence of surfacing tear. The remainder of the internal structures of the knee are obscured by metallic artifact. Normal distal quadriceps tendon and patellar tendon. No other abnormality. MRI/Lower Ext Joint Only (Routine) IMPRESSION: Extremely limited MRI study of the right knee as described. No abnormality of the limited visualization of intracranial structures. Electronically Signed: Domingo De Leon MD at 10:02 EDT ,
== END | disposition home or self-care (01) ==
LOC: MRI 06:34
PROVIDERS: PCP Internal Medicine; Referring Provider Orthopaedic Surgery; Visit Provider Orthopaedic Surgery
DX: M25.561 Pain in right knee (principal); M25.562 Pain in left knee
CPT/HCPCS: 73721

== ENCOUNTER 2023-09-29 06:29 | Day surgery (SDC) | payer MEDICAID, SELFPAY ==
[2023-09-29 06:48] VITALS: BP 134/79; PULSE 76; RESP 16; TEMP 36.2; O2SAT 97; BMI 40.1
[2023-09-29 06:52] LABS: Internal QC Validated? YES +Cl - CLEAR BKGD; Pregnancy, Urine Negative Negative
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
[2023-09-29 07:58] LABS: Bedside Glucose 125 mg/dL (74-106)
[2023-09-29] MEDS: Cefazolin 2 GM in 0.9% Normal Saline (100mL Bag) 100 ML IV (08:09)
[2023-09-29] MEDS: Bupivacaine 0.25% 30 ML Vial (08:30)
--- NOTE | 2023-09-29 08:49 | OP.PCM_ITS ---
Problems Associated Problem List Diagnoses (1) Carpal tunnel syndrome of right wrist: Report of Operation Date of Procedure: 09/29/23 Pre-Operative Diagnosis: right carpal tunnel syndrome Post-Operative Diagnosis: same Surgery/Procedure Performed:: right endoscopic carpal tunnel release Surgeon: Conrado Trinh Type of Anesthesia: IV Sedation and Local Anesthesiologist: Joseph Thomason Estimated Blood Loss (mL): 10 Description of Procedure: Patient was brought to the operating room theater.? The patient was administered 2g iv ancef prior to the start of the procedure.? Placed supine on the operating room table.? Anesthesia induced.? SCDs on the legs.? Tourniquet applied to the right upper operative extremity, appropriately padded. Arm table used. Operative extremity prepped and draped in the usual sterile fashion with chlorhexidine- based prep solution allowing over 3 minutes drying time prior to draping.? Preoperative timeout performed to confirm the site patient and the surgery. I used the [facility] endoscopic carpal tunnel kit / technique. 6cc 0.25% bupivicaine at incision site. ? I made a transverse 2 cm incision in line with the? transverse wrist crease.? This was in line with the fourth digit.? I carried the dissection down through skin and subcutaneous tissue achieved meticulous hemostasis. Just ulnar to palmaris tendon.? I incised the antebrachial fascia.? I passed sequential dilators into the carpal tunnel along the radial border of the Guyon's canal aiming for the fourth digit with the hand in extension. I used a synovial elevator to identify the transverse fibers of the transverse carpal tunnel ligament.? Passed the scope into the carpal tunnel. Once I had identified the full proximal and distal extent of the ligament I fully released the ligament under direct visualization by deploying the blade and slowly withdrawing the scope made sequential passes until I no longer felt tension as well as the entire extent of the ligament was released under direct visualization.? Sounded the tunnel with isaacs tenotomy scissors, complete release, no bands. Pictures taken and saved before and after release. Wound thoroughly irrigated.?Meticulous hemostasis achieved.? Incisions closed with 3-0 nylon for the skin.?Skin was cleaned and dried. adaptic 4x4 gauze and herberth. Patient woken up,? transferred off the operating room table and taken to postanesthetic care unit in stable condition. All sponge needle instrument counts were correct no complications.? Plan for the patient to be discharged home according to day surgery criteria when they are comfortable. Follow-up in the office in 2 days time. Gentle ROM hand and elbow no heavy lifting. Complications none Admit VTE Documentation VTE Present on Admission: No VTE Mechan Device Prophylaxis: SCD's VTE Pharm Prophylaxis ordered?: No Reason prophylaxis not ordered:: Treatment Not Indicated Procedures Musculoskeletal [id number]-[id number]: [id number] WRIST ENDOSCOPY/SURGERY
--- NOTE | 2023-09-29 08:52 | DCINST_ITS ---
Discharge Instructions Diet Discharge Diet: No restrictions Activity Ice area for (Minutes): 10 Lifting Restrictions: no heavy lifting or gripping Keep extremity elevated above heart level: Operative Extremity Dressing / Incision Call your doctor if your incision/area has: Continuous Slow Oozing, Sudden Increased Bleeding, Increased Pain/ Swelling, Increased Redness, Foul Smelling Discharge and Swelling at the incision site Remove Dressing in: leave in place till F/U Follow Up Care Please Follow Up With: Conrado Trinh MD When: 2 days Test Results: Test results from this visit will be discussed in further detail at your follow- up appointment, if applicable. Discharge Plan Admission Attending Provider: Conrado Trinh Primary Care Provider: Ginger Tripp Discharge Orders/Prescriptions Prescriptions: No Action lisinopril 20 mg tablet 20 mg PO QDAY Qty: 90 1RF metformin 500 mg tablet extended release 24 hr 500 mg PO QPM Qty: 60 3RF glucosamine-chondroitin 900 mg tablet 900 mg PO DAILY potassium 99 MG tablet 99 mg PO DAILY fluticasone propionate [Flonase Allergy Relief] 50 mcg/actuation spray,suspension 2 spray intranasal DAILY PRN (Reason: nasal congestion) Rx Instructions: administer into each nostril omeprazole 40 mg capsule,delayed release(DR/EC) 40 mg PO BID vitamin B complex tablet tablet 1 tab PO .QOD Rx Instructions: 1 TAB orally every other day; cholecalciferol (vitamin D3) 1,250 mcg (50,000 unit) tablet 1,250 mcg PO QWEEK Qty: 14 2RF venlafaxine 37.5 mg capsule,extended release 24hr See Rx Instructions .ROUTE .COMPLEX Qty: 90 0RF Dose Instruction: TAKE 1 CAPSULE BY MOUTH EVERY DAY Rx Instructions: TAKE 1 CAPSULE BY MOUTH EVERY DAY Referrals / Follow Up: Ginger Tripp MD [Primary Care Provider] - Conrado Trinh MD [Med Staff - Active Staff] - Disposition Disposition (needs filled in before D/C Order can be placed): Home, Self Care
[2023-09-29 08:57] VITALS: BP 134/79; BP 157/93; PULSE 67; RESP 16; TEMP 36.3; O2SAT 100
[2023-09-29 09:00] VITALS: BP 134/79; BP 143/84; PULSE 71; RESP 16; O2SAT 94
[2023-09-29 09:15] VITALS: BP 134/79; BP 135/73; PULSE 68; RESP 16; O2SAT 94
[2023-09-29 09:21] LABS: Bedside Glucose 141 mg/dL (74-106)
[2023-09-29 09:30] VITALS: BP 134/79; BP 142/78; PULSE 73; RESP 16; TEMP 36.6; O2SAT 94
[2023-09-29 10:20] VITALS: BP 134/79; BP 141/75; PULSE 76; RESP 16; TEMP 36.3; O2SAT 95
[2023-09-29] MEDS: Oxycodone/Apap 5/325 Tablet PO (10:36)
== END 2023-09-29 10:54 | disposition home or self-care (01) ==
LOC: SDC 06:30 → AC 06:31
PROVIDERS: Anesthesiology; PCP Internal Medicine; Referring Provider Internal Medicine; Visit Provider Orthopaedic Surgery Sports Medicine
PROC: (CPT 29848; principal; 2023-09-29 07:45)
DX: G56.01 Carpal tunnel syndrome, right upper limb (principal); E11.41 Type 2 diabetes mellitus with diabetic mononeuropathy; Z79.84 Long term (current) use of oral hypoglycemic drugs; Z87.891 Personal history of nicotine dependence; I10 Essential (primary) hypertension; K21.9 Gastro-esophageal reflux disease without esophagitis; G89.29 Other chronic pain; M54.9 Dorsalgia, unspecified
CPT/HCPCS: 29848; 01810; 81025; 82962; J7120; J2405

== ENCOUNTER 2023-11-12 18:35 | Emergency (ER) | payer MEDICAID, SELFPAY ==
[2023-11-12 18:36] VITALS: BP 163/111; PULSE 77; RESP 16; TEMP 36.7; O2SAT 98; BMI 39.9
--- NOTE | 2023-11-12 19:03 | EDS_ITS ---
HPI HPI - GI History of Present Illness Chief Complaint: Nausea/Vomiting/Diarrhea Narrative Narrative: 53-year-old female presenting with nausea, vomiting, diarrhea. She states her granddaughter came home yesterday with some diarrhea and she is concerned she has what her granddaughter has. Patient has not had a fever at home and she does not feel like she has had a fever. She has nausea, vomiting, diarrhea only today. No black or bloody stools or emesis. No urinary complaints. Patient states she is vomited several times today and had several episodes of diarrhea. [employer] [facility] Medical History Anxiety Arthritis Asthma Back pain Blackout Chronic nausea Depression Dietary restriction Difficulty chewing DJD (degenerative joint disease) Dysuria Elevated glucose Former smoker Furunculosis of axilla Gastric reflux GERD (gastroesophageal reflux disease) Hiatal hernia Hidradenitis suppurativa history bladder mesh History of hiatal hernia History of IBS History of ulceration Hoarseness Hx of lipoma IBS (irritable bowel syndrome) Injury of head and neck Low iron Marijuana use Migraine headache PUD (peptic ulcer disease) Pyelonephritis Restless legs Right knee pain Sinusitis Spinal stenosis Subluxation complex (vertebral) of cervical region Type 2 diabetes mellitus Upper respiratory infection Venous insufficiency of both lower extremities Vitamin deficiency Wears glasses Home Medications potassium 99 mg tablet 99 mg PO DAILY SUPPLEMENT 02/14/19 [History Last Taken 06/27/23] vitamin B complex (B Complex-Vitamin B12 tablet) 1 tab PO .QOD SUPPLEMENT 09/10/22 [History Last Taken 06/26/23] fluticasone propionate 50 mcg/actuation nasal spray,suspension (Flonase Allergy Relief) 2 spray intranasal DAILY PRN nasal congestion 06/14/23 [History Last Taken Unknown] lisinopril 20 mg tablet 20 mg PO QDAY BP #90 tabs 06/18/23 [Rx Last Taken 09/29/23] metformin 500 mg tablet,extended release 24 hr 500 mg PO QPM blood glucose #60 tabs 06/18/23 [Rx Last Taken 06/27/23] cholecalciferol (vitamin D3) 1,250 mcg (50,000 unit) tablet 1,250 mcg PO QWEEK SUPPLEMENT #14 tabs 07/20/23 [Rx Last Taken Unknown] antiarthritic combination no.2 900 mg tablet (glucosamine-chondroitin) 900 mg PO DAILY 08/20/23 [History Last Taken Unknown] venlafaxine 37.5 mg capsule,extended release 24 hr See Rx Instructions .Route .COMPLEX #90 caps 09/07/23 [Rx Last Taken 09/29/23] omeprazole 40 mg capsule,delayed release 40 mg PO BID GERD 30 days #60 caps 11/01/23 [Rx Last Taken Unknown] dicyclomine 10 mg capsule 10 mg PO TID PRN abdominal pain #14 caps 11/12/23 [Rx Last Taken Unknown] ondansetron 4 mg disintegrating tablet 4 mg PO Q8H PRN PRN Nausea #14 tabs 11/12/23 [Rx Last Taken Unknown] Allergy/AdvReac Type Severity Reaction Status Date / Time povidone-iodine Allergy Intermediate Rash Verified 10/12/23 10:24 [From Betadine] Environmental Allergies: Allergy cough Verified 10/12/23 10:24 Uncoded tuberculin,PPD,multi-puncture AdvReac Intermediate Rash Verified 10/12/23 10:24 aspirin AdvReac Vomiting Verified 10/12/23 10:24 Family History Grandmother Benign breast lumps Mother Benign breast lumps Diabetes Heart disease CVA (cerebral vascular accident) Father Asthma Aunt Ovarian cancer Surgical History H/O bladder repair surgery H/O neck surgery History of arthroplasty of right ankle History of orthopedic surgery Hx of esophagogastroduodenoscopy Tubal ligation status Social History adopted: No household members: family, children and other housing: house number of children: 1 current occupational status: unemployed pets and animals: No Smoking Status: Former smoker how long ago did patient quit smokin alcohol intake: current alcohol intake frequency: holidays/special occasions only substance use type: marijuana what type of physical activity do you participate in: none additional social history: Orvan Diagnosed with cancer summer 2017 ROS ROS ED Constitutional Constitutional ED: Denies chills, fever(s) or sweats Eyes Eyes: Denies blurry vision or change in vision ENT ENT ED: Denies ear pain or sore throat Cardiovascular Cardiovascular: Denies chest pain, palpitations or racing heartbeat Respiratory/Chest Respiratory/Chest: Denies cough, dyspnea or sputum Gastrointestinal Gastrointestinal: Reports diarrhea, nausea and vomiting; Denies abdominal pain or constipation Genitourinary Genitourinary ED: Denies dysuria, hematuria or urinary frequency Musculoskeletal Musculoskeletal: Denies arthralgias, myalgias or neck pain Integumentary Denies abscess, Abrasions or rash Neurologic Neurologic: Reports headache(s); Denies paresthesias or weakness Psychiatric Psychiatric: Denies anxiety, depression, suicidal ideation or suicidal thoughts Endocrine Endocrinology: Denies polydipsia or polyuria EXAM Physical Exam Const Vital Signs: 11/12/23 18:36 11/12/23 22:10 Temperature 98.1 F 98.1 F Temperature Source Temporal Oral Pulse Rate 77 95 Respiratory Rate 16 20 H Blood Pressure 163/111 H 169/119 H Blood Pressure Mean 128 135 Pulse Ox 98 98 Oxygen Delivery Method Room Air Room Air General Appearance ED: NAD; Negative for pallor HEENT Reports moist mucous membranes normocephalic and atraumatic Eyes PERRL and EOMs intact bilaterally Resp normal respiratory effort and clear to auscultation bilaterally Auscultation: Negative for rales, rhonchi or wheezes Cardio regular rate and regular rhythm Neuro CN's II-XII intact bilaterally and moves all extremities Sensorium / Orientation: alert Motor Exam: strength 5/5 throughout Psych mental status grossly normal and thought process normal Skin General Skin Exam: Negative for jaundice or pallor MDM MDM MDM Narrative Medical decision making narrative: 53-year-old female presenting with nausea, vomiting, diarrhea. She feels she is come down with something. Her granddaughter is a sick contact has similar symptoms. We discussed starting Zofran and COVID flu swab initially. If she is not feeling better then we will escalate care. Patient given 4 mg of Zofran and she is tested for COVID and flu. Will reevaluate. Reevaluation at 8 PM the patient states he still has some nausea but she has not vomited. At this point after discussion with her and through shared decision making we decided to start an IV and give her some IV fluids. Will give her dose of IV Zofran and some IV Pepcid. CBC will be obtained to assess white blood cell count, hemoglobin, platelets, BMP to assess renal function, electrolytes. COVID and influenza were negative. COVID and influenza are negative. Patient CBC shows mild leukocytosis 13.1. Slightly reactive. BMP shows mildly low potassium at 3.3. Creatinine is normal. Glucose 181 without anion gap. After IV fluids and IV Zofran as well as Pepcid she is feeling much better. She wants to go home with spinal give her prescription for Zofran and Bentyl. She is counseled take Tylen ol and ibuprofen as well as needed. Return precautions were discussed. Impression: 1. Gastroenteritis Lab Data Attestation: I reviewed the patient's lab results. Labs: Laboratory Results - last 24 hr 11/12/23 20:23 WBC 13.1 H RBC 4.63 Hgb 13.0 Hct 41.7 MCV 90.1 MCH 28.1 MCHC 31.2 L RDW Std Deviation 48.6 H RDW Coeff of Sanjana 14.6 Plt Count 303 MPV 10.0 Immature Gran % (Auto) 0.700 Neut % (Auto) 87.6 H Lymph % (Auto) 8.5 L [place] % (Auto) 2.8 Eos % (Auto) 0.1 Baso % (Auto) 0.3 Absolute Neuts (auto) 11.5 H Absolute Lymphs (auto) 1.11 Nucleated RBC % 0 Sodium 140 Potassium 3.3 L Chloride 109 H Carbon Dioxide 28.0 Anion Gap 3 L BUN 17 Creatinine 0.74 Estim Creat Clear Calc 75.05 Est GFR (MDRD) Af Amer 105 Est GFR (MDRD) Non-Af 87 BUN/Creatinine Ratio 23.0 H Glucose 181 H Calcium 9.5 Discharge Plan Triage Chief Complaint: Nausea/Vomiting/Diarrhea ED Provider: Zelalem Oseguera Dx/Rx/DC Orders Clinical Impression: Gastroenteritis Instructions: ED Diet Vomiting Diarrhea, ED Gastroenteritis, Viral (Adult) Prescriptions: New ondansetron 4 mg tablet,disintegrating 4 mg PO Q8H PRN PRN (Reason: Nausea) Qty: 14 0RF dicyclomine 10 mg capsule 10 mg PO TID PRN (Reason: abdominal pain) Qty: 14 0RF No Action lisinopril 20 mg tablet 20 mg PO QDAY Qty: 90 1RF metformin 500 mg tablet extended release 24 hr 500 mg PO QPM Qty: 60 3RF glucosamine-chondroitin 900 mg tablet 900 mg PO DAILY potassium 99 MG tablet 99 mg PO DAILY fluticasone propionate [Flonase Allergy Relief] 50 mcg/actuation spray,suspension 2 spray intranasal DAILY PRN (Reason: nasal congestion) Rx Instructions: administer into each nostril vitamin B complex tablet tablet 1 tab PO .QOD Rx Instructions: 1 TAB orally every other day; cholecalciferol (vitamin D3) 1,250 mcg (50,000 unit) tablet 1,250 mcg PO QWEEK Qty: 14 2RF venlafaxine 37.5 mg capsule,extended release 24hr See Rx Instructions .ROUTE .COMPLEX Qty: 90 0RF Dose Instruction: TAKE 1 CAPSULE BY MOUTH EVERY DAY Rx Instructions: TAKE 1 CAPSULE BY MOUTH EVERY DAY omeprazole 40 mg capsule,delayed release(DR/EC) 40 mg PO BID 30 Days Qty: 60 2RF Primary Care Provider: Ginger Tripp Referrals: Ginger Tripp MD [Primary Care Provider] - Disposition Disposition: Home, Self Care
[2023-11-12] MEDS: Ondansetron ODT 4 MG Tablet PO (19:20)
[2023-11-12 20:39] LABS: Absolute Lymphocyte Count 1.11 X10^3/uL (0.83-4.51); Absolute Neutrophil Count 11.5 X10^3/uL (2.0-7.7); Basophil# 0.04 X10^3/uL; Basophil% 0.3 % (0-1); Eosinophil# 0.01 X10^3/uL; Eosinophils% 0.1 % (0-5); Hematocrit 41.7 % (37-47); Lymphocyte # 1.11 X10^3/ul (0.83-4.51); Lymphocyte % 8.5 % (19-41); Mean Corp Hgb Conc 31.2 g/dL (32-36); Mean Corpuscular Hgb 28.1 pg (27.0-32.0); Mean Corpuscular Volume 90.1 fL (81-99); Monocyte# 0.37 X10^3/uL; Monocyte% 2.8 % (0-10); NRBC Flagged by Analyzer 0 % (0-5); Neutrophil # 11.47 X10^3/uL (2.7-7.7); Neutrophil % 87.6 % (47-70); Platelet Count 303 K/mm3 (150-450); RBC Distribution Width CV 14.6 % (11.6-14.6); RBC Distribution Width SD 48.6 fl (35.1-43.9); Red Blood Count 4.63 M/mm3 (4.2-5.4); White Blood Count 13.1 K/mm3 (4.4-11.0)
[2023-11-12] MEDS: 0.9% Normal Saline (1000mL) 1,000 ML 999 ML IV (20:51)
[2023-11-12] MEDS: Famotidine 200 MG/20 ML MDV 20 MG in 0.9% Normal Saline (Pres. free 8 ML 300 MG IV (20:51)
[2023-11-12 20:54] LABS: Anion Gap 3 (5-15); BUN 17 mg/dL (7-18); Calcium,Total 9.5 mg/dL (8.5-10.1); Chloride 109 mmol/L (98-107); Creatinine, Serum 0.74 mg/dL (0.55-1.02); EST Glomerular Filtration Rate 87 mL/min (>60); Est Glom Filt Rate - Afr Amer 105 mL/min (>60); Estimated Creatinine Clearance 75.05 ml/min; Glucose 181 mg/dL (74-106); Potassium 3.3 mmol/L (3.5-5.1); Sodium Level 140 mmol/L (136-145)
[2023-11-12] MEDS: Ondansetron 4 MG/2 ML Vial IV (20:54)
[2023-11-12] MEDS: Ketorolac 15 MG/ML Vial IV (21:29)
[2023-11-12 22:10] VITALS: BP 169/119; PULSE 95; RESP 20; TEMP 36.7; O2SAT 98
== END 2023-11-12 23:40 | disposition home or self-care (01) ==
PROVIDERS: Emergency Provider Student in an Organized Health Care Education/Training Program; PCP Internal Medicine; Visit Provider Student in an Organized Health Care Education/Training Program
DX: K52.9 Noninfective gastroenteritis and colitis, unspecified (principal); E11.9 Type 2 diabetes mellitus without complications; F12.90 Cannabis use, unspecified, uncomplicated; Z87.891 Personal history of nicotine dependence; K21.9 Gastro-esophageal reflux disease without esophagitis
CPT/HCPCS: 80048; 85025; 87428; 96361; 96374; 96375; 99282; J7030; A4216; J2405; J3490

== ENCOUNTER 2024-01-23 10:27 | Emergency (ER) | payer MEDICAID, SELFPAY ==
[2024-01-23 10:27] VITALS: PULSE 70; RESP 14; TEMP 36.4; O2SAT 95; BMI 38.8
--- NOTE | 2024-01-23 10:49 | EX.ED.GENINJ ---
HPI History of Present Illness Chief Complaint: Nausea/Vomiting [facility] Medical History Anxiety Arthritis Asthma Back pain Blackout Chronic nausea Depression Dietary restriction Difficulty chewing DJD (degenerative joint disease) Dysuria Elevated glucose Former smoker Furunculosis of axilla Gastric reflux GERD (gastroesophageal reflux disease) Health care maintenance Hiatal hernia Hidradenitis suppurativa history bladder mesh History of hiatal hernia History of IBS History of ulceration Hoarseness Hx of lipoma IBS (irritable bowel syndrome) Injury of head and neck Left carpal tunnel syndrome Low iron Marijuana use Migraine headache PUD (peptic ulcer disease) Pyelonephritis Restless legs Right knee pain Sinusitis Spinal stenosis Subluxation complex (vertebral) of cervical region Type 2 diabetes mellitus Upper respiratory infection Venous insufficiency of both lower extremities Vitamin deficiency Wears glasses Home Medications potassium 99 mg tablet 99 mg PO DAILY SUPPLEMENT 02/14/19 [History Last Taken 06/27/23] vitamin B complex (B Complex-Vitamin B12 tablet) 1 tab PO .QOD SUPPLEMENT 09/10/22 [History Last Taken 06/26/23] fluticasone propionate 50 mcg/actuation nasal spray,suspension (Flonase Allergy Relief) 2 spray intranasal DAILY PRN nasal congestion 06/14/23 [History Last Taken Unknown] lisinopril 20 mg tablet 20 mg PO QDAY BP #90 tabs 06/18/23 [Rx Last Taken 09/29/23] cholecalciferol (vitamin D3) 1,250 mcg (50,000 unit) tablet 1,250 mcg PO QWEEK SUPPLEMENT #14 tabs 07/20/23 [Rx Last Taken Unknown] antiarthritic combination no.2 900 mg tablet (glucosamine-chondroitin) 900 mg PO DAILY 08/20/23 [History Last Taken Unknown] omeprazole 40 mg capsule,delayed release 40 mg PO BID GERD 30 days #60 caps 11/01/23 [Rx Last Taken Unknown] dicyclomine 10 mg capsule 10 mg PO TID PRN abdominal pain #14 caps 11/12/23 [Rx Last Taken Unknown] ondansetron 4 mg disintegrating tablet 4 mg PO Q8H PRN PRN Nausea #14 tabs 11/12/23 [Rx Last Taken Unknown] metformin 500 mg tablet,extended release 24 hr 1,000 mg (2 x 500 mg) PO QPM blood glucose 3 months #180 tabs 12/16/23 [Rx Last Taken Unknown] venlafaxine 75 mg capsule,extended release 24 hr See Rx Instructions .Route .COMPLEX #90 caps 12/16/23 [Rx Last Taken Unknown] ondansetron 4 mg disintegrating tablet 4 mg PO Q8H PRN PRN Nausea #10 tabs 01/23/24 [Rx Last Taken Unknown] Allergy/AdvReac Type Severity Reaction Status Date / Time povidone-iodine Allergy Intermediate Rash Verified 01/23/24 10:29 [From Betadine] Environmental Allergies: Allergy cough Verified 01/23/24 10:29 Uncoded tuberculin,PPD,multi-puncture AdvReac Intermediate Rash Verified 01/23/24 10:29 aspirin AdvReac Vomiting Verified 01/23/24 10:29 Family History Grandmother Benign breast lumps Mother Benign breast lumps Diabetes Heart disease CVA (cerebral vascular accident) Father Asthma Aunt Ovarian cancer Surgical History H/O bladder repair surgery H/O neck surgery History of arthroplasty of right ankle History of orthopedic surgery Hx of esophagogastroduodenoscopy Tubal ligation status Social History adopted: No household members: family, children and other housing: house number of children: 1 current occupational status: unemployed pets and animals: No Smoking Status: Former smoker how long ago did patient quit smokin alcohol intake: current alcohol intake frequency: holidays/special occasions only substance use type: marijuana what type of physical activity do you participate in: none additional social history: Orvan Diagnosed with cancer summer 2017 EXAM Physical Exam Const Vital Signs: 01/23/24 10:27 01/23/24 11:02 01/23/24 13:08 Temperature 97.6 F L Temperature Source Temporal Pulse Rate 70 71 79 Respiratory Rate 14 16 16 Blood Pressure 175/75 H 146/77 H Blood Pressure Mean 108 100 Pulse Ox 95 97 95 Oxygen Delivery Method Room Air Room Air Room Air 01/23/24 14:27 Temperature 98.4 F Temperature Source Pulse Rate 79 Respiratory Rate 15 Blood Pressure 146/59 H Blood Pressure Mean 88 Pulse Ox 96 Oxygen Delivery Method MDM MDM MDM Narrative Medical decision making narrative: HISTORY OF PRESENT ILLNESS: 54-year-old female presents with feeling like crap . States this began 24 hours ago. States last week her granddaughter had the flu. She complains of intractable nausea vomiting, cough. She denies any chest pain, shortness of breath or focal abdominal pain. She endorses decreased urination. She denies constipation or diarrhea. Denies any fever. REVIEW OF SYSTEMS: Pertinent positives: Nausea vomiting cough, decreased urination Pertinent negatives: Headache, focal weakness, sore throat, chest pain, shortness of breath, focal abdominal pain PHYSICAL EXAM: Nursing triage notes reviewed, Vital signs reviewed Constitutional: please see mdm HENT: MMM Eyes: Pupils equal round and reactive to light, Extraocular muscles intact Neck: No stridor, no JVD, full neck ROM Lungs: Clear to auscultation, No wheezing or rales. No increased work of breathing, no conversational dyspnea, no accessory muscle use, no nasal flaring. No respiratory distress noted Heart: Regular rate and rhythm, No murmurs, No rubs and No gallops, 2+ distal pulses (radial, femoral, posterior tibial) in all extremities Abdomen: Soft, there is no tenderness, rigidity, rebound or guarding, no obvious peritoneal signs, no palpable pulsatile abdominal masses, no auscultated abdominal bruit : No CVAT Extremities: No edema Neuro: No focal neurological deficits, cranial nerves II through XII intact, 5/5 strength in all extremities. Intact sensation to light touch in all extremities, 2+ reflexes bilateral patella tendons. Normal gait. No ataxia. Skin: No rash or lesions noted MEDICAL DECISION MAKING: Chief Complaint: Nausea vomiting flulike illness External records reviewed: CT scan from 2019 shows no acute intra-abdominal process Factors affecting care: type 2 diabetes, IBS, GERD, hypertension, Social determinants of health: Former smoker History obtained from others: none Consults: none [facility] Narrative: Patient was I considered the following differential diagnosis: COVID, flu, RSV, intra-abdominal perforation, obstruction, pneumonia I treated patient with IV fluids, Toradol and Zofran. ALL IMAGES (IF OBTAINED) HAVE BEEN PERSONALLY REVIEWED AND INTERPRETED BY MYSELF. CT scan abdomen pelvis shows no evidence of acute intra-abdominal pathology CBC with leukocytosis to suggest systemic summation, there is no anemia or thrombocytopenia BMP with h hypokalemia, no other electrolyte normalities, acute kidney injury LFTs show no evidence of hepatobiliary pathology. Lipase is wnl indicating no pancreatic inflammation. COVID, flu, RSV is negative I have personally reviewed the patient's chest x-ray. Chest x-ray is unremarkable for pulmonary edema, pneumothorax, pneumonia or focal cardiopulmonary abnormality. The synthesis of the patient's history, physical exam, labs and images suggest no acute life-threatening etiology. While the patient had an elevated WBC count. The patient was nontoxic-appearing, had no signs of sepsis and no focus of infection. This may be reactive from nausea and vomiting. Repeat abdominal exam was benign. Patient was able to tolerate p.o. She is appropriate discharge home with close outpatient follow-up and strict return precautions. The patient and/or family, caregivers express understanding. The patient and/or family, caregivers agrees with the plan. Shared decision making: I will have a discussion with the patient and or visitors regarding risk/benefits of further testing or admission. They will be made aware of of the risk/benefits inherent in this decision they will be given the opportunity to voice understanding. Total critical care time today provided was at least 0 minutes. This excludes separately billable procedures. Critical care time (if documented) is secondary to the patient having high probability of clinically significant/life threatening deterioration in the patient's condition which required my urgent intervention. Impression: 1. Nausea and vomiting 2. Leukocytosis 3. Hypokalemia Dispo: Discharge home This note was generated with MyRoll dictation software. It may contain incorrect words, spelling, and punctuation that were not noted in review of the chart prior to signing. Lab Data Labs: Laboratory Results - last 24 hr 01/23/24 01/23/24 10:55 12:47 WBC 17.9 H RBC 4.59 Hgb 13.1 Hct 39.6 MCV 86.3 MCH 28.5 MCHC 33.1 RDW Std Deviation 46.1 H RDW Coeff of Sanjana 14.6 Plt Count 350 MPV 9.9 Immature Gran % (Auto) 0.600 Neut % (Auto) 86.2 H Lymph % (Auto) 8.8 L [place] % (Auto) 4.3 Eos % (Auto) 0.0 Baso % (Auto) 0.1 Absolute Neuts (auto) 15.4 H Absolute Lymphs (auto) 1.58 Nucleated RBC % 0 Sodium 136 Potassium 3.1 L Chloride 100 Carbon Dioxide 28.0 Anion Gap 8 BUN 16 Creatinine 0.80 Estim Creat Clear Calc 92.64 Est GFR (MDRD) Af Amer 96 Est GFR (MDRD) Non-Af 80 BUN/Creatinine Ratio 20.1 H Glucose 206 H Calcium 9.6 Total Bilirubin 0.40 AST 18 ALT 28 Alkaline Phosphatase 110 Total Protein 7.7 Albumin 3.5 Globulin 4.2 Albumin/Globulin Ratio 0.8 L Lipase 17 Urine Color Yellow Urine Clarity Clear Urine pH 6.5 Ur Specific [place] 1.010 Urine Protein 30 H Urine Glucose (UA) Normal Urine Ketones Negative Urine Occult Blood Negative Urine Nitrite Negative Urine Bilirubin Negative Urine Urobilinogen Normal Ur Leukocyte Esterase Negative Radiography Diagnostic Testing: Clinical Impression(s) from Imaging Studies Abdomen/Pelvis CT 01/23/24 11:25 IMPRESSION: No free intraperitoneal fluid, air, or suspicious adenopathy. Normal appendix visualized Fatty liver, no discrete lesion 1.5 cm likely left adrenal adenoma Scattered colonic diverticula, no CT evidence of acute diverticulitis Electronically Signed: Bolivar Garcia MD at 12:11 EST , Chest X-Ray 01/23/24 13:10 IMPRESSION: No acute pulmonary process Electronically Signed: Bolivar Garcia MD at 14:12 EST , Discharge Plan Triage Chief Complaint: Nausea/Vomiting ED Provider: Vito Ortega Dx/Rx/DC Orders Instructions: ED Vomiting (Adult) Prescriptions: New ondansetron 4 mg tablet,disintegrating 4 mg PO Q8H PRN PRN (Reason: Nausea) Qty: 10 0RF No Action lisinopril 20 mg tablet 20 mg PO QDAY Qty: 90 1RF glucosamine-chondroitin 900 mg tablet 900 mg PO DAILY venlafaxine 75 mg capsule,extended release 24hr See Rx Instructions .ROUTE .COMPLEX Qty: 90 0RF Dose Instruction: TAKE 1 CAPSULE BY MOUTH EVERY DAY Rx Instructions: TAKE 1 CAPSULE BY MOUTH EVERY DAY metformin 500 mg tablet extended release 24 hr 1,000 mg PO QPM 90 Days Qty: 180 0RF potassium 99 MG tablet 99 mg PO DAILY fluticasone propionate [Flonase Allergy Relief] 50 mcg/actuation spray,suspension 2 spray intranasal DAILY PRN (Reason: nasal congestion) Rx Instructions: administer into each nostril ondansetron 4 mg tablet,disintegrating 4 mg PO Q8H PRN PRN (Reason: Nausea) Qty: 14 0RF dicyclomine 10 mg capsule 10 mg PO TID PRN (Reason: abdominal pain) Qty: 14 0RF vitamin B complex tablet tablet 1 tab PO .QOD Rx Instructions: 1 TAB orally every other day; cholecalciferol (vitamin D3) 1,250 mcg (50,000 unit) tablet 1,250 mcg PO QWEEK Qty: 14 2RF omeprazole 40 mg capsule,delayed release(DR/EC) 40 mg PO BID 30 Days Qty: 60 2RF Primary Care Provider: Ginger Tripp Referrals: Ginger Tripp MD [Primary Care Provider] - Activity Restrictions/Additional Instructions: Thank you for trusting us with your care today! There was no clear life or limb threatening disease process that could be identified here in the emergency department. We did identify low potassium levels which can occur with nausea and vomiting. I prescribed Zofran to take as needed for nausea and vomiting. Please take Tylenol (2 pills, 650 mg) every 6 hours as needed for pain and fever control. Please return to the emergency department if your symptoms change or worsen. Please follow with your primary care physician for further outpatient evaluation and management. Disposition Disposition: Home, Self Care Discharge Date/Time: 01/23/24 14:28
[2024-01-23] MEDS: 0.9% Normal Saline (1000mL) 1,000 ML 1000 ML IV (10:58)
[2024-01-23] MEDS: Ondansetron 4 MG/2 ML Vial IV (10:59)
--- OUTSIDE RECORDS SUMMARY | 2024-01-23 11:01 | XMS RPT_ITS | CCD ---
Author Name Unknown Address [address] [place] [address] Organization [facility] Care Team Providers Care Manager House Name Role Phone BRANDSTETTER, AARON Unavailable Unavailabl e CALABRETTA, MONIKA Unavailable Unavailable [facility] Unavailable Unavailable BRANDSTETTER, AARON Unavailable Unavailabl e BRANDSTETTER, AARON Unavailable Unavailabl e [facility] Unavailable Unavailable BRANDSTETTER, AARON Unavailable Unavailabl e BRANDSTETTER, AARON Unavailable Unavailabl e [facility] Unavailable Unavailable BRANDSTETTER, AARON Unavailable Unavailabl e CALABRETTA, MONIKA M Unavailable Unavailabl e BRANDSTETTER, AARON Unavailable Unavailabl e BRANDSTETTER, AARON Unavailable Unavailabl e CHALROTTEMELODY Admitting Unavailable CHARLOTTEMELODY Primary Care Unavailable CHARLOTTEMELODY PATEL Attending Unavailable HERMILA ABREU Primary Care Unavailable HERMILA ABREU Attending Unavailable HERMILA ABREU Admitting Unavailable NO, DOCTOR ON Consulting Unavailable REGGIE PEREZ Admitting Unavailable REGGIE PEREZ Primary Care Unavailable REGGIE PEREZ Attending Unavailable Allergies Allergy Classification Reported Allergen(s) Allergy Type Date of Onset Reaction(s) Facility (2 sources) acetaminophen / oxyCODONE; Translations: [OXYCODONE-ACETAM INOPHEN] Drug Allergy 8 [facility] Repository (2 sources) aspirin; Translations: [ASPIRIN] Drug Allergy 8 [facility] Repository (2 sources) povidone-iodine; Translations: [POVIDONE-IODINE] Drug Allergy 8 [facility] Repository (1 source) Aspirin Drug Allergy [facility] Repository (1 source) Povidone-Iodine Drug Allergy [facility] Repository (1 source) 08/23/20 (+) MRSA WOUND; Translations: [08/23/20 (+) MRSA WOUND] Propensity to adverse reactions (disorder) [facility] Repository Problems Problem Classification Problem Date Documented Da te Episodic/Chronic Chronic obstructive pulmonary disease and bronchiectasis (1 source) Chronic obstructive pulmonary disease, unspecified; Translations: [Chronic obstructive pulmonary disease, unspecified] Onset: 08-21-2020 Chronic Noninfectious gastroenteritis (2 sources) Noninfective gastroenteritis and colitis, unspecified; Translations: [Noninfective gastroenteritis and colitis, unspecified] Onset: 07-28-2018 Episodic Nonmalignant breast conditions (3 sources) Abscess of the breast and nipple; Translations: [Abscess of the breast and nipple] Onset: 08-21-2020 Other gastrointestinal disorders (1 source) Constipation, unspecified; Translations: [Constipation, unspecified] Onset: 07-28-2018 Episodic Other nutritional; endocrine; and metabolic disorders (1 source) Obesity, unspecified; Translations: [Obesity, unspecified] Onset: 08-21-2020 Chronic Substance-related disorders (1 source) Nicotine dependence, unspecified, uncomplicated; Translations: [Nicotine dependence, unspecified, uncomplicated] Onset: 08-21-2020 Chronic Unclassified (1 source) Unknown / UNK(Unknown) Onset: 08-04-2018 Results Test Name Value Interpretation Reference Range Facil ity Encounters Encounter Date Encounter Type Care Provider Facility Start: 10-06-2020 End: 10-06-2020 Emergency department patient visit MELODY PORTER [facility] Start: 10-04-2020 End: 10-04-2020 Emergency department patient visit HERMILA ABREU [facility] Start: 08-21-2020 End: 08-21-2020 Patient encounter procedure DOCTOR ON NO [facility] Start: 09-21-2018 Patient encounter AARON RAY Facility:[facility] Start: 08-16-2018 End: 08-16-2018 Patient encounter AARON CARMONA [facility] Start: 08-16-2018 End: 08-16-2018 Evaluation and management of inpatient AARON CARMONA Facility:[facility] Start: 07-28-2018 End: 09-05-2018 Patient encounter AARON CARMONA Facility:[facility] Procedures Date Procedure Procedure Detail Performing Clinician Start: 08-21-2020 Urinalysis MELODY WILKERSON AMANDA Payers Date Payer Category Payer Policy ID Medicaid [id number] Summary Purpose Family History No Family History Records FoundNo Family History Records FoundNo Family History Records Found Advance Directives No Advanced Directives Records FoundNo Advanced Directives Records FoundNo Advanced Directives Records Found Additional Source Comments INFORMATION SOURCE (unrecogn ized section and content) DATE CREATED AUTHOR AUTHOR'S ORGANIZ ATION 09/20/2018 [facility] DATE CREATED AUTHOR AUTHOR'S ORGANIZ ATION 10/09/2020 [facility] FOR RECORDS PERTAINING TO PATIENTS WHO ARE OR HAVE BEEN ENROLLED IN A CHEMICAL DEPENDENCY/SUBSTANCEABUSE PROGRAM, SOME INFORMATION MAY BE OMITTED. This clinical summary was aggregated from multiple sources. Caution should be exercised in using it in the provision of clinical care. This summary normalizes information from multiple sources, and as a consequence, information in this document may materially change the coding, format and clinical context of patient data. In addition, data may be omitted in some cases. CLINICAL DECISIONS SHOULD BE BASED ON THE PRIMARY CLINICAL RECORDS. [facility] [employer] [facility]. provides no warranty or guarantee of the accuracy or completeness of information in this document.
[2024-01-23 11:02] VITALS: BP 175/75; PULSE 71; RESP 16; O2SAT 97
[2024-01-23 11:02] LABS: Absolute Lymphocyte Count 1.58 X10^3/uL (0.83-4.51); Absolute Neutrophil Count 15.4 X10^3/uL (2.0-7.7); Basophil# 0.02 X10^3/uL; Basophil% 0.1 % (0-1); Hematocrit 39.6 % (37-47); Hemoglobin 13.1 g/dL (12.0-15.0); Lymphocyte # 1.58 X10^3/ul (0.83-4.51); Lymphocyte % 8.8 % (19-41); Mean Corp Hgb Conc 33.1 g/dL (32-36); Mean Corpuscular Hgb 28.5 pg (27.0-32.0); Mean Corpuscular Volume 86.3 fL (81-99); Mean Platelet Vol. 9.9 fl (6.2-12.0); Monocyte# 0.76 X10^3/uL; Monocyte% 4.3 % (0-10); NRBC Flagged by Analyzer 0 % (0-5); Neutrophil # 15.39 X10^3/uL (2.7-7.7); Neutrophil % 86.2 % (47-70); Platelet Count 350 K/mm3 (150-450); RBC Distribution Width CV 14.6 % (11.6-14.6); RBC Distribution Width SD 46.1 fl (35.1-43.9); Red Blood Count 4.59 M/mm3 (4.2-5.4); White Blood Count 17.9 K/mm3 (4.4-11.0)
[2024-01-23] MEDS: Ketorolac 15 MG/ML Vial IV (11:15)
[2024-01-23 11:22] LABS: ALB/GLOB Ratio 0.8 RATIO (0.9-2.4); AST(SGOT) 18 U/L (15-37); Alanine Aminotransfer ALT/SGPT 28 U/L (13-56); Albumin, Serum 3.5 g/dL (3.2-5.0); Alkaline Phosphatase 110 U/L (45-117); Anion Gap 8 (5-15); BUN 16 mg/dL (7-18); BUN/Creat Ratio 20.1 RATIO (10-20); Calcium,Total 9.6 mg/dL (8.5-10.1); Chloride 100 mmol/L (98-107); EST Glomerular Filtration Rate 80 mL/min (>60); Est Glom Filt Rate - Afr Amer 96 mL/min (>60); Estimated Creatinine Clearance 92.64 ml/min; Globulin 4.2 g/dL (2.2-4.2); Glucose 206 mg/dL (74-106); Lipase 17 U/L (13-75); Potassium 3.1 mmol/L (3.5-5.1); Protein, Total 7.7 g/dL (6.4-8.2); Sodium Level 136 mmol/L (136-145)
--- NOTE | 2024-01-23 11:25 | CT_ITS ---
STUDY: CT ABDOMEN AND PELVIS WITH CONTRAST REASON FOR EXAM: Female, 54 years old. Diffuse abdominal pain, fever RADIATION DOSAGE (If Supplied By Facility): CTDIvol = ( 15.24 ) mGy, DLP = ( 1259.40 ) mGycm TECHNIQUE: Transaxial images were obtained from the dome of the diaphragm to the symphysis pubis without oral contrast. IV 100mL Isovue-370 was administered. Sagittal and coronal images were reconstructed. Individualized dose optimization techniques were used for this CT. COMPARISON: 2018 FINDINGS: The visualized lung bases are unremarkable. The visualized portions of the heart are within normal limits. There is decreased attenuation of the liver consistent with steatosis. Normal gallbladder and extrahepatic biliary system. Normal spleen. Normal pancreas. There is a 1.5 cm smooth, low attenuation left adrenal mass, consistent with an adrenal adenoma. ACR White Paper guidelines (Appiah-Valentine, et al. JACR 2017; 14(8):2501-4342) suggest no imaging follow-up is necessary. ACR White Paper guidelines (Appiah-Valentine, et al. JACR 2017; 14(8):6581-8654) suggest no imaging follow-up is necessary. Consider biochemical assays to determine functional status and exclude pheochromocytoma if biopsy/resection is planned. Normal right adrenal gland. Normal right kidney. Normal left kidney. There is a small hiatal hernia. Normal small intestine. Scattered colonic diverticula without CT evidence of acute diverticulitis. The appendix is visualized and appears normal. Appendix seen on coronal recon images 54 through 64 Normal abdominal aorta. Normal inferior vena cava. Normal retroperitoneum. Normal urinary bladder. Uterus is present, the endometrium cannot be accurately evaluated with CT. There are likely physiologic ovarian cysts. No suspicious enlarged cystic lesion in the pelvis. Normal abdominal wall. Normal osseous structures. CT/Abdomen/Pelvis W IV Cont ONLY IMPRESSION: No free intraperitoneal fluid, air, or suspicious adenopathy. Normal appendix visualized Fatty liver, no discrete lesion 1.5 cm likely left adrenal adenoma Scattered colonic diverticula, no CT evidence of acute diverticulitis Electronically Signed: Bolivar Garcia MD at 12:11 EST ,
[2024-01-23 13:03] LABS: Color, Urine Yellow (Yellow); Glucose, Dipstick Normal (Normal); Ketone-Dipstick Negative (Negative); Leukocyte Esterase-Dipstick Negative /ul (Negative); Nitrite-Dipstick Negative (Negative); Occult Blood-Urine Negative /ul (Negative); Protein-Dipstick 30 mg/dl (Negative); Urine Bilirubin Dipstick Negative (Negative); Urine Clarity Clear (Clear); Urine Urobilinogen Normal (Normal); Urine pH 6.5 (5.0 - 8.0)
[2024-01-23] MEDS: Potassium Chloride Oral Tablet 20 MEQ 40 MEQ PO (13:07)
[2024-01-23 13:08] VITALS: BP 146/77; PULSE 79; RESP 16; O2SAT 95
--- NOTE | 2024-01-23 13:10 | RAD_ITS ---
STUDY: X-RAY CHEST REASON FOR EXAM: Female, 54 years old. cough TECHNIQUE: Single AP portable view of the chest. COMPARISON: 2017 FINDINGS: The lungs are clear and expanded. There is no demonstrated pleural abnormality. Normal size heart. Normal mediastinum and enio. Normal visualized pulmonary arteries. Normal visualized aortic arch and descending thoracic aorta. Normal visualized thoracic spine. Normal visualized ribs, clavicles, and shoulders. There is no demonstrated abnormality of the visualized soft tissue structures of the upper abdomen. RAD/Chest 1 View (Portable) IMPRESSION: No acute pulmonary process Electronically Signed: Bolivar Garcia MD at 14:12 EST ,
[2024-01-23 14:27] VITALS: BP 146/59; PULSE 79; RESP 15; TEMP 36.9; O2SAT 96
== END 2024-01-23 14:28 | disposition home or self-care (01) ==
PROVIDERS: Emergency Provider Emergency Medicine; PCP Internal Medicine; Visit Provider Emergency Medicine
DX: R11.2 Nausea with vomiting, unspecified (principal); E11.9 Type 2 diabetes mellitus without complications; I10 Essential (primary) hypertension; D72.829 Elevated white blood cell count, unspecified; E87.6 Hypokalemia; K21.9 Gastro-esophageal reflux disease without esophagitis; Z87.891 Personal history of nicotine dependence; M19.90 Unspecified osteoarthritis, unspecified site; Z79.899 Other long term (current) drug therapy; Z79.84 Long term (current) use of oral hypoglycemic drugs; F41.9 Anxiety disorder, unspecified; F32.A Depression, unspecified; Z96.661 Presence of right artificial ankle joint; Z98.51 Tubal ligation status
CPT/HCPCS: 71045; 74177; 80053; 81002; 83690; 85025; 87631; 96361; 96374; 96375; 99283; J7030; Q9967; A4216; J2405

== ENCOUNTER 2024-01-24 16:53 | Emergency (ER) | payer MEDICAID, SELFPAY ==
[2024-01-24 16:54] VITALS: BP 180/104; PULSE 67; RESP 20; TEMP 36.2; O2SAT 98; BMI 39.0
--- OUTSIDE RECORDS SUMMARY | 2024-01-24 20:22 | XMS RPT_ITS | CCD ---
Author Name Unknown Address [address] [place] [address] Organization [facility] Care Team Providers Care Third Grade Teacher Name Role Phone BRANDSTETTER, AARON Unavailable Unavailabl e CALABRETTA, MONIKA Unavailable Unavailable [facility] Unavailable Unavailable BRANDSTETTER, AARON Unavailable Unavailabl e BRANDSTETTER, AARON Unavailable Unavailabl e [facility] Unavailable Unavailable BRANDSTETTER, AARON Unavailable Unavailabl e BRANDSTETTER, AARON Unavailable Unavailabl e [facility] Unavailable Unavailable BRANDSTETTER, AARON Unavailable Unavailabl e CALABRETTA, MONIKA M Unavailable Unavailabl e BRANDSTETTER, AARON Unavailable Unavailabl e BRANDSTETTER, AARON Unavailable Unavailabl e CHARLOTTEMELODY Admitting Unavailable CHARLOTTEMELODY Primary Care Unavailable CHARLOTTEMELODY [...] oxyCODONE; Translations: [OXYCODONE-ACETAM INOPHEN] Drug Allergy 8 [facility] Repository (2 sources) aspirin; Translations: [ASPIRIN] Drug Allergy 8 [facility] Repository (2 sources) povidone-iodine; Translations: [POVIDONE-IODINE] Drug Allergy 8 [facility] Repository (1 source) Aspirin Drug Allergy [facility] Repository (1 source) Povidone-Iodine Drug Allergy [facility] Repository (1 source) 08/23/20 (+) MRSA WOUND; Translations: [08/23/20 (+) MRSA WOUND] Propensity to adverse reactions (disorder) [facility] Repository Problems Problem Classification Problem Date [...] 10-06-2020 Emergency department patient visit MELODY PORTER [facility] Start: 10-04-2020 End: 10-04-2020 Emergency department patient visit HERMILA ABREU [facility] Start: 08-21-2020 End: 08-21-2020 Patient encounter procedure DOCTOR ON NO [facility] Start: 09-21-2018 Patient encounter AARON RAY Facility:[facility] Start: 08-16-2018 End: 08-16-2018 Patient encounter AARON CARMONA [facility] Start: 08-16-2018 End: 08-16-2018 Evaluation and management of inpatient AARON CARMONA Facility:[facility] Start: 07-28-2018 End: 09-05-2018 Patient encounter AARON CARMONA Facility:[facility] Procedures Date Procedure Procedure Detail Performing Clinician Start: 08-21-2020 Urinalysis MELODY WILKERSON AMANDA Payers Date Payer Category Payer Policy ID Medicaid [id number] Summary Purpose Family History No Family History Records FoundNo Family History Records FoundNo Family History Records Found Advance Directives No Advanced Directives Records FoundNo Advanced Directives Records FoundNo Advanced Directives Records Found Additional Source Comments INFORMATION SOURCE (unrecogn ized section and content) DATE CREATED AUTHOR AUTHOR'S ORGANIZ ATION 09/20/2018 [facility] DATE CREATED AUTHOR AUTHOR'S ORGANIZ ATION 10/09/2020 [facility] FOR RECORDS PERTAINING TO PATIENTS WHO [...] BE BASED ON THE PRIMARY CLINICAL RECORDS. [facility] [employer] [facility]. provides no warranty or guarantee of the accuracy or completeness of information in this document.
== END 2024-01-24 17:55 | disposition left against medical advice (07) ==
LOC: ED 18:13
PROVIDERS: PCP Internal Medicine
DX: R11.2 Nausea with vomiting, unspecified (principal)

== ENCOUNTER → 2024-07-13 | Outpatient (CLI) | payer MEDICAID, SELFPAY ==
[2024-07-13 13:09] LABS: Absolute Lymphocyte Count 2.02 X10^3/uL (0.83-4.51); Absolute Neutrophil Count 5.4 X10^3/uL (2.0-7.7); Basophil# 0.04 X10^3/uL; Basophil% 0.5 % (0-1); Eosinophil# 0.14 X10^3/uL; Eosinophils% 1.7 % (0-5); Hematocrit 38.4 % (37-47); Lymphocyte # 2.02 X10^3/ul (0.83-4.51); Mean Corp Hgb Conc 31.3 g/dL (32-36); Mean Corpuscular Hgb 28.4 pg (27.0-32.0); Mean Corpuscular Volume 90.8 fL (81-99); Mean Platelet Vol. 10.1 fl (6.2-12.0); Monocyte# 0.44 X10^3/uL; Monocyte% 5.4 % (0-10); NRBC Flagged by Analyzer 0 % (0-5); Neutrophil % 66.8 % (47-70); Platelet Count 336 K/mm3 (150-450); RBC Distribution Width CV 16.7 % (11.6-14.6); RBC Distribution Width SD 55.5 fl (35.1-43.9); Red Blood Count 4.23 M/mm3 (4.2-5.4); White Blood Count 8.1 K/mm3 (4.4-11.0)
[2024-07-13 13:36] LABS: ALB/GLOB Ratio 0.9 RATIO (0.9-2.4); AST(SGOT) 15 U/L (15-37); Alanine Aminotransfer ALT/SGPT 27 U/L (13-56); Albumin, Serum 3.3 g/dL (3.2-5.0); Alkaline Phosphatase 108 U/L (45-117); Anion Gap 7 (5-15); BUN 18 mg/dL (7-18); BUN/Creat Ratio 25.6 RATIO (10-20); Calcium,Total 9.3 mg/dL (8.5-10.1); Chloride 106 mmol/L (98-107); Cholesterol 180 mg/dL (200); EST Glomerular Filtration Rate 92 mL/min (>60); Est Glom Filt Rate - Afr Amer 111 mL/min (>60); Globulin 3.7 g/dL (2.2-4.2); Glucose 115 mg/dL (74-106); High Density Lipoprotein 56 mg/dL; Potassium 4.1 mmol/L (3.5-5.1); Sodium Level 141 mmol/L (136-145); Triglycerides 192 mg/dL; Very Low Density Lipoprotein 38 mg/dL (5-40)
[2024-07-13 14:52] LABS: Hemoglobin A1c 6.2 % (3.8-5.6)
== END | disposition home or self-care (01) ==
LOC: BIMLAB 11:52
PROVIDERS: PCP Internal Medicine; Referring Provider Physician Assistant; Visit Provider Physician Assistant
DX: I10 Essential (primary) hypertension (principal); E11.69 Type 2 diabetes mellitus with other specified complication
CPT/HCPCS: 36415; 80053; 80061; 83036; 85025

== ENCOUNTER 2024-11-29 19:30 | Inpatient (IN) | payer MEDICAID, SELFPAY ==
[2024-11-29] VITALS (10 sets, daily range): BP systolic 146–186; BP diastolic 82–102; PULSE 96–109; RESP 15–25; TEMP 36.8–37.9; O2SAT 92–98; BMI 38.8
--- NOTE | 2024-11-29 19:40 | RAD_ITS ---
INDICATION: sob EXAMINATION/TECHNIQUE: X-RAY - XR Chest 1 View COMPARISON: 01/23/2024. FINDINGS: The lungs are clear. Tortuous and calcified thoracic aorta. The heart is not enlarged. No pleural effusion or pneumothorax. No acute osseous abnormalities. RAD/Chest 1 View (Portable) IMPRESSION: No acute radiographic abnormalities. Electronically Signed: Chris Heck MD at 20:49 EST ,
[2024-11-29 19:59] LABS: Absolute Lymphocyte Count 2.01 X10^3/uL (0.83-4.51); Absolute Neutrophil Count 10.4 X10^3/uL (2.0-7.7); Basophil# 0.05 X10^3/uL; Basophil% 0.4 % (0-1); Eosinophil# 0.28 X10^3/uL; Eosinophils% 2.1 % (0-5); Hematocrit 38.7 % (37-47); Hemoglobin 12.5 g/dL (12.0-15.0); Lymphocyte # 2.01 X10^3/ul (0.83-4.51); Lymphocyte % 14.9 % (19-41); Mean Corp Hgb Conc 32.3 g/dL (32-36); Mean Corpuscular Hgb 27.5 pg (27.0-32.0); Mean Corpuscular Volume 85.2 fL (81-99); Mean Platelet Vol. 9.2 fl (6.2-12.0); Monocyte% 5.2 % (0-10); NRBC Flagged by Analyzer 0 % (0-5); Neutrophil # 10.36 X10^3/uL (2.7-7.7); Neutrophil % 76.8 % (47-70); Platelet Count 339 K/mm3 (150-450); RBC Distribution Width CV 15.4 % (11.6-14.6); RBC Distribution Width SD 47.3 fl (35.1-43.9); Red Blood Count 4.54 M/mm3 (4.2-5.4); White Blood Count 13.5 K/mm3 (4.4-11.0)
[2024-11-29 20:18] LABS: Anion Gap 7 (5-15); BUN 8 mg/dL (7-18); BUN/Creat Ratio 10.6 RATIO (10-20); Calcium,Total 9.2 mg/dL (8.5-10.1); Chloride 100 mmol/L (98-107); Creatinine, Serum 0.76 mg/dL (0.55-1.02); EST Glomerular Filtration Rate 84 mL/min (>60); Est Glom Filt Rate - Afr Amer 102 mL/min (>60); Glucose 127 mg/dL (74-106); Sodium Level 137 mmol/L (136-145)
--- NOTE | 2024-11-29 20:48 | CM.ED ---
Social Work SW was able to verify that patient has both HPOA and Living Will on file with [facility]. No further needs identified. Yara Conner, ENGINEER FISHING VESSEL, CORE FEEDER
[2024-11-29] MEDS: 0.9% Normal Saline (1000mL) 1,000 ML 999 ML IV (21:32)
[2024-11-29] MEDS: Ipratropium/Albuterol Sulfate 3 ML AMPUL.NEB INHALATION (21:33)
[2024-11-29 22:16] LABS: Lactic Acid 1.5 mmol/L (0.4-1.9)
[2024-11-29] MEDS: Ketorolac 15 MG/ML Vial IV (22:29)
--- NOTE | 2024-11-29 22:34 | ED.RN ---
Pt returned from bathroom tachypneic. O2 on RA 88%. Placed on 2L NC, Dr. Carl notified. Repeat temp 100.2.
--- NOTE | 2024-11-29 22:50 | EDS_ITS ---
HPI History of Present Illness Chief Complaint: Shortness of Breath Narrative Narrative: Patient is a 54 year old female with history of diabetes, chronic back pain, degenerative disc disease, migraines, reflux presenting with worsening flu like symptoms. Patient states that starting new years day she had nausea vomiting diarrhea. She thought she was open viral syndrome. She went to [facility] in [place] which she was given a prescription for Zofran had negative COVID and flu swab. She notes that she is feeling like she is continue to worsen. She is having episodes of sweating and feeling she has burning and then freezing. She had a low-grade temperature of nine 9.8. She has had a lot of nasal congestion and phlegm in her throat. She has had a cough that is nonproductive but she feels that her lungs are filling up with mucus. She is been trying taking Mucinex and NyQuil with no relief of her symptoms. Has been feeling more short of breath. Denies any swelling of her legs. Notes that she is also having increased back pain from all the coughing. Does not wear home O2. Denies any history of COPD or asthma but does report that she has been told that she is prone to asthma when she gets sick. I question if she has some reactive airway. [facility] Medical History Menstrual irregularity Health care maintenance Left carpal tunnel syndrome Type 2 diabetes mellitus Wears glasses Low iron Migraine headache Injury of head and neck Hx of lipoma Blackout Dietary restriction Hoarseness Depression Anxiety Marijuana use Restless legs Back pain Difficulty chewing History of hiatal hernia History of ulceration History of IBS Gastric reflux Former smoker Upper respiratory infection Venous insufficiency of both lower extremities Right knee pain Sinusitis Chronic nausea Furunculosis of axilla Subluxation complex (vertebral) of cervical region Dysuria Vitamin deficiency Elevated glucose Hidradenitis suppurativa IBS (irritable bowel syndrome) Spinal stenosis history bladder mesh DJD (degenerative joint disease) Pyelonephritis Hiatal hernia PUD (peptic ulcer disease) GERD (gastroesophageal reflux disease) Asthma Arthritis Home Medications ?Medication ?Instructions ?Recorded ?Last Taken ?Type potassium 99 mg tablet 99 mg PO DAILY SUPPLEMENT 02/14/19 06/27/23 History vitamin B complex (B 1 tab PO .QOD SUPPLEMENT 10/20/22 08/05/23 History Complex-Vitamin B12 tablet) ondansetron 4 mg disintegrating 4 mg PO Q8H PRN PRN Nausea #14 tabs 11/12/23 Unknown Rx tablet cholecalciferol (vitamin D3) 1,250 1,250 mcg PO QWEEK SUPPLEMENT #14 06/06/24 Unknown Rx mcg (50,000 unit) tablet tabs blood sugar diagnostic (FreeStyle #100 ea 07/21/24 Unknown Rx Lite Strips) blood-glucose meter (FreeStyle #1 ea 07/21/24 Unknown Rx Lite Meter kit) lancets 28 gauge (FreeStyle #100 ea 07/21/24 Unknown Rx Lancets) lisinopril 20 mg tablet 20 mg PO DAILY for blood pressure 09/01/24 Unknown Rx #90 TABLETS venlafaxine 150 mg See Rx Instructions .Route 09/20/24 Unknown Rx capsule,extended release 24 hr .COMPLEX #90 caps ibuprofen 800 mg tablet 800 mg PO Q8H PRN PRN for pain #60 10/13/24 Unknown Rx TABLETS dulaglutide 0.75 mg/0.5 mL 0.75 mg (0.5 mL) subcut QWEEK #2 mL 10/23/24 Unknown Rx [facility] omeprazole 40 mg capsule,delayed 40 mg PO BID #60 caps 11/03/24 Unknown Rx release ascorbic acid (vitamin C) 1,000 mg 1,000 mg PO DAILY 11/29/24 Unknown History tablet,extended release (C Complex) krill oil PO 11/29/24 Unknown History metformin 500 mg tablet,extended 1,000 mg PO LUNCH blood glucose 11/29/24 Unknown History release 24 hr Allergy/AdvReac Type Severity Reaction Status Date / Time povidone-iodine (From Allergy Intermediate Rash Verified 11/29/24 19:31 Betadine) Environmental Allergies: Allergy cough Verified 11/29/24 19:31 Uncoded tuberculin,PPD,multi-puncture AdvReac Intermediate Rash Verified 11/29/24 19:31 aspirin AdvReac Vomiting Verified 11/29/24 19:31 Family History Grandmother Benign breast lumps Mother Benign breast lumps Diabetes Heart disease CVA (cerebral vascular accident) Father Asthma Aunt Ovarian cancer Surgical History H/O neck surgery Hx of esophagogastroduodenoscopy H/O bladder repair surgery Tubal ligation status History of arthroplasty of right ankle History of orthopedic surgery Social History adopted: No household members: family, children and other housing: house number of children: 1 current occupational status: unemployed pets and animals: No Smoking Status: Current every day smoker tobacco type: cigarettes how long ago did patient quit smokin alcohol intake: current alcohol intake frequency: holidays/special occasions only substance use type: marijuana what type of physical activity do you participate in: none additional social history: Orvan Diagnosed with cancer summer 2017 ROS ROS ED Constitutional Constitutional ED: Reports chills, fever(s) and sweats ENT ENT ED: Reports sore throat and other Details: Nasal congestion Cardiovascular Cardiovascular: Denies chest pain Respiratory/Chest Respiratory/Chest: Reports cough and dyspnea; Denies sputum Gastrointestinal Gastrointestinal: Denies abdominal pain, nausea or vomiting Musculoskeletal Musculoskeletal: Reports arthralgias, back pain and myalgias Integumentary Denies rash Neurologic Neurologic: Reports headache(s) and weakness EXAM Physical Exam Const Vital Signs: 11/29/24 19:31 11/29/24 19:33 11/29/24 20:33 Temperature 98.6 F 98.6 F Temperature Source Oral Oral Pulse Rate 109 H 109 H Respiratory Rate 21 H 21 H Respiratory Effort Respiratory Depth Respiratory Pattern Blood Pressure 186/102 H 186/102 H Blood Pressure Mean 130 130 Pulse Ox 93 95 Oxygen Delivery Method Room Air Room Air Room Air Oxygen Flow Rate (L/min) 11/29/24 20:33 11/29/24 20:33 11/29/24 20:33 Temperature 98.2 F Temperature Source Oral Pulse Rate 100 Respiratory Rate 25 H 17 Respiratory Effort Short of Breath Respiratory Depth Shallow Respiratory Pattern Tachypnea Blood Pressure 153/82 H Blood Pressure Mean 105 Pulse Ox 94 92 Oxygen Delivery Method Room Air Room Air Room Air Oxygen Flow Rate (L/min) 11/29/24 21:00 11/29/24 21:35 11/29/24 22:00 Temperature 98.2 F 98.2 F Temperature Source Oral Oral Pulse Rate 101 H 99 96 Respiratory Rate 20 H 16 15 Respiratory Effort Respiratory Depth Respiratory Pattern Normal Blood Pressure 149/89 H 146/86 H Blood Pressure Mean 109 106 Pulse Ox 94 96 Oxygen Delivery Method Nasal Cannula Room Air Oxygen Flow Rate (L/min) 2 11/29/24 22:34 11/29/24 22:40 Temperature 100.2 F H 100.2 F H Temperature Source Oral Pulse Rate 105 H Respiratory Rate 16 Respiratory Effort Respiratory Depth Respiratory Pattern Blood Pressure 146/86 H Blood Pressure Mean 106 Pulse Ox 97 Oxygen Delivery Method Oxygen Flow Rate (L/min) Constitutional Narrative: Uncomfortable appearing, no acute distress HEENT Reports TM's clear and dry mucous membranes HEENT Narrative: Mild erythema and edema of the bilateral tonsils. Oral pharyngeal area appears irritated. No exudate appreciated. Tympanic Membrane ED: Yes TM's clear Mouth ED: Yes dry mucous membranes Mouth: dry mucous membranes Neck supple and no JVD Resp Resp Narrative: Diminished breath sounds at the bases. Tachypneic. Very coarse breath sounds with expiratory wheezing present throughout Cardio Rate: tachycardic GI non-tender and non-distended Palpation: soft; Negative for tender or guarding Extremity normal to inspection General Extremety ED: Negative for edema General Extremity: Negative for edema Neuro oriented x3 Sensorium / Orientation: alert Motor Exam: general weakness Psych mental status grossly normal Mood & Affect: anxious Skin no wounds MDM MDM MDM Narrative Medical decision making narrative: Patient is evaluated for worsening shortness of breath generalized malaise and flulike symptoms. Differential includes pneumonia, viral infection, pneumonitis, sepsis and COPD/asthma exacerbation. Patient was given a breathing treatment, IV fluids and Toradol. On repeat evaluation she does appear more comfortable. She does spike a fever in the emergency room 100.2 ?F and is given Toradol for this as well as her diffuse bodyaches and back pain. COVID flu/RSV is negative. Workup is significant for leukocytosis of 13.5. Her CBC otherwise normal. CMP does show hypokalemia with a potassium of 3.0. Lactate is normal at 1.5. Chest x-ray viewed by myself as well as radiology does not show any acute infiltrate. Patient is ambulated and desaturated to 88% and is symptomatic. Because of her acute hypoxia will admit for suspected pneumonia as well as reactive airway. Started on doxycycline and Solu-Medrol. Patient is agreeable this plan of care. Lab Data Attestation: I reviewed the patient's lab results. Labs: Laboratory Results - last 24 hr 11/29/24 11/29/24 19:47 21:30 WBC 13.5 H RBC 4.54 Hgb 12.5 Hct 38.7 MCV 85.2 MCH 27.5 MCHC 32.3 RDW Std Deviation 47.3 H RDW Coeff of Sanjana 15.4 H Plt Count 339 MPV 9.2 Immature Gran % (Auto) 0.600 Neut % (Auto) 76.8 H Lymph % (Auto) 14.9 L [place] % (Auto) 5.2 Eos % (Auto) 2.1 Baso % (Auto) 0.4 Absolute Neuts (auto) 10.4 H Absolute Lymphs (auto) 2.01 Nucleated RBC % 0 Sodium 137 Potassium 3.0 L Chloride 100 Carbon Dioxide 30.0 Anion Gap 7 BUN 8 Creatinine 0.76 Estim Creat Clear Calc 97.50 Est GFR (MDRD) Af Amer 102 Est GFR (MDRD) Non-Af 84 BUN/Creatinine Ratio 10.6 Glucose 127 H Lactic Acid 1.5 Calcium 9.2 Radiography Diagnostic Testing: Clinical Impression(s) from Imaging Studies Chest X-Ray 11/29/24 19:40 IMPRESSION: No acute radiographic abnormalities. Electronically Signed: Chris Heck MD at 20:49 EST , Management Discussion w/another healthcare provider: Hospitalist Discharge Plan Triage Chief Complaint: Shortness of Breath ED Provider: Viktoriya Carl Dx/Rx/DC Orders Clinical Impression: Acute bronchitis with wheezing, Hypoxia, Hypokalemia Prescriptions: No Action potassium 99 MG tablet 99 mg PO DAILY ondansetron 4 mg tablet,disintegrating 4 mg PO Q8H PRN PRN (Reason: Nausea) Qty: 14 0RF C Complex 1,000 mg tablet extended release 1,000 mg PO DAILY krill oil PO metformin 500 mg tablet extended release 24 hr 1,000 mg PO LUNCH vitamin B complex [B Complex-Vitamin B12] Tablet 1 tab PO .QOD Rx Instructions: 1 TAB orally every other day; cholecalciferol (vitamin D3) 1,250 mcg (50,000 unit) tablet 1,250 mcg PO QWEEK Qty: 14 2RF (DME) blood-glucose meter [FreeStyle Lite Meter] Kit See Rx Instructions .ROUTE .MEDSUPPLY Qty: 1 0RF Rx Instructions: As directed (DME) FreeStyle Lite Strips Strip See Rx Instructions .ROUTE .MEDSUPPLY Qty: 100 2RF Rx Instructions: As directed (DME) lancets [FreeStyle Lancets] 28 gauge misc See Rx Instructions .ROUTE .MEDSUPPLY Qty: 100 3RF Rx Instructions: As directed lisinopril 20 mg tablet 20 mg PO DAILY Qty: 90 0RF venlafaxine 150 mg capsule,extended release 24hr See Rx Instructions .ROUTE .COMPLEX Qty: 90 0RF Dose Instruction: TAKE 1 CAPSULE BY MOUTH EVERY DAY Rx Instructions: TAKE 1 CAPSULE BY MOUTH EVERY DAY ibuprofen 800 mg tablet 800 mg PO Q8H PRN PRN (Reason: for pain) Qty: 60 0RF Trulicity 0.75 mg/0.5 mL pen injector 0.75 mg subcut QWEEK Qty: 2 2RF omeprazole 40 mg capsule,delayed release(DR/EC) 40 mg PO BID Qty: 60 2RF Primary Care Provider: Ginger Tripp Referrals: Ginger Tripp MD [Primary Care Provider] - Print Language: Omani
--- NOTE | 2024-11-29 22:53 | PCM.HP.STD ---
[facility] - General General Date of Admission: 11/29/24 Date of Service: 11/29/24 Chief Complaint: Worsening shortness of breath with flulike symptoms HPI Narrative JESSICA MCKINNEY, is a 54 F who presented to [facility] ED on 11/29/2024 with worsening shortness of breath and flulike symptoms. Patient is an active smoker, smokes about 1/2 to 1 pack daily. She did quit for about 6 months about a year ago but then her mom passed so she is smoking regularly again. Has a long smoking history. Has never been diagnosed with COPD and does not wear oxygen at home. She began to have flulike symptoms on ' Day. Started with nausea with vomiting and diarrhea. She went to [facility] in [place] and testing was negative, and she was given a prescription for Zofran and sent home. She has since had worsening upper respiratory symptoms with nonproductive cough and shortness of breath with exertion over the past several days. She does feel like she has excess mucus in her lungs but has not been able to bring anything up with Mucinex. She has been fatigued over the past few days and has been sleeping a lot of the day. On arrival to the ED she was mildly hypertensive and had mild sinus tachycardia. She was satting in the low 90s on room air at rest but desaturated to the high 80s with exertion. She did have a low-grade fever of 100.2F as well. Labs notable for WBC count 13, potassium 3.0, otherwise unremarkable. Chest x-ray was unremarkable. She was given a breathing treatment with some improvement in her symptoms. Hospitalist was then contacted for admission. I saw the patient at bedside in the ED. She was sitting up fairly comfortably in bed and breathing comfortably on 2 L nasal cannula at rest. On auscultation she did have mild to moderate end expiratory wheezing with mildly diminished breath sounds bilaterally. She did have a few coughing episodes during my encounter with her. She denies any nausea, fevers or chills or any pain or discomfort currently. No other acute concerns. [facility] Medical History (Updated 11/30/24 @ 02:[address] Josué Lua, DO) COPD exacerbation Menstrual irregularity Health care maintenance Left carpal tunnel syndrome Type 2 diabetes mellitus Wears glasses Low iron Migraine headache Injury of head and neck Hx of lipoma Blackout Dietary restriction Hoarseness Depression Anxiety Marijuana use Restless legs Back pain Difficulty chewing History of hiatal hernia History of ulceration History of IBS Gastric reflux Former smoker Upper respiratory infection Venous insufficiency of both lower extremities Right knee pain Sinusitis Chronic nausea Furunculosis of axilla Subluxation complex (vertebral) of cervical region Dysuria Vitamin deficiency Elevated glucose Hidradenitis suppurativa IBS (irritable bowel syndrome) Spinal stenosis history bladder mesh DJD (degenerative joint disease) Pyelonephritis Hiatal hernia PUD (peptic ulcer disease) GERD (gastroesophageal reflux disease) Asthma Arthritis Home Medications ?Medication ?Instructions ?Recorded ?Last Taken ?Type potassium 99 mg tablet 99 mg PO DAILY SUPPLEMENT 02/14/19 06/27/23 History vitamin B complex (B 1 tab PO .QOD SUPPLEMENT 09/10/22 06/26/23 History Complex-Vitamin B12 tablet) ondansetron 4 mg disintegrating 4 mg PO Q8H PRN PRN Nausea #14 tabs 11/12/23 Unknown Rx tablet cholecalciferol (vitamin D3) 1,250 1,250 mcg PO QWEEK SUPPLEMENT #14 06/06/24 Unknown Rx mcg (50,000 unit) tablet tabs blood sugar diagnostic (FreeStyle #100 ea 07/21/24 Unknown Rx Lite Strips) blood-glucose meter (FreeStyle #1 ea 07/21/24 Unknown Rx Lite Meter kit) lancets 28 gauge (FreeStyle #100 ea 07/21/24 Unknown Rx Lancets) lisinopril 20 mg tablet 20 mg PO DAILY for blood pressure 09/01/24 Unknown Rx #90 TABLETS venlafaxine 150 mg See Rx Instructions .Route 09/20/24 Unknown Rx capsule,extended release 24 hr .COMPLEX #90 caps ibuprofen 800 mg tablet 800 mg PO Q8H PRN PRN for pain #60 10/13/24 Unknown Rx TABLETS dulaglutide 0.75 mg/0.5 mL 0.75 mg (0.5 mL) subcut QWEEK #2 mL 10/23/24 Unknown Rx subcutaneous pen injector (Trulicity) omeprazole 40 mg capsule,delayed 40 mg PO BID #60 caps 11/03/24 Unknown Rx release ascorbic acid (vitamin C) 1,000 mg 1,000 mg PO DAILY 11/29/24 Unknown History tablet,extended release (C Complex) krill oil PO 11/29/24 Unknown History metformin 500 mg tablet,extended 1,000 mg PO LUNCH blood glucose 11/29/24 Unknown History release 24 hr Allergy/AdvReac Type Severity Reaction Status Date / Time povidone-iodine (From Allergy Intermediate Rash Verified 11/29/24 19:31 Betadine) Environmental Allergies: Allergy cough Verified 11/29/24 19:31 Uncoded tuberculin,PPD,multi-puncture AdvReac Intermediate Rash Verified 11/29/24 19:31 aspirin AdvReac Vomiting Verified 11/29/24 19:31 Family History Grandmother Benign breast lumps Mother Benign breast lumps Diabetes Heart disease CVA (cerebral vascular accident) Father Asthma Aunt Ovarian cancer Surgical History H/O neck surgery Hx of esophagogastroduodenoscopy H/O bladder repair surgery Tubal ligation status History of arthroplasty of right ankle History of orthopedic surgery Social History adopted: No household members: family, children and other housing: house number of children: 1 current occupational status: unemployed pets and animals: No Smoking Status: Current every day smoker tobacco type: cigarettes how long ago did patient quit smokin alcohol intake: current alcohol intake frequency: holidays/special occasions only substance use type: marijuana what type of physical activity do you participate in: none additional social history: Orvan Diagnosed with cancer summer 2017 ROS Constitutional Constitutional: Reports fatigue; Denies chills, fever(s) or weakness Eyes Eyes: Denies change in vision ENT HEENT: Reports nasal congestion and nasal discharge Cardiovascular Cardiovascular: Denies chest pain, edema, lightheadedness or palpitations Respiratory/Chest Respiratory/Chest: Reports cough, shortness of breath with exertion and wheezing; Denies productive cough or shortness of breath at rest Gastrointestinal Gastrointestinal: Denies abdominal pain, constipation, diarrhea, nausea or vomiting Genitourinary Genitourinary: Denies dysuria Musculoskeletal Musculoskeletal: Denies arthralgias or myalgias Neurologic Neurologic: Denies dizziness, focal weakness or headache(s) Vital Signs Vital Signs Vital Signs: 11/29/24 19:31 11/29/24 19:33 11/29/24 20:33 Temperature 98.6 F 98.6 F Temperature Source Oral Oral Pulse Rate 109 H 109 H Respiratory Rate 21 H 21 H Respiratory Effort Respiratory Depth Respiratory Pattern Blood Pressure 186/102 H 186/102 H Blood Pressure Mean 130 130 Pulse Ox 93 95 Oxygen Delivery Method Room Air Room Air Room Air Oxygen Flow Rate (L/min) 11/29/24 20:33 11/29/24 20:33 11/29/24 20:33 Temperature 98.2 F Temperature Source Oral Pulse Rate 100 Respiratory Rate 25 H 17 Respiratory Effort Short of Breath Respiratory Depth Shallow Respiratory Pattern Tachypnea Blood Pressure 153/82 H Blood Pressure Mean 105 Pulse Ox 94 92 Oxygen Delivery Method Room Air Room Air Room Air Oxygen Flow Rate (L/min) 11/29/24 21:00 11/29/24 21:35 11/29/24 22:00 Temperature 98.2 F 98.2 F Temperature Source Oral Oral Pulse Rate 101 H 99 96 Respiratory Rate 20 H 16 15 Respiratory Effort Respiratory Depth Respiratory Pattern Normal Blood Pressure 149/89 H 146/86 H Blood Pressure Mean 109 106 Pulse Ox 94 96 Oxygen Delivery Method Nasal Cannula Room Air Oxygen Flow Rate (L/min) 2 11/29/24 22:34 11/29/24 22:40 Temperature 100.2 F H 100.2 F H Temperature Source Oral Pulse Rate 105 H Respiratory Rate 16 Respiratory Effort Respiratory Depth Respiratory Pattern Blood Pressure 146/86 H Blood Pressure Mean 106 Pulse Ox 97 Oxygen Delivery Method Oxygen Flow Rate (L/min) Weight Weight: 102.557 kg Body Mass Index (BMI) 38.8 Physical Exam Const alert, oriented x3 and no apparent distress Constitutional Narrative: Middle-age female, class II obesity, mildly fatigued appearing but otherwise sitting up comfortably in bed, conversing normally, in no acute distress. General Appearance: cooperative and comfortable HEENT normocephalic, head/scalp atraumatic, hearing grossly normal bilaterally, nasal mucous membranes and turbinates normal and moist oral mucous membranes Eyes PERRL, EOMs intact bilaterally and conjunctivae normal Neck full ROM Chest inspection of chest normal Resp normal respiratory effort and no use of accessory muscles Resp Narrative: Breathing comfortably on 2 L nasal cannula at rest. Mild to moderate and expiratory wheezes noted bilaterally with mildly diminished breath sounds. No crackles noted. Cardio regular rate, regular rhythm, no murmurs and peripheral pulses 2+ throughout GI normal to inspection, nondistended, normoactive bowel sounds, soft to palpation, non-tender and non-distended Back/Spine normal ROM Extremity normal to inspection, full ROM and no pedal edema Skin no rashes or lesions noted Psych mental status grossly normal Results Lab / Micro Data 11/29/24 19:47 11/29/24 19:47 Labs: Laboratory Results - last 24 hr 11/29/24 19:47: WBC 13.5 H, RBC 4.54, Hgb 12.5, Hct 38.7, MCV 85.2, MCH 27.5, MCHC 32.3, RDW Std Deviation 47.3 H, RDW Coeff of Sanjana 15.4 H, Plt Count 339, MPV 9.2, Immature Gran % (Auto) 0.600, Neut % (Auto) 76.8 H, Lymph % (Auto) 14.9 L, [place] % (Auto) 5.2, Eos % (Auto) 2.1, Baso % (Auto) 0.4, Absolute Neuts (auto) 10.4 H, Absolute Lymphs (auto) 2.01, Nucleated RBC % 0, Sodium 137, Potassium 3.0 L, Chloride 100, Carbon Dioxide 30.0, Anion Gap 7, BUN 8, Creatinine 0.76, Estim Creat Clear Calc 97.50, Est GFR (MDRD) Af Amer 102, Est GFR (MDRD) Non-Af 84, BUN/Creatinine Ratio 10.6, Glucose 127 H, Calcium 9.2 11/29/24 21:30: Lactic Acid 1.5 Micro: Microbiology 11/29/24 21:32 Mucosa - Nose SARS-CoV-2, Influenza & RSV (PCR) - Final Imaging Radiology Impression Chest X-Ray 11/29/24 19:40 IMPRESSION: No acute radiographic abnormalities. Electronically Signed: Chris Heck MD at 20:49 EST , Assessment & Plan Assessment/Plan (1) Hypoxia: (2) COPD exacerbation: (3) Hypokalemia: PLAN: Plan Patient is a 54-year-old female who presented [facility] ED on 11/29/2024 with worsening shortness of breath and flulike symptoms. 1. Acute hypoxia secondary to COPD exacerbation ? Admit under inpatient status to [facility]. No official COPD diagnosis but patient with extensive smoking history and presentation consistent with COPD exacerbation. Chest x-ray unremarkable. COVID/flu/RSV negative. Pro-Boy normal. Further infectious workup pending but low concern for bacterial infection. Will treat with IV steroids and scheduled DuoNebs for now, will hold off on any antibiotics. Was requiring 2 L nasal cannula with exertion in the ED, does not wear oxygen at home. Wean supplemental oxygen as able. 2. Hypokalemia ? Potassium 3.0 on admit. Mag and Phos normal. Repleted on admit, follow-up a.m. potassium level. 3. Tobacco use disorder ? Current smoker, smokes 0.5 to 1 packs/day. Discussed cessation. Denied need for nicotine replacement therapy while inpatient. Chronic medical conditions: ? Class II obesity: BMI 37 on admit. Encouraged lifestyle modifications. Complicates hospital course, care and prognosis. ? Type 2 diabetes mellitus: Last A1c 6.2% in June. On home metformin and Trulicity. Blood glucose 127 on admit. Will treat with sliding scale insulin with meals while inpatient. ? Hypertension: Continue home lisinopril. ? GERD: Continue home PPI. ? Anxiety/depression: Stable. Continue home venlafaxine. DVT prophylaxis: Lovenox CODE STATUS: Full code, verified Expected disposition: Home, 2 to 3 days Total clinical time spent by myself addressing the patient's medical issues, reviewing all the data, and collaborating with patient's care team: 55 minutes. Charges/Coding Visit Charges Inpatient E&M: 17257 Init Hosp L2
[2024-11-29] MEDS: MethylPREDNISolone 125 MG/2 ML Vial IV (23:01)
[2024-11-29] MEDS: Doxycycline 100 MG CAPSULE PO (23:01)
[2024-11-29 23:16] LABS: Magnesium 2.1 mg/dL (1.6-2.6); Phosphorus 2.9 mg/dL (2.5-4.9)
[2024-11-29 23:32] LABS: Bacteria 0 SEEN /hpf (None Seen); Color, Urine Yellow (Yellow); Glucose, Dipstick Normal (Normal); Ketone-Dipstick Negative (Negative); Leukocyte Esterase-Dipstick Negative /ul (Negative); Mucous, Urine 0 SEEN /hpf (<or=2+); Nitrite-Dipstick Negative (Negative); Occult Blood-Urine Negative /ul (Negative); Protein-Dipstick Negative (Negative); Red Blood Cells-Urine 0 SEEN /hpf (0-5); Urine Bilirubin Dipstick Negative (Negative); Urine Clarity Clear (Clear); Urine Urobilinogen 1 mg/dl (Normal); Urine pH 6.5 (5.0 - 8.0); White Blood Cells 0 SEEN /hpf (0-5)
[2024-11-29 23:50] LABS: Squamous Epithelial Cells - UA 0-5 SEEN /hpf (5-10)
[2024-11-30] VITALS (11 sets, daily range): BP systolic 129–149; BP diastolic 67–90; PULSE 75–102; RESP 13–20; TEMP 36.4–37.4; O2SAT 93–98; BMI 37.4
[2024-11-30 00:09] LABS: Procalcitonin 0.08 ng/mL (0.00-0.09)
[2024-11-30] MEDS: Potassium Chloride Oral Tablet 20 MEQ 40 MEQ PO (04:33)
[2024-11-30] MEDS: 0.9% Saline Lock 10 ML Syringe IV ×3 (05:25→21:04)
[2024-11-30] MEDS: Ibuprofen 600 MG Tablet PO ×2 (05:26→21:06)
[2024-11-30] MEDS: Insulin Lispro 100 UNIT/ML INSULN.PEN SC ×4 (06:07→21:06)
[2024-11-30 06:43] LABS: Hematocrit 36.8 % (37-47); Hemoglobin 11.7 g/dL (12.0-15.0); Mean Corp Hgb Conc 31.8 g/dL (32-36); Mean Corpuscular Hgb 27.7 pg (27.0-32.0); Mean Platelet Vol. 10.1 fl (6.2-12.0); Platelet Count 321 K/mm3 (150-450); RBC Distribution Width CV 15.1 % (11.6-14.6); RBC Distribution Width SD 47.8 fl (35.1-43.9); Red Blood Count 4.23 M/mm3 (4.2-5.4); White Blood Count 13.4 K/mm3 (4.4-11.0)
[2024-11-30] MEDS: Ipratropium/Albuterol Sulfate 3 ML AMPUL.NEB INHALATION ×4 (07:06→20:01)
[2024-11-30 07:08] LABS: Bedside Glucose 230 mg/dL (74-106)
[2024-11-30 07:33] LABS: Anion Gap 9 (5-15); BUN 8 mg/dL (7-18); BUN/Creat Ratio 10.1 RATIO (10-20); Calcium,Total 9.1 mg/dL (8.5-10.1); Chloride 102 mmol/L (98-107); Creatinine, Serum 0.79 mg/dL (0.55-1.02); EST Glomerular Filtration Rate 80 mL/min (>60); Est Glom Filt Rate - Afr Amer 96 mL/min (>60); Estimated Creatinine Clearance 91.99 ml/min; Glucose 244 mg/dL (74-106); Potassium 3.3 mmol/L (3.5-5.1); Sodium Level 135 mmol/L (136-145)
--- NOTE | 2024-11-30 08:17 | PCM.PN.HOSP ---
Reason for Visit Reason for Visit: Diagnoses Hypokalemia (11/29/24) Chronic obstructive pulmonary disease with (acute) exacerbation (11/29/24) Hypoxemia (11/29/24) Subjective Subjective Patient is a 54-year-old female who presented with increasing shortness of breath and flulike symptoms. Imaging studies obtained did not show any acute radiographic abnormalities. Patient respiratory viral assay came back positive for RSV A Objective Data Objective Data Vital Signs: Vital Signs Temp Pulse Resp BP Pulse Ox O2 Del Method O2 Flow Rate 97.9 F 96 18 146/86 H 97 Nasal Cannula 3 11/30/24 08:13 11/30/24 08:13 11/30/24 08:13 11/30/24 08:13 11/30/24 08:13 11/30/24 08:14 11/30/24 08:14 Oxygen Flow Rate (L/min) 3 Oxygen Delivery Method Nasal Cannula Weight: 98.997 kg Body Mass Index (BMI) 37.4 Intake & Output: Intake and Output for Last 24 Hours 11/28/24 11/29/24 11/30/24 23:59 23:59 23:59 Intake Total 1000 / 1000 Balance 1000 / 1000 Lab / Micro Data 11/30/24 06:00 11/30/24 06:00 Labs: Laboratory Results - last 24 hr 11/29/24 19:47: WBC 13.5 H, RBC 4.54, Hgb 12.5, Hct 38.7, MCV 85.2, MCH 27.5, MCHC 32.3, RDW Std Deviation 47.3 H, RDW Coeff of Sanjana 15.4 H, Plt Count 339, MPV 9.2, Immature Gran % (Auto) 0.600, Neut % (Auto) 76.8 H, Lymph % (Auto) 14.9 L, [place] % (Auto) 5.2, Eos % (Auto) 2.1, Baso % (Auto) 0.4, Absolute Neuts (auto) 10.4 H, Absolute Lymphs (auto) 2.01, Nucleated RBC % 0, Sodium 137, Potassium 3.0 L, Chloride 100, Carbon Dioxide 30.0, Anion Gap 7, BUN 8, Creatinine 0.76, Estim Creat Clear Calc 97.50, Est GFR (MDRD) Af Amer 102, Est GFR (MDRD) Non-Af 84, BUN/Creatinine Ratio 10.6, Glucose 127 H, Calcium 9.2, Phosphorus 2.9, Magnesium 2.1 11/29/24 21:30: Lactic Acid 1.5 11/29/24 23:27: Urine Color Yellow, Urine Clarity Clear, Urine pH 6.5, Ur Specific [place] 1.010, Urine Protein Negative, Urine Glucose (UA) Normal, Urine Ketones Negative, Urine Occult Blood Negative, Urine Nitrite Negative, Urine Bilirubin Negative, Urine Urobilinogen 1 H, Ur Leukocyte Esterase Negative, Urine RBC 0 SEEN, Urine WBC 0 SEEN, Ur Squamous Epith Cells 0-5 SEEN, Urine Bacteria 0 SEEN, Urine Mucus 0 SEEN 11/29/24 23:35: Procalcitonin 0.08 11/30/24 06:00: WBC 13.4 H, RBC 4.23, Hgb 11.7 L, Hct 36.8 L, MCV 87.0, MCH 27.7, MCHC 31.8 L, RDW Std Deviation 47.8 H, RDW Coeff of Sanjana 15.1 H, Plt Count 321, MPV 10.1, Sodium 135 L, Potassium 3.3 L, Chloride 102, Carbon Dioxide 24.0, Anion Gap 9, BUN 8, Creatinine 0.79, Estim Creat Clear Calc 91.99, Est GFR (MDRD) Af Amer 96, Est GFR (MDRD) Non-Af 80, BUN/Creatinine Ratio 10.1, Glucose 244 H, Calcium 9.1 11/30/24 06:03: POC Glucose 230 H Micro: Microbiology 11/30/24 02:10 Mucosa - Nose Respiratory Panel (PCR) - Final RSV A 11/29/24 21:32 Mucosa - Nose SARS-CoV-2, Influenza & RSV (PCR) - Final Radiography Diagnostic Testing: Radiology Impression Chest X-Ray 11/29/24 19:40 IMPRESSION: No acute radiographic abnormalities. Electronically Signed: Chris Heck MD at 20:49 EST , Physical Exam Narrative GENERAL: cooperative HEENT: Atraumatic; normocephalic EYES; Anicteric, Normal Conjunctiva NECK; supple, normal thyroid, RESPIRATORY: Diminished to auscultation CARDIOVASCULAR: Regular S1 S2, GI: soft, normoactive bowel sounds, : No Renal angle tenderness; EXTREMITIES: No edema, no clubbing, MUSCULOSKELETAL: no muscle wasting NEURO: Awake; no lateralizing signs. SKIN: No Rash PSYCH; Flat affect Assessment & Plan Assessment/Plan (1) Hypoxia: (2) COPD exacerbation: (3) Hypokalemia: PLAN: Plan Patient is a 54-year-old female who presented with increasing shortness of breath and flulike symptoms. Imaging studies obtained did not show any acute radiographic abnormalities. Patient respiratory viral assay came back positive for RSV A 1. Acute hypoxia ? Secondary to combination of COPD with acute exacerbation and RSV infection admitted to regular nursing floor for further management 2. COPD with acute exacerbation ? Patient started on bronchodilator treatment, systemic steroid as well as antibiotic therapy. Patient placed on oxygen titrated to keep saturation greater than 90. 3. RSV infection ? Symptom management 4. Hypokalemia -Corrected per protocol 5. Tobacco dependence ? Counseled on cessation, offered nicotine patch for tobacco cravings 6. Class II obesity with BMI of 37.5 ? Complicating care weight loss advised 7. Diabetes mellitus type II -patient's oral hypoglycemics held. Placed on long acting insulin, Accu-Cheks a.c. and at bedtime and covered with sliding scale insulin 8. Hypertension ? Blood pressure controlled, home medications continued with dose adjustment as needed 9. GERD ? On PPI 10. Depression with anxiety ? Patient is on venlafaxine did contain 11. DVT prophylaxis ? On enoxaparin Time spent in the patient's overall evaluation,decision-making process, review of diagnostic data, adjustment of management, discussion with other providers, nursing nursing and ancillary staff involved in patient's care documentation, 52 Minutes Charges/Coding Visit Charges Inpatient E&M: 13764 Subs Hosp L3
[2024-11-30] MEDS: Venlafaxine XR 150 MG Capsule PO (08:26)
[2024-11-30] MEDS: Lisinopril 20 MG Tablet PO (08:27)
[2024-11-30] MEDS: Pantoprazole Sodium 40 MG Tablet PO ×2 (08:27→21:06)
[2024-11-30] MEDS: Enoxaparin 40 MG/0.4 ML Syringe SC (08:27)
[2024-11-30] MEDS: Ascorbic Acid 500 MG Tablet 1000 MG PO (08:27)
[2024-11-30] MEDS: FLU VACC 2024-25(6MOS UP)/PF 45 MCG/0.5 ML SYRINGE IM (08:31)
[2024-11-30] MEDS: Potassium Chloride Oral Tablet 20 MEQ PO ×2 (08:39→17:15)
--- NOTE | 2024-11-30 10:15 | CASEMGMT ---
JOLENE GALICIA Assessment: Face to Face with pt for initial transition planning/care coordination assessment. JOLENE GALICIA introduced self and role at [facility], pt voices understanding and consents to assessment. Pt is A&O x4 and answers all questions appropriately at this time. Pt lying in bed with oxygen on in no distress. Care providers, pharmacy, and demographics verified/updated. Admitting Dx: suspected CAP with COPD exac and hypoxia Strata Score: 2 PCP:Qasim Specialists:[facility]; [facility] Preferred Pharmacy: [facility] Insurance: [facility] Prescription Benefit: yes LNOK: Boris Abbasi, son; Cadence Abbasi, mike Living Arrangements: Pt lives with son, mike and 5 grandchildren in a two story home with one step to enter. Pt reports she has FFSU. Pt reports she is I in ADLs/IADLs and denies concerns at home. Transportation: Pt drives self and denies concerns with transportation. DME:[facility] HHC/SNF:Denies hx of Pt states no concerns with going home at time of dc. Provided pt with a verbal local in network list of DME companies should she qualify for oxygen, pt chose [employer]. Pt states no further concerns/needs. CM to follow. Advised pt to ask CM if any further questions/concerns/needs arise, voices understanding. Pt Goal: Home Plan: Home, follow for oxygen Dandy FERNÁNDEZ CM
[2024-11-30 12:43] LABS: Bedside Glucose 259 mg/dL (74-106)
[2024-11-30] MEDS: Glucerna Shake 120 ML LIQUID PO ×2 (14:44→17:16)
[2024-11-30 17:25] LABS: Bedside Glucose 274 mg/dL (74-106)
[2024-11-30] MEDS: MELATONIN 3 MG TABLET PO (21:06)
[2024-11-30 21:30] LABS: Bedside Glucose 255 mg/dL (74-106)
[2024-12-01] VITALS (7 sets, daily range): BP systolic 145–160; BP diastolic 90–94; PULSE 75–99; RESP 16–18; TEMP 36.4–36.7; O2SAT 84–96
[2024-12-01] MEDS: 0.9% Saline Lock 10 ML Syringe IV (06:13)
[2024-12-01] MEDS: Insulin Lispro 100 UNIT/ML INSULN.PEN SC ×2 (06:14→12:05)
[2024-12-01 06:21] LABS: Absolute Lymphocyte Count 1.73 X10^3/uL (0.83-4.51); Absolute Neutrophil Count 22.9 X10^3/uL (2.0-7.7); Basophil# 0.05 X10^3/uL; Basophil% 0.2 % (0-1); Hematocrit 35.3 % (37-47); Hemoglobin 11.2 g/dL (12.0-15.0); Lymphocyte # 1.73 X10^3/ul (0.83-4.51); Lymphocyte % 6.6 % (19-41); Mean Corp Hgb Conc 31.7 g/dL (32-36); Mean Corpuscular Hgb 27.5 pg (27.0-32.0); Mean Corpuscular Volume 86.7 fL (81-99); Monocyte# 1.04 X10^3/uL; NRBC Flagged by Analyzer 0 % (0-5); Neutrophil # 22.87 X10^3/uL (2.7-7.7); Neutrophil % 87.6 % (47-70); POSITIVE DIFFERENTIAL YES; Platelet Count 331 K/mm3 (150-450); RBC Distribution Width CV 14.9 % (11.6-14.6); RBC Distribution Width SD 47.3 fl (35.1-43.9); Red Blood Count 4.07 M/mm3 (4.2-5.4); White Blood Count 26.1 K/mm3 (4.4-11.0)
[2024-12-01 06:55] LABS: Anion Gap 7 (5-15); BUN 13 mg/dL (7-18); BUN/Creat Ratio 20.2 RATIO (10-20); Calcium,Total 9.3 mg/dL (8.5-10.1); Chloride 104 mmol/L (98-107); Creatinine, Serum 0.64 mg/dL (0.55-1.02); EST Glomerular Filtration Rate 101 mL/min (>60); Est Glom Filt Rate - Afr Amer 122 mL/min (>60); Estimated Creatinine Clearance 113.55 ml/min; Glucose 210 mg/dL (74-106); Magnesium 2.2 mg/dL (1.6-2.6); Phosphorus 3.8 mg/dL (2.5-4.9); Potassium 3.8 mmol/L (3.5-5.1); Sodium Level 136 mmol/L (136-145)
[2024-12-01] MEDS: Ipratropium/Albuterol Sulfate 3 ML AMPUL.NEB INHALATION ×3 (07:04→15:47)
[2024-12-01 07:08] LABS: Bedside Glucose 205 mg/dL (74-106)
[2024-12-01 07:08] LABS: Differential Indicated SCAN CRITERIA MET
--- NOTE | 2024-12-01 07:25 | PCM.PN.HOSP ---
Reason for Visit Reason for Visit: Diagnoses Hypokalemia (11/29/24) Chronic obstructive pulmonary disease with (acute) exacerbation (11/29/24) Hypoxemia (11/29/24) Subjective Subjective Patient seen overall clinical condition improving patient has however experienced significant bump in her WBC count. Is on IV Solu-Medrol discontinued started patient on prednisone. With patient significant increase in her WBC count ordered repeat chest x-ray to rule out developing pneumonia Objective Data Objective Data Vital Signs: Vital Signs Temp Pulse Resp BP Pulse Ox O2 Del Method O2 Flow Rate 97.5 F L 91 18 150/90 H 95 Nasal Cannula 2 12/01/24 02:38 12/01/24 02:38 12/01/24 02:38 12/01/24 02:38 12/01/24 02:38 12/01/24 02:40 12/01/24 02:38 Oxygen Flow Rate (L/min) 2 Oxygen Delivery Method Nasal Cannula Weight: 98.997 kg Body Mass Index (BMI) 37.4 Intake & Output: Intake and Output for Last 24 Hours 11/29/24 11/30/24 12/01/24 23:59 23:59 23:59 Intake Total 1000 / 1000 1400 / 1400 Balance 1000 / 1000 1400 / 1400 Lab / Micro Data 12/01/24 05:55 12/01/24 05:55 Labs: Laboratory Results - last 24 hr 11/30/24 06:00: Sodium 135 L, Potassium 3.3 L, Chloride 102, Carbon Dioxide 24.0, Anion Gap 9, BUN 8, Creatinine 0.79, Estim Creat Clear Calc 91.99, Est GFR (MDRD) Af Amer 96, Est GFR (MDRD) Non-Af 80, BUN/Creatinine Ratio 10.1, Glucose 244 H, Calcium 9.1 11/30/24 12:09: POC Glucose 259 H 11/30/24 17:02: POC Glucose 274 H 11/30/24 20:59: POC Glucose 255 H 12/01/24 05:55: WBC 26.1 H, RBC 4.07 L, Hgb 11.2 L, Hct 35.3 L, MCV 86.7, MCH 27.5, MCHC 31.7 L, RDW Std Deviation 47.3 H, RDW Coeff of Sanjana 14.9 H, Plt Count 331, MPV 10.0, Immature Gran % (Auto) 1.600 H, Neut % (Auto) 87.6 H, Lymph % (Auto) 6.6 L, [place] % (Auto) 4.0, Eos % (Auto) 0.0, Baso % (Auto) 0.2, Absolute Neuts (auto) 22.9 H, Absolute Lymphs (auto) 1.73, Nucleated RBC % 0, Sodium 136, Potassium 3.8, Chloride 104, Carbon Dioxide 25.0, Anion Gap 7, BUN 13, Creatinine 0.64, Estim Creat Clear Calc 113.55, Est GFR (MDRD) Af Amer 122, Est GFR (MDRD) Non-Af 101, BUN/Creatinine Ratio 20.2 H, Glucose 210 H, Calcium 9.3, Phosphorus 3.8, Magnesium 2.2 12/01/24 06:12: POC Glucose 205 H Micro: Microbiology 11/30/24 02:10 Mucosa - Nose Respiratory Panel (PCR) - Final RSV A 11/29/24 21:32 Mucosa - Nose SARS-CoV-2, Influenza & RSV (PCR) - Final Physical Exam Narrative GENERAL: cooperative HEENT: Atraumatic; normocephalic EYES; Anicteric, Normal Conjunctiva NECK; supple, normal thyroid, RESPIRATORY: Diminished to auscultation CARDIOVASCULAR: Regular S1 S2, GI: soft, normoactive bowel sounds, : No Renal angle tenderness; EXTREMITIES: No edema, no clubbing, MUSCULOSKELETAL: no muscle wasting NEURO: Awake; no lateralizing signs. SKIN: No Rash PSYCH; Flat affect Assessment & Plan Assessment/Plan (1) Hypoxia: (2) COPD exacerbation: (3) Hypokalemia: PLAN: Plan Patient is a 54-year-old female who presented with increasing shortness of breath and flulike symptoms. Imaging studies obtained did not show any acute radiographic abnormalities. Patient respiratory viral assay came back positive for RSV A 1. Acute hypoxia ? Secondary to combination of COPD with acute exacerbation and RSV infection admitted to regular nursing floor for further management -12/01/2024Patient seen overall clinical condition improving patient has however experienced significant bump in her WBC count. Is on IV Solu-Medrol discontinued started patient on prednisone. With patient significant increase in her WBC count ordered repeat chest x-ray to rule out developing pneumonia 2. COPD with acute exacerbation ? Patient started on bronchodilator treatment, systemic steroid as well as antibiotic therapy. Patient placed on oxygen titrated to keep saturation greater than 90. 3. RSV infection ? Symptom management 4. Hypokalemia -Corrected per protocol 5. Tobacco dependence ? Counseled on cessation, offered nicotine patch for tobacco cravings 6. Class II obesity with BMI of 37.5 ? Complicating care weight loss advised 7. Diabetes mellitus type II -patient's oral hypoglycemics held. Placed on long acting insulin, Accu-Cheks a.c. and at bedtime and covered with sliding scale insulin 8. Hypertension ? Blood pressure controlled, home medications continued with dose adjustment as needed 9. GERD ? On PPI 10. Depression with anxiety ? Patient is on venlafaxine did contain 11. DVT prophylaxis ? On enoxaparin Time spent in the patient's overall evaluation,decision-making process, review of diagnostic data, adjustment of management, discussion with other providers, nursing nursing and ancillary staff involved in patient's care documentation, 38 minutes Charges/Coding Visit Charges Inpatient E&M: 17987 Subs Hosp L2
[2024-12-01] MEDS: Glucerna Shake 120 ML LIQUID PO ×2 (10:03→12:07)
[2024-12-01] MEDS: Enoxaparin 40 MG/0.4 ML Syringe SC (10:03)
[2024-12-01] MEDS: Ibuprofen 600 MG Tablet PO (10:04)
[2024-12-01] MEDS: Ascorbic Acid 500 MG Tablet 1000 MG PO (10:04)
[2024-12-01] MEDS: Pantoprazole Sodium 40 MG Tablet PO (10:04)
[2024-12-01] MEDS: Potassium Chloride Oral Tablet 20 MEQ PO (10:04)
[2024-12-01] MEDS: Venlafaxine XR 150 MG Capsule PO (10:04)
[2024-12-01] MEDS: Lisinopril 20 MG Tablet PO (10:04)
[2024-12-01 12:29] LABS: Bedside Glucose 303 mg/dL (74-106)
--- NOTE | 2024-12-01 13:35 | RAD_ITS ---
INDICATION: dyspnea EXAMINATION/TECHNIQUE: X-RAY - XR Chest 2 Views COMPARISON: Prior study dated: 11/29/2024 FINDINGS: LINES/DEVICES: Cervical fusion hardware noted. LUNGS: The lungs are well expanded. No consolidation, edema or effusion. No pneumothorax. MEDIASTINUM AND CARDIOVASCULAR STRUCTURES: Cardiac silhouette not enlarged. Central airways and mediastinal contour are unremarkable. BONES AND SOFT TISSUES: No acute abnormality. RAD/Chest PA and Lateral IMPRESSION: No acute pulmonary finding. Electronically Signed: Aashish Bowen MD at 22:08 EST ,
--- NOTE | 2024-12-01 14:48 | DS.PCM_ITS ---
Providers Date of Admission: 11/29/24 Date of Discharge: 12/01/24 Primary Care Physician: Dr. Ginger Tripp MD Reason For Visit: SUSPECTED CAP W/ COPD EXACERBATION AND HYPOXIA Diagnosis Discharge Diagnosis (1) Hypoxia: Status: Acute Code(s): R09.02 - Hypoxemia (2) COPD exacerbation: Status: Chronic Code(s): J44.1 - Chronic obstructive pulmonary disease with (acute) exacerbation (3) Hypokalemia: Status: Acute Code(s): E87.6 - Hypokalemia Plan Patient is a 54-year-old female who presented with increasing shortness of breath and flulike symptoms. Imaging studies obtained did not show any acute radiographic abnormalities. Patient respiratory viral assay came back positive for RSV A 1. Acute hypoxia ? Secondary to combination of COPD with acute exacerbation and RSV infection admitted to regular nursing floor for further management -12/01/2024Patient seen overall clinical condition improving patient has however experienced significant bump in her WBC count. Is on IV Solu-Medrol discontinued started patient on prednisone. With patient significant increase in her WBC count ordered repeat chest x-ray to rule out developing pneumonia ?I have reviewed the oxygen testing, and this patient qualifies for the home equipment and portability. The patient is mobile in the home and the community. 2. COPD with acute exacerbation ? Patient started on bronchodilator treatment, systemic steroid as well as antibiotic therapy. Patient placed on oxygen titrated to keep saturation greater than 90. 3. RSV infection ? Symptom management 4. Hypokalemia -Corrected per protocol 5. Tobacco dependence ? Counseled on cessation, offered nicotine patch for tobacco cravings 6. Class II obesity with BMI of 37.5 ? Complicating care weight loss advised 7. Diabetes mellitus type II -patient's oral hypoglycemics held. Placed on long acting insulin, Accu-Cheks a.c. and at bedtime and covered with sliding scale insulin 8. Hypertension ? Blood pressure controlled, home medications continued with dose adjustment as needed 9. GERD ? On PPI 10. Depression with anxiety ? Patient is on venlafaxine did contain 11. DVT prophylaxis ? On enoxaparin Time spent in the patient's overall evaluation,decision-making process, review of diagnostic data, adjustment of management, discussion with other providers, nursing nursing and ancillary staff involved in patient's care documentation, 38 minutes Medications at Discharge Home Medications potassium 99 mg tablet 99 mg PO DAILY SUPPLEMENT 02/14/19 vitamin B complex (B Complex-Vitamin B12 tablet) 1 tab PO .QOD SUPPLEMENT 09/10/22 ondansetron 4 mg disintegrating tablet 4 mg PO Q8H PRN PRN Nausea #14 tabs 11/12/23 cholecalciferol (vitamin D3) 1,250 mcg (50,000 unit) tablet 1,250 mcg PO QWEEK SUPPLEMENT #14 tabs 06/06/24 blood sugar diagnostic (FreeStyle Lite Strips) #100 ea 07/21/24 blood-glucose meter (FreeStyle Lite Meter kit) #1 ea 07/21/24 lancets 28 gauge (FreeStyle Lancets) #100 ea 07/21/24 lisinopril 20 mg tablet 20 mg PO DAILY for blood pressure #90 TABLETS 09/01/24 venlafaxine 150 mg capsule,extended release 24 hr See Rx Instructions .Route .COMPLEX #90 caps 09/20/24 ibuprofen 800 mg tablet 800 mg PO Q8H PRN PRN for pain #60 TABLETS 10/13/24 dulaglutide 0.75 mg/0.5 mL subcutaneous pen injector (Trulicity) 0.75 mg (0.5 mL) subcut QWEEK #2 mL 10/23/24 omeprazole 40 mg capsule,delayed release 40 mg PO BID #60 caps 11/03/24 ascorbic acid (vitamin C) 1,000 mg tablet,extended release (C Complex) 1,000 mg PO DAILY 11/29/24 krill oil PO 11/29/24 metformin 500 mg tablet,extended release 24 hr 1,000 mg PO LUNCH blood glucose 11/29/24 doxycycline hyclate 100 mg capsule 100 mg PO BID #14 caps 12/01/24 guaifenesin 600 mg tablet, extended release 12 hr (Mucinex) 1,200 mg (2 x 600 mg) PO BID #28 tabs 12/01/24 potassium chloride 20 mEq tablet,extended release(part/cryst) 20 meq PO BIDCM #20 tabs 12/01/24 prednisone 20 mg tablet 40 mg (2 x 20 mg) PO BREAKFAST #10 tabs 12/01/24 Physical Exam Narrative GENERAL: cooperative HEENT: Atraumatic; normocephalic EYES; Anicteric, Normal Conjunctiva NECK; supple, normal thyroid, RESPIRATORY: Diminished to auscultation CARDIOVASCULAR: Regular S1 S2, GI: soft, normoactive bowel sounds, : No Renal angle tenderness; EXTREMITIES: No edema, no clubbing, MUSCULOSKELETAL: no muscle wasting NEURO: Awake; no lateralizing signs. SKIN: No Rash PSYCH; Flat affect Weight / BMI Weight Weight: 98.997 kg Body Mass Index (BMI) 37.4 ABG / Lab / Microbiology Data 12/01/24 05:55 12/01/24 05:55 Laboratory: Laboratory Results - last 24 hr 11/30/24 17:02: POC Glucose 274 H 11/30/24 20:59: POC Glucose 255 H 12/01/24 05:55: WBC 26.1 H, RBC 4.07 L, Hgb 11.2 L, Hct 35.3 L, MCV 86.7, MCH 27.5, MCHC 31.7 L, RDW Std Deviation 47.3 H, RDW Coeff of Sanjana 14.9 H, Plt Count 331, MPV 10.0, Immature Gran % (Auto) 1.600 H, Neut % (Auto) 87.6 H, Lymph % (Auto) 6.6 L, Marin % (Auto) 4.0, Eos % (Auto) 0.0, Baso % (Auto) 0.2, Absolute Neuts (auto) 22.9 H, Absolute Lymphs (auto) 1.73, Nucleated RBC % 0, Sodium 136, Potassium 3.8, Chloride 104, Carbon Dioxide 25.0, Anion Gap 7, BUN 13, Creatinine 0.64, Estim Creat Clear Calc 113.55, Est GFR (MDRD) Af Amer 122, Est GFR (MDRD) Non-Af 101, BUN/Creatinine Ratio 20.2 H, Glucose 210 H, Calcium 9.3, Phosphorus 3.8, Magnesium 2.2 12/01/24 06:12: POC Glucose 205 H 12/01/24 11:57: POC Glucose 303 H Microbiology: Microbiology 11/30/24 02:10 Mucosa - Nose Respiratory Panel (PCR) - Final RSV A 11/29/24 21:32 Mucosa - Nose SARS-CoV-2, Influenza & RSV (PCR) - Final D/C Instructions Discharge Diet: 1800 Calorie Control Diet Discharge Activity: Return to Normal Activity Call your doctor if you observe: Fever of 101 or Higher, Shortness of breath, Fainting spells and Chest pain DC O2, CPAP, BIPAP Needs RN Home O2 Qualification: Home O2 Qualification: Is the patient on home oxygen No 12/01/24 15:30 Home O2 Qualification: AT REST 1- Pulse Ox at rest 94 12/01/24 15:30 Home O2 Qualification: WITH AMBULATION 1- Pulse Ox with ambulation 84 12/01/24 15:30 1- Oxygen Flow Rate with 0 12/01/24 15:30 ambulation 2- Pulse Ox with ambulation 93 12/01/24 15:30 2- Oxygen Flow Rate with 2 12/01/24 15:30 ambulation Home O2 Discharge instructions: Yes Type of respiratory needs?: Oxygen (2L) Oxygen frequency: With Ambulation Oxygen liters per minute during Ambulation: 2L DC home with Oxygen: Yes Home O2 MD Review: I have reviewed the oxygen testing, and the patient qualifies for home oxygen equipment and portability. The patient is mobile in the home and the community. Meaningful Use Info Meaningful Use Meaningful Use Diagnoses (Choose all that apply): None applicable Ischemic Stroke Statin Dosing Therapy Reference: STATIN DOSE THERAPY REFERENCE: * Patients > 75 years receive moderate or high dose statin therapy. * Patients 75 years or YOUNGER should receive HIGH intensity statin dose unless contraindicated. You will be required to document reason for non-treatment if statin daily dose does not meet guidelines. HIGH DOSE STATIN THERAPY DAILY Atorvastatin > than or = to 40 mg Rosuvastatin > than or = to 20 mg Amlodipine + Atorvastatin > than or = to 2.5/40 mg Ezetimibe + Simvastatin 10/80 mg Simvastatin 80mg Discharge Plan Admission Admit Date/Time: 11/29/24 22:53 Attending Provider: Keanu Schuler Primary Care Provider: Ginger Tripp Consulting Providers: Josué Lua Discharge Orders/Prescriptions Prescriptions: New prednisone 20 mg Tablet 40 mg PO BREAKFAST Qty: 10 0RF potassium chloride 20 mEq Tablet,Er Particles/Crystals 20 meq PO BIDCM Qty: 20 0RF doxycycline hyclate 100 mg capsule 100 mg PO BID Qty: 14 0RF guaifenesin [Mucinex] 600 mg tablet extended release 12hr 1,200 mg PO BID Qty: 28 0RF Continued potassium 99 MG tablet 99 mg PO DAILY ondansetron 4 mg tablet,disintegrating 4 mg PO Q8H PRN PRN (Reason: Nausea) Qty: 14 0RF C Complex 1,000 mg tablet extended release 1,000 mg PO DAILY krill oil PO metformin 500 mg tablet extended release 24 hr 1,000 mg PO LUNCH vitamin B complex [B Complex-Vitamin B12] Tablet 1 tab PO .QOD Rx Instructions: 1 TAB orally every other day; cholecalciferol (vitamin D3) 1,250 mcg (50,000 unit) tablet 1,250 mcg PO QWEEK Qty: 14 2RF (DME) blood-glucose meter [FreeStyle Lite Meter] Kit See Rx Instructions .ROUTE .MEDSUPPLY Qty: 1 0RF Rx Instructions: As directed (DME) FreeStyle Lite Strips Strip See Rx Instructions .ROUTE .MEDSUPPLY Qty: 100 2RF Rx Instructions: As directed (DME) lancets [FreeStyle Lancets] 28 gauge misc See Rx Instructions .ROUTE .MEDSUPPLY Qty: 100 3RF Rx Instructions: As directed lisinopril 20 mg tablet 20 mg PO DAILY Qty: 90 0RF venlafaxine 150 mg capsule,extended release 24hr See Rx Instructions .ROUTE .COMPLEX Qty: 90 0RF Dose Instruction: TAKE 1 CAPSULE BY MOUTH EVERY DAY Rx Instructions: TAKE 1 CAPSULE BY MOUTH EVERY DAY ibuprofen 800 mg tablet 800 mg PO Q8H PRN PRN (Reason: for pain) Qty: 60 0RF Trulicity 0.75 mg/0.5 mL pen injector 0.75 mg subcut QWEEK Qty: 2 2RF omeprazole 40 mg capsule,delayed release(DR/EC) 40 mg PO BID Qty: 60 2RF Other Ambulatory Orders: CBC W/Diff, Automated (Routine) Timeframe: 20241204 Facility: [facility] - Location: Laboratory Ordered By: Dr. Keanu Schuler Referrals / Follow Up: Ginger Tripp MD [Primary Care Provider] - Within 1 Week Disposition Disposition (needs filled in before D/C Order can be placed): Home, Self Care Charges/Coding Visit Charges Inpatient E&M: 41289 Disch Hosp >30min
--- NOTE | 2024-12-01 15:53 | CASEMGMT ---
[facility] [place] [facility] No further homegoing needs at this time.
== END 2024-12-01 17:00 | disposition home or self-care (01) | DRG 140 ==
LOC: ED 21:50 → MS3 11-30 00:35
PROVIDERS: Admitting Provider Hospitalist; Emergency Provider Emergency Medicine; PCP Internal Medicine; Visit Provider Internal Medicine
DX: J44.1 Chronic obstructive pulmonary disease with (acute) exacerbation (principal); B97.4 Respiratory syncytial virus as the cause of diseases classified elsewhere; E11.9 Type 2 diabetes mellitus without complications; I10 Essential (primary) hypertension; E66.812 Obesity, class 2; E87.6 Hypokalemia; K21.9 Gastro-esophageal reflux disease without esophagitis; J20.9 Acute bronchitis, unspecified; G43.909 Migraine, unspecified, not intractable, without status migrainosus; F41.8 Other specified anxiety disorders; Z68.37 Body mass index [BMI] 37.0-37.9, adult; Z79.84 Long term (current) use of oral hypoglycemic drugs; Z79.85 Long-term (current) use of injectable non-insulin antidiabetic drugs; Z98.51 Tubal ligation status; Z87.891 Personal history of nicotine dependence
CPT/HCPCS: 36415; 71045; 71046; 80048; 81001; 82962; 83605; 83735; 84100; 84145; 85025; 85027; 87631; 87633; 90656; 94640; 94668; 94760; 97802; 99284; 99406; A4216

== ENCOUNTER → 2025-05-29 | Outpatient (CLI) | payer MEDICAID, SELFPAY ==
[2025-05-29 12:47] LABS: Hematocrit 36.8 % (37-47); Hemoglobin 12.0 g/dL (12.0-15.0); Immature Granulocytes Count 0.030 X10^3/uL (0.0-0.0); Mean Corp Hgb Conc 32.6 g/dL (32-36); Mean Corpuscular Volume 90.9 fL (81-99); Mean Platelet Vol. 10.4 fl (6.2-12.0); NRBC Flagged by Analyzer 0 % (0-5); Platelet Count 314 K/mm3 (150-450); RBC Distribution Width CV 16.0 % (11.6-14.6); RBC Distribution Width SD 51.6 fl (35.1-43.9); Red Blood Count 4.05 M/mm3 (4.2-5.4); White Blood Count 8.1 K/mm3 (4.4-11.0)
[2025-05-29 14:18] LABS: AST(SGOT) 18 U/L (<=31); Alanine Aminotransfer ALT/SGPT 18 U/L (<=34); Albumin, Serum 4.1 g/dL (3.5-5.0); Alkaline Phosphatase 90 U/L (35-104); Anion Gap 11 (5-15); BUN 17 mg/dL (4-19); BUN/Creat Ratio 24.1 RATIO (10-20); Calcium,Total 9.6 mg/dL (7.6-11.0); Carbon Dioxide 26.0 mmol/L (21.0-32.0); Chloride 104 mmol/L (98-108); Globulin 2.7 g/dL (2.2-4.2); Glucose 117 mg/dL (70-99); Potassium 3.6 mmol/L (3.3-5.1)
[2025-05-29 14:46] LABS: Vitamin D,25 Hydroxy 114.0 ng/mL (30-100)
== END | disposition home or self-care (01) ==
LOC: BIMLAB 09:19
PROVIDERS: PCP Internal Medicine; Referring Provider Internal Medicine; Visit Provider Internal Medicine
DX: I10 Essential (primary) hypertension (principal); E11.69 Type 2 diabetes mellitus with other specified complication; E56.9 Vitamin deficiency, unspecified
CPT/HCPCS: 36415; 80053; 82306; 83036; 85025

== ENCOUNTER → 2025-05-30 | Outpatient (CLI) | payer MEDICAID, SELFPAY ==
[2025-05-30 17:06] LABS: Creatinine, Urine (random) 132.00 mg/dL (28.00-217.00)
[2025-05-30 17:10] LABS: Microalbumin,Random Urine < 12.0 mg/L (NO RANGE EST.)
== END | disposition home or self-care (01) ==
LOC: LABSPEC 13:19
PROVIDERS: PCP Internal Medicine; Referring Provider Internal Medicine; Visit Provider Internal Medicine
DX: E11.69 Type 2 diabetes mellitus with other specified complication (principal)
CPT/HCPCS: 82043; 82570

== ENCOUNTER → 2025-08-28 | Outpatient (CLI) | payer MEDICAID, SELFPAY ==
[2025-08-28 18:19] LABS: AST(SGOT) 21 U/L (<=31); Alanine Aminotransfer ALT/SGPT 21 U/L (<=34); Albumin, Serum 4.1 g/dL (3.5-5.0); Alkaline Phosphatase 95 U/L (35-104); Anion Gap 13 (5-15); BUN 15 mg/dL (4-19); BUN/Creat Ratio 19.1 RATIO (10-20); Calcium,Total 9.9 mg/dL (7.6-11.0); Carbon Dioxide 26.7 mmol/L (21.0-32.0); Chloride 102 mmol/L (98-108); Cholesterol 153 mg/dL (<=200); Globulin 3.1 g/dL (2.2-4.2); Glucose 106 mg/dL (70-99); Low Density Lipoprotein Calc. 61 mg/dL; Potassium 3.9 mmol/L (3.3-5.1); Triglycerides 119 mg/dL; Very Low Density Lipoprotein 24 mg/dL (5-40); cholesterol:hdl ratio screen 2.23
== END | disposition home or self-care (01) ==
LOC: MTLAB 15:45
PROVIDERS: PCP Internal Medicine; Referring Provider Physician Assistant; Visit Provider Physician Assistant
DX: E11.69 Type 2 diabetes mellitus with other specified complication (principal)
CPT/HCPCS: 36415; 80053; 80061; 83036

== ENCOUNTER → 2025-08-29 | Outpatient (CLI) | payer MEDICAID, SELFPAY ==
--- NOTE | 2025-08-29 14:34 | VDLE_ITS ---
Reason For Study Reason For Study: RLE Swelling RIGHT LEFT GSV is normal. CFV is compressible, spontaneous, phasic, competent, CFV is compressible, spontaneous, phasic, competent and demonstrates normal augmentation. and demonstrates normal augmentation. FV is compressible, spontaneous, phasic, competent and demonstrates normal augmentation. POP V is compressible, spontaneous, phasic, competent and demonstrates normal augmentation. T/P Trunk is compressible. PTV is compressible. RT PerV is compressible. Procedure This is a venous duplex using B-mode, color flow and spectral Doppler. Exam performed in department. The exam was diagnostic. A preliminary report was called and/or faxed to [facility]. VL/Venous Duplex US, Unilateral Interpretation Summary Deep veins of the right lower extremity are patent and compressible segmentally . There is no evidence of right lower extremity deep vein thrombosis. Valvular competence appears intact within the p roximal deep venous system on the right . The right great saphenous vein appears patent and compressible segmentally. The left common femoral vein is patent and compressible . Ordering Physician: Edmundo Roper Referring Physician: Ginger Tripp Performed By: Israel Tee RVT and Student
== END | disposition home or self-care (01) ==
LOC: CVS 14:32
PROVIDERS: PCP Internal Medicine; Referring Provider Physician Assistant; Visit Provider Physician Assistant
DX: I70.92 Chronic total occlusion of artery of the extremities (principal); M79.89 Other specified soft tissue disorders
CPT/HCPCS: 93971